=== PATIENT | female | born 1945 | race Caucasian/White ===

== ENCOUNTER → 2016-05-21 | Outpatient (CLI) | payer MEDICARE, BC | LOC: MW.CHFP 08:00 | PROVIDERS: ATTEND Nurse Practitioner Family | DX: I10 Essential (primary) hypertension (principal); F32.9 Major depressive disorder, single episode, unspecified; C34.90 Malignant neoplasm of unspecified part of unspecified bronchus or lung; I50.9 Heart failure, unspecified | CPT/HCPCS: G0463 ==

== ENCOUNTER 2016-05-24 11:05 | Inpatient (IN) | payer MEDICARE, BC ==
[2016-05-24] MEDS ORDERED: Acetaminophen 325 MG Tab PO ONE (11:29)
--- NOTE | 2016-05-24 11:31 | EDM.PDOC ---
ED HISTORY OF PRESENT ILLNESS - General Chief Complaint: Respiratory Problem Stated Complaint: PT STATES SHE THINK SHE HAS PNEUMONIA Time Seen by Provider: 05/24/16 11:27 Source of Information: Reports: Patient History Limitations: Reports: No limitations - History of Present Illness INITIAL COMMENTS - FREE TEXT/NARRATIVE: HISTORY AND PHYSICAL: [71-year-old female presenting with fever last night coughing she thinks she has pneumonia] History of Present Illness: [Patient has been coughing for one week Patient's last chemotherapy was 3 weeks ago 3 weeks ago had a port inserted Recent hospitalization for Klebsiella pneumonia in urine and was on vancomycin] Review of Systems: As per history of present illness and below otherwise all systems reviewed and negative. Past medical history: As per history of present illness and as reviewed below otherwise noncontributory. Surgical history: As per history of present illness and as reviewed below otherwise noncontributory. Social history: No reported history of drug or alcohol abuse. Family history: As per history of present illness and as reviewed below otherwise noncontributory. Physical exam: Alert oriented female. Answering questions appropriately. Complains of pain to the back of left chest with breathing. HEENT: Atraumatic, normocehpalic, pupils reactive, negative for conjunctival pallor or scleral icterus, mucous membranes moist, throat clear, neck supple, nontender, trachea midline. Lungs: Coarse to auscultation, breath sounds equal bilaterally, chest non tender. Diminished on right. Heart: S1S2, regular, negative for clicks, rubs, or JVD. Abdomen: Soft, nondistended, nontender. Negative for masses or hepatossplenmegaly. Negative for costovertebral tenderness. Extremities: Atraumatic, negative for cords or calf pain. Neurovascular unremarkable. Neuro: Awake, alert, oriented. Cranial nerves II through XII unremarkable. Cerebellum unremarkable. Motor and sensory unremarkable throughout. Exam nonfocal. Discussed case with Dr. Garry Olson who accepted patient for admission. Discussed with the patient and her son, need for his mission with her pneumonia and her leukocytosis. Diagnostics: [CBC CMP influenza blood cultures x2] Therapeutics: [Tylenol Rocephin IV] Impression: [Right lower lobe pneumonia Leukocytosis] Plan: [Admission] Definitive disposition and diagnosis as appropriate pending reevaluation and review of above. Timing/Duration: Reports: Day(s): Severity: moderate Location, General: Reports: chest Improves with: Reports: None Worsens with: Reports: Breathing, Movement Associated Symptoms (General): Reports: cough w sputum (brown) - Related Data Allergies/ADRs: Allergies Allergy/AdvReac Type Severity Reaction Status Date / Time cinnamon Allergy Shortness Verified 05/24/16 11:32 of Breath dust Allergy Shortness Uncoded 05/24/16 11:32 of Breath Febreeze Allergy Shortness Uncoded 05/24/16 11:32 of Breath pinecone Allergy Shortness Uncoded 05/24/16 11:32 of Breath Home Meds: Home Meds Metoprolol Tartrate [Lopressor] 50 mg PO BID 02/08/16 [History] Omeprazole 20 mg PO ACBREAKFAST 02/08/16 [History] Ramipril 10 mg PO BID 02/08/16 [History] Gabapentin [Neurontin] 400 mg PO QID 02/23/16 [History] amLODIPine Besylate [Norvasc] 2.5 mg PO DAILY #30 tablet 03/04/16 [Rx] Sodium Chloride 1 gm PO DAILY 03/22/16 [History] Furosemide 20 mg PO DAILY 04/22/16 [History] Potassium Chloride 20 meq PO DAILY 04/22/16 [History] traMADol [Ultram] 50 mg PO ASDIRECTED PRN 04/22/16 [History] Aspirin [Ecotrin] 81 mg PO DAILY 04/23/16 [History] Budesonide/Formoterol [Symbicort 160-4.5 MCG] 2 inh IH BID 04/23/16 [History] Fluticasone Propionate [Flonase] 1 spray NASBOTH DAILY 04/23/16 [History] Loratadine/Pseudoephedrine [Claritin-D 24 Hour Tablet] 1 tab PO DAILY 04/23/16 [ History] Magnesium Oxide 400 mg PO BID 04/23/16 [History] NaPh,Mb-Db/K Ph,MB-DB [Phos-NaK Powder] 1 packet PO DAILY 04/23/16 [History] Ondansetron [Ondansetron ODT] 8 mg PO Q8H PRN 04/23/16 [History] Polyethylene Glycol 3350 [MiraLAX] 17 gm PO DAILY PRN 04/23/16 [History] Sennosides/Docusate Sodium [Senna S Tablet] 2 tab PO BEDTIME 04/23/16 [History] Simvastatin [Zocor] 80 mg PO BEDTIME 04/25/16 [History] Past Medical History HEENT History: Reports: Cataract, Impaired vision Other HEENT History: Cataract surgeries on both eyes Cardiovascular History: Reports: High cholesterol, Hypertension, PVD, Other ( see below) Respiratory History: Reports: COPD, Other (see below) Other Respiratory History: admitted to the hospital 1 week ago for pneumonia, Gastrointestinal History: Reports: GERD Other Gastrointestinal History: liver cancer Genitourinary History: Reports: Renal disease, Other (see below) Other Genitourinary History: Pt states "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: Musculoskeletal History: Reports: Arthritis Neurological History: Reports: Neuropathy, peripheral Psychiatric History: Reports: Anxiety Hematologic History: Reports: Blood transfusion(s) Other Hematologic History: last blood transfusion while in hospital 1 week ago with pneumonia Oncologic (Cancer) History: Reports: Squamous cell carcinoma Other Oncologic History: liver cancer, states does not know the source - Infectious Disease History Infectious Disease History: Reports: Chicken pox, Mumps - Past Surgical History GI Surgical History: Reports: Appendectomy Social & Family History - Family History Family Medical History: Noncontributory HEENT: Reports: Cataract, Impaired vision Cardiac: Reports: CAD, High cholesterol, Hypertension, [place] Respiratory: Reports: COPD OBGYN: Reports: Musculoskeletal: Reports: Arthritis Psychiatric: Reports: Anxiety, Depression Oncologic: Reports: Lung - Tobacco Use Smoking Status *Q: Never Smoker Years of Tobacco use: 55 Packs/Tins Daily: 1 Used Tobacco, but Quit: Yes Month Tobacco Last Used: September 2015 Second Hand Smoke Exposure: No - Caffeine Use Caffeine Use: Reports: Coffee Caffeine Use Comment: 1-2cups/day - Recreational Drug Use Recreational Drug Use: No ED ROS GENERAL - Review of Systems Review Of Systems: ROS reveals no pertinent complaints other than HPI. ED EXAM, GENERAL - Physical Exam Exam: See Below (See dictation) Course - Vital Signs Last Recorded V/S: Last Vital Signs Temp 37.7 C 05/24/16 11:05 Pulse 78 05/24/16 11:05 Resp 16 05/24/16 11:05 BP 107/53 L 05/24/16 11:05 Pulse Ox 96 03/11/17 11:05 - Orders/Labs/Meds Orders: Active Orders 24 hr Category Date Time Status Chest 2V [CR] Stat Exams 05/24/16 11:30 Taken CULTURE BLOOD [BC] Stat Lab 05/24/16 11:58 Ordered CULTURE BLOOD [BC] Stat Lab 05/24/16 11:58 Ordered LACTIC ACID,WHOLE BLOOD [BG] Stat Lab 05/24/16 11:58 Ordered cefTRIAXone [Rocephin in Dextrose,Iso-Osm 1 GM/50 ML] 1 Med 05/24/16 12:21 Active gm Premix Bag 1 bag IV ONETIME Blood Culture x2 Reflex Set [OM.PC] Stat Oth 05/24/16 11:58 Ordered Medication Orders Ceftriaxone Sodium/Dextrose 1 (gm/ Premix) 50 mls @ 100 mls/hr IV ONETIME ONE Stop: 05/24/16 12:50 Labs: Laboratory Tests 05/24/16 05/24/16 05/24/16 Range/Units 11:40 11:40 11:54 WBC 26.32 H (4.0-11.0) K/uL RBC 2.64 L (4.30-5.90) M/uL Hgb 7.9 L (12.0-16.0) g/dL Hct 24.5 L (36.0-46.0) % MCV 92.8 (80.0-98.0) fL MCH 29.9 (27.0-32.0) pg MCHC 32.2 (31.0-37.0) g/dL RDW Std Deviation 53.7 (28.0-62.0) fl RDW Coeff of [place] 16 H (11.0-15.0) % Plt Count 220 (150-400) K/uL MPV 10.10 (7.40-12.00) fL Add Manual Diff YES Neutrophils % (Manual) 85 H (48.0-80.0) % Band Neutrophils % 7 % Lymphocytes % (Manual) 3 L (16.0-40.0) % Monocytes % (Manual) 5 (0.0-15.0) % Nucleated RBC % 0.0 /100WBC Absolute Seg Neuts 22.4 Band Neutrophils # 1.8 Lymphocytes # (Manual) 0.8 Monocytes # (Manual) 1.3 Nucleated RBCs # 0 K/uL Sodium 136 (136-146) mmol/L Potassium 4.1 (3.5-5.1) mmol/L Chloride 103 (98-110) mmol/L Carbon Dioxide 23 (21-31) mmol/L BUN 18 (6.0-23.0) mg/dL Creatinine 1.3 (0.6-1.5) mg/dL Est Cr Clr Drug Dosing 29.34 mL/min Estimated GFR (MDRD) 40.6 ml/min Glucose 104 (60-110) mg/dL Calcium 9.1 (8.8-10.8) mg/dL Total Bilirubin 0.6 (0.1-1.5) mg/dL AST 16 (5-40) IU/L ALT 14 (8-54) IU/L Alkaline Phosphatase 182 H (40-150) Total Protein 6.5 (6.0-8.0) g/dL Albumin 3.5 (3.4-4.8) g/dL Globulin 3.0 (2.0-3.5) g/dL Albumin/Globulin Ratio 1.2 L (1.3-2.8) Urine Color YELLOW Urine Appearance CLEAR Urine pH 5.5 (5.0-8.0) Ur Specific [place] 1.015 (1.001-1.035) Urine Protein NEGATIVE (NEGATIVE) mg/dL Urine Glucose (UA) NEGATIVE (NEGATIVE) mg/dL Urine Ketones NEGATIVE (NEGATIVE) mg/dL Urine Occult Blood NEGATIVE (NEGATIVE) Urine Nitrite NEGATIVE (NEGATIVE) Urine Bilirubin NEGATIVE (NEGATIVE) Urine Urobilinogen 0.2 (<2.0) EU/dL Ur Leukocyte Esterase NEGATIVE (NEGATIVE) Urine RBC 0-1 (0-2/HPF) Urine WBC 1-3 (0-5/HPF) Ur Epithelial Cells OCCASIONAL (NONE-FEW) Urine Bacteria RARE (NEGATIVE) Meds: Medications Generic Name Dose Route Start Last Admin Trade Name Freq PRN Reason Stop Dose Admin Ceftriaxone Sodium/Dextrose 1 50 mls @ 100 mls/hr 05/24/16 12:21 gm/ Premix IV 05/24/16 12:50 ONETIME ONE Discontinued Medications Generic Name Dose Route Start Last Admin Trade Name Freq PRN Reason Stop Dose Admin Acetaminophen 650 mg 05/24/16 11:29 05/24/16 11:32 Tylenol PO 05/24/16 11:30 650 mg NOW ONE Administration Departure - Departure Time of Disposition: 12:35 Disposition: Admitted As Inpatient 68 Condition: good Clinical Impression: Pneumonia Qualifiers: Pneumonia type: due to unspecified organism Laterality: right Lung location: lower lobe of lung Qualified Code(s): J18.1 - Lobar pneumonia, unspecified organism Forms: ED Department Discharge - My Orders Last 24 Hours: My Active Orders 05/24/16 11:30 Chest 2V [CR] Stat 05/24/16 11:58 CULTURE BLOOD [BC] Stat CULTURE BLOOD [BC] Stat LACTIC ACID,WHOLE BLOOD [BG] Stat Blood Culture x2 Reflex Set [OM.PC] Stat 05/24/16 12:21 cefTRIAXone [Rocephin in Dextrose,Iso-Osm 1 GM/50 ML] 1 gm Premix Bag 1 bag IV ONETIME - Assessment/Plan Last 24 Hours: My Active Orders 05/24/16 11:30 Chest 2V [CR] Stat 05/24/16 11:58 CULTURE BLOOD [BC] Stat CULTURE BLOOD [BC] Stat LACTIC ACID,WHOLE BLOOD [BG] Stat Blood Culture x2 Reflex Set [OM.PC] Stat 05/24/16 12:21 cefTRIAXone [Rocephin in Dextrose,Iso-Osm 1 GM/50 ML] 1 gm Premix Bag 1 bag IV ONETIME
[2016-05-24] MEDS ORDERED: cefTRIAXone 1 GM in Premix Bag 1 BAG IV ONE (12:21)
[2016-05-24] MEDS ORDERED: Azithromycin 500 MG in Sodium Chloride 0.9% 250 ML IV ONE (13:13)
[2016-05-24] MEDS ORDERED: Ondansetron 4 MG/2 ML SDV IVPUSH PRN (13:21)
[2016-05-24] MEDS ORDERED: Sodium Chloride 0.9% 1,000 ML IV SCH (13:30)
--- NOTE | 2016-05-24 13:59 | PCM.HP ---
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 She was hospitalized last month for pneumonia and UTI. She has been doing well at home until last night she developed fevers, chills, and myalgias. She reported productive cough, pleuritic chest pain, and shortness of breath. She has a port in place and her last chemotherapy was three weeks ago. Generalized Pain Score (Numeric/FACES): 5 - Related Data Allergies/Adverse Reactions: Allergies Allergy/AdvReac Type Severity Reaction Status Date / Time cinnamon Allergy Shortness Verified 05/24/16 11:32 of Breath dust Allergy Shortness Uncoded 05/24/16 11:32 of Breath Febreeze Allergy Shortness Uncoded 05/24/16 11:32 of Breath pinecone Allergy Shortness Uncoded 05/24/16 11:32 of Breath Home Medications: Home Meds Metoprolol Tartrate [Lopressor] 50 mg PO BID 02/08/16 [History] Omeprazole 20 mg PO ACBREAKFAST 02/08/16 [History] Ramipril 10 mg PO BID 02/08/16 [History] Gabapentin [Neurontin] 400 mg PO QID 02/23/16 [History] amLODIPine Besylate [Norvasc] 2.5 mg PO DAILY #30 tablet 03/04/16 [Rx] Sodium Chloride 1 gm PO DAILY 03/22/16 [History] Furosemide 20 mg PO DAILY 04/22/16 [History] Potassium Chloride 20 meq PO DAILY 04/22/16 [History] traMADol [Ultram] 50 mg PO ASDIRECTED PRN 04/22/16 [History] Aspirin [Ecotrin] 81 mg PO DAILY 04/23/16 [History] Budesonide/Formoterol [Symbicort 160-4.5 MCG] 2 inh IH BID 04/23/16 [History] Fluticasone Propionate [Flonase] 1 spray NASBOTH DAILY 04/23/16 [History] Loratadine/Pseudoephedrine [Claritin-D 24 Hour Tablet] 1 tab PO DAILY 04/23/16 [ History] Magnesium Oxide 400 mg PO BID 04/23/16 [History] NaPh,Mb-Db/K Ph,MB-DB [Phos-NaK Powder] 1 packet PO DAILY 04/23/16 [History] Ondansetron [Ondansetron ODT] 8 mg PO Q8H PRN 04/23/16 [History] Polyethylene Glycol 3350 [MiraLAX] 17 gm PO DAILY PRN 04/23/16 [History] Sennosides/Docusate Sodium [Senna S Tablet] 2 tab PO BEDTIME 04/23/16 [History] Simvastatin [Zocor] 80 mg PO BEDTIME 04/25/16 [History] QUEtiapine Fumarate [Seroquel] 300 mg PO BEDTIME 05/24/16 [History] Past Medical History HEENT History: Reports: Cataract, Impaired vision Other HEENT History: Cataract surgeries on both eyes Cardiovascular History: Reports: High cholesterol, Hypertension, PVD, Other ( see below) Respiratory History: Reports: COPD, Other (see below) Other Respiratory History: admitted to the hospital 1 week ago for pneumonia, Gastrointestinal History: Reports: GERD Other Gastrointestinal History: liver cancer Genitourinary History: Reports: Renal disease, Other (see below) Other Genitourinary History: Pt states "My 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: Musculoskeletal History: Reports: Arthritis Neurological History: Reports: Neuropathy, peripheral Psychiatric History: Reports: Anxiety Hematologic History: Reports: Blood transfusion(s) Other Hematologic History: last blood transfusion while in hospital 1 week ago with pneumonia Oncologic (Cancer) History: Reports: Squamous cell carcinoma Other Oncologic History: liver cancer, states does not know the source - Infectious Disease History Infectious Disease History: Reports: Chicken pox, Mumps - Past Surgical History GI Surgical History: Reports: Appendectomy Social & Family History - Family History Family Medical History: Noncontributory HEENT: Reports: Cataract, Impaired vision Cardiac: Reports: CAD, High cholesterol, Hypertension, [place] Respiratory: Reports: COPD OBGYN: Reports: Musculoskeletal: Reports: Arthritis Psychiatric: Reports: Anxiety, Depression Oncologic: Reports: Lung - Tobacco Use Smoking Status *Q: Never Smoker Years of Tobacco use: 55 Packs/Tins Daily: 1 Used Tobacco, but Quit: Yes Month Tobacco Last Used: September 2015 Second Hand Smoke Exposure: No - Caffeine Use Caffeine Use: Reports: Coffee Caffeine Use Comment: 1-2cups/day - Recreational Drug Use Recreational Drug Use: No H&P Review of Systems - Review of Systems: Review Of Systems: See Below General: Reports: fever, chills, malaise, night sweats HEENT: Reports: no symptoms Pulmonary: Reports: shortness of breath, pleuritic chest pain, cough, sputum Cardiovascular: Reports: no symptoms. Denies: orthopnea, edema Gastrointestinal: Reports: No symptoms Genitourinary: Reports: no symptoms Musculoskeletal: Reports: no symptoms Skin: Reports: no symptoms Psychiatric: Reports: no symptoms Neurological: Reports: no symptoms Hematologic/Lymphatic: Reports: no symptoms Immunologic: Reports: no symptoms Exam - Exam Exam: See Below - Vital Signs Vital Signs: Last Vital Signs Temp 36.6 C 05/24/16 13:13 Pulse 87 05/24/16 13:13 Resp 18 05/24/16 13:13 BP 95/42 L 05/24/16 13:13 Pulse Ox 94 L 05/24/16 13:13 Weight: 61 kg - Exam General: alert, oriented, 4 HEENT: Conjunctiva clear, Mucosa moist & pink Lungs: Clear to auscultation, Normal respiratory effort Cardiovascular: regular rate, regular rhythm Abdomen: normal bowel sounds, soft Extremities: normal inspection. No: edema - Patient Data Lab Results last 24 hrs: Laboratory Results - last 24 hr 05/24/16 05/24/16 05/24/16 Range/Units 11:40 11:40 11:54 WBC 26.32 H (4.0-11.0) K/uL RBC 2.64 L (4.30-5.90) M/uL Hgb 7.9 L (12.0-16.0) g/dL Hct 24.5 L (36.0-46.0) % MCV 92.8 (80.0-98.0) fL MCH 29.9 (27.0-32.0) pg MCHC 32.2 (31.0-37.0) g/dL RDW Std Deviation 53.7 (28.0-62.0) fl RDW Coeff of [place] 16 H (11.0-15.0) % Plt Count 220 (150-400) K/uL MPV 10.10 (7.40-12.00) fL Add Manual Diff YES Neutrophils % (Manual) 85 H (48.0-80.0) % Band Neutrophils % 7 % Lymphocytes % (Manual) 3 L (16.0-40.0) % Monocytes % (Manual) 5 (0.0-15.0) % Nucleated RBC % 0.0 /100WBC Absolute Seg Neuts 22.4 Band Neutrophils # 1.8 Lymphocytes # (Manual) 0.8 Monocytes # (Manual) 1.3 Nucleated RBCs # 0 K/uL Lactate (0.20-2.00) mmol/L Sodium 136 (136-146) mmol/L Potassium 4.1 (3.5-5.1) mmol/L Chloride 103 (98-110) mmol/L Carbon Dioxide 23 (21-31) mmol/L BUN 18 (6.0-23.0) mg/dL Creatinine 1.3 (0.6-1.5) mg/dL Est Cr Clr Drug Dosing 29.34 mL/min Estimated GFR (MDRD) 40.6 ml/min Glucose 104 (60-110) mg/dL Calcium 9.1 (8.8-10.8) mg/dL Total Bilirubin 0.6 (0.1-1.5) mg/dL AST 16 (5-40) IU/L ALT 14 (8-54) IU/L Alkaline Phosphatase 182 H (40-150) Total Protein 6.5 (6.0-8.0) g/dL Albumin 3.5 (3.4-4.8) g/dL Globulin 3.0 (2.0-3.5) g/dL Albumin/Globulin Ratio 1.2 L (1.3-2.8) Urine Color YELLOW Urine Appearance CLEAR Urine pH 5.5 (5.0-8.0) Ur Specific [place] 1.015 (1.001-1.035) Urine Protein NEGATIVE (NEGATIVE) mg/dL Urine Glucose (UA) NEGATIVE (NEGATIVE) mg/dL Urine Ketones NEGATIVE (NEGATIVE) mg/dL Urine Occult Blood NEGATIVE (NEGATIVE) Urine Nitrite NEGATIVE (NEGATIVE) Urine Bilirubin NEGATIVE (NEGATIVE) Urine Urobilinogen 0.2 (<2.0) EU/dL Ur Leukocyte Esterase NEGATIVE (NEGATIVE) Urine RBC 0-1 (0-2/HPF) Urine WBC 1-3 (0-5/HPF) Ur Epithelial Cells OCCASIONAL (NONE-FEW) Urine Bacteria RARE (NEGATIVE) 05/24/16 Range/Units 12:27 WBC (4.0-11.0) K/uL RBC (4.30-5.90) M/uL Hgb (12.0-16.0) g/dL Hct (36.0-46.0) % MCV (80.0-98.0) fL MCH (27.0-32.0) pg MCHC (31.0-37.0) g/dL RDW Std Deviation (28.0-62.0) fl RDW Coeff of [place] (11.0-15.0) % Plt Count (150-400) K/uL MPV (7.40-12.00) fL Add Manual Diff Neutrophils % (Manual) (48.0-80.0) % Band Neutrophils % % Lymphocytes % (Manual) (16.0-40.0) % Monocytes % (Manual) (0.0-15.0) % Nucleated RBC % /100WBC Absolute Seg Neuts Band Neutrophils # Lymphocytes # (Manual) Monocytes # (Manual) Nucleated RBCs # K/uL Lactate 0.7 (0.20-2.00) mmol/L Sodium (136-146) mmol/L Potassium (3.5-5.1) mmol/L Chloride (98-110) mmol/L Carbon Dioxide (21-31) mmol/L BUN (6.0-23.0) mg/dL Creatinine (0.6-1.5) mg/dL Est Cr Clr Drug Dosing mL/min Estimated GFR (MDRD) ml/min Glucose (60-110) mg/dL Calcium (8.8-10.8) mg/dL Total Bilirubin (0.1-1.5) mg/dL AST (5-40) IU/L ALT (8-54) IU/L Alkaline Phosphatase (40-150) Total Protein (6.0-8.0) g/dL Albumin (3.4-4.8) g/dL Globulin (2.0-3.5) g/dL Albumin/Globulin Ratio (1.3-2.8) Urine Color Urine Appearance Urine pH (5.0-8.0) Ur Specific [place] (1.001-1.035) Urine Protein (NEGATIVE) mg/dL Urine Glucose (UA) (NEGATIVE) mg/dL Urine Ketones (NEGATIVE) mg/dL Urine Occult Blood (NEGATIVE) Urine Nitrite (NEGATIVE) Urine Bilirubin (NEGATIVE) Urine Urobilinogen (<2.0) EU/dL Ur Leukocyte Esterase (NEGATIVE) Urine RBC (0-2/HPF) Urine WBC (0-5/HPF) Ur Epithelial Cells (NONE-FEW) Urine Bacteria (NEGATIVE) Result Diagrams: 05/25/16 06:30 05/25/16 06:30 Jeremias Results last 24 hrs: Microbiology 05/24/16 11:35 Influenza Type A Antigen Screen - Final Nasal, Unspecified NEGATIVE INFLUENZA A VIRUS AG Influenza Type B Antigen Screen - Final NEGATIVE INFLUENZA B VIRUS AG 05/24/16 11:35 Respiratory Syncytial Virus Ag Scrn - Final Nasal, Unspecified NEGATIVE RSV ANTIGEN Imaging Impressions last 24 hrs: CXR: right lower lung infiltrate *Q Meaningful Use (ADM) - VTE *Q VTE Criteria *Q: - Stroke *Q Stroke Criteria *Q: - AMI *Q AMI Criteria *Q: Problem List Initiated/Reviewed/Updated: Yes Orders Last 24hrs: Active Orders 24 hr Category Date Time Status Patient Status [ADT] Stat ADT 05/24/16 12:31 Active Antiembolic Devices [RC] PER UNIT ROUTINE Care 05/24/16 13:21 Active Oxygen Therapy [RC] PRN Care 05/24/16 13:18 Active Up ad Kathy [RC] ASDIRECTED Care 05/24/16 13:17 Active VTE/DVT Education [RC] PER UNIT ROUTINE Care 05/24/16 13:18 Active Vital Signs [RC] Q4H Care 05/24/16 13:18 Active Regular Diet [DIET] Diet 05/24/16 Breakfast Active Chest 2V [CR] Stat Exams 05/24/16 11:30 Taken BASIC METABOLIC PANEL,BMP [CHEM] AM Lab 05/25/16 05:11 Ordered BASIC METABOLIC PANEL,BMP [CHEM] AM Lab 05/26/16 05:11 Ordered BASIC METABOLIC PANEL,BMP [CHEM] AM Lab 05/27/16 05:11 Ordered CBC W/O DIFF,HEMOGRAM [HEME] AM Lab 05/25/16 05:11 Ordered CBC W/O DIFF,HEMOGRAM [HEME] AM Lab 05/26/16 05:11 Ordered CBC W/O DIFF,HEMOGRAM [HEME] AM Lab 05/27/16 05:11 Ordered CULTURE BLOOD [BC] Stat Lab 05/24/16 12:13 Received CULTURE BLOOD [BC] Stat Lab 05/24/16 12:27 Received CULTURE BLOOD [BC] Stat Lab 05/24/16 13:48 Received CULTURE SPUTUM + SMEAR [] Routine Lab 05/24/16 13:13 Uncollected Aspirin [Halfprin] Med 05/25/16 09:00 Active 81 mg PO DAILY Azithromycin [Zithromax] Med 05/25/16 13:15 Active 250 mg PO Q24H Azithromycin [Zithromax] 500 mg Med 05/24/16 13:13 Active Sodium Chloride 0.9% [Normal Saline] 250 ml IV ONETIME Enoxaparin [Lovenox] Med 05/25/16 09:00 Active 40 mg SUBCUT DAILY Fluticasone Propionate [Flonase] Med 05/25/16 09:00 Active 16 gm NASBOTH DAILY Gabapentin [Neurontin] Med 05/24/16 18:00 Active 400 mg PO QID Ondansetron [Zofran] Med 05/24/16 13:21 Active 4 mg IVPUSH Q4H PRN Simvastatin [Zocor] Med 05/24/16 21:00 Active 80 mg PO BEDTIME Sodium Chloride 0.9% [Normal Saline] 1,000 ml Med 05/24/16 13:30 Active IV ASDIRECTED amLODIPine [Norvasc] Med 05/25/16 09:00 Active 2.5 mg PO DAILY cefTRIAXone [Rocephin in Dextrose,Iso-Osm 1 GM/50 ML] 1 Med 05/25/16 13:15 Active gm Premix Bag 1 bag IV Q24H Blood Culture x2 Reflex Set [OM.PC] Stat Oth 05/24/16 11:58 Ordered Blood Culture x2 Reflex Set [OM.PC] Stat Oth 05/24/16 13:08 Ordered Sequential Compression Device [OM.PC] Per Unit Routine Oth 05/24/16 13:18 Ordered Resuscitation Status Routine Resus Stat 05/24/16 13:17 Ordered Medication Orders Amlodipine Besylate (Norvasc) 2.5 mg PO DAILY PRIYANK Aspirin (Halfprin) 81 mg PO DAILY PRIYANK Azithromycin (Zithromax) 250 mg PO Q24H PRIYANK Enoxaparin Sodium (Lovenox) 40 mg SUBCUT DAILY PRIYANK Fluticasone Propionate (Flonase) 16 gm NASBOTH DAILY PRIYANK Gabapentin (Neurontin) 400 mg PO QID PRIYANK Azithromycin 500 mg/ Sodium (Chloride) 250 mls @ 250 mls/hr IV ONETIME ONE Stop: 05/24/16 14:12 Ceftriaxone Sodium/Dextrose 1 (gm/ Premix) 50 mls @ 100 mls/hr IV Q24H PRIYANK Sodium Chloride (Normal Saline) 1,000 mls @ 125 mls/hr IV ASDIRECTED [facility] Stop: 05/24/16 19:00 Ondansetron HCl (Zofran) 4 mg IVPUSH Q4H PRN PRN Reason: Nausea Simvastatin (Zocor) 80 mg PO BEDTIME [facility] Assessment/Plan Comment:: 71 yo female admitted for community acquired pneumonia. We will treat with Rocephin and azithromycin, blood and sputum cultures are pending.
[2016-05-24] MEDS: Gabapentin 100 MG Cap PO SCH ×2 (17:41→23:20)
[2016-05-24] MEDS ORDERED: QUEtiapine 100 MG Tab PO ONE (20:00)
[2016-05-24] MEDS: Simvastatin 40 MG Tab PO SCH (20:09)
[2016-05-24] MEDS ORDERED: Metoprolol Tartrate 50 MG Tab PO SCH (21:00)
[2016-05-24] MEDS: QUEtiapine 100 MG Tab PO SCH (21:36)
[2016-05-25] MEDS: Gabapentin 100 MG Cap PO SCH ×3 (06:30→17:28)
[2016-05-25] MEDS: Fluticasone Propionate Nasal Spray 16 GM Bottle NASBOTH SCH (08:29)
[2016-05-25] MEDS: Aspirin 81 MG Tab.EC PO SCH (08:30)
[2016-05-25] MEDS: Acetaminophen 325 MG Tab PO PRN (08:30)
[2016-05-25] MEDS: Enoxaparin 40 MG/0.4 ML Syringe SUBCUT SCH (08:32)
[2016-05-25] MEDS: amLODIPine 2.5 MG Tab PO SCH (08:33)
--- NOTE | 2016-05-25 08:54 | PCM.PN ---
- Review of Systems Systems Review Comment:: reports fatigue and myalgias, minimal improvement in cough and shortness of breath. - Patient Data Vitals - most recent: Last Vital Signs Temp 38.1 C 05/25/16 04:00 Pulse 85 05/25/16 04:00 Resp 20 05/25/16 04:00 BP 117/55 L 05/25/16 04:00 Pulse Ox 92 L 05/25/16 04:00 Weight - most recent: 61 kg I&O - last 24 hours: Intake & Output 05/24/16 05/25/16 05/25/16 21:59 06:59 14:59 Intake Total Output Total Balance Lab Results last 24 hrs: Laboratory Results - last 24 hr 05/25/16 05/25/16 Range/Units 06:30 06:30 WBC 19.50 H (4.0-11.0) K/uL RBC 2.25 L (4.30-5.90) M/uL Hgb 6.7 L (12.0-16.0) g/dL Hct 20.7 L (36.0-46.0) % MCV 92.0 (80.0-98.0) fL MCH 29.8 (27.0-32.0) pg MCHC 32.4 (31.0-37.0) g/dL RDW Std Deviation 54.1 (28.0-62.0) fl RDW Coeff of Sherman 16 H (11.0-15.0) % Plt Count 250 (150-400) K/uL MPV 10.10 (7.40-12.00) fL Nucleated RBC % 0.0 /100WBC Nucleated RBCs # 0 K/uL Sodium 136 (136-146) mmol/L Potassium 4.1 (3.5-5.1) mmol/L Chloride 105 (98-110) mmol/L Carbon Dioxide 22 (21-31) mmol/L BUN 15 (6.0-23.0) mg/dL Creatinine 1.1 (0.6-1.5) mg/dL Est Cr Clr Drug Dosing 34.67 mL/min Estimated GFR (MDRD) 49.2 ml/min Glucose 92 (60-110) mg/dL Calcium 8.8 (8.8-10.8) mg/dL Med Orders - Current: Current Medications Acetaminophen (Tylenol) 650 mg PO Q6H PRN PRN Reason: Pain Last Admin: 05/25/16 08:30 Dose: 650 mg Amlodipine Besylate (Norvasc) 2.5 mg PO DAILY [facility] Last Admin: 05/25/16 08:33 Dose: Not Given Aspirin (Halfprin) 81 mg PO DAILY [facility] Last Admin: 05/25/16 08:30 Dose: 81 mg Azithromycin (Zithromax) 250 mg PO Q24H [facility] Enoxaparin Sodium (Lovenox) 40 mg SUBCUT DAILY [facility] Last Admin: 05/25/16 08:32 Dose: 40 mg Fluticasone Propionate (Flonase) 16 gm NASBOTH DAILY [facility] Last Admin: 05/25/16 08:29 Dose: 1 spr Gabapentin (Neurontin) 400 mg PO QID [facility] Last Admin: 05/25/16 06:30 Dose: 400 mg Ceftriaxone Sodium/Dextrose 1 (gm/ Premix) 50 mls @ 100 mls/hr IV Q24H [facility] Ondansetron HCl (Zofran) 4 mg IVPUSH Q4H PRN PRN Reason: Nausea Budesonide/ (Formoterol 2 Inh) 2 each INH BID [facility] Quetiapine Fumarate (Seroquel) 300 mg PO BEDTIME [facility] Last Admin: 05/24/16 21:36 Dose: 300 mg Simvastatin (Zocor) 80 mg PO BEDTIME [facility] Last Admin: 05/24/16 20:09 Dose: 80 mg Discontinued Medications Acetaminophen (Tylenol) 650 mg PO NOW ONE Stop: 05/24/16 11:30 Last Admin: 05/24/16 11:32 Dose: 650 mg Ceftriaxone Sodium/Dextrose 1 (gm/ Premix) 50 mls @ 100 mls/hr IV ONETIME ONE Stop: 05/24/16 12:50 Last Admin: 05/24/16 12:30 Dose: 100 mls/hr Azithromycin 500 mg/ Sodium (Chloride) 250 mls @ 250 mls/hr IV ONETIME ONE Stop: 05/24/16 14:12 Last Admin: 05/24/16 13:57 Dose: 250 mls/hr Sodium Chloride (Normal Saline) 1,000 mls @ 125 mls/hr IV ASDIRECTED [facility] Stop: 05/24/16 19:00 Last Infusion: 05/24/16 22:50 Dose: Infused Metoprolol Tartrate (Lopressor) 50 mg PO BID [facility] Ramipril (Altace) 10 mg PO BID PRI[facility] - Exam General: alert, oriented Lungs: Clear to auscultation, Normal respiratory effort Cardiovascular: regular rate, regular rhythm Abdomen: bowel sounds present, soft, no tenderness, no distension Extremities: no edema Skin: warm, dry, intact Neurological: no new focal deficit - Problem List Review Problem List Initiated/Reviewed/Updated: Yes - My Orders Last 24 Hours: My Active Orders 05/24/16 13:08 Blood Culture x2 Reflex Set [OM.PC] Stat 05/24/16 13:17 Up ad Kathy [RC] ASDIRECTED Resuscitation Status Routine 05/24/16 13:18 Oxygen Therapy [RC] PRN VTE/DVT Education [RC] PER UNIT ROUTINE Vital Signs [RC] Q4H Sequential Compression Device [OM.PC] Per Unit Routine 05/24/16 13:21 Antiembolic Devices [RC] PER UNIT ROUTINE Ondansetron [Zofran] 4 mg IVPUSH Q4H PRN 05/24/16 13:48 CULTURE BLOOD [BC] Stat 05/24/16 18:00 Gabapentin [Neurontin] 400 mg PO QID 05/24/16 21:00 Patient's Own Medication [Ptom] 2 each INH BID QUEtiapine [SEROquel] 300 mg PO BEDTIME Simvastatin [Zocor] 80 mg PO BEDTIME 05/25/16 07:51 Acetaminophen [Tylenol] 650 mg PO Q6H PRN 05/25/16 08:50 CULTURE SPUTUM + SMEAR [RM] Routine RED BLOOD CELLS LP [BBK] Routine TYPE AND SCREEN [BBK] Routine Transfuse Red Blood Cells [COMM] Routine 05/25/16 09:00 Aspirin [Halfprin] 81 mg PO DAILY Enoxaparin [Lovenox] 40 mg SUBCUT DAILY Fluticasone Propionate [Flonase] 16 gm NASBOTH DAILY amLODIPine [Norvasc] 2.5 mg PO DAILY 05/25/16 13:15 Azithromycin [Zithromax] 250 mg PO Q24H cefTRIAXone [Rocephin in Dextrose,Iso-Osm 1 GM/50 ML] 1 gm Premix Bag 1 bag IV Q24H 05/26/16 05:11 BASIC METABOLIC PANEL,BMP [CHEM] AM CBC W/O DIFF,HEMOGRAM [HEME] AM 05/27/16 05:11 BASIC METABOLIC PANEL,BMP [CHEM] AM CBC W/O DIFF,HEMOGRAM [HEME] AM - Plan Plan:: 71 yo female admitted for community acquired pneumonia. Pneumonia: leukocytosis improving, We will continue Rocephin and azithromycin, blood and sputum cultures are pending. Anemia: likely related to chronic disease and chemotherapy, will transfuse 2 units of pRBC.
[2016-05-25] MEDS: FORMOTEROL INH SCH ×3 (11:08→20:27)
[2016-05-25] MEDS: MOMETASONE INH SCH ×3 (11:08→20:27)
[2016-05-25] MEDS: DULERA INH SCH ×3 (11:08→20:27)
[2016-05-25] MEDS: cefTRIAXone 1 GM in Premix Bag 1 BAG IV SCH (12:15)
[2016-05-25] MEDS: Azithromycin 250 MG Tab PO SCH (12:15)
[2016-05-25] MEDS: Sodium Chloride 0.9% 1,000 ML IV SCH (16:19)
[2016-05-25] MEDS ORDERED: QUEtiapine 100 MG Tab PO ONE (20:00)
[2016-05-25] MEDS: QUEtiapine 100 MG Tab PO SCH (20:37)
[2016-05-25] MEDS: Simvastatin 40 MG Tab PO SCH (20:37)
[2016-05-26] MEDS: Gabapentin 100 MG Cap PO SCH ×5 (00:30→23:48)
[2016-05-26] MEDS: Acetaminophen 325 MG Tab PO PRN (00:30)
[2016-05-26] MEDS: FORMOTEROL INH SCH ×2 (08:05→20:09)
[2016-05-26] MEDS: DULERA INH SCH ×2 (08:05→20:09)
[2016-05-26] MEDS: MOMETASONE INH SCH ×2 (08:05→20:09)
[2016-05-26] MEDS: amLODIPine 2.5 MG Tab PO SCH (08:48)
[2016-05-26] MEDS: Aspirin 81 MG Tab.EC PO SCH (08:48)
[2016-05-26] MEDS: Enoxaparin 40 MG/0.4 ML Syringe SUBCUT SCH (08:49)
[2016-05-26] MEDS: Fluticasone Propionate Nasal Spray 16 GM Bottle NASBOTH SCH (08:50)
[2016-05-26] MEDS: Metoprolol Tartrate 50 MG Tab PO SCH ×2 (09:42→20:37)
--- NOTE | 2016-05-26 10:39 | PCM.PN ---
- Review of Systems Systems Review Comment:: feeling better, cough improving - Patient Data Vitals - most recent: Last Vital Signs Temp 36.9 C 05/26/16 08:00 Pulse 98 05/26/16 09:42 Resp 20 05/26/16 08:00 BP 155/65 H 05/26/16 09:42 Pulse Ox 96 05/26/16 08:00 Weight - most recent: 61 kg I&O - last 24 hours: Intake & Output 05/25/16 05/26/16 05/26/16 22:59 06:59 14:59 Intake Total 1049 1200 Output Total 900 1600 Balance 149 -400 Lab Results last 24 hrs: Laboratory Results - last 24 hr 05/25/16 05/26/16 05/26/16 Range/Units 09:15 06:36 06:36 WBC 13.00 H (4.0-11.0) K/uL RBC 3.28 L (4.30-5.90) M/uL Hgb 9.7 L (12.0-16.0) g/dL Hct 29.6 L (36.0-46.0) % MCV 90.2 (80.0-98.0) fL MCH 29.6 (27.0-32.0) pg MCHC 32.8 (31.0-37.0) g/dL RDW Std Deviation 52.4 (28.0-62.0) fl RDW Coeff of Sherman 16 H (11.0-15.0) % Plt Count 291 (150-400) K/uL MPV 10.00 (7.40-12.00) fL Nucleated RBC % 0.0 /100WBC Nucleated RBCs # 0 K/uL Sodium 141 (136-146) mmol/L Potassium 4.0 (3.5-5.1) mmol/L Chloride 109 (98-110) mmol/L Carbon Dioxide 23 (21-31) mmol/L BUN 12 (6.0-23.0) mg/dL Creatinine 1.0 (0.6-1.5) mg/dL Est Cr Clr Drug Dosing 38.14 mL/min Estimated GFR (MDRD) 55.0 ml/min Glucose 100 (60-110) mg/dL Calcium 9.5 (8.8-10.8) mg/dL Blood Type A POSITIVE Antibody Screen NEGATIVE Crossmatch See Detail Jeremias Results last 24 hrs: Microbiology 05/25/16 08:50 Gram Stain - Preliminary Sputum - Expectorated 05/24/16 13:48 Aerobic Blood Culture - Preliminary Blood - Port-A-Cath NO GROWTH AFTER 1 DAY Anaerobic Blood Culture - Preliminary NO GROWTH AFTER 1 DAY Med Orders - Current: Current Medications Acetaminophen (Tylenol) 650 mg PO Q6H PRN PRN Reason: Pain Last Admin: 05/26/16 00:30 Dose: 650 mg Amlodipine Besylate (Norvasc) 2.5 mg PO DAILY [facility] Last Admin: 05/26/16 08:48 Dose: 2.5 mg Aspirin (Halfprin) 81 mg PO DAILY [facility] Last Admin: 05/26/16 08:48 Dose: 81 mg Azithromycin (Zithromax) 250 mg PO Q24H [facility] Last Admin: 05/25/16 12:15 Dose: 250 mg Enoxaparin Sodium (Lovenox) 40 mg SUBCUT DAILY [facility] Last Admin: 05/26/16 08:49 Dose: 40 mg Fluticasone Propionate (Flonase) 16 gm NASBOTH DAILY [facility] Last Admin: 05/26/16 08:50 Dose: 1 spr Gabapentin (Neurontin) 400 mg PO QID [facility] Last Admin: 05/26/16 06:20 Dose: 400 mg Ceftriaxone Sodium/Dextrose 1 (gm/ Premix) 50 mls @ 100 mls/hr IV Q24H [facility] Last Admin: 05/25/16 12:15 Dose: 100 mls/hr Sodium Chloride (Normal Saline) 1,000 mls @ 10 mls/hr IV ASDIRECTED [facility] Last Admin: 05/25/16 16:19 Dose: 10 mls/hr Metoprolol Tartrate (Lopressor) 50 mg PO BID [facility] Last Admin: 05/26/16 09:42 Dose: 50 mg Ondansetron HCl (Zofran) 4 mg IVPUSH Q4H PRN PRN Reason: Nausea Budesonide/ (Formoterol 2 Inh) 2 each INH BID [facility] Last Admin: 05/26/16 08:05 Dose: 2 each Quetiapine Fumarate (Seroquel) 300 mg PO BEDTIME [facility] Last Admin: 05/25/16 20:37 Dose: 300 mg Simvastatin (Zocor) 80 mg PO BEDTIME [facility] Last Admin: 05/25/16 20:37 Dose: 80 mg Discontinued Medications Acetaminophen (Tylenol) 650 mg PO NOW ONE Stop: 05/24/16 11:30 Last Admin: 05/24/16 11:32 Dose: 650 mg Ceftriaxone Sodium/Dextrose 1 (gm/ Premix) 50 mls @ 100 mls/hr IV ONETIME ONE Stop: 05/24/16 12:50 Last Admin: 05/24/16 12:30 Dose: 100 mls/hr Azithromycin 500 mg/ Sodium (Chloride) 250 mls @ 250 mls/hr IV ONETIME ONE Stop: 05/24/16 14:12 Last Admin: 05/24/16 13:57 Dose: 250 mls/hr Sodium Chloride (Normal Saline) 1,000 mls @ 125 mls/hr IV ASDIRECTED [facility] Stop: 05/24/16 19:00 Last Infusion: 05/24/16 22:50 Dose: Infused Metoprolol Tartrate (Lopressor) 50 mg PO BID [facility] Ramipril (Altace) 10 mg PO BID [facility] - Exam General: alert, oriented Lungs: Clear to auscultation, Normal respiratory effort Cardiovascular: regular rate, regular rhythm Extremities: no edema Skin: warm, dry, intact Neurological: no new focal deficit - Problem List Review Problem List Initiated/Reviewed/Updated: Yes - My Orders Last 24 Hours: My Active Orders 05/25/16 11:30 Sodium Chloride 0.9% [Normal Saline] 1,000 ml IV ASDIRECTED 05/25/16 13:15 Azithromycin [Zithromax] 250 mg PO Q24H cefTRIAXone [Rocephin in Dextrose,Iso-Osm 1 GM/50 ML] 1 gm Premix Bag 1 bag IV Q24H 05/26/16 09:00 Metoprolol Tartrate [Lopressor] 50 mg PO BID 05/27/16 05:11 BASIC METABOLIC PANEL,BMP [CHEM] AM CBC W/O DIFF,HEMOGRAM [HEME] AM - Plan Plan:: 71 yo female admitted for community acquired pneumonia. Pneumonia: Leuckocytosis continues to improve. We will continue Rocephin and azithromycin Anemia: Hgb 9.7 s/p transfusion of 2 units of pRBC.
[2016-05-26] MEDS: cefTRIAXone 1 GM in Premix Bag 1 BAG IV SCH (12:34)
[2016-05-26] MEDS: Azithromycin 250 MG Tab PO SCH (12:34)
[2016-05-26] MEDS: traMADol 50 MG Tab PO PRN ×2 (13:35→20:36)
[2016-05-26] MEDS ORDERED: QUEtiapine 100 MG Tab PO ONE (20:00)
--- NOTE | 2016-05-26 20:31 | CR ---
EXAM DATE: 05/24/16 PATIENT'S AGE: 71 Patient: JUICE ALMONTE Facility: [place], [place] Site . Site : [id number] Study: XRay Chest [id number]/11/2017 11:50:12 AM Ordering Physician: Doctor Saini Final Report: INDICATION: Pain and shortness of breath. TECHNIQUE: Chest 2 views. COMPARISON: 05/08/2016. FINDINGS: Cardiovascular and mediastinum: Heart size and vasculature are normal in caliber and appearance. Mediastinum is within normal limits. Port catheter is unchanged. Lungs and pleural spaces: Airspace infiltrate is present in the right lower lobe. Remainder of the lungs and pleural spaces are clear. Bones and soft tissues: No significant findings. IMPRESSION: Right lower lobe pneumonia. Dictated by Johnny Rivera MD @ 05/24/2016 12:03:40 PM Dictated by: Johnny Rivera MD @ 05/24/2016 12:03:45 (Electronic Signature) Report Signed by Proxy and Original Signed Document filed in the Medical Record. [facility]
[2016-05-26] MEDS: QUEtiapine 100 MG Tab PO SCH (20:37)
[2016-05-26] MEDS: Simvastatin 40 MG Tab PO SCH (20:37)
[2016-05-26] MEDS: Sodium Chloride 0.9% 1,000 ML IV SCH (20:41)
[2016-05-27] MEDS: Gabapentin 100 MG Cap PO SCH ×2 (05:55→12:43)
[2016-05-27] MEDS: Aspirin 81 MG Tab.EC PO SCH (08:33)
[2016-05-27] MEDS: Fluticasone Propionate Nasal Spray 16 GM Bottle NASBOTH SCH (08:34)
[2016-05-27] MEDS: traMADol 50 MG Tab PO PRN (08:34)
[2016-05-27] MEDS: amLODIPine 2.5 MG Tab PO SCH (08:36)
[2016-05-27] MEDS: Metoprolol Tartrate 50 MG Tab PO SCH (08:36)
[2016-05-27] MEDS: Enoxaparin 40 MG/0.4 ML Syringe SUBCUT SCH (08:37)
[2016-05-27] MEDS: MOMETASONE INH SCH (09:01)
[2016-05-27] MEDS: FORMOTEROL INH SCH (09:01)
[2016-05-27] MEDS: DULERA INH SCH (09:01)
--- NOTE | 2016-05-27 11:36 | PCM.DCSUM1 ---
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 She was admitted for pneumonia. She presented with cough fevers, chills, and myalgias. WBC was 26,320 and Hgb of 6.7. Chest x-ray reported right lower lobe pneumonia. She was treated with Rocephin and azithromycin. She was transfused two units of pRBC. After three days of IV antibitoics she did have improvement in her cough and resolution of her fevers. Her WBC had normalized and her Hgb was 9.4 at discharge. She was discharged on azithromycin 250mg daily for seven more days. She is to follow up with Dr. Evangelista on June 03. - Patient Instructions Diet: Regular Diet as Tolerated - Discharge Plan Prescriptions/Med Rec: Azithromycin [Zithromax] 250 mg PO Q24H #7 tablet Home Medications: Home Meds Metoprolol Tartrate [Lopressor] 50 mg PO BID 02/08/16 [History] Omeprazole 20 mg PO ACBREAKFAST 02/08/16 [History] Ramipril 10 mg PO BID 02/08/16 [History] Gabapentin [Neurontin] 400 mg PO QID 02/23/16 [History] amLODIPine Besylate [Norvasc] 2.5 mg PO DAILY #30 tablet 03/04/16 [Rx] Sodium Chloride 1 gm PO DAILY 03/22/16 [History] Furosemide 20 mg PO DAILY 04/22/16 [History] Potassium Chloride 20 meq PO DAILY 04/22/16 [History] traMADol [Ultram] 50 mg PO Q4H PRN 04/22/16 [History] Aspirin [Ecotrin] 81 mg PO DAILY 04/23/16 [History] Fluticasone Propionate [Flonase] 1 spray NASBOTH DAILY 04/23/16 [History] Magnesium Oxide 400 mg PO BID 04/23/16 [History] NaPh,Mb-Db/K Ph,MB-DB [Phos-NaK Powder] 1 packet PO DAILY 04/23/16 [History] Ondansetron [Ondansetron ODT] 8 mg PO Q8H PRN 04/23/16 [History] Polyethylene Glycol 3350 [MiraLAX] 17 gm PO DAILY PRN 04/23/16 [History] Sennosides/Docusate Sodium [Senna S Tablet] 2 tab PO BEDTIME PRN 04/23/16 [ History] Simvastatin [Zocor] 80 mg PO BEDTIME 04/25/16 [History] QUEtiapine Fumarate [Seroquel] 300 mg PO BEDTIME 05/24/16 [History] Loratadine [Claritin] 10 mg PO DAILY 05/26/16 [History] Mometasone/Formoterol [Dulera 200-5 MCG] 2 inh IH BID 05/26/16 [History] Azithromycin [Zithromax] 250 mg PO Q24H #7 tablet 05/27/16 [Rx] Patient Handouts: Community-Acquired Pneumonia, Adult, [id number] Referrals: Pineda Evangelista MD [Primary Care Provider] - 06/03/16 9:30 am - Patient Data Vitals - Most Recent: Last Vital Signs Temp 36.8 C 05/27/16 08:00 Pulse 78 05/27/16 08:36 Resp 20 05/27/16 08:00 BP 131/62 05/27/16 08:36 Pulse Ox 94 L 05/27/16 08:00 Weight - Most Recent: 61 kg I&O - Last 24 hours: Intake & Output 05/26/16 05/27/16 05/27/16 22:59 06:59 14:59 Intake Total 2886 750 Output Total 2300 1000 Balance 586 -250 Lab Results - Last 24 hrs: Laboratory Results - last 24 hr 05/27/16 05/27/16 Range/Units 05:20 05:20 WBC 8.23 (4.0-11.0) K/uL RBC 3.17 L (4.30-5.90) M/uL Hgb 9.4 L (12.0-16.0) g/dL Hct 28.6 L (36.0-46.0) % MCV 90.2 (80.0-98.0) fL MCH 29.7 (27.0-32.0) pg MCHC 32.9 (31.0-37.0) g/dL RDW Std Deviation 52.6 (28.0-62.0) fl RDW Coeff of Sherman 16 H (11.0-15.0) % Plt Count 331 (150-400) K/uL MPV 9.60 (7.40-12.00) fL Nucleated RBC % 0.0 /100WBC Nucleated RBCs # 0 K/uL Sodium 139 (136-146) mmol/L Potassium 4.7 (3.5-5.1) mmol/L Chloride 106 (98-110) mmol/L Carbon Dioxide 25 (21-31) mmol/L BUN 11 (6.0-23.0) mg/dL Creatinine 1.0 (0.6-1.5) mg/dL Est Cr Clr Drug Dosing 38.14 mL/min Estimated GFR (MDRD) 55.0 ml/min Glucose 80 (60-110) mg/dL Calcium 9.1 (8.8-10.8) mg/dL LOIDA Results - Last 24 hrs: Microbiology 05/25/16 08:50 Gram Stain - Final Sputum - Expectorated Sputum Culture - Final Normal Respiratory Kimberly 05/24/16 13:48 Aerobic Blood Culture - Preliminary Blood - Port-A-Cath NO GROWTH AFTER 2 DAYS Anaerobic Blood Culture - Preliminary NO GROWTH AFTER 2 DAYS Med Orders - Current: Current Medications Acetaminophen (Tylenol) 650 mg PO Q6H PRN PRN Reason: Pain Last Admin: 05/26/16 00:30 Dose: 650 mg Amlodipine Besylate (Norvasc) 2.5 mg PO DAILY [facility] Last Admin: 05/27/16 08:36 Dose: 2.5 mg Aspirin (Halfprin) 81 mg PO DAILY [facility] Last Admin: 05/27/16 08:33 Dose: 81 mg Azithromycin (Zithromax) 250 mg PO Q24H [facility] Last Admin: 05/26/16 12:34 Dose: 250 mg Enoxaparin Sodium (Lovenox) 40 mg SUBCUT DAILY [facility] Last Admin: 05/27/16 08:37 Dose: 40 mg Fluticasone Propionate (Flonase) 16 gm NASBOTH DAILY [facility] Last Admin: 05/27/16 08:34 Dose: 1 spr Gabapentin (Neurontin) 400 mg PO QID [facility] Last Admin: 05/27/16 05:55 Dose: 400 mg Ceftriaxone Sodium/Dextrose 1 (gm/ Premix) 50 mls @ 100 mls/hr IV Q24H [facility] Last Admin: 05/26/16 12:34 Dose: 100 mls/hr Sodium Chloride (Normal Saline) 1,000 mls @ 10 mls/hr IV ASDIRECTED [facility] Last Admin: 05/26/16 20:41 Dose: 10 mls/hr Metoprolol Tartrate (Lopressor) 50 mg PO BID [facility] Last Admin: 05/27/16 08:36 Dose: 50 mg Ondansetron HCl (Zofran) 4 mg IVPUSH Q4H PRN PRN Reason: Nausea Dulera 200mcg/5mcg Mometasone/Formoterol 2 each INH BID [facility] Last Admin: 05/27/16 09:01 Dose: 2 each Quetiapine Fumarate (Seroquel) 300 mg PO BEDTIME [facility] Last Admin: 05/26/16 20:37 Dose: 300 mg Simvastatin (Zocor) 80 mg PO BEDTIME [facility] Last Admin: 05/26/16 20:37 Dose: 80 mg Tramadol HCl (Ultram) 50 mg PO Q4H PRN PRN Reason: Pain Last Admin: 05/27/16 08:34 Dose: 50 mg Discontinued Medications Acetaminophen (Tylenol) 650 mg PO NOW ONE Stop: 05/24/16 11:30 Last Admin: 05/24/16 11:32 Dose: 650 mg Ceftriaxone Sodium/Dextrose 1 (gm/ Premix) 50 mls @ 100 mls/hr IV ONETIME ONE Stop: 05/24/16 12:50 Last Admin: 05/24/16 12:30 Dose: 100 mls/hr Azithromycin 500 mg/ Sodium (Chloride) 250 mls @ 250 mls/hr IV ONETIME ONE Stop: 05/24/16 14:12 Last Admin: 05/24/16 13:57 Dose: 250 mls/hr Sodium Chloride (Normal Saline) 1,000 mls @ 125 mls/hr IV ASDIRECTED [facility] Stop: 05/24/16 19:00 Last Infusion: 05/24/16 22:50 Dose: Infused Metoprolol Tartrate (Lopressor) 50 mg PO BID [facility] Quetiapine Fumarate (Seroquel) 300 mg PO .STK-MED ONE Stop: 05/24/16 20:01 Quetiapine Fumarate (Seroquel) 300 mg PO .STK-MED ONE Stop: 05/25/16 20:01 Quetiapine Fumarate (Seroquel) 300 [facility] Stop: 05/26/16 20:01 Ramipril (Altace) 10 mg PO BID [facility] *Q Meaningful Use (DIS) - VTE *Q VTE Criteria *Q: - Stroke *Q Stroke Criteria *Q: - AMI *Q AMI Criteria *Q:
[2016-05-27 11:37] VITALS: BP 129/65
[2016-05-27] MEDS: Azithromycin 250 MG Tab PO SCH (12:43)
== END 2016-05-27 13:30 | disposition home or self-care (01) | DRG 194 ==
LOC: MW.ED 11:05 → MW.MS 12:31
PROVIDERS: ADMIT Internal Medicine; ATTEND Internal Medicine
PROC: 30253N1 (ICD-10-PCS; principal; 2016-05-25)
DX: J18.1 Lobar pneumonia, unspecified organism (principal); J18.9 Pneumonia, unspecified organism; C78.7 Secondary malignant neoplasm of liver and intrahepatic bile duct; I25.10 Atherosclerotic heart disease of native coronary artery without angina pectoris; I11.0 Hypertensive heart disease with heart failure; I50.9 Heart failure, unspecified; C80.1 Malignant (primary) neoplasm, unspecified; F31.9 Bipolar disorder, unspecified; E78.5 Hyperlipidemia, unspecified; J44.9 Chronic obstructive pulmonary disease, unspecified; K21.9 Gastro-esophageal reflux disease without esophagitis; G62.9 Polyneuropathy, unspecified; M19.90 Unspecified osteoarthritis, unspecified site; D63.8 Anemia in other chronic diseases classified elsewhere; Z95.828 Presence of other vascular implants and grafts
CPT/HCPCS: 36415; 71020; 80053; 81001; 83605; 85025; 87040 ×2; 87804 ×2; 87807; 99284; A9270; J0696; 36430; 80048; 85027; 86850; 86900; 86901; 86920; 86921; 86922; 87070; 87205; 94640; 96365; 99285; J0456; J1642; J1650; J7040; J7050; P9016

== ENCOUNTER → 2016-06-03 | Outpatient (CLI) | payer MEDICARE, BC | LOC: MW.CHFP 12:18 | PROVIDERS: ATTEND Student in an Organized Health Care Education/Training Program | DX: D64.9 Anemia, unspecified (principal); J18.9 Pneumonia, unspecified organism; Z09 Encounter for follow-up examination after completed treatment for conditions other than malignant neoplasm; G89.3 Neoplasm related pain (acute) (chronic) | CPT/HCPCS: 99214 ==

== ENCOUNTER → 2016-06-10 | Outpatient (CLI) | payer MEDICARE, BC | LOC: MW.CHFP 08:00 | PROVIDERS: ATTEND Student in an Organized Health Care Education/Training Program | DX: J18.9 Pneumonia, unspecified organism (principal) | CPT/HCPCS: G0463 ==

== ENCOUNTER 2017-02-16 19:17 | Inpatient (IN) | payer MEDICARE, BC ==
[2017-02-16] MEDS ORDERED: Albuterol/Ipratropium 3.0-0.5 MG/3 ML Neb Soln NEB ONE ×2 (19:34→19:49)
[2017-02-16] MEDS ORDERED: Sodium Chloride 0.9% 2.5 ML Syringe FLUSH PRN (19:35)
[2017-02-16] MEDS ORDERED: Sodium Chloride 0.9% 10 ML Syringe FLUSH PRN (19:35)
[2017-02-16] MEDS ORDERED: Albuterol/Ipratropium 3.0-0.5 MG/3 ML Neb Soln ONE (19:37)
--- NOTE | 2017-02-16 19:41 | EDM.PDOC ---
ED HPI GENERAL MEDICAL PROBLEM - General Chief Complaint: Respiratory Problem Stated Complaint: SHORTNESS OF BREATH/WHEZING Time Seen by Provider: 02/16/17 19:22 - History of Present Illness INITIAL COMMENTS - FREE TEXT/NARRATIVE: HISTORY AND PHYSICAL: History of present illness: The patient is a 71-year-old female with a history of COPD CHF bipolar disease prefer vascular disease hypercholesterolemia small cell carcinoma stage IV of the long any new breast lump that she is having biopsy tomorrow and presents with complaints of shortness of breath that started last week. According to the patient and family and the computer she was seen last week on February [address] Evangelista and diagnosed with pneumonia and placed on an antibiotic she takes once a day. She is not sure what antibiotic that is. For her COPD she only uses inhalers and does not have a nebulizer machine at home. According to the patient 's family she has a biopsy scheduled tomorrow for a lump in her right breast but presents tonight because she has been feeling short of breath since last week and seems to be worse. Family and patient also noted that her feet and ankles seem more swollen than usual and she does have a history of CHF. As for the stage IV lung cancer she completed radiation therapy in August and had chemotherapy for 4 months that she completed in July. She has a port on the left chest wall and supposedly went into a period of remission. The [id number] at bedside is unsure where they are out with that cancer and what the next step will be. She supposedly had a CAT scan done several weeks ago but they are not sure of the last PET scan. Patient also complains to me aside from the shortness of breath that she has a slight cough occasionally productive of phlegm but she has not had fevers and has some nausea. She has Zofran on her med list but she has not taken that. She has no abdominal pain but says she is having issues that she's not making much urine and she is not sure she is dehydrated or she might have issues with passing her urine. She has no back pain and no specific dysuria frequency flank pain or hematuria. Review of systems: As per history of present illness and below otherwise all systems reviewed and negative. Past medical history: As per history of present illness and as reviewed below otherwise noncontributory. Surgical history: As per history of present illness and as reviewed below otherwise noncontributory. Social history: No reported history of drug or alcohol abuse. Family history: As per history of present illness and as reviewed below otherwise noncontributory. Physical exam: Gen.: Well-developed well-nourished female speaking clearly and easily in the ED and vitals have been reviewed by me. HEENT: Atraumatic, normocephalic, pupils reactive, negative for conjunctival pallor or scleral icterus, mucous membranes moist, throat clear, neck supple, nontender, trachea midline. Lungs: Diminished breath sounds throughout especially at the bases one third of the way up bilaterally, there is expiratory wheezing and coarse breath sounds but no worker breathing, there is a port identified in the left upper chest wall ,, breath sounds equal bilaterally, chest nontender. Heart: S1S2, regular, negative for clicks, rubs, or JVD. Abdomen: Soft, nondistended, nontender. There is a large midline abdominal incision which is well-healed and there is no tympany on percussion. Bowel sounds are hypoactive and there is no discrete tenderness over the bladder. Negative for masses or hepatosplenomegaly. Negative for costovertebral tenderness. Pelvis: Stable nontender. Genitourinary: Deferred. Rectal: Deferred. Extremities: Atraumatic, negative for cords or calf pain. Neurovascular unremarkable. The patient has bilateral trace to 1+ pedal edema which mostly involves the ankles dorsal aspect of the feet and the ankle area but does not extend up to the calves. Neuro: Awake, alert, oriented. Cranial nerves II through XII unremarkable. Cerebellum unremarkable. Motor and sensory unremarkable throughout. Exam nonfocal. Diagnostics: EKG CBC CMP INR troponin BNP lactic acid UA urine culture blood cultures chest x -ray bladder scan magnesium level Please note that lactic acid is not being run as we are having technical difficulties with the machine Therapeutics: IV O2 monitor duo neb IV fluids Please note that in researching on the computer the patient did have a chest CT with contrast performed on January 28 which I reviewed. It indicated decreasing left suprahilar nodule but increasing mediastinal and left hilar lymphadenopathy and there was a new 2.4 x 1.9 cm left breast mass at the 12 to 1 o'clock position. She had COPD changes and gallstones without evidence of cholecystitis I will relay this information to the patient and family. Please note that after a DuoNeb patient now is more audibly wheezing and I will give her dose of Solu-Medrol and a second DuoNeb Bladder scan revealed 28 mL of urine . We will give a small bolus Please note that in researching the patient's labs she had a sodium done on January 28 which was 125. Patient has not produced any urine so I will give small fluid bolus and her bladder scan has only 28 mL. We'll plan on admission for hyponatremia and dyspnea/COPD exacerbation. Please also note that the patient did not produce a urine. Case were discussed with Dr. Moon our hospitalist at 21:25 PM and he accepted the patient he would like a magnesium ordered. He is aware that I gave her a small fluid challenge Impression: Dyspnea, COPD exacerbation, recurrent hyponatremia Definitive disposition and diagnosis as appropriate pending reevaluation and review of above. - Related Data Allergies Allergy/AdvReac Type Severity Reaction Status Date / Time cinnamon Allergy Shortness Verified 02/16/17 19:27 of Breath dust Allergy Shortness Uncoded 02/16/17 19:27 of Breath Febreeze Allergy Shortness Uncoded 02/16/17 19:27 of Breath pinecone Allergy Shortness Uncoded 02/16/17 19:27 of Breath Home Meds: Home Meds Metoprolol Tartrate [Lopressor] 50 mg PO BID 02/08/16 [History] Omeprazole 20 mg PO ACBREAKFAST 02/08/16 [History] Ramipril 10 mg PO BID 02/08/16 [History] Gabapentin [Neurontin] 400 mg PO QID 02/23/16 [History] amLODIPine Besylate [Norvasc] 2.5 mg PO DAILY #30 tablet 03/04/16 [Rx] Sodium Chloride 1 gm PO DAILY 03/22/16 [History] Furosemide 20 mg PO DAILY 04/22/16 [History] Potassium Chloride 20 meq PO DAILY 04/22/16 [History] traMADol [Ultram] 50 mg PO Q4H PRN 04/22/16 [History] Aspirin [Ecotrin] 81 mg PO DAILY 04/23/16 [History] Fluticasone Propionate [Flonase] 1 spray NASBOTH DAILY 04/23/16 [History] Magnesium Oxide 400 mg PO BID 04/23/16 [History] NaPh,Mb-Db/K Ph,MB-DB [Phos-NaK Powder] 1 packet PO DAILY 04/23/16 [History] Ondansetron [Ondansetron ODT] 8 mg PO Q8H PRN 04/23/16 [History] Polyethylene Glycol 3350 [MiraLAX] 17 gm PO DAILY PRN 04/23/16 [History] Sennosides/Docusate Sodium [Senna S Tablet] 2 tab PO BEDTIME PRN 04/23/16 [ History] Simvastatin [Zocor] 80 mg PO BEDTIME 04/25/16 [History] QUEtiapine Fumarate [Seroquel] 300 mg PO BEDTIME 05/24/16 [History] Loratadine [Claritin] 10 mg PO DAILY 05/26/16 [History] Mometasone/Formoterol [Dulera 200-5 MCG] 2 inh IH BID 05/26/16 [History] Azithromycin [Zithromax] 250 mg PO Q24H #7 tablet 05/27/16 [Rx] Past Medical History HEENT History: Reports: Cataract, Impaired Vision Other HEENT History: Cataract surgeries on both eyes Cardiovascular History: Reports: High Cholesterol, Hypertension, PVD, Other ( See Below) Respiratory History: Reports: COPD, Other (See Below) Other Respiratory History: admitted to the hospital 1 week ago for pneumonia, Gastrointestinal History: Reports: GERD Other Gastrointestinal History: liver cancer Genitourinary History: Reports: Renal Disease, Other (See Below) Other Genitourinary History: Pt states "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 [employer] History: Reports: Musculoskeletal History: Reports: Arthritis Neurological History: Reports: Neuropathy, Peripheral Psychiatric History: Reports: Anxiety Hematologic History: Reports: Blood Transfusion(s) Other Hematologic History: last blood transfusion while in hospital 1 week ago with pneumonia Oncologic (Cancer) History: Reports: Squamous Cell Carcinoma Other Oncologic History: liver cancer, states does not know the source - Infectious Disease History Infectious Disease History: Reports: Chicken Pox, Mumps - Past Surgical History Female Surgical History: Reports: Hysterectomy, Other (See Below) Social & Family History - Family History Family Medical History: Noncontributory HEENT: Reports: Cataract, Impaired Vision Cardiac: Reports: CAD, High Cholesterol, Hypertension, [place] Respiratory: Reports: COPD OBGYN: Reports: Musculoskeletal: Reports: Arthritis Psychiatric: Reports: Anxiety, Depression Oncologic: Reports: Lung - Tobacco Use Smoking Status *Q: Never Smoker Years of Tobacco use: 55 Packs/Tins Daily: 1 Used Tobacco, but Quit: Yes Month Tobacco Last Used: September 2015 Second Hand Smoke Exposure: No - Caffeine Use Caffeine Use: Reports: Coffee Caffeine Use Comment: 1-2cups/day - Recreational Drug Use Recreational Drug Use: No ED ROS GENERAL - Review of Systems Review Of Systems: ROS reveals no pertinent complaints other than HPI. ED EXAM, GENERAL - Physical Exam Exam: See Below (See dictation) Course - Vital Signs Last Recorded V/S: Last Vital Signs Temp 36.6 C 02/16/17 19:17 Pulse 67 02/16/17 19:17 Resp 22 H 02/16/17 19:17 BP 158/55 H 02/16/17 19:17 Pulse Ox 94 L 02/16/17 19:17 - Orders/Labs/Meds Orders: Active Orders 24 hr Category Date Time Status Bladder Scan [RC] ONETIME Care 02/16/17 20:48 Active Cardiac Monitoring [RC] . DIRECTED Care 02/16/17 19:34 Active EKG Documentation Completion [RC] STAT Care 02/16/17 19:34 Active Oxygen Therapy, ED [RC] ASDIRECTED Care 02/16/17 19:34 Active Pulse Oximetry [RC] ASDIRECTED Care 02/16/17 19:34 Active RT Aerosol Therapy [RC] ASDIRECTED Care 02/16/17 19:36 Active RT Aerosol Therapy [RC] ASDIRECTED Care 02/16/17 19:49 Active Chest 1V Frontal [CR] Stat Exams 02/16/17 19:35 Taken CULTURE BLOOD [BC] Stat Lab 02/16/17 19:56 Received CULTURE BLOOD [BC] Stat Lab 02/16/17 20:02 Received CULTURE URINE [RM] Stat Lab 02/16/17 19:35 Uncollected MAGNESIUM [CHEM] Stat Lab 02/16/17 21:27 Ordered UA W/MICROSCOPIC [URIN] Stat Lab 02/16/17 19:35 Uncollected Sodium Chloride 0.9% [Normal Saline] 1,000 ml Med 02/16/17 20:15 Active IV ASDIRECTED Sodium Chloride 0.9% [Normal Saline] 250 ml Med 02/16/17 21:15 Active IV STAT Sodium Chloride 0.9% [Saline Flush] Med 02/16/17 19:35 Active 10 ml FLUSH ASDIRECTED PRN Sodium Chloride 0.9% [Saline Flush] Med 02/16/17 19:35 Active 2.5 ml FLUSH ASDIRECTED PRN Blood Culture x2 Reflex Set [OM.PC] Stat Ot 02/16/17 19:35 Ordered Saline Lock Insert [OM.PC] Stat Ot 02/16/17 19:34 Ordered Medication Orders Sodium Chloride (Normal Saline) 1,000 mls @ 50 mls/hr IV ASDIRECTED PRIYANK Last Admin: 02/16/17 20:09 Dose: 50 mls/hr Sodium Chloride (Normal Saline) 250 mls @ 999 mls/hr IV STAT [facility] Sodium Chloride (Saline Flush) 10 ml FLUSH ASDIRECTED PRN PRN Reason: Keep Vein Open Last Admin: 02/16/17 20:09 Dose: 10 ml Sodium Chloride (Saline Flush) 2.5 ml FLUSH ASDIRECTED PRN PRN Reason: Keep Vein Open Last Admin: 02/16/17 20:09 Dose: 2.5 ml Labs: Laboratory Tests 02/16/17 02/16/17 02/16/17 Range/Units 19:56 19:56 19:56 WBC 7.51 (4.0-11.0) K/uL RBC 3.69 L (4.30-5.90) M/uL Hgb 11.4 L (12.0-16.0) g/dL Hct 31.1 L (36.0-46.0) % MCV 84.3 (80.0-98.0) fL MCH 30.9 (27.0-32.0) pg MCHC 36.7 (31.0-37.0) g/dL RDW Std Deviation 37.4 (28.0-62.0) fl RDW Coeff of Sherman 12 (11.0-15.0) % Plt Count 353 (150-400) K/uL MPV 9.70 (7.40-12.00) fL Neut % (Auto) 80.1 H (48.0-80.0) % Lymph % (Auto) 10.9 L (16.0-40.0) % Wetzel % (Auto) 7.7 (0.0-15.0) % Eos % (Auto) 1.2 (0.0-7.0) % Baso % (Auto) 0.1 (0.0-1.5) % Neut # (Auto) 6.0 H (1.4-5.7) K/uL Lymph # (Auto) 0.8 (0.6-2.4) K/uL Wetzel # (Auto) 0.6 (0.0-0.8) K/uL Eos # (Auto) 0.1 (0.0-0.7) K/uL Baso # (Auto) 0.0 (0.0-0.1) K/uL Nucleated RBC % 0.0 /100WBC Nucleated RBCs # 0 K/uL INR 1.04 (0.86-1.11) Sodium 108 L* (136-146) mmol/L Potassium 3.8 (3.5-5.1) mmol/L Chloride 78 L (98-110) mmol/L Carbon Dioxide 18 L (21-31) mmol/L BUN 10 (6.0-23.0) mg/dL Creatinine 0.7 (0.6-1.5) mg/dL Est Cr Clr Drug Dosing TNP Estimated GFR (MDRD) > 60.0 ml/min Glucose 109 (60-110) mg/dL Calcium 9.2 (8.8-10.8) mg/dL Total Bilirubin 0.3 (0.1-1.5) mg/dL AST 40 (5-40) IU/L ALT 20 (8-54) IU/L Alkaline Phosphatase 130 (40-150) Troponin I < 0.10 (0.0-0.29) NG/ML B-Natriuretic Peptide (<100) PG/ML Total Protein 6.4 (6.0-8.0) g/dL Albumin 3.5 (3.4-4.8) g/dL Globulin 2.9 (2.0-3.5) g/dL Albumin/Globulin Ratio 1.2 02/16/17 Range/Units 19:56 WBC (4.0-11.0) K/uL RBC (4.30-5.90) M/uL Hgb (12.0-16.0) g/dL Hct (36.0-46.0) % MCV (80.0-98.0) fL MCH (27.0-32.0) pg MCHC (31.0-37.0) g/dL RDW Std Deviation (28.0-62.0) fl RDW Coeff of Sherman (11.0-15.0) % Plt Count (150-400) K/uL MPV (7.40-12.00) fL Neut % (Auto) (48.0-80.0) % Lymph % (Auto) (16.0-40.0) % Wetzel % (Auto) (0.0-15.0) % Eos % (Auto) (0.0-7.0) % Baso % (Auto) (0.0-1.5) % Neut # (Auto) (1.4-5.7) K/uL Lymph # (Auto) (0.6-2.4) K/uL Wetzel # (Auto) (0.0-0.8) K/uL Eos # (Auto) (0.0-0.7) K/uL Baso # (Auto) (0.0-0.1) K/uL Nucleated RBC % /100WBC Nucleated RBCs # K/uL INR (0.86-1.11) Sodium (136-146) mmol/L Potassium (3.5-5.1) mmol/L Chloride (98-110) mmol/L Carbon Dioxide (21-31) mmol/L BUN (6.0-23.0) mg/dL Creatinine (0.6-1.5) mg/dL Est Cr Clr Drug Dosing Estimated GFR (MDRD) ml/min Glucose (60-110) mg/dL Calcium (8.8-10.8) mg/dL Total Bilirubin (0.1-1.5) mg/dL AST (5-40) IU/L ALT (8-54) IU/L Alkaline Phosphatase (40-150) Troponin I (0.0-0.29) NG/ML B-Natriuretic Peptide 121 H (<100) PG/ML Total Protein (6.0-8.0) g/dL Albumin (3.4-4.8) g/dL Globulin (2.0-3.5) g/dL Albumin/Globulin Ratio Meds: Medications Generic Name Dose Route Start Last Admin Trade Name Freq PRN Reason Stop Dose Admin Sodium Chloride 1,000 mls @ 50 mls/hr 02/16/17 20:15 02/16/17 20:09 Normal Saline IV 50 mls/hr ASDIRECTED PRIYANK Administration Sodium Chloride 250 mls @ 999 mls/hr 02/16/17 21:15 Normal Saline IV STAT PRIYANK Sodium Chloride 10 ml 02/16/17 19:35 02/16/17 20:09 Saline Flush FLUSH 10 ml ASDIRECTED PRN Administration Keep Vein Open Sodium Chloride 2.5 ml 02/16/17 19:35 02/16/17 20:09 Saline Flush FLUSH 2.5 ml ASDIRECTED PRN Administration Keep Vein Open Discontinued Medications Generic Name Dose Route Start Last Admin Trade Name Freq PRN Reason Stop Dose Admin Albuterol/Ipratropium 3 ml 02/16/17 19:34 02/16/17 19:44 Duoneb 3.0-0.5 Mg/3 Ml NEB 02/16/17 19:35 3 ml ONETIME ONE Administration Albuterol/Ipratropium Confirm 02/16/17 19:37 02/16/17 19:52 Duoneb 3.0-0.5 Mg/3 Ml Administered 02/16/17 19:38 3 ml Dose Administration 3 ml .ROUTE .STK-MED ONE Albuterol/Ipratropium 3 ml 02/16/17 19:49 02/16/17 19:53 Duoneb 3.0-0.5 Mg/3 Ml NEB 02/16/17 19:50 Not Given ONETIME ONE Methylprednisolone Sodium Succinate 125 mg 02/16/17 19:48 02/16/17 20:09 Solu-Medrol IVPUSH 02/16/17 19:49 125 mg ONETIME ONE Administration Departure - Departure Time of Disposition: 21:28 Disposition: Admitted As Inpatient 68 Condition: Good Clinical Impression: COPD with exacerbation, Hyponatremia - Discharge Information Referrals: Pineda Evangelista MD [Primary Care Provider] - Forms: ED Department Discharge - My Orders Last 24 Hours: My Active Orders 02/16/17 19:34 Cardiac Monitoring [RC] . DIRECTED EKG Documentation Completion [RC] STAT Oxygen Therapy, ED [RC] ASDIRECTED Pulse Oximetry [RC] ASDIRECTED Saline Lock Insert [OM.PC] Stat 02/16/17 19:35 Chest 1V Frontal [CR] Stat CULTURE URINE [RM] Stat UA W/MICROSCOPIC [URIN] Stat Sodium Chloride 0.9% [Saline Flush] 10 ml FLUSH ASDIRECTED PRN Sodium Chloride 0.9% [Saline Flush] 2.5 ml FLUSH ASDIRECTED PRN Blood Culture x2 Reflex Set [OM.PC] Stat 02/16/17 19:36 RT Aerosol Therapy [RC] ASDIRECTED 02/16/17 19:49 RT Aerosol Therapy [RC] ASDIRECTED 02/16/17 19:56 CULTURE BLOOD [BC] Stat 02/16/17 20:02 CULTURE BLOOD [BC] Stat 02/16/17 20:15 Sodium Chloride 0.9% [Normal Saline] 1,000 ml IV ASDIRECTED 02/16/17 20:48 Bladder Scan [RC] ONETIME 02/16/17 21:15 Sodium Chloride 0.9% [Normal Saline] 250 ml IV STAT 02/16/17 21:27 MAGNESIUM [CHEM] Stat - Assessment/Plan Last 24 Hours: My Active Orders 02/16/17 19:34 Cardiac Monitoring [RC] . DIRECTED EKG Documentation Completion [RC] STAT Oxygen Therapy, ED [RC] ASDIRECTED Pulse Oximetry [RC] ASDIRECTED Saline Lock Insert [OM.PC] Stat 02/16/17 19:35 Chest 1V Frontal [CR] Stat CULTURE URINE [RM] Stat UA W/MICROSCOPIC [URIN] Stat Sodium Chloride 0.9% [Saline Flush] 10 ml FLUSH ASDIRECTED PRN Sodium Chloride 0.9% [Saline Flush] 2.5 ml FLUSH ASDIRECTED PRN Blood Culture x2 Reflex Set [OM.PC] Stat 02/16/17 19:36 RT Aerosol Therapy [RC] ASDIRECTED 02/16/17 19:49 RT Aerosol Therapy [RC] ASDIRECTED 02/16/17 19:56 CULTURE BLOOD [BC] Stat 02/16/17 20:02 CULTURE BLOOD [BC] Stat 02/16/17 20:15 Sodium Chloride 0.9% [Normal Saline] 1,000 ml IV ASDIRECTED 02/16/17 20:48 Bladder Scan [RC] ONETIME 02/16/17 21:15 Sodium Chloride 0.9% [Normal Saline] 250 ml IV STAT 02/16/17 21:27 MAGNESIUM [CHEM] Stat
[2017-02-16] MEDS ORDERED: methylPREDNISolone Sodium Succinate 125 MG/2 ML SDV IVPUSH ONE (19:48)
[2017-02-16] MEDS: Sodium Chloride 0.9% 1,000 ML IV SCH (20:09)
[2017-02-16 20:41] LABS: CHLORIDE,CL 78 mmol/L (98-110)
[2017-02-16 20:44] LABS: SODIUM,NA 108 mmol/L (136-146)
[2017-02-16] MEDS ORDERED: Sodium Chloride 0.9% 250 ML IV SCH (21:15)
--- NOTE | 2017-02-16 22:38 | PCM.HP ---
H&P History of Present Illness - General Date of Service: 02/16/17 Admit Problem/Dx: Admission Diagnosis/Problem Admission Diagnosis/Problem COPD, Moderate chronic obstructive pulmonary disease Source of Information: Patient, Family, Provider - History of Present Illness Initial Comments - Free Text/Narative: She presented to the ER with the chief complaint of dyspnea. However, she feels trembling and weak and has been slightly confused for a few days. 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 She underwent chemotherapy and radiation and the daughter in law, who is present, states that they were told that she is in remission. She has a known history of COPD. She quit smoking in March of 2016. abdomen Pain Score (Numeric/FACES): 6 - Related Data Allergies/Adverse Reactions: Allergies Allergy/AdvReac Type Severity Reaction Status Date / Time cinnamon Allergy Shortness Verified 02/16/17 19:27 of Breath dust Allergy Shortness Uncoded 02/16/17 19:27 of Breath Febreeze Allergy Shortness Uncoded 02/16/17 19:27 of Breath pinecone Allergy Shortness Uncoded 02/16/17 19:27 of Breath Home Medications: Home Meds Metoprolol Tartrate [Lopressor] 50 mg PO BID 02/08/16 [History] Omeprazole 20 mg PO ACBREAKFAST 02/08/16 [History] Ramipril 10 mg PO BID 02/08/16 [History] Gabapentin [Neurontin] 400 mg PO QID 02/23/16 [History] amLODIPine Besylate [Norvasc] 2.5 mg PO DAILY #30 tablet 03/04/16 [Rx] Sodium Chloride 1 gm PO DAILY 03/22/16 [History] Furosemide 20 mg PO DAILY 04/22/16 [History] Potassium Chloride 20 meq PO DAILY 04/22/16 [History] traMADol [Ultram] 50 mg PO Q4H PRN 04/22/16 [History] Aspirin [Ecotrin] 81 mg PO DAILY 04/23/16 [History] Fluticasone Propionate [Flonase] 1 spray NASBOTH DAILY 04/23/16 [History] Magnesium Oxide 400 mg PO BID 04/23/16 [History] NaPh,Mb-Db/K Ph,MB-DB [Phos-NaK Powder] 1 packet PO DAILY 04/23/16 [History] Ondansetron [Ondansetron ODT] 8 mg PO Q8H PRN 04/23/16 [History] Polyethylene Glycol 3350 [MiraLAX] 17 gm PO DAILY PRN 04/23/16 [History] Sennosides/Docusate Sodium [Senna S Tablet] 2 tab PO BEDTIME PRN 04/23/16 [ History] Simvastatin [Zocor] 80 mg PO BEDTIME 04/25/16 [History] QUEtiapine Fumarate [Seroquel] 300 mg PO BEDTIME 05/24/16 [History] Loratadine [Claritin] 10 mg PO DAILY 05/26/16 [History] Mometasone/Formoterol [Dulera 200-5 MCG] 2 inh IH BID 05/26/16 [History] Azithromycin [Zithromax] 250 mg PO Q24H #7 tablet 05/27/16 [Rx] Past Medical History HEENT History: Reports: Cataract, Impaired Vision Other HEENT History: Cataract surgeries on both eyes Cardiovascular History: Reports: High Cholesterol, Hypertension, PVD, Other ( See Below). Denies: SC Respiratory History: Reports: COPD, Other (See Below) Other Respiratory History: admitted to the hospital 1 week ago for pneumonia, Gastrointestinal History: Reports: GERD. Denies: Cirrhosis Other Gastrointestinal History: liver cancer Genitourinary History: Reports: Renal Disease, Other (See Below). 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: Musculoskeletal History: Reports: Arthritis Neurological History: Reports: Neuropathy, Peripheral Psychiatric History: Reports: Anxiety Other Endocrine/Metabolic History: history of hyponatremia Hematologic History: Reports: Blood Transfusion(s) Other Hematologic History: last blood transfusion while in hospital 1 week ago with pneumonia Oncologic (Cancer) History: Reports: Squamous Cell Carcinoma, Other (See Below) (history of small cell carcinoma of the lung) Other Oncologic History: liver cancer, states does not know the source - Infectious Disease History Infectious Disease History: Reports: Chicken Pox, Mumps - Past Surgical History Female Surgical History: Reports: Hysterectomy, Other (See Below) Social & Family History - Family History Family Medical History: Noncontributory HEENT: Reports: Cataract, Impaired Vision Cardiac: Reports: CAD, High Cholesterol, Hypertension, SC Respiratory: Reports: COPD OBGYN: Reports: Musculoskeletal: Reports: Arthritis Psychiatric: Reports: Anxiety, Depression Oncologic: Reports: Lung - Tobacco Use Smoking Status *Q: Former Smoker Years of Tobacco use: 55 Packs/Tins Daily: 1 Used Tobacco, but Quit: Yes Month Tobacco Last Used: September 2015 Second Hand Smoke Exposure: No - Caffeine Use Caffeine Use: Reports: Coffee Caffeine Use Comment: 1-2cups/day - Alcohol Use Alcohol Use Comment: she denies alcohol intake - Recreational Drug Use Recreational Drug Use: No H&P Review of Systems - Review of Systems: Review Of Systems: See Below General: Denies: Fever, Chills Pulmonary: Reports: Shortness of Breath, Cough Cardiovascular: Denies: Chest Pain Gastrointestinal: Reports: Constipation. Denies: Abdominal Pain, Black Stool, Bloody Stool, Hematemesis, Hematochezia, Melena, Vomiting Genitourinary: Denies: Dysuria, Hematuria Psychiatric: Reports: Confusion (as per HPI) Review of Systems Comment:: usntable gait Exam - Exam Exam: See Below - Vital Signs Vital Signs: Last Vital Signs Temp 97.9 F 02/16/17 21:48 Pulse 84 02/16/17 21:48 Resp 18 02/16/17 21:48 BP 140/78 02/16/17 21:48 Pulse Ox 98 02/16/17 21:48 Weight: 61.235 kg - Exam General: Alert, Other (she is unable to tell me the correct year or month. She can answer questions and converse). No: Oriented HEENT: EOMI, Mucosa Moist & [place] Neck: Supple, Trachea Midline Lungs: Wheezing, Other (slight increase in expiratory time; able to speak easily in sentences) Cardiovascular: Regular Rate, Regular Rhythm GI/Abdominal Exam: Soft, Non-Tender (Female) Exam: Deferred Rectal (Female) Exam: Deferred Extremities: No Pedal Edema Neurological: Cranial Nerves Intact, Normal Speech Physical Exam Comments:: fine tremor hands and arms - Patient Data Result Diagrams: 02/16/17 19:56 02/16/17 19:56 *Q Meaningful Use (ADM) - VTE *Q VTE Criteria *Q: - Stroke *Q Stroke Criteria *Q: - AMI *Q AMI Criteria *Q: - Problem List (1) COPD with exacerbation SNOMED Code(s): 089867922541946 ICD Code: J44.1 - CHRONIC OBSTRUCTIVE PULMONARY DISEASE W (ACUTE) EXACERBATION Status: Acute Current Visit: Yes (2) Hyponatremia SNOMED Code(s): 40236364 ICD Code: E87.1 - HYPO-OSMOLALITY AND HYPONATREMIA Status: Acute Current Visit: Yes (3) Hyponatremia SNOMED Code(s): 29368075 ICD Code: E87.1 - HYPO-OSMOLALITY AND HYPONATREMIA Status: Acute Current Visit: No (4) Small cell carcinoma SNOMED Code(s): 49842352193895250 ICD Code: C80.1 - MALIGNANT (PRIMARY) NEOPLASM, UNSPECIFIED Status: Chronic Current Visit: No Problem Details: recentlt diagnosed (5) History of tobacco abuse SNOMED Code(s): 6834838054018 ICD Code: Z87.891 - PERSONAL HISTORY OF NICOTINE DEPENDENCE Status: Resolved Current Visit: No (6) Essential hypertension SNOMED Code(s): 30153963 ICD Code: I10 - ESSENTIAL (PRIMARY) HYPERTENSION Status: Acute Current Visit: Yes Problem List Initiated/Reviewed/Updated: Yes Orders Last 24hrs: Medication Orders Sodium Chloride (Normal Saline) 1,000 mls @ 50 mls/hr IV ASDIRECTED [facility] Last Admin: 02/16/17 20:09 Dose: 50 mls/hr Sodium Chloride (Normal Saline) 250 mls @ 999 mls/hr IV STAT [facility] Last Admin: 02/16/17 21:33 Dose: 999 mls/hr Sodium Chloride (Saline Flush) 10 ml FLUSH ASDIRECTED PRN PRN Reason: Keep Vein Open Last Admin: 02/16/17 20:09 Dose: 10 ml Sodium Chloride (Saline Flush) 2.5 ml FLUSH ASDIRECTED PRN PRN Reason: Keep Vein Open Last Admin: 02/16/17 20:09 Dose: 2.5 ml Assessment/Plan Comment:: admit see orders I discussed resuscitation status with her daughter in law who is present who confirms dnr status.
[2017-02-16] MEDS ORDERED: Acetaminophen 325 MG Tab PO PRN (22:41)
[2017-02-16] MEDS ORDERED: Magnesium Sulfate/Water 4 GM in Premix Bag 1 BAG IV ONE (22:41)
[2017-02-16] MEDS ORDERED: Bisacodyl 5 MG Tab PO PRN (22:41)
[2017-02-16] MEDS ORDERED: Polyethylene Glycol 3350 Powder 17 GM Packet PO PRN (22:41)
[2017-02-16] MEDS: Gabapentin 800 MG Tab PO SCH (23:14)
[2017-02-16] MEDS: Ondansetron 4 MG/2 ML SDV IVPUSH PRN (23:30)
[2017-02-17] MEDS: Temazepam 15 MG Cap PO PRN (00:26)
[2017-02-17] MEDS: Albuterol/Ipratropium 3.0-0.5 MG/3 ML Neb Soln NEB SCH ×6 (01:19→21:37)
[2017-02-17 06:09] LABS: CHLORIDE,CL 80 mmol/L (98-110)
[2017-02-17 06:23] LABS: SODIUM,NA 109 mmol/L (136-146)
[2017-02-17] MEDS: Gabapentin 800 MG Tab PO SCH ×4 (06:50→23:07)
[2017-02-17] MEDS: Omeprazole 20 MG Cap.CR PO SCH (06:50)
[2017-02-17] MEDS: traMADol 50 MG Tab PO PRN (08:33)
[2017-02-17] MEDS: Docusate Sodium 100 MG Cap PO SCH ×2 (08:36→20:54)
[2017-02-17] MEDS: predniSONE 20 MG Tab PO SCH (08:36)
[2017-02-17] MEDS: Potassium Chloride 20 MEQ Tab.ER PO SCH (08:36)
[2017-02-17] MEDS: Aspirin 81 MG Tab.EC PO SCH (08:36)
[2017-02-17] MEDS: amLODIPine 2.5 MG Tab PO SCH (08:36)
[2017-02-17] MEDS: Furosemide 40 MG Tab PO SCH (08:37)
[2017-02-17] MEDS: Magnesium Oxide 400 MG Tab PO SCH ×2 (08:37→20:54)
[2017-02-17] MEDS: Metoprolol Tartrate 50 MG Tab PO SCH ×2 (08:38→20:53)
[2017-02-17] MEDS: Fluticasone Propionate Nasal Spray 16 GM Bottle NASBOTH SCH (08:39)
[2017-02-17] MEDS: Enoxaparin 40 MG/0.4 ML Syringe SUBCUT SCH (09:32)
[2017-02-17] MEDS: FORMOTEROL IH SCH ×2 (10:15→20:56)
[2017-02-17] MEDS: MOMETASONE IH SCH ×2 (10:15→20:56)
--- NOTE | 2017-02-17 11:03 | CR ---
EXAM DATE: 02/16/17 PATIENT'S AGE: 71 Patient: JUICE ALMONTE Facility: [place], [place] Site . Site : [id number] Study: XRay Chest [id number] 8:16:08 PM Ordering Physician: Sherice Klein Final Report: CHEST 1 VIEW AP INDICATION: Short of breath with wheezing. COMPARISON: Two-view chest 02/12/2017. IMPRESSION: Stable heart size and vascular pattern. Lungs are clear of new focal opacities. No pneumothorax or pleural abnormality. Again noted is asymmetric increased appearance of markings in the left lower lobe with is shows no change since prior exam. There is also overlapping dense breast tissue. Port-A-Cath with stable central venous line position at the distal SVC. Dictated by Torey Courtney MD @ Feb 16 2017 8:26PM (Electronic Signature) Report Signed by Proxy. LOREE
--- NOTE | 2017-02-17 11:14 | PCM.PN ---
- General Info Date of Service: 02/17/17 Subjective Update: diffuse pain. Tramadol is not working. - Review of Systems General: Reports: Fatigue HEENT: Reports: No Symptoms Pulmonary: Reports: Shortness of Breath Gastrointestinal: Reports: No Symptoms Musculoskeletal: Reports: Other (diffuse arthritic pain) Skin: Reports: No Symptoms Neurological: Reports: No Symptoms Psychiatric: Reports: Confusion (mild ) - Patient Data Vitals - Most Recent: Last Vital Signs Temp 96.9 F 02/17/17 08:00 Pulse 78 02/17/17 08:38 Resp 20 02/17/17 08:00 BP 161/72 H 02/17/17 08:38 Pulse Ox 90 L 02/17/17 08:00 Weight - Most Recent: 61.235 kg I&O - Last 24 Hours: Intake & Output 02/16/17 02/17/17 02/17/17 22:59 06:59 14:59 Intake Total 496 Output Total 750 Balance -254 Lab Results Last 24 Hours: Laboratory Results - last 24 hr 02/16/17 02/16/17 02/17/17 Range/Units 23:15 23:15 05:18 WBC (4.0-11.0) K/uL RBC (4.30-5.90) M/uL Hgb (12.0-16.0) g/dL Hct (36.0-46.0) % MCV (80.0-98.0) fL MCH (27.0-32.0) pg MCHC (31.0-37.0) g/dL RDW Std Deviation (28.0-62.0) fl RDW Coeff of [place] (11.0-15.0) % Plt Count (150-400) K/uL MPV (7.40-12.00) fL Neut % (Auto) (48.0-80.0) % Lymph % (Auto) (16.0-40.0) % [place] % (Auto) (0.0-15.0) % Eos % (Auto) (0.0-7.0) % Baso % (Auto) (0.0-1.5) % Neut # (Auto) (1.4-5.7) K/uL Lymph # (Auto) (0.6-2.4) K/uL [place] # (Auto) (0.0-0.8) K/uL Eos # (Auto) (0.0-0.7) K/uL Baso # (Auto) (0.0-0.1) K/uL Nucleated RBC % /100WBC Nucleated RBCs # K/uL Sodium 109 L* (136-146) mmol/L Potassium 3.5 (3.5-5.1) mmol/L Chloride 80 L (98-110) mmol/L Carbon Dioxide 21 (21-31) mmol/L BUN 7 (6.0-23.0) mg/dL Creatinine 0.7 (0.6-1.5) mg/dL Est Cr Clr Drug Dosing 54.48 mL/min Estimated GFR (MDRD) > 60.0 ml/min Glucose 199 H (60-110) mg/dL Calcium 8.3 L (8.8-10.8) mg/dL Magnesium (1.5-2.3) mEq/L Urine Color YELLOW Urine Appearance CLEAR Urine pH 6.5 (5.0-8.0) Ur Specific [place] 1.010 (1.001-1.035) Urine Protein NEGATIVE (NEGATIVE) mg/dL Urine Glucose (UA) NEGATIVE (NEGATIVE) mg/dL Urine Ketones 15 H (NEGATIVE) mg/dL Urine Occult Blood TRACE-LYSED (NEGATIVE) Urine Nitrite NEGATIVE (NEGATIVE) Urine Bilirubin NEGATIVE (NEGATIVE) Urine Urobilinogen 0.2 (<2.0) EU/dL Ur Leukocyte Esterase NEGATIVE (NEGATIVE) Urine RBC 0-1 (0-2/HPF) Urine WBC 0-2 (0-5/HPF) Ur Epithelial Cells OCCASIONAL (NONE-FEW) Urine Bacteria RARE (NEGATIVE) Ur Random Sodium 43.0 mmol/L 02/17/17 02/17/17 Range/Units 05:18 05:18 WBC 4.38 (4.0-11.0) K/uL RBC 3.49 L (4.30-5.90) M/uL Hgb 10.6 L (12.0-16.0) g/dL Hct 29.3 L (36.0-46.0) % MCV 84.0 (80.0-98.0) fL MCH 30.4 (27.0-32.0) pg MCHC 36.2 (31.0-37.0) g/dL RDW Std Deviation 37.4 (28.0-62.0) fl RDW Coeff of [place] 12 (11.0-15.0) % Plt Count 309 (150-400) K/uL MPV 9.60 (7.40-12.00) fL Neut % (Auto) 91.8 H (48.0-80.0) % Lymph % (Auto) 6.6 L (16.0-40.0) % [place] % (Auto) 1.4 (0.0-15.0) % Eos % (Auto) 0.0 (0.0-7.0) % Baso % (Auto) 0.2 (0.0-1.5) % Neut # (Auto) 4.0 (1.4-5.7) K/uL Lymph # (Auto) 0.3 L (0.6-2.4) K/uL [place] # (Auto) 0.1 (0.0-0.8) K/uL Eos # (Auto) 0.0 (0.0-0.7) K/uL Baso # (Auto) 0.0 (0.0-0.1) K/uL Nucleated RBC % 0.0 /100WBC Nucleated RBCs # 0 K/uL Sodium (136-146) mmol/L Potassium (3.5-5.1) mmol/L Chloride (98-110) mmol/L Carbon Dioxide (21-31) mmol/L BUN (6.0-23.0) mg/dL Creatinine (0.6-1.5) mg/dL Est Cr Clr Drug Dosing mL/min Estimated GFR (MDRD) ml/min Glucose (60-110) mg/dL Calcium (8.8-10.8) mg/dL Magnesium 1.8 (1.5-2.3) mEq/L Urine Color Urine Appearance Urine pH (5.0-8.0) Ur Specific [place] (1.001-1.035) Urine Protein (NEGATIVE) mg/dL Urine Glucose (UA) (NEGATIVE) mg/dL Urine Ketones (NEGATIVE) mg/dL Urine Occult Blood (NEGATIVE) Urine Nitrite (NEGATIVE) Urine Bilirubin (NEGATIVE) Urine Urobilinogen (<2.0) EU/dL Ur Leukocyte Esterase (NEGATIVE) Urine RBC (0-2/HPF) Urine WBC (0-5/HPF) Ur Epithelial Cells (NONE-FEW) Urine Bacteria (NEGATIVE) Ur Random Sodium mmol/L Med Orders - Current: Current Medications Acetaminophen (Tylenol) 325 mg PO Q4H PRN PRN Reason: Pain (Mild 1-3)/fever Hydrocodone Bitart/Acetaminophen (Trion 325-5 Mg) 1 tab PO Q4H PRN PRN Reason: Pain Albuterol/Ipratropium (Duoneb 3.0-0.5 Mg/3 Ml) 3 ml NEB Q4HRRT [facility] Last Admin: 02/17/17 09:50 Dose: 3 ml Amlodipine Besylate (Norvasc) 2.5 mg PO DAILY [facility] Last Admin: 02/17/17 08:36 Dose: 2.5 mg Aspirin (Halfprin) 81 mg PO DAILY [facility] Last Admin: 02/17/17 08:36 Dose: 81 mg Bisacodyl (Dulcolax) 5 mg PO DAILY PRN PRN Reason: Constipation Docusate Sodium (Colace) 100 mg PO BID [facility] Last Admin: 02/17/17 08:36 Dose: 100 mg Enoxaparin Sodium (Lovenox) 40 mg SUBCUT DAILY [facility] Last Admin: 02/17/17 09:32 Dose: 40 mg Fluticasone Propionate (Flonase) 0 gm NASBOTH DAILY [facility] Last Admin: 02/17/17 08:39 Dose: 1 spray Furosemide (Lasix) 20 mg PO DAILY [facility] Last Admin: 02/17/17 08:37 Dose: 20 mg Gabapentin (Neurontin) 400 mg PO QID [facility] Last Admin: 02/17/17 06:50 Dose: 400 mg Sodium Chloride (Normal Saline) 1,000 mls @ 75 mls/hr IV ASDIRECTED [facility] Last Infusion: 02/16/17 23:31 Dose: 75 mls/hr Sodium Chloride (Normal Saline) 250 mls @ 999 mls/hr IV STAT [facility] Last Admin: 02/16/17 21:33 Dose: 999 mls/hr Magnesium Oxide (Magnesium Oxide) 400 mg PO BID [facility] Last Admin: 02/17/17 08:37 Dose: 400 mg Metoprolol Tartrate (Lopressor) 50 mg PO BID [facility] Last Admin: 02/17/17 08:38 Dose: 50 mg Non-Formulary Medication (Mometasone/Formoterol) 2 inh IH BID [facility] Last Admin: 02/17/17 10:15 Dose: Not Given Omeprazole (Omeprazole) 20 mg PO ACBREAKFAST [facility] Last Admin: 02/17/17 06:50 Dose: 20 mg Ondansetron HCl (Zofran) 4 mg IVPUSH Q4H PRN PRN Reason: Nausea/Vomiting Last Admin: 02/16/17 23:30 Dose: 4 mg Polyethylene Glycol (Miralax) 17 gm PO DAILY PRN PRN Reason: Constipation Potassium Chloride (Klor-Con M20) 20 meq PO DAILY [facility] Last Admin: 02/17/17 08:36 Dose: 20 meq Prednisone (Prednisone) 40 mg PO WITHBREAKFAST [facility] Last Admin: 02/17/17 08:36 Dose: 40 mg Quetiapine Fumarate (Seroquel) 300 mg PO BEDTIME PRIYANK Ramipril (Altace) 10 mg PO BID [facility] Last Admin: 02/17/17 08:36 Dose: 10 mg Simvastatin (Zocor) 80 mg PO BEDTIME [facility] Sodium Chloride (Saline Flush) 10 ml FLUSH ASDIRECTED PRN PRN Reason: Keep Vein Open Last Admin: 02/16/17 20:09 Dose: 10 ml Sodium Chloride (Saline Flush) 2.5 ml FLUSH ASDIRECTED PRN PRN Reason: Keep Vein Open Last Admin: 02/16/17 20:09 Dose: 2.5 ml Temazepam (Restoril) 15 mg PO BEDTIME PRN PRN Reason: Sleep Last Admin: 02/17/17 00:26 Dose: 15 mg Tramadol HCl (Ultram) 50 mg PO Q4H PRN PRN Reason: Pain Last Admin: 02/17/17 08:33 Dose: 50 mg Discontinued Medications Albuterol/Ipratropium (Duoneb 3.0-0.5 Mg/3 Ml) 3 ml NEB ONETIME ONE Stop: 02/16/17 19:35 Last Admin: 02/16/17 19:44 Dose: 3 ml Albuterol/Ipratropium (Duoneb 3.0-0.5 Mg/3 Ml) Confirm Administered Dose 3 ml .ROUTE .STK-MED ONE Stop: 02/16/17 19:38 Last Admin: 02/16/17 19:52 Dose: 3 ml Albuterol/Ipratropium (Duoneb 3.0-0.5 Mg/3 Ml) 3 ml NEB ONETIME ONE Stop: 02/16/17 19:50 Last Admin: 02/16/17 19:53 Dose: Not Given Magnesium Sulfate 4 gm/ Premix 100 mls @ 50 mls/hr IV ONETIME ONE Stop: 02/17/17 00:40 Last Admin: 02/16/17 23:14 Dose: 50 mls/hr Methylprednisolone Sodium Succinate (Solu-Medrol) 125 mg IVPUSH ONETIME ONE Stop: 02/16/17 19:49 Last Admin: 02/16/17 20:09 Dose: 125 mg - Exam Quality Assessment: Supplemental Oxygen General: Alert, Oriented, Cooperative HEENT: Pupils Equal, EOMI Lungs: Decreased Breath Sounds Cardiovascular: Regular Rate, Regular Rhythm GI/Abdominal Exam: Normal Bowel Sounds Back Exam: Normal Inspection Extremities: Normal Inspection - Problem List Review Problem List Initiated/Reviewed/Updated: Yes - My Orders Last 24 Hours: My Active Orders 02/17/17 11:12 Acetaminophen/HYDROcodone [Trion 325-5 MG] 1 tab PO Q4H PRN - Plan Plan:: Hyponatrmia: Na is 109: continue slow hydration of normal saline and fluid restriction Pain control: on tramadol which is slightly helping. Her pain remains 7/10. Start PO norco 5/325 q 4 hours resume home medications Oncology is aware of the patient hospitalization.
[2017-02-17] MEDS: Acetaminophen/HYDROcodone 325-5 MG Tab PO PRN ×2 (11:55→17:31)
[2017-02-17] MEDS: Sodium Chloride 0.9% 1,000 ML IV SCH (13:08)
[2017-02-17] MEDS: Ondansetron 4 MG/2 ML SDV IVPUSH PRN (17:14)
[2017-02-17 17:41] LABS: CHLORIDE,CL 83 mmol/L (98-110)
[2017-02-17 17:46] LABS: SODIUM,NA 114 mmol/L (136-146)
[2017-02-17] MEDS: QUEtiapine 100 MG Tab PO SCH (20:53)
[2017-02-17] MEDS: Simvastatin 40 MG Tab PO SCH (20:53)
[2017-02-18] MEDS: Albuterol/Ipratropium 3.0-0.5 MG/3 ML Neb Soln NEB SCH ×6 (01:30→21:36)
[2017-02-18] MEDS: Sodium Chloride 0.9% 1,000 ML IV SCH ×2 (02:42→18:33)
[2017-02-18 05:39] LABS: CHLORIDE,CL 85 mmol/L (98-110)
[2017-02-18 05:43] LABS: SODIUM,NA 117 mmol/L (136-146)
[2017-02-18] MEDS: Gabapentin 800 MG Tab PO SCH ×4 (06:30→23:48)
[2017-02-18] MEDS: Omeprazole 20 MG Cap.CR PO SCH (06:31)
--- NOTE | 2017-02-18 08:37 | PCM.PN ---
- General Info Date of Service: 02/18/17 Functional Status: Reports: Pain Controlled, Tolerating Diet, Urinating - Review of Systems General: Reports: No Symptoms HEENT: Reports: No Symptoms Pulmonary: Reports: No Symptoms Cardiovascular: Reports: No Symptoms Gastrointestinal: Reports: No Symptoms Musculoskeletal: Reports: No Symptoms Skin: Reports: No Symptoms Neurological: Reports: No Symptoms Psychiatric: Reports: No Symptoms - Patient Data Vitals - Most Recent: Last Vital Signs Temp 96.9 F 02/18/17 04:00 Pulse 57 L 02/18/17 04:00 Resp 16 02/18/17 04:00 BP 135/76 02/18/17 04:00 Pulse Ox 92 L 02/18/17 04:00 Weight - Most Recent: 61.235 kg I&O - Last 24 Hours: Intake & Output 02/17/17 02/18/17 02/18/17 22:59 06:59 14:59 Intake Total 1084 Output Total 2450 Balance -1366 Lab Results Last 24 Hours: Laboratory Results - last 24 hr 02/17/17 02/18/17 02/18/17 Range/Units 17:09 05:01 05:01 WBC 9.33 (4.0-11.0) K/uL RBC 3.10 L (4.30-5.90) M/uL Hgb 9.4 L (12.0-16.0) g/dL Hct 26.3 L (36.0-46.0) % MCV 84.8 (80.0-98.0) fL MCH 30.3 (27.0-32.0) pg MCHC 35.7 (31.0-37.0) g/dL RDW Std Deviation 38.7 (28.0-62.0) fl RDW Coeff of Sherman 13 (11.0-15.0) % Plt Count 290 (150-400) K/uL MPV 9.30 (7.40-12.00) fL Neut % (Auto) 89.4 H (48.0-80.0) % Lymph % (Auto) 6.0 L (16.0-40.0) % [place] % (Auto) 4.5 (0.0-15.0) % Eos % (Auto) 0.0 (0.0-7.0) % Baso % (Auto) 0.1 (0.0-1.5) % Neut # (Auto) 8.3 H (1.4-5.7) K/uL Lymph # (Auto) 0.6 (0.6-2.4) K/uL [place] # (Auto) 0.4 (0.0-0.8) K/uL Eos # (Auto) 0.0 (0.0-0.7) K/uL Baso # (Auto) 0.0 (0.0-0.1) K/uL Nucleated RBC % 0.0 /100WBC Nucleated RBCs # 0 K/uL Sodium 114 L* 117 L* (136-146) mmol/L Potassium 4.3 4.0 (3.5-5.1) mmol/L Chloride 83 L 85 L (98-110) mmol/L Carbon Dioxide 23 25 (21-31) mmol/L BUN 7 8 (6.0-23.0) mg/dL Creatinine 0.7 0.7 (0.6-1.5) mg/dL Est Cr Clr Drug Dosing 54.48 54.48 mL/min Estimated GFR (MDRD) > 60.0 > 60.0 ml/min Glucose 131 H 148 H (60-110) mg/dL Calcium 8.8 8.0 L (8.8-10.8) mg/dL Magnesium (1.5-2.3) mEq/L 02/18/17 Range/Units 05:01 WBC (4.0-11.0) K/uL RBC (4.30-5.90) M/uL Hgb (12.0-16.0) g/dL Hct (36.0-46.0) % MCV (80.0-98.0) fL MCH (27.0-32.0) pg MCHC (31.0-37.0) g/dL RDW Std Deviation (28.0-62.0) fl RDW Coeff of Sherman (11.0-15.0) % Plt Count (150-400) K/uL MPV (7.40-12.00) fL Neut % (Auto) (48.0-80.0) % Lymph % (Auto) (16.0-40.0) % [place] % (Auto) (0.0-15.0) % Eos % (Auto) (0.0-7.0) % Baso % (Auto) (0.0-1.5) % Neut # (Auto) (1.4-5.7) K/uL Lymph # (Auto) (0.6-2.4) K/uL [place] # (Auto) (0.0-0.8) K/uL Eos # (Auto) (0.0-0.7) K/uL Baso # (Auto) (0.0-0.1) K/uL Nucleated RBC % /100WBC Nucleated RBCs # K/uL Sodium (136-146) mmol/L Potassium (3.5-5.1) mmol/L Chloride (98-110) mmol/L Carbon Dioxide (21-31) mmol/L BUN (6.0-23.0) mg/dL Creatinine (0.6-1.5) mg/dL Est Cr Clr Drug Dosing mL/min Estimated GFR (MDRD) ml/min Glucose (60-110) mg/dL Calcium (8.8-10.8) mg/dL Magnesium 1.4 L (1.5-2.3) mEq/L Jeremias Results Last 24 Hours: Microbiology 02/16/17 23:15 Urine Culture - Final Urine, Clean Catch MIXED TAYE <1000 CFU/ML Med Orders - Current: Current Medications Acetaminophen (Tylenol) 325 mg PO Q4H PRN PRN Reason: Pain (Mild 1-3)/fever Hydrocodone Bitart/Acetaminophen ([place] 325-5 Mg) 1 tab PO Q4H PRN PRN Reason: Pain Last Admin: 02/17/17 17:31 Dose: 1 tab Albuterol/Ipratropium (Duoneb 3.0-0.5 Mg/3 Ml) 3 ml NEB Q4HRRT [facility] Last Admin: 02/18/17 06:21 Dose: Not Given Amlodipine Besylate (Norvasc) 2.5 mg PO DAILY [facility] Last Admin: 02/17/17 08:36 Dose: 2.5 mg Aspirin (Halfprin) 81 mg PO DAILY [facility] Last Admin: 02/17/17 08:36 Dose: 81 mg Bisacodyl (Dulcolax) 5 mg PO DAILY PRN PRN Reason: Constipation Docusate Sodium (Colace) 100 mg PO BID [facility] Last Admin: 02/17/17 20:54 Dose: 100 mg Enoxaparin Sodium (Lovenox) 40 mg SUBCUT DAILY [facility] Last Admin: 02/17/17 09:32 Dose: 40 mg Fluticasone Propionate (Flonase) 0 gm NASBOTH DAILY [facility] Last Admin: 02/17/17 08:39 Dose: 1 spray Furosemide (Lasix) 20 mg PO DAILY [facility] Last Admin: 02/17/17 08:37 Dose: 20 mg Gabapentin (Neurontin) 400 mg PO QID [facility] Last Admin: 02/18/17 06:30 Dose: 400 mg Sodium Chloride (Normal Saline) 1,000 mls @ 75 mls/hr IV ASDIRECTED [facility] Last Admin: 02/18/17 02:42 Dose: 75 mls/hr Sodium Chloride (Normal Saline) 250 mls @ 999 mls/hr IV STAT [facility] Last Admin: 02/16/17 21:33 Dose: 999 mls/hr Magnesium Oxide (Magnesium Oxide) 400 mg PO BID [facility] Last Admin: 02/17/17 20:54 Dose: 400 mg Metoprolol Tartrate (Lopressor) 50 mg PO BID [facility] Last Admin: 02/17/17 20:53 Dose: 50 mg Non-Formulary Medication (Mometasone/Formoterol) 2 inh IH BID [facility] Last Admin: 02/17/17 20:56 Dose: Not Given Omeprazole (Omeprazole) 20 mg PO ACBREAKFAST [facility] Last Admin: 02/18/17 06:31 Dose: 20 mg Ondansetron HCl (Zofran) 4 mg IVPUSH Q4H PRN PRN Reason: Nausea/Vomiting Last Admin: 02/17/17 17:14 Dose: 4 mg Polyethylene Glycol (Miralax) 17 gm PO DAILY PRN PRN Reason: Constipation Potassium Chloride (Klor-Con M20) 20 meq PO DAILY [facility] Last Admin: 02/17/17 08:36 Dose: 20 meq Prednisone (Prednisone) 40 mg PO WITHBREAKFAST [facility] Last Admin: 02/17/17 08:36 Dose: 40 mg Quetiapine Fumarate (Seroquel) 300 mg PO BEDTIME [facility] Last Admin: 02/17/17 20:53 Dose: 300 mg Ramipril (Altace) 10 mg PO BID [facility] Last Admin: 02/17/17 20:54 Dose: 10 mg Simvastatin (Zocor) 80 mg PO BEDTIME [facility] Last Admin: 02/17/17 20:53 Dose: 80 mg Sodium Chloride (Saline Flush) 10 ml FLUSH ASDIRECTED PRN PRN Reason: Keep Vein Open Last Admin: 02/16/17 20:09 Dose: 10 ml Sodium Chloride (Saline Flush) 2.5 ml FLUSH ASDIRECTED PRN PRN Reason: Keep Vein Open Last Admin: 02/16/17 20:09 Dose: 2.5 ml Temazepam (Restoril) 15 mg PO BEDTIME PRN PRN Reason: Sleep Last Admin: 02/17/17 00:26 Dose: 15 mg Tramadol HCl (Ultram) 50 mg PO Q4H PRN PRN Reason: Pain Last Admin: 02/17/17 08:33 Dose: 50 mg Discontinued Medications Albuterol/Ipratropium (Duoneb 3.0-0.5 Mg/3 Ml) 3 ml NEB ONETIME ONE Stop: 02/16/17 19:35 Last Admin: 02/16/17 19:44 Dose: 3 ml Albuterol/Ipratropium (Duoneb 3.0-0.5 Mg/3 Ml) Confirm Administered Dose 3 ml .ROUTE .STK-MED ONE Stop: 02/16/17 19:38 Last Admin: 02/16/17 19:52 Dose: 3 ml Albuterol/Ipratropium (Duoneb 3.0-0.5 Mg/3 Ml) 3 ml NEB ONETIME ONE Stop: 02/16/17 19:50 Last Admin: 02/16/17 19:53 Dose: Not Given Magnesium Sulfate 4 gm/ Premix 100 mls @ 50 mls/hr IV ONETIME ONE Stop: 02/17/17 00:40 Last Admin: 02/16/17 23:14 Dose: 50 mls/hr Methylprednisolone Sodium Succinate (Solu-Medrol) 125 mg IVPUSH ONETIME ONE Stop: 02/16/17 19:49 Last Admin: 02/16/17 20:09 Dose: 125 mg - Exam General: Alert, Oriented HEENT: Pupils Equal, EOMI Neck: Supple Lungs: Decreased Breath Sounds Cardiovascular: Regular Rate, Regular Rhythm GI/Abdominal Exam: Normal Bowel Sounds, Soft Back Exam: Normal Inspection Extremities: Normal Inspection Skin: Warm, Dry, Intact Neurological: No New Focal Deficit Psy/Mental Status: Alert, Normal Affect, Normal Mood - Problem List Review Problem List Initiated/Reviewed/Updated: Yes - My Orders Last 24 Hours: My Active Orders 02/17/17 11:12 Acetaminophen/HYDROcodone [[place] 325-5 MG] 1 tab PO Q4H PRN - Plan Plan:: Hyponatrmia: Na is 117: improving continue slow hydration of normal saline and fluid restriction Pain control: PO norco 5/325 q 4 hours controlling diffuse pain. resume home medications Oncology is aware of the patients hospitalization.
[2017-02-18] MEDS: Magnesium Oxide 400 MG Tab PO SCH ×2 (08:51→20:48)
[2017-02-18] MEDS: predniSONE 20 MG Tab PO SCH (08:51)
[2017-02-18] MEDS: Potassium Chloride 20 MEQ Tab.ER PO SCH (08:52)
[2017-02-18] MEDS: Docusate Sodium 100 MG Cap PO SCH ×2 (08:52→20:49)
[2017-02-18] MEDS: Aspirin 81 MG Tab.EC PO SCH (08:52)
[2017-02-18] MEDS: Enoxaparin 40 MG/0.4 ML Syringe SUBCUT SCH (08:53)
[2017-02-18] MEDS: Metoprolol Tartrate 50 MG Tab PO SCH ×2 (09:01→20:48)
[2017-02-18] MEDS: Furosemide 40 MG Tab PO SCH (09:15)
[2017-02-18] MEDS: amLODIPine 2.5 MG Tab PO SCH (09:16)
[2017-02-18] MEDS: Fluticasone Propionate Nasal Spray 16 GM Bottle NASBOTH SCH (09:18)
[2017-02-18] MEDS ORDERED: Magnesium Sulfate/Water 2 GM in Premix Bag 1 BAG IV ONE (09:22)
[2017-02-18] MEDS: FORMOTEROL IH SCH ×2 (10:18→21:20)
[2017-02-18] MEDS: MOMETASONE IH SCH ×2 (10:18→21:20)
[2017-02-18 18:12] LABS: CHLORIDE,CL 85 mmol/L (98-110)
[2017-02-18 18:14] LABS: SODIUM,NA 118 mmol/L (136-146)
[2017-02-18] MEDS ORDERED: Nitroglycerin 0.4 MG Tab.SL SL PRN (18:36)
[2017-02-18] MEDS: Simvastatin 40 MG Tab PO SCH (20:47)
[2017-02-18] MEDS: QUEtiapine 100 MG Tab PO SCH (20:49)
[2017-02-18] MEDS: Acetaminophen/HYDROcodone 325-5 MG Tab PO PRN (20:54)
[2017-02-18] MEDS: Temazepam 15 MG Cap PO PRN (20:54)
[2017-02-19] MEDS: Albuterol/Ipratropium 3.0-0.5 MG/3 ML Neb Soln NEB SCH ×7 (02:09→21:33)
[2017-02-19 06:17] LABS: CHLORIDE,CL 88 mmol/L (98-110)
[2017-02-19] MEDS: Gabapentin 800 MG Tab PO SCH ×3 (06:35→17:58)
[2017-02-19] MEDS: Omeprazole 20 MG Cap.CR PO SCH (06:36)
[2017-02-19 06:44] LABS: SODIUM,NA 120 mmol/L (136-146)
[2017-02-19] MEDS: MOMETASONE IH SCH ×2 (08:30→21:20)
[2017-02-19] MEDS: FORMOTEROL IH SCH ×2 (08:30→21:20)
[2017-02-19] MEDS: Docusate Sodium 100 MG Cap PO SCH ×2 (08:39→20:28)
[2017-02-19] MEDS: Furosemide 40 MG Tab PO SCH (08:39)
[2017-02-19] MEDS: amLODIPine 2.5 MG Tab PO SCH (08:39)
[2017-02-19] MEDS: Potassium Chloride 20 MEQ Tab.ER PO SCH (08:39)
[2017-02-19] MEDS: Magnesium Oxide 400 MG Tab PO SCH ×2 (08:40→20:28)
[2017-02-19] MEDS: Metoprolol Tartrate 50 MG Tab PO SCH ×2 (08:40→20:27)
[2017-02-19] MEDS: predniSONE 20 MG Tab PO SCH (08:40)
[2017-02-19] MEDS: Aspirin 81 MG Tab.EC PO SCH (08:40)
[2017-02-19] MEDS: Enoxaparin 40 MG/0.4 ML Syringe SUBCUT SCH (08:43)
--- NOTE | 2017-02-19 09:13 | PCM.PN ---
- General Info Date of Service: 02/19/17 Functional Status: Reports: Pain Controlled, Tolerating Diet - Review of Systems General: Reports: Fatigue HEENT: Reports: No Symptoms Pulmonary: Reports: No Symptoms Cardiovascular: Reports: No Symptoms Gastrointestinal: Reports: No Symptoms Genitourinary: Reports: No Symptoms Musculoskeletal: Reports: No Symptoms Skin: Reports: No Symptoms Neurological: Reports: No Symptoms Psychiatric: Reports: No Symptoms - Patient Data Vitals - Most Recent: Last Vital Signs Temp 96.0 F 02/19/17 08:00 Pulse 60 02/19/17 08:40 Resp 22 H 02/19/17 08:00 BP 184/87 H 02/19/17 08:40 Pulse Ox 92 L 02/19/17 08:00 Weight - Most Recent: 64.2 kg I&O - Last 24 Hours: Intake & Output 02/18/17 02/19/17 02/19/17 22:59 06:59 14:59 Intake Total 1447 1248 Output Total 1800 800 Balance -353 448 Lab Results Last 24 Hours: Laboratory Results - last 24 hr 02/18/17 02/19/17 02/19/17 Range/Units 17:41 05:46 05:46 WBC 8.61 (4.0-11.0) K/uL RBC 3.42 L (4.30-5.90) M/uL Hgb 10.6 L (12.0-16.0) g/dL Hct 29.5 L (36.0-46.0) % MCV 86.3 (80.0-98.0) fL MCH 31.0 (27.0-32.0) pg MCHC 35.9 (31.0-37.0) g/dL RDW Std Deviation 40.2 (28.0-62.0) fl RDW Coeff of Sherman 13 (11.0-15.0) % Plt Count 313 (150-400) K/uL MPV 9.50 (7.40-12.00) fL Neut % (Auto) 82.8 H (48.0-80.0) % Lymph % (Auto) 10.5 L (16.0-40.0) % [place] % (Auto) 6.7 (0.0-15.0) % Eos % (Auto) 0.0 (0.0-7.0) % Baso % (Auto) 0.0 (0.0-1.5) % Neut # (Auto) 7.1 H (1.4-5.7) K/uL Lymph # (Auto) 0.9 (0.6-2.4) K/uL [place] # (Auto) 0.6 (0.0-0.8) K/uL Eos # (Auto) 0.0 (0.0-0.7) K/uL Baso # (Auto) 0.0 (0.0-0.1) K/uL Nucleated RBC % 0.0 /100WBC Nucleated RBCs # 0 K/uL Sodium 118 L* 120 L (136-146) mmol/L Potassium 4.1 3.8 (3.5-5.1) mmol/L Chloride 85 L 88 L (98-110) mmol/L Carbon Dioxide 25 26 (21-31) mmol/L BUN 9 9 (6.0-23.0) mg/dL Creatinine 0.8 0.7 (0.6-1.5) mg/dL Est Cr Clr Drug Dosing 47.67 54.48 mL/min Estimated GFR (MDRD) > 60.0 > 60.0 ml/min Glucose 163 H 120 H (60-110) mg/dL Calcium 8.6 L 8.3 L (8.8-10.8) mg/dL Magnesium (1.5-2.3) mEq/L 02/19/17 Range/Units 05:46 WBC (4.0-11.0) K/uL RBC (4.30-5.90) M/uL Hgb (12.0-16.0) g/dL Hct (36.0-46.0) % MCV (80.0-98.0) fL MCH (27.0-32.0) pg MCHC (31.0-37.0) g/dL RDW Std Deviation (28.0-62.0) fl RDW Coeff of Sherman (11.0-15.0) % Plt Count (150-400) K/uL MPV (7.40-12.00) fL Neut % (Auto) (48.0-80.0) % Lymph % (Auto) (16.0-40.0) % [place] % (Auto) (0.0-15.0) % Eos % (Auto) (0.0-7.0) % Baso % (Auto) (0.0-1.5) % Neut # (Auto) (1.4-5.7) K/uL Lymph # (Auto) (0.6-2.4) K/uL [place] # (Auto) (0.0-0.8) K/uL Eos # (Auto) (0.0-0.7) K/uL Baso # (Auto) (0.0-0.1) K/uL Nucleated RBC % /100WBC Nucleated RBCs # K/uL Sodium (136-146) mmol/L Potassium (3.5-5.1) mmol/L Chloride (98-110) mmol/L Carbon Dioxide (21-31) mmol/L BUN (6.0-23.0) mg/dL Creatinine (0.6-1.5) mg/dL Est Cr Clr Drug Dosing mL/min Estimated GFR (MDRD) ml/min Glucose (60-110) mg/dL Calcium (8.8-10.8) mg/dL Magnesium 1.7 (1.5-2.3) mEq/L Jeremias Results Last 24 Hours: Microbiology 02/16/17 23:15 Urine Culture - Final Urine, Clean Catch MIXED TAYE <1000 CFU/ML Med Orders - Current: Current Medications Acetaminophen (Tylenol) 325 mg PO Q4H PRN PRN Reason: Pain (Mild 1-3)/fever Hydrocodone Bitart/Acetaminophen ([place] 325-5 Mg) 1 tab PO Q4H PRN PRN Reason: Pain Last Admin: 02/18/17 20:54 Dose: 1 tab Albuterol/Ipratropium (Duoneb 3.0-0.5 Mg/3 Ml) 3 ml NEB Q4HRRT [facility] Last Admin: 02/19/17 06:25 Dose: Not Given Amlodipine Besylate (Norvasc) 2.5 mg PO DAILY [facility] Last Admin: 02/19/17 08:39 Dose: 2.5 mg Aspirin (Halfprin) 81 mg PO DAILY [facility] Last Admin: 02/19/17 08:40 Dose: 81 mg Bisacodyl (Dulcolax) 5 mg PO DAILY PRN PRN Reason: Constipation Docusate Sodium (Colace) 100 mg PO BID [facility] Last Admin: 02/19/17 08:39 Dose: 100 mg Enoxaparin Sodium (Lovenox) 40 mg SUBCUT DAILY [facility] Last Admin: 02/19/17 08:43 Dose: 40 mg Fluticasone Propionate (Flonase) 0 gm NASBOTH DAILY [facility] Last Admin: 02/18/17 09:18 Dose: Not Given Furosemide (Lasix) 20 mg PO DAILY [facility] Last Admin: 02/19/17 08:39 Dose: 20 mg Gabapentin (Neurontin) 400 mg PO QID [facility] Last Admin: 02/19/17 06:35 Dose: 400 mg Sodium Chloride (Normal Saline) 1,000 mls @ 75 mls/hr IV ASDIRECTED [facility] Last Admin: 02/18/17 18:33 Dose: 75 mls/hr Sodium Chloride (Normal Saline) 250 mls @ 999 mls/hr IV STAT [facility] Last Admin: 02/16/17 21:33 Dose: 999 mls/hr Magnesium Oxide (Magnesium Oxide) 400 mg PO BID [facility] Last Admin: 02/19/17 08:40 Dose: 400 mg Metoprolol Tartrate (Lopressor) 50 mg PO BID [facility] Last Admin: 02/19/17 08:40 Dose: 50 mg Non-Formulary Medication (Mometasone/Formoterol) 2 inh IH BID [facility] Last Admin: 02/19/17 08:30 Dose: Not Given Omeprazole (Omeprazole) 20 mg PO ACBREAKFAST [facility] Last Admin: 02/19/17 06:36 Dose: 20 mg Ondansetron HCl (Zofran) 4 mg IVPUSH Q4H PRN PRN Reason: Nausea/Vomiting Last Admin: 02/17/17 17:14 Dose: 4 mg Polyethylene Glycol (Miralax) 17 gm PO DAILY PRN PRN Reason: Constipation Potassium Chloride (Klor-Con M20) 20 meq PO DAILY [facility] Last Admin: 02/19/17 08:39 Dose: 20 meq Prednisone (Prednisone) 40 mg PO WITHBREAKFAST [facility] Last Admin: 02/19/17 08:40 Dose: 40 mg Quetiapine Fumarate (Seroquel) 300 mg PO BEDTIME [facility] Last Admin: 02/18/17 20:49 Dose: 300 mg Ramipril (Altace) 10 mg PO BID [facility] Last Admin: 02/19/17 08:40 Dose: 10 mg Simvastatin (Zocor) 80 mg PO BEDTIME [facility] Last Admin: 02/18/17 20:47 Dose: 80 mg Sodium Chloride (Saline Flush) 10 ml FLUSH ASDIRECTED PRN PRN Reason: Keep Vein Open Last Admin: 02/16/17 20:09 Dose: 10 ml Sodium Chloride (Saline Flush) 2.5 ml FLUSH ASDIRECTED PRN PRN Reason: Keep Vein Open Last Admin: 02/16/17 20:09 Dose: 2.5 ml Temazepam (Restoril) 15 mg PO BEDTIME PRN PRN Reason: Sleep Last Admin: 02/18/17 20:54 Dose: 15 mg Tramadol HCl (Ultram) 50 mg PO Q4H PRN PRN Reason: Pain Last Admin: 02/17/17 08:33 Dose: 50 mg Discontinued Medications Albuterol/Ipratropium (Duoneb 3.0-0.5 Mg/3 Ml) 3 ml NEB ONETIME ONE Stop: 02/16/17 19:35 Last Admin: 02/16/17 19:44 Dose: 3 ml Albuterol/Ipratropium (Duoneb 3.0-0.5 Mg/3 Ml) Confirm Administered Dose 3 ml .ROUTE .STK-MED ONE Stop: 02/16/17 19:38 Last Admin: 02/16/17 19:52 Dose: 3 ml Albuterol/Ipratropium (Duoneb 3.0-0.5 Mg/3 Ml) 3 ml NEB ONETIME ONE Stop: 02/16/17 19:50 Last Admin: 02/16/17 19:53 Dose: Not Given Magnesium Sulfate 4 gm/ Premix 100 mls @ 50 mls/hr IV ONETIME ONE Stop: 02/17/17 00:40 Last Admin: 02/16/17 23:14 Dose: 50 mls/hr Magnesium Sulfate 2 gm/ Premix 50 mls @ 50 mls/hr IV ONETIME ONE Stop: 02/18/17 10:21 Last Admin: 02/18/17 10:11 Dose: 50 mls/hr Methylprednisolone Sodium Succinate (Solu-Medrol) 125 mg IVPUSH ONETIME ONE Stop: 02/16/17 19:49 Last Admin: 02/16/17 20:09 Dose: 125 mg Nitroglycerin (Nitrostat) 0.4 mg SL Q5M PRN PRN Reason: Chest Pain - Exam General: Alert, Oriented, Cooperative HEENT: Pupils Equal, EOMI Neck: Supple Lungs: Clear to Auscultation Cardiovascular: Regular Rate, Regular Rhythm GI/Abdominal Exam: Normal Bowel Sounds, Soft Back Exam: Normal Inspection Extremities: Normal Inspection Skin: Warm, Dry Neurological: No New Focal Deficit Psy/Mental Status: Alert, Normal Affect, Normal Mood - Problem List Review Problem List Initiated/Reviewed/Updated: Yes - Plan Plan:: Hyponatrmia: Na is 120: improving continue slow hydration of normal saline and fluid restriction Pain control: PO norco 5/325 q 4 hours controlling diffuse pain. HTN: most likely secondary to prednisone. Her lungs are clear to auscultation: DC prednisone. Reviewed I/O. continue home medications norvasc, Altace. NO additional changes at this time. Monitor blood pressure and I/O Anticipate discharge 1-2 days
[2017-02-19] MEDS: Sodium Chloride 0.9% 1,000 ML IV SCH ×2 (09:16→23:24)
[2017-02-19] MEDS: Fluticasone Propionate Nasal Spray 16 GM Bottle NASBOTH SCH (10:22)
[2017-02-19] MEDS: Acetaminophen/HYDROcodone 325-5 MG Tab PO PRN (15:06)
[2017-02-19 17:26] LABS: CHLORIDE,CL 88 mmol/L (98-110); SODIUM,NA 122 mmol/L (136-146)
[2017-02-19] MEDS: Simvastatin 40 MG Tab PO SCH (20:27)
[2017-02-19] MEDS: QUEtiapine 100 MG Tab PO SCH (20:27)
[2017-02-19] MEDS: traMADol 50 MG Tab PO PRN (20:28)
[2017-02-19] MEDS: Temazepam 15 MG Cap PO PRN (20:30)
[2017-02-20] MEDS: Gabapentin 800 MG Tab PO SCH ×4 (00:55→17:43)
[2017-02-20] MEDS: Albuterol/Ipratropium 3.0-0.5 MG/3 ML Neb Soln NEB SCH ×6 (01:01→21:58)
[2017-02-20 05:56] LABS: CHLORIDE,CL 94 mmol/L (98-110); SODIUM,NA 128 mmol/L (136-146)
[2017-02-20] MEDS: Omeprazole 20 MG Cap.CR PO SCH (06:43)
[2017-02-20] MEDS: Metoprolol Tartrate 50 MG Tab PO SCH ×2 (08:21→20:17)
[2017-02-20] MEDS: amLODIPine 2.5 MG Tab PO SCH (08:21)
[2017-02-20] MEDS: Potassium Chloride 20 MEQ Tab.ER PO SCH (08:21)
[2017-02-20] MEDS: Furosemide 40 MG Tab PO SCH (08:22)
[2017-02-20] MEDS: Magnesium Oxide 400 MG Tab PO SCH ×2 (08:22→20:17)
[2017-02-20] MEDS: Docusate Sodium 100 MG Cap PO SCH ×2 (08:22→20:17)
[2017-02-20] MEDS: Aspirin 81 MG Tab.EC PO SCH (08:22)
[2017-02-20] MEDS: Enoxaparin 40 MG/0.4 ML Syringe SUBCUT SCH (08:23)
[2017-02-20] MEDS ORDERED: Magnesium Sulfate/Water 2 GM in Premix Bag 1 BAG IV ONE (08:27)
[2017-02-20] MEDS: MOMETASONE IH SCH ×2 (08:59→20:19)
[2017-02-20] MEDS: FORMOTEROL IH SCH ×2 (08:59→20:19)
[2017-02-20] MEDS: Fluticasone Propionate Nasal Spray 16 GM Bottle NASBOTH SCH (09:09)
[2017-02-20] MEDS ORDERED: amLODIPine 2.5 MG Tab PO SCH (10:35)
--- NOTE | 2017-02-20 10:37 | PCM.PN ---
- General Info Date of Service: 02/20/17 Functional Status: Reports: Pain Controlled - Review of Systems General: Reports: Fatigue (improving) HEENT: Reports: No Symptoms Pulmonary: Reports: No Symptoms Cardiovascular: Reports: No Symptoms Gastrointestinal: Reports: No Symptoms Genitourinary: Reports: No Symptoms Musculoskeletal: Reports: No Symptoms Skin: Reports: No Symptoms Neurological: Reports: Confusion (improved) Psychiatric: Reports: No Symptoms - Patient Data Vitals - Most Recent: Last Vital Signs Temp 97.3 F 02/20/17 08:00 Pulse 60 02/20/17 08:21 Resp 16 02/20/17 08:00 BP 172/70 H 02/20/17 08:22 Pulse Ox 92 L 02/20/17 08:00 Weight - Most Recent: 64.3 kg I&O - Last 24 Hours: Intake & Output 02/19/17 02/20/17 02/20/17 22:59 06:59 14:59 Intake Total 1294 320 50 Output Total 2300 1100 Balance -1006 -780 50 Lab Results Last 24 Hours: Laboratory Results - last 24 hr 02/19/17 02/20/17 02/20/17 Range/Units 17:00 05:07 05:07 WBC 9.57 (4.0-11.0) K/uL RBC 3.37 L (4.30-5.90) M/uL Hgb 10.2 L (12.0-16.0) g/dL Hct 29.5 L (36.0-46.0) % MCV 87.5 (80.0-98.0) fL MCH 30.3 (27.0-32.0) pg MCHC 34.6 (31.0-37.0) g/dL RDW Std Deviation 41.6 (28.0-62.0) fl RDW Coeff of Sherman 13 (11.0-15.0) % Plt Count 353 (150-400) K/uL MPV 9.50 (7.40-12.00) fL Neut % (Auto) 82.0 H (48.0-80.0) % Lymph % (Auto) 10.1 L (16.0-40.0) % Grand % (Auto) 7.9 (0.0-15.0) % Eos % (Auto) 0.0 (0.0-7.0) % Baso % (Auto) 0.0 (0.0-1.5) % Neut # (Auto) 7.8 H (1.4-5.7) K/uL Lymph # (Auto) 1.0 (0.6-2.4) K/uL Grand # (Auto) 0.8 (0.0-0.8) K/uL Eos # (Auto) 0.0 (0.0-0.7) K/uL Baso # (Auto) 0.0 (0.0-0.1) K/uL Nucleated RBC % 0.0 /100WBC Nucleated RBCs # 0 K/uL Sodium 122 L 128 L (136-146) mmol/L Potassium 4.1 4.1 (3.5-5.1) mmol/L Chloride 88 L 94 L (98-110) mmol/L Carbon Dioxide 25 25 (21-31) mmol/L BUN 10 13 (6.0-23.0) mg/dL Creatinine 0.8 0.8 (0.6-1.5) mg/dL Est Cr Clr Drug Dosing 47.67 47.67 mL/min Estimated GFR (MDRD) > 60.0 > 60.0 ml/min Glucose 166 H 120 H (60-110) mg/dL Calcium 8.4 L 8.4 L (8.8-10.8) mg/dL Magnesium (1.5-2.3) mEq/L 02/20/17 Range/Units 05:18 WBC (4.0-11.0) K/uL RBC (4.30-5.90) M/uL Hgb (12.0-16.0) g/dL Hct (36.0-46.0) % MCV (80.0-98.0) fL MCH (27.0-32.0) pg MCHC (31.0-37.0) g/dL RDW Std Deviation (28.0-62.0) fl RDW Coeff of [place] (11.0-15.0) % Plt Count (150-400) K/uL MPV (7.40-12.00) fL Neut % (Auto) (48.0-80.0) % Lymph % (Auto) (16.0-40.0) % Grand % (Auto) (0.0-15.0) % Eos % (Auto) (0.0-7.0) % Baso % (Auto) (0.0-1.5) % Neut # (Auto) (1.4-5.7) K/uL Lymph # (Auto) (0.6-2.4) K/uL Grand # (Auto) (0.0-0.8) K/uL Eos # (Auto) (0.0-0.7) K/uL Baso # (Auto) (0.0-0.1) K/uL Nucleated RBC % /100WBC Nucleated RBCs # K/uL Sodium (136-146) mmol/L Potassium (3.5-5.1) mmol/L Chloride (98-110) mmol/L Carbon Dioxide (21-31) mmol/L BUN (6.0-23.0) mg/dL Creatinine (0.6-1.5) mg/dL Est Cr Clr Drug Dosing mL/min Estimated GFR (MDRD) ml/min Glucose (60-110) mg/dL Calcium (8.8-10.8) mg/dL Magnesium 1.5 (1.5-2.3) mEq/L Med Orders - Current: Current Medications Acetaminophen (Tylenol) 325 mg PO Q4H PRN PRN Reason: Pain (Mild 1-3)/fever Hydrocodone Bitart/Acetaminophen ([place] 325-5 Mg) 1 tab PO Q4H PRN PRN Reason: Pain Last Admin: 02/19/17 15:06 Dose: 1 tab Albuterol/Ipratropium (Duoneb 3.0-0.5 Mg/3 Ml) 3 ml NEB Q4HRRT [facility] Last Admin: 02/20/17 09:59 Dose: 3 ml Amlodipine Besylate (Norvasc) 2.5 mg PO DAILY [facility] Last Admin: 02/20/17 08:21 Dose: 2.5 mg Aspirin (Halfprin) 81 mg PO DAILY [facility] Last Admin: 02/20/17 08:22 Dose: 81 mg Bisacodyl (Dulcolax) 5 mg PO DAILY PRN PRN Reason: Constipation Docusate Sodium (Colace) 100 mg PO BID [facility] Last Admin: 02/20/17 08:22 Dose: 100 mg Enoxaparin Sodium (Lovenox) 40 mg SUBCUT DAILY [facility] Last Admin: 02/20/17 08:23 Dose: 40 mg Fluticasone Propionate (Flonase) 0 gm NASBOTH DAILY [facility] Last Admin: 02/20/17 09:09 Dose: 1 spray Furosemide (Lasix) 20 mg PO DAILY [facility] Last Admin: 02/20/17 08:22 Dose: 20 mg Gabapentin (Neurontin) 400 mg PO QID [facility] Last Admin: 02/20/17 06:43 Dose: 400 mg Sodium Chloride (Normal Saline) 1,000 mls @ 75 mls/hr IV ASDIRECTED [facility] Last Admin: 02/19/17 23:24 Dose: 75 mls/hr Sodium Chloride (Normal Saline) 250 mls @ 999 mls/hr IV STAT [facility] Last Admin: 02/16/17 21:33 Dose: 999 mls/hr Magnesium Oxide (Magnesium Oxide) 400 mg PO BID [facility] Last Admin: 02/20/17 08:22 Dose: 400 mg Metoprolol Tartrate (Lopressor) 50 mg PO BID [facility] Last Admin: 02/20/17 08:21 Dose: 50 mg Non-Formulary Medication (Mometasone/Formoterol) 2 inh IH BID [facility] Last Admin: 02/20/17 08:59 Dose: Not Given Omeprazole (Omeprazole) 20 mg PO ACBREAKFAST [facility] Last Admin: 02/20/17 06:43 Dose: 20 mg Ondansetron HCl (Zofran) 4 mg IVPUSH Q4H PRN PRN Reason: Nausea/Vomiting Last Admin: 02/17/17 17:14 Dose: 4 mg Polyethylene Glycol (Miralax) 17 gm PO DAILY PRN PRN Reason: Constipation Potassium Chloride (Klor-Con M20) 20 meq PO DAILY [facility] Last Admin: 02/20/17 08:21 Dose: 20 meq Quetiapine Fumarate (Seroquel) 300 mg PO BEDTIME [facility] Last Admin: 02/19/17 20:27 Dose: 300 mg Ramipril (Altace) 10 mg PO BID [facility] Last Admin: 02/20/17 08:22 Dose: 10 mg Simvastatin (Zocor) 80 mg PO BEDTIME [facility] Last Admin: 02/19/17 20:27 Dose: 80 mg Sodium Chloride (Saline Flush) 10 ml FLUSH ASDIRECTED PRN PRN Reason: Keep Vein Open Last Admin: 02/16/17 20:09 Dose: 10 ml Sodium Chloride (Saline Flush) 2.5 ml FLUSH ASDIRECTED PRN PRN Reason: Keep Vein Open Last Admin: 02/16/17 20:09 Dose: 2.5 ml Temazepam (Restoril) 15 mg PO BEDTIME PRN PRN Reason: Sleep Last Admin: 02/19/17 20:30 Dose: 15 mg Tramadol HCl (Ultram) 50 mg PO Q4H PRN PRN Reason: Pain Last Admin: 02/19/17 20:28 Dose: 50 mg Discontinued Medications Albuterol/Ipratropium (Duoneb 3.0-0.5 Mg/3 Ml) 3 ml NEB ONETIME ONE Stop: 02/16/17 19:35 Last Admin: 02/16/17 19:44 Dose: 3 ml Albuterol/Ipratropium (Duoneb 3.0-0.5 Mg/3 Ml) Confirm Administered Dose 3 ml .ROUTE .STK-MED ONE Stop: 02/16/17 19:38 Last Admin: 02/16/17 19:52 Dose: 3 ml Albuterol/Ipratropium (Duoneb 3.0-0.5 Mg/3 Ml) 3 ml NEB ONETIME ONE Stop: 02/16/17 19:50 Last Admin: 02/16/17 19:53 Dose: Not Given Magnesium Sulfate 4 gm/ Premix 100 mls @ 50 mls/hr IV ONETIME ONE Stop: 02/17/17 00:40 Last Admin: 02/16/17 23:14 Dose: 50 mls/hr Magnesium Sulfate 2 gm/ Premix 50 mls @ 50 mls/hr IV ONETIME ONE Stop: 02/18/17 10:21 Last Admin: 02/18/17 10:11 Dose: 50 mls/hr Magnesium Sulfate 2 gm/ Premix 50 mls @ 50 mls/hr IV ONETIME ONE Stop: 02/20/17 09:26 Last Admin: 02/20/17 09:08 Dose: 50 mls/hr Methylprednisolone Sodium Succinate (Solu-Medrol) 125 mg IVPUSH ONETIME ONE Stop: 02/16/17 19:49 Last Admin: 02/16/17 20:09 Dose: 125 mg Nitroglycerin (Nitrostat) 0.4 mg SL Q5M PRN PRN Reason: Chest Pain Prednisone (Prednisone) 40 mg PO WITHBREAKFAST [facility] Last Admin: 02/19/17 08:40 Dose: 40 mg - Exam General: Alert, Oriented HEENT: Pupils Equal, EOMI Neck: Supple, Trachea Midline Lungs: Clear to Auscultation, Normal Respiratory Effort Cardiovascular: Regular Rate, Regular Rhythm GI/Abdominal Exam: Normal Bowel Sounds, Soft Back Exam: Normal Inspection, Full Range of Motion Extremities: Normal Inspection, Normal Range of Motion Skin: Warm, Dry, Intact Wound/Incisions: Healing Well Neurological: No New Focal Deficit Psy/Mental Status: Alert, Normal Affect, Normal Mood - Problem List Review Problem List Initiated/Reviewed/Updated: Yes - My Orders Last 24 Hours: My Active Orders 02/21/17 05:11 BASIC METABOLIC PANEL,BMP [CHEM] AM CBC WITH AUTO DIFF [HEME] AM 02/22/17 05:11 BASIC METABOLIC PANEL,BMP [CHEM] AM CBC WITH AUTO DIFF [HEME] AM - Plan Plan:: Hyponatrmia: Na is 128: improving continue slow hydration of normal saline and fluid restriction Pain control: PO norco 5/325 q 4 hours controlling diffuse pain. HTN: increased home medication norvac 2.5 to 5 mg po qd, continue altace Anticipate discharge 1 day.
[2017-02-20] MEDS: Sodium Chloride 0.9% 1,000 ML IV SCH (14:00)
[2017-02-20] MEDS: Acetaminophen/HYDROcodone 325-5 MG Tab PO PRN (19:01)
[2017-02-20] MEDS: Simvastatin 40 MG Tab PO SCH (20:17)
[2017-02-20] MEDS: QUEtiapine 100 MG Tab PO SCH (20:18)
[2017-02-20] MEDS: Temazepam 15 MG Cap PO PRN (20:19)
[2017-02-21] MEDS: Gabapentin 800 MG Tab PO SCH ×3 (00:45→11:24)
[2017-02-21] MEDS: Sodium Chloride 0.9% 1,000 ML IV SCH (02:04)
[2017-02-21] MEDS: Albuterol/Ipratropium 3.0-0.5 MG/3 ML Neb Soln NEB SCH ×3 (02:05→09:24)
[2017-02-21] MEDS: Omeprazole 20 MG Cap.CR PO SCH (06:36)
[2017-02-21 07:20] LABS: CHLORIDE,CL 99 mmol/L (98-110); SODIUM,NA 130 mmol/L (136-146)
[2017-02-21] MEDS: Docusate Sodium 100 MG Cap PO SCH (08:03)
[2017-02-21] MEDS: Fluticasone Propionate Nasal Spray 16 GM Bottle NASBOTH SCH (08:03)
[2017-02-21] MEDS: Furosemide 40 MG Tab PO SCH (08:03)
[2017-02-21] MEDS: Potassium Chloride 20 MEQ Tab.ER PO SCH (08:04)
[2017-02-21] MEDS: Metoprolol Tartrate 50 MG Tab PO SCH (08:04)
[2017-02-21] MEDS: Magnesium Oxide 400 MG Tab PO SCH (08:05)
[2017-02-21] MEDS: Aspirin 81 MG Tab.EC PO SCH (08:06)
[2017-02-21 08:07] VITALS: BP 184/67
[2017-02-21] MEDS: Enoxaparin 40 MG/0.4 ML Syringe SUBCUT SCH (08:08)
[2017-02-21] MEDS: MOMETASONE IH SCH (08:31)
[2017-02-21] MEDS: FORMOTEROL IH SCH (08:31)
[2017-02-21] MEDS: Acetaminophen/HYDROcodone 325-5 MG Tab PO PRN (08:40)
--- NOTE | 2017-02-21 10:16 | PCM.DCSUM1 ---
Discharge Summary - Hospital Course Free Text/Narrative:: 71 yo female with history of small cell lung ca, copd admitted for confusion, weakness and dyspnea. Her sodium level on admission was 108. She had fluid restriction and gentle hydration. Her sodium slowly improved as well as confusion. Oncology was notified and they are aware of patients hosptilization. She had clinically improved and her sodium on the day of discharge is 130. She is to follow up with PCP and oncology. - Discharge Data Discharge Date: 02/21/17 Discharge Disposition: Home, Self-Care 01 Condition: Fair - Patient Instructions Diet: Regular Diet as Tolerated Fluid Restriction: 1500 mL Activity: As Tolerated Driving: Do Not Drive Showering/Bathing: May Shower Notify Provider of: Fever, Increased Pain, Swelling and Redness, Drainage, Nausea and/or Vomiting - Discharge Plan Home Medications: Home Meds Metoprolol Tartrate [Lopressor] 50 mg PO BID 02/08/16 [History] Omeprazole 20 mg PO ACBREAKFAST 02/08/16 [History] Ramipril 10 mg PO BID 02/08/16 [History] Gabapentin [Neurontin] 400 mg PO QID 02/23/16 [History] amLODIPine Besylate [Norvasc] 2.5 mg PO DAILY #30 tablet 03/04/16 [Rx] Furosemide 20 mg PO DAILY 04/22/16 [History] Potassium Chloride 20 meq PO DAILY 04/22/16 [History] traMADol [Ultram] 50 mg PO Q4H PRN 04/22/16 [History] Aspirin [Ecotrin] 81 mg PO DAILY 04/23/16 [History] Fluticasone Propionate [Flonase] 1 spray NASBOTH DAILY 04/23/16 [History] Ondansetron [Ondansetron ODT] 8 mg PO Q8H PRN 04/23/16 [History] Polyethylene Glycol 3350 [MiraLAX] 17 gm PO DAILY PRN 04/23/16 [History] Sennosides/Docusate Sodium [Senna S Tablet] 2 tab PO BEDTIME PRN 04/23/16 [ History] Simvastatin [Zocor] 80 mg PO BEDTIME 04/25/16 [History] QUEtiapine Fumarate [Seroquel] 300 mg PO BEDTIME 05/24/16 [History] Loratadine [Claritin] 10 mg PO DAILY 05/26/16 [History] Mometasone/Formoterol [Dulera 200-5 MCG] 2 inh IH BID 05/26/16 [History] Azithromycin [Zithromax] 250 mg PO Q24H #7 tablet 05/27/16 [Rx] Patient Handouts: Hyponatremia, [id number] Referrals: Pineda Evangelista MD [Primary Care Provider] - 03/02/17 1:30 pm Carley Pinon MD [Ordering Only Provider] - 03/11/17 2:40 pm - General Info Date of Service: 02/21/17 Functional Status: Reports: Pain Controlled, Tolerating Diet, Ambulating, Urinating - Review of Systems General: Reports: No Symptoms HEENT: Reports: No Symptoms Pulmonary: Reports: No Symptoms Cardiovascular: Reports: No Symptoms Gastrointestinal: Reports: No Symptoms Genitourinary: Reports: No Symptoms Musculoskeletal: Reports: No Symptoms Skin: Reports: No Symptoms Neurological: Reports: No Symptoms Psychiatric: Reports: No Symptoms - Patient Data Vitals - Most Recent: Last Vital Signs Temp 97.4 F 02/21/17 08:00 Pulse 71 02/21/17 08:04 Resp 16 02/21/17 08:00 BP 184/67 H 02/21/17 08:06 Pulse Ox 91 L 02/21/17 08:00 Weight - Most Recent: 64.3 kg I&O - Last 24 hours: Intake & Output 02/20/17 02/21/17 02/21/17 22:59 06:59 14:59 Intake Total 1688 1345 Output Total 1200 1000 Balance 488 345 Lab Results - Last 24 hrs: Laboratory Results - last 24 hr 02/21/17 02/21/17 02/21/17 Range/Units 06:52 06:52 06:52 WBC 6.75 (4.0-11.0) K/uL RBC 3.50 L (4.30-5.90) M/uL Hgb 10.6 L (12.0-16.0) g/dL Hct 31.6 L (36.0-46.0) % MCV 90.3 (80.0-98.0) fL MCH 30.3 (27.0-32.0) pg MCHC 33.5 (31.0-37.0) g/dL RDW Std Deviation 44.0 (28.0-62.0) fl RDW Coeff of [place] 13 (11.0-15.0) % Plt Count 306 (150-400) K/uL MPV 9.40 (7.40-12.00) fL Neut % (Auto) 70.6 (48.0-80.0) % Lymph % (Auto) 17.6 (16.0-40.0) % Centre % (Auto) 10.2 (0.0-15.0) % Eos % (Auto) 1.5 (0.0-7.0) % Baso % (Auto) 0.1 (0.0-1.5) % Neut # (Auto) 4.8 (1.4-5.7) K/uL Lymph # (Auto) 1.2 (0.6-2.4) K/uL [place] # (Auto) 0.7 (0.0-0.8) K/uL Eos # (Auto) 0.1 (0.0-0.7) K/uL Baso # (Auto) 0.0 (0.0-0.1) K/uL Nucleated RBC % 0.8 /100WBC Nucleated RBCs # 0 K/uL Sodium 130 L (136-146) mmol/L Potassium 4.1 (3.5-5.1) mmol/L Chloride 99 (98-110) mmol/L Carbon Dioxide 25 (21-31) mmol/L BUN 9 (6.0-23.0) mg/dL Creatinine 0.7 (0.6-1.5) mg/dL Est Cr Clr Drug Dosing 54.48 mL/min Estimated GFR (MDRD) > 60.0 ml/min Glucose 78 (60-110) mg/dL Calcium 8.2 L (8.8-10.8) mg/dL Magnesium 1.5 (1.5-2.3) mEq/L Med Orders - Current: Current Medications Acetaminophen (Tylenol) 325 mg PO Q4H PRN PRN Reason: Pain (Mild 1-3)/fever Hydrocodone Bitart/Acetaminophen ([place] 325-5 Mg) 1 tab PO Q4H PRN PRN Reason: Pain Last Admin: 02/21/17 08:40 Dose: 1 tab Albuterol/Ipratropium (Duoneb 3.0-0.5 Mg/3 Ml) 3 ml NEB Q4HRRT REPLACED BY [facility] Last Admin: 02/21/17 09:24 Dose: 3 ml Amlodipine Besylate (Norvasc) 5 mg PO DAILY [facility] Last Admin: 02/21/17 08:05 Dose: 5 mg Aspirin (Halfprin) 81 mg PO DAILY [facility] Last Admin: 02/21/17 08:06 Dose: 81 mg Bisacodyl (Dulcolax) 5 mg PO DAILY PRN PRN Reason: Constipation Docusate Sodium (Colace) 100 mg PO BID [facility] Last Admin: 02/21/17 08:03 Dose: 100 mg Enoxaparin Sodium (Lovenox) 40 mg SUBCUT DAILY [facility] Last Admin: 02/21/17 08:08 Dose: 40 mg Fluticasone Propionate (Flonase) 0 gm NASBOTH DAILY [facility]PL[facility] Last Admin: 02/21/17 08:03 Dose: 1 spray Furosemide (Lasix) 20 mg PO DAILY [facility] Last Admin: 02/21/17 08:03 Dose: 20 mg Gabapentin (Neurontin) 400 mg PO QID [facility] Last Admin: 02/21/17 06:36 Dose: 400 mg Sodium Chloride (Normal Saline) 1,000 mls @ 75 mls/hr IV ASDIRECTED REPLACED BY [facility] Last Admin: 02/21/17 02:04 Dose: 75 mls/hr Sodium Chloride (Normal Saline) 250 mls @ 999 mls/hr IV STAT [facility]PLACED BY [facility] Last Admin: 02/16/17 21:33 Dose: 999 mls/hr Magnesium Oxide (Magnesium Oxide) 400 mg PO BID [facility] Last Admin: 02/21/17 08:05 Dose: 400 mg Metoprolol Tartrate (Lopressor) 50 mg PO BID [facility] Last Admin: 02/21/17 08:04 Dose: 50 mg Non-Formulary Medication (Mometasone/Formoterol) 2 inh IH BID [facility] Last Admin: 02/21/17 08:31 Dose: Not Given Omeprazole (Omeprazole) 20 mg PO ACBREAKFAST REPLACED BY [facility] Last Admin: 02/21/17 06:36 Dose: 20 mg Ondansetron HCl (Zofran) 4 mg IVPUSH Q4H PRN PRN Reason: Nausea/Vomiting Last Admin: 02/17/17 17:14 Dose: 4 mg Polyethylene Glycol (Miralax) 17 gm PO DAILY PRN PRN Reason: Constipation Potassium Chloride (Klor-Con M20) 20 meq PO DAILY [facility] Last Admin: 02/21/17 08:04 Dose: 20 meq Quetiapine Fumarate (Seroquel) 300 mg PO BEDTIME [facility] Last Admin: 02/20/17 20:18 Dose: 300 mg Ramipril (Altace) 10 mg PO BID [facility] Last Admin: 02/21/17 08:06 Dose: 10 mg Simvastatin (Zocor) 80 mg PO BEDTIME [facility] Last Admin: 02/20/17 20:17 Dose: 80 mg Sodium Chloride (Saline Flush) 10 ml FLUSH ASDIRECTED PRN PRN Reason: Keep Vein Open Last Admin: 02/16/17 20:09 Dose: 10 ml Sodium Chloride (Saline Flush) 2.5 ml FLUSH ASDIRECTED PRN PRN Reason: Keep Vein Open Last Admin: 02/16/17 20:09 Dose: 2.5 ml Temazepam (Restoril) 15 mg PO BEDTIME PRN PRN Reason: Sleep Last Admin: 02/20/17 20:19 Dose: 15 mg Tramadol HCl (Ultram) 50 mg PO Q4H PRN PRN Reason: Pain Last Admin: 02/19/17 20:28 Dose: 50 mg Discontinued Medications Albuterol/Ipratropium (Duoneb 3.0-0.5 Mg/3 Ml) 3 ml NEB ONETIME ONE Stop: 02/16/17 19:35 Last Admin: 02/16/17 19:44 Dose: 3 ml Albuterol/Ipratropium (Duoneb 3.0-0.5 Mg/3 Ml) Confirm Administered Dose 3 ml .ROUTE .STK-MED ONE Stop: 02/16/17 19:38 Last Admin: 02/16/17 19:52 Dose: 3 ml Albuterol/Ipratropium (Duoneb 3.0-0.5 Mg/3 Ml) 3 ml NEB ONETIME ONE Stop: 02/16/17 19:50 Last Admin: 02/16/17 19:53 Dose: Not Given Amlodipine Besylate (Norvasc) 2.5 mg PO DAILY REPLACED BY [facility] Last Admin: 02/20/17 08:21 Dose: 2.5 mg Magnesium Sulfate 4 gm/ Premix 100 mls @ 50 mls/hr IV ONETIME ONE Stop: 02/17/17 00:40 Last Admin: 02/16/17 23:14 Dose: 50 mls/hr Magnesium Sulfate 2 gm/ Premix 50 mls @ 50 mls/hr IV ONETIME ONE Stop: 02/18/17 10:21 Last Admin: 02/18/17 10:11 Dose: 50 mls/hr Magnesium Sulfate 2 gm/ Premix 50 mls @ 50 mls/hr IV ONETIME ONE Stop: 02/20/17 09:26 Last Admin: 02/20/17 09:08 Dose: 50 mls/hr Methylprednisolone Sodium Succinate (Solu-Medrol) 125 mg IVPUSH ONETIME ONE Stop: 02/16/17 19:49 Last Admin: 02/16/17 20:09 Dose: 125 mg Nitroglycerin (Nitrostat) 0.4 mg SL Q5M PRN PRN Reason: Chest Pain Prednisone (Prednisone) 40 mg PO WITHBREAKFAST [facility] Last Admin: 02/19/17 08:40 Dose: 40 mg - Exam General: Reports: Alert, Oriented HEENT: Reports: Pupils Equal, EOMI Neck: Reports: Supple, Trachea Midline Lungs: Reports: Clear to Auscultation, Normal Respiratory Effort Cardiovascular: Reports: Regular Rate, Regular Rhythm GI/Abdominal Exam: Normal Bowel Sounds, Soft Back Exam: Reports: Normal Inspection, Full Range of Motion Extremities: Normal Inspection, Normal Range of Motion Skin: Reports: Warm, Dry, Intact Neurological: Reports: No New Focal Deficit Psy/Mental Status: Reports: Alert, Normal Affect, Normal Mood *Q Meaningful Use (DIS) - VTE *Q VTE Criteria *Q: - Stroke *Q Stroke Criteria *Q: - AMI *Q AMI Criteria *Q:
== END 2017-02-21 11:24 | disposition home or self-care (01) | DRG 191 ==
LOC: MW.ED 19:17 → MW.MS 21:29
PROVIDERS: ADMIT Family Medicine; ATTEND Family Medicine
DX: J44.1 Chronic obstructive pulmonary disease with (acute) exacerbation (principal); I13.0 Hypertensive heart and chronic kidney disease with heart failure and stage 1 through stage 4 chronic kidney disease, or unspecified chronic kidney disease; C34.90 Malignant neoplasm of unspecified part of unspecified bronchus or lung; E87.1 Hypo-osmolality and hyponatremia; I50.9 Heart failure, unspecified; N18.9 Chronic kidney disease, unspecified; G62.9 Polyneuropathy, unspecified; I10 Essential (primary) hypertension; E78.00 Pure hypercholesterolemia, unspecified; F41.9 Anxiety disorder, unspecified; Z85.05 Personal history of malignant neoplasm of liver; Z87.891 Personal history of nicotine dependence; Z79.899 Other long term (current) drug therapy
CPT/HCPCS: 36415; 71010; 80053; 83735; 83880; 84484; 85025; 85610; 87040 ×2; 93005; 94640; 96361; 96374; 99285; J2930; J7040; 80048; 81001; 84300; 87086; 99284; A9270-GY; J1642; J1650; J2405; J3475; J7050

== ENCOUNTER 2017-04-03 13:25 | Inpatient (IN) | payer MEDICARE, BC ==
[2017-04-03 13:53] LABS: CHLORIDE,CL 82 mmol/L (98-110)
[2017-04-03 14:00] LABS: SODIUM,NA 114 mmol/L (136-146)
[2017-04-03] MEDS ORDERED: Acetaminophen 325 MG Tab PO PRN (14:01)
--- NOTE | 2017-04-03 14:01 | PCM.HP ---
H&P History of Present Illness - General Date of Service: 04/03/17 Admit Problem/Dx: Hyponatremia Source of Information: Patient, Old Records History Limitations: Reports: No Limitations - History of Present Illness Initial Comments - Free Text/Narative: This 71 year old female with pmh of metastatic small cell lung cancer, with hyponatremia secondary to SIADH currently receiving palliative chemotherapy or Carboplatin and Etoposide. She finished her 3 day today and now has no chemotherapy for 3 weeks. She has been being monitored in Oncology for hyponatremia the last few days, being treated with Sodium Chloride tabs 1,000 mg QID, but sodium continues to decrease and today was noted to be 117. She reports feeling weak and her thoughts a little foggy. She denies seizures when her sodium has been low before. She denies diarrhea, vomiting or nausea. She reports eating and drinking ok at home. She denies chest pain or palpitations. Some SOB but it is at her baseline, no worsening. No cough, sinus congestion or urinary symptoms. She also denies abdominal pain. Repeat BMP on arrival to floor around 1300, Na noted to be 114. She will be placed on fluid restriction of 800 ml/day and continue with Sodium Chloride tabs. Potassium 3.2 and will be checking Magnesium. - Related Data Allergies/Adverse Reactions: Allergies Allergy/AdvReac Type Severity Reaction Status Date / Time cinnamon Allergy Shortness Verified 02/16/17 19:27 of Breath dust Allergy Shortness Uncoded 02/16/17 19:27 of Breath Febreeze Allergy Shortness Uncoded 02/16/17 19:27 of Breath pinecone Allergy Shortness Uncoded 02/16/17 19:27 of Breath Home Medications: Home Meds Metoprolol Tartrate [Lopressor] 50 mg PO BID 02/08/16 [History] Omeprazole 20 mg PO ACBREAKFAST 02/08/16 [History] Ramipril 10 mg PO BID 02/08/16 [History] Gabapentin [Neurontin] 400 mg PO QID 02/23/16 [History] amLODIPine Besylate [Norvasc] 2.5 mg PO DAILY #30 tablet 03/04/16 [Rx] Potassium Chloride 20 meq PO DAILY 04/22/16 [History] traMADol [Ultram] 50 mg PO Q4H PRN 04/22/16 [History] Aspirin [Ecotrin] 81 mg PO DAILY 04/23/16 [History] Fluticasone Propionate [Flonase] 1 spray NASBOTH DAILY 04/23/16 [History] Ondansetron [Ondansetron ODT] 8 mg PO Q8H PRN 04/23/16 [History] Polyethylene Glycol 3350 [MiraLAX] 17 gm PO DAILY PRN 04/23/16 [History] Sennosides/Docusate Sodium [Senna S Tablet] 2 tab PO BEDTIME PRN 04/23/16 [ History] Simvastatin [Zocor] 80 mg PO BEDTIME 04/25/16 [History] QUEtiapine Fumarate [Seroquel] 300 mg PO BEDTIME 05/24/16 [History] Loratadine [Claritin] 10 mg PO DAILY 05/26/16 [History] Past Medical History HEENT History: Reports: Cataract, Impaired Vision Other HEENT History: Cataract surgeries on both eyes Cardiovascular History: Reports: High Cholesterol, Hypertension, PVD, Other ( See Below). Denies: AR Respiratory History: Reports: COPD, Pneumonia, Recurrent Gastrointestinal History: Reports: GERD. Denies: Cirrhosis Other Gastrointestinal History: liver cancer Genitourinary History: Reports: Chronic Renal Insuffiency, Renal Disease STUDENT COUNSELLOR History: Reports: Musculoskeletal History: Reports: Arthritis Neurological History: Reports: Neuropathy, Peripheral Psychiatric History: Reports: Anxiety Other Endocrine/Metabolic History: history of hyponatremia Hematologic History: Reports: Blood Transfusion(s) Other Hematologic History: last blood transfusion while in hospital 1 week ago with pneumonia Oncologic (Cancer) History: Reports: Lung (small cell lung cancer with mets to breast, skeleton and possibly brain from MRI on 03/24/2017) - Infectious Disease History Infectious Disease History: Reports: Chicken Pox, Mumps - Past Surgical History Female Surgical History: Reports: Hysterectomy, Other (See Below) Social & Family History - Family History Family Medical History: Noncontributory HEENT: Reports: Cataract, Impaired Vision Cardiac: Reports: CAD, High Cholesterol, Hypertension, AR Respiratory: Reports: COPD OBGYN: Reports: Musculoskeletal: Reports: Arthritis Psychiatric: Reports: Anxiety, Depression Oncologic: Reports: Lung - Tobacco Use Smoking Status *Q: Former Smoker Years of Tobacco use: 55 Packs/Tins Daily: 1 Used Tobacco, but Quit: Yes Month Tobacco Last Used: September 2015 Second Hand Smoke Exposure: No - Caffeine Use Caffeine Use: Reports: Coffee Caffeine Use Comment: 1-2cups/day - Recreational Drug Use Recreational Drug Use: No H&P Review of Systems - Review of Systems: Review Of Systems: See Below General: Reports: Weakness, Fatigue. Denies: Fever, Chills, Malaise HEENT: Reports: No Symptoms. Denies: Headaches, Sinus Congestion, Sore Throat, Vertigo Pulmonary: Reports: Shortness of Breath (at baseline). Denies: Cough, Sputum Cardiovascular: Reports: No Symptoms. Denies: Chest Pain, Dyspnea on Exertion, Edema, Lightheadedness, Syncope Gastrointestinal: Reports: No Symptoms. Denies: Abdominal Pain, Black Stool, Bloody Stool, Diarrhea, Decreased Appetite, Nausea, Vomiting Genitourinary: Reports: No Symptoms. Denies: Dysuria, Frequency, Burning, Pain Skin: Reports: No Symptoms Psychiatric: Reports: No Symptoms Neurological: Reports: Confusion (foggy thoughts ) Hematologic/Lymphatic: Reports: Anemia Immunologic: Reports: No Symptoms Exam - Exam Exam: See Below - Vital Signs Weight: 66.5 kg - Exam General: Alert, Oriented, Cooperative HEENT: PERRLA, Hearing Intact, Mucosa Moist & [place], Nares Patent, Normal Nasal Septum, Posterior Pharynx Clear, Conjunctiva Clear, EOMI, EACs Clear, TMs Clear Neck: Supple, Trachea Midline, Full Range of Motion. No: Lymphadenopathy Lungs: Clear to Auscultation, Normal Respiratory Effort Cardiovascular: Regular Rate, Regular Rhythm, Other (port to L chest, no erythema) GI/Abdominal Exam: Normal Bowel Sounds, Soft, Non-Tender, No Organomegaly, No Distention, No Abnormal Bruit, No Mass, Pelvis Stable Back Exam: Normal Inspection, Full Range of Motion, NT Extremities: Normal Inspection, Normal Range of Motion, Non-Tender, No Pedal Edema, Normal Capillary Refill Neuro Extensive - Mental Status: Alert, Oriented x3, Normal Mood/Affect, Other ( reports foggy thoughts and slight confusion noted when answering questions but is alert and oriented.). No: Memory Intact Neuro Extensive - Motor, Sensory, Reflexes: CN II-XII Intact, Normal Gait, Normal Reflexes Psychiatric: Alert, Normal Affect, Normal Mood - Patient Data Lab Results Last 24 hrs: Laboratory Results - last 24 hr 04/03/17 04/03/17 Range/Units 13:04 13:04 WBC 5.62 (4.0-11.0) K/uL RBC 3.58 L (4.30-5.90) M/uL Hgb 10.8 L (12.0-16.0) g/dL Hct 29.5 L (36.0-46.0) % MCV 82.4 (80.0-98.0) fL MCH 30.2 (27.0-32.0) pg MCHC 36.6 (31.0-37.0) g/dL RDW Std Deviation 40.1 (28.0-62.0) fl RDW Coeff of [place] 13 (11.0-15.0) % Plt Count 156 (150-400) K/uL MPV 9.90 (7.40-12.00) fL Neut % (Auto) 92.7 H (48.0-80.0) % Lymph % (Auto) 5.0 L (16.0-40.0) % [place] % (Auto) 2.1 (0.0-15.0) % Eos % (Auto) 0.2 (0.0-7.0) % Baso % (Auto) 0.0 (0.0-1.5) % Neut # (Auto) 5.2 (1.4-5.7) K/uL Lymph # (Auto) 0.3 L (0.6-2.4) K/uL [place] # (Auto) 0.1 (0.0-0.8) K/uL Eos # (Auto) 0.0 (0.0-0.7) K/uL Baso # (Auto) 0.0 (0.0-0.1) K/uL Nucleated RBC % 0.0 /100WBC Nucleated RBCs # 0 K/uL Sodium 114 L* (136-146) mmol/L Potassium 3.2 L (3.5-5.1) mmol/L Chloride 82 L (98-110) mmol/L Carbon Dioxide 21 (21-31) mmol/L BUN 11 (6.0-23.0) mg/dL Creatinine 0.8 (0.6-1.5) mg/dL Est Cr Clr Drug Dosing TNP Estimated GFR (MDRD) > 60.0 ml/min Glucose 140 H (60-110) mg/dL Calcium 8.4 L (8.8-10.8) mg/dL Total Bilirubin 0.6 (0.1-1.5) mg/dL AST 49 H (5-40) IU/L ALT 48 (8-54) IU/L Alkaline Phosphatase 120 (40-150) Total Protein 5.9 L (6.0-8.0) g/dL Albumin 3.9 (3.4-4.8) g/dL Globulin 2.0 (2.0-3.5) g/dL Albumin/Globulin Ratio 2.0 (1.3-2.8) Result Diagrams: 04/03/17 13:04 04/03/17 13:04 *Q Meaningful Use (ADM) - VTE *Q VTE Criteria *Q: - Stroke *Q Stroke Criteria *Q: - AMI *Q AMI Criteria *Q: - Problem List (1) Hyponatremia SNOMED Code(s): 45286020 ICD Code: E87.1 - HYPO-OSMOLALITY AND HYPONATREMIA Status: Acute Current Visit: No (2) Hypokalemia SNOMED Code(s): 51492041 ICD Code: E87.6 - HYPOKALEMIA Status: Acute Current Visit: Yes (3) Hypomagnesemia SNOMED Code(s): 725259430 ICD Code: E83.42 - HYPOMAGNESEMIA Status: Acute Current Visit: Yes (4) Essential hypertension SNOMED Code(s): 25696743 ICD Code: I10 - ESSENTIAL (PRIMARY) HYPERTENSION Status: Chronic Current Visit: No (5) Peripheral vascular disease SNOMED Code(s): 735055837 ICD Code: I73.9 - PERIPHERAL VASCULAR DISEASE, UNSPECIFIED Status: Chronic Current Visit: No (6) Small cell carcinoma of left lung SNOMED Code(s): 855628455 ICD Code: C34.92 - MALIGNANT NEOPLASM OF UNSP PART OF LEFT BRONCHUS OR LUNG Status: Chronic Current Visit: Yes Problem Details: mets to liver, breast and skeleton, possibly brain as well as evidenced by brain MRI March 24 2017 (7) SIADH (syndrome of inappropriate ADH production) SNOMED Code(s): 20305078 ICD Code: E22.2 - SYNDROME OF INAPPROPRIATE SECRETION OF ANTIDIURETIC HORMONE Status: Acute Current Visit: Yes Problem List Initiated/Reviewed/Updated: Yes Assessment/Plan Comment:: This 71 year old female admitted with hyponatremia likely secondary to SIADH with hx of metastatic small cell lung cancer. 1. Hyponatremia: appears euvolemic. Discussed with Dr Chong. likely secondary to SIADH, will place on 800 ml/day Fluid restriction and infuse NS 100 ml. Monitor BMP every 4 hours. May consider hypertonic NS if symptoms worsen. Replace potassium PO as well as magnesium. Goal correction rate would be 4-6 meq/24 hrs. 2. HTN: Continue home medications. 3. Small cell lung cancer with mets: Stable will monitor. VTE prophylaxis: Heparin BID Dispo: 3-4 days pending improvement in hyponatremia
[2017-04-03] MEDS ORDERED: Sodium Chloride 0.9% 1,000 ML IV SCH (14:15)
[2017-04-03] MEDS ORDERED: Potassium Chloride 20 MEQ Tab.ER PO ONE (14:47)
[2017-04-03] MEDS: Sodium Chloride 1 GM Tab PO SCH ×2 (15:34→17:12)
[2017-04-03] MEDS ORDERED: Magnesium Sulfate/Water 4 GM in Premix Bag 1 BAG IV ONE (15:36)
[2017-04-03] MEDS ORDERED: Ondansetron 8 MG Tab.DIS PO PRN (15:40)
[2017-04-03] MEDS ORDERED: Polyethylene Glycol 3350 Powder 17 GM Packet PO PRN (15:40)
[2017-04-03] MEDS: traMADol 50 MG Tab PO PRN (16:06)
[2017-04-03] MEDS: Gabapentin 300 MG Cap PO SCH ×2 (16:06→20:52)
[2017-04-03] MEDS: Gabapentin 100 MG Cap PO SCH ×2 (17:12→20:52)
[2017-04-03 17:38] LABS: CHLORIDE,CL 81 mmol/L (98-110)
[2017-04-03 17:42] LABS: SODIUM,NA 114 mmol/L (136-146)
[2017-04-03] MEDS ORDERED: Sodium Chloride 3% 100 ML IV SCH (18:00)
[2017-04-03] MEDS ORDERED: SODIUM CHLORIDE IV ONE (18:15)
[2017-04-03] MEDS ORDERED: WATER FOR INJECTION STERILE IV ONE (18:15)
[2017-04-03] MEDS: Metoprolol Tartrate 50 MG Tab PO SCH (20:51)
[2017-04-03] MEDS: QUEtiapine 100 MG Tab PO SCH (20:53)
[2017-04-03] MEDS: Simvastatin 40 MG Tab PO SCH (20:53)
[2017-04-03] MEDS: Heparin Sodium 5,000 Units/ML Vial SUBCUT SCH (20:57)
[2017-04-03] MEDS: Sodium Chloride 0.9% 1,000 ML IV SCH (21:56)
[2017-04-03 22:18] LABS: CHLORIDE,CL 85 mmol/L (98-110)
[2017-04-03 22:20] LABS: SODIUM,NA 115 mmol/L (136-146)
[2017-04-04] MEDS: Sodium Chloride 1 GM Tab PO SCH ×4 (00:37→17:00)
[2017-04-04 01:45] LABS: CHLORIDE,CL 86 mmol/L (98-110)
[2017-04-04 01:48] LABS: SODIUM,NA 116 mmol/L (136-146)
[2017-04-04] MEDS: Gabapentin 300 MG Cap PO SCH ×4 (06:39→20:31)
[2017-04-04] MEDS: Omeprazole 20 MG Cap.CR PO SCH (06:39)
[2017-04-04] MEDS: Gabapentin 100 MG Cap PO SCH ×4 (06:39→20:32)
[2017-04-04] MEDS: Sodium Chloride 0.9% 1,000 ML IV SCH ×2 (06:42→23:13)
--- NOTE | 2017-04-04 06:42 | PCM.PN ---
- General Info Date of Service: 04/04/17 Admission Dx/Problem (Free Text): Hyponatremia Subjective Update: Feeling less fatigued then yesterday but still tired when getting up to bathroom. Denies nausea, vomiting, tingling, chest pain, palpitations, shortness breath, syncopal episodes, or focal neurologic deficits. Eating and eliminating without difficulty. Functional Status: Reports: Pain Controlled, Tolerating Diet - Review of Systems General: Reports: Weakness, Fatigue. Denies: Fever, Malaise, Chills HEENT: Denies: Headaches, Visual Changes Pulmonary: Denies: Shortness of Breath, Hemoptysis Cardiovascular: Denies: Chest Pain, Palpitations, Edema Gastrointestinal: Denies: Abdominal Pain, Constipation, Nausea, Vomiting Genitourinary: Denies: Dysuria, Hematuria Musculoskeletal: Denies: Neck Pain, Leg Pain Skin: Denies: Cyanosis Neurological: Denies: Confusion, Dizziness, Headache Psychiatric: Denies: Confusion - Patient Data Vitals - Most Recent: Last Vital Signs Temp 97.7 F 04/04/17 04:00 Pulse 76 04/04/17 04:00 Resp 18 04/04/17 04:00 BP 130/75 04/04/17 04:00 Pulse Ox 95 04/04/17 04:00 Weight - Most Recent: 66.5 kg I&O - Last 24 Hours: Intake & Output 04/03/17 04/03/17 04/04/17 14:59 22:59 06:59 Intake Total 1300 847 Output Total 200 2200 Balance 1100 -1353 Lab Results Last 24 Hours: Laboratory Results - last 24 hr 04/03/17 04/03/17 04/03/17 Range/Units 13:04 13:04 13:04 WBC 5.62 (4.0-11.0) K/uL RBC 3.58 L (4.30-5.90) M/uL Hgb 10.8 L (12.0-16.0) g/dL Hct 29.5 L (36.0-46.0) % MCV 82.4 (80.0-98.0) fL MCH 30.2 (27.0-32.0) pg MCHC 36.6 (31.0-37.0) g/dL RDW Std Deviation 40.1 (28.0-62.0) fl RDW Coeff of [place] 13 (11.0-15.0) % Plt Count 156 (150-400) K/uL MPV 9.90 (7.40-12.00) fL Neut % (Auto) 92.7 H (48.0-80.0) % Lymph % (Auto) 5.0 L (16.0-40.0) % [place] % (Auto) 2.1 (0.0-15.0) % Eos % (Auto) 0.2 (0.0-7.0) % Baso % (Auto) 0.0 (0.0-1.5) % Neut # (Auto) 5.2 (1.4-5.7) K/uL Lymph # (Auto) 0.3 L (0.6-2.4) K/uL [place] # (Auto) 0.1 (0.0-0.8) K/uL Eos # (Auto) 0.0 (0.0-0.7) K/uL Baso # (Auto) 0.0 (0.0-0.1) K/uL Nucleated RBC % 0.0 /100WBC Nucleated RBCs # 0 K/uL Sodium 114 L* (136-146) mmol/L Potassium 3.2 L (3.5-5.1) mmol/L Chloride 82 L (98-110) mmol/L Carbon Dioxide 21 (21-31) mmol/L BUN 11 (6.0-23.0) mg/dL Creatinine 0.8 (0.6-1.5) mg/dL Est Cr Clr Drug Dosing TNP Estimated GFR (MDRD) > 60.0 ml/min Glucose 140 H (60-110) mg/dL Calcium 8.4 L (8.8-10.8) mg/dL Magnesium 0.9 L (1.5-2.3) mEq/L Total Bilirubin 0.6 (0.1-1.5) mg/dL AST 49 H (5-40) IU/L ALT 48 (8-54) IU/L Alkaline Phosphatase 120 (40-150) Total Protein 5.9 L (6.0-8.0) g/dL Albumin 3.9 (3.4-4.8) g/dL Globulin 2.0 (2.0-3.5) g/dL Albumin/Globulin Ratio 2.0 (1.3-2.8) 04/03/17 04/03/17 04/04/17 Range/Units 17:07 21:51 01:05 WBC (4.0-11.0) K/uL RBC (4.30-5.90) M/uL Hgb (12.0-16.0) g/dL Hct (36.0-46.0) % MCV (80.0-98.0) fL MCH (27.0-32.0) pg MCHC (31.0-37.0) g/dL RDW Std Deviation (28.0-62.0) fl RDW Coeff of [place] (11.0-15.0) % Plt Count (150-400) K/uL MPV (7.40-12.00) fL Neut % (Auto) (48.0-80.0) % Lymph % (Auto) (16.0-40.0) % [place] % (Auto) (0.0-15.0) % Eos % (Auto) (0.0-7.0) % Baso % (Auto) (0.0-1.5) % Neut # (Auto) (1.4-5.7) K/uL Lymph # (Auto) (0.6-2.4) K/uL [place] # (Auto) (0.0-0.8) K/uL Eos # (Auto) (0.0-0.7) K/uL Baso # (Auto) (0.0-0.1) K/uL Nucleated RBC % /100WBC Nucleated RBCs # K/uL Sodium 114 L* 115 L* 116 L* (136-146) mmol/L Potassium 3.8 3.9 4.0 (3.5-5.1) mmol/L Chloride 81 L 85 L 86 L (98-110) mmol/L Carbon Dioxide 21 21 21 (21-31) mmol/L BUN 11 11 10 (6.0-23.0) mg/dL Creatinine 0.8 0.7 0.6 (0.6-1.5) mg/dL Est Cr Clr Drug Dosing 47.67 54.48 63.56 Estimated GFR (MDRD) > 60.0 > 60.0 > 60.0 ml/min Glucose 169 H 150 H 116 H (60-110) mg/dL Calcium 8.4 L 8.2 L 8.3 L (8.8-10.8) mg/dL Magnesium (1.5-2.3) mEq/L Total Bilirubin (0.1-1.5) mg/dL AST (5-40) IU/L ALT (8-54) IU/L Alkaline Phosphatase (40-150) Total Protein (6.0-8.0) g/dL Albumin (3.4-4.8) g/dL Globulin (2.0-3.5) g/dL Albumin/Globulin Ratio (1.3-2.8) 04/04/17 04/04/17 Range/Units 05:54 05:54 WBC 3.33 L (4.0-11.0) K/uL RBC 3.84 L (4.30-5.90) M/uL Hgb 11.4 L (12.0-16.0) g/dL Hct 31.6 L (36.0-46.0) % MCV 82.3 (80.0-98.0) fL MCH 29.7 (27.0-32.0) pg MCHC 36.1 (31.0-37.0) g/dL RDW Std Deviation 40.1 (28.0-62.0) fl RDW Coeff of [place] 13 (11.0-15.0) % Plt Count 142 L (150-400) K/uL MPV 9.60 (7.40-12.00) fL Neut % (Auto) 86.5 H (48.0-80.0) % Lymph % (Auto) 10.8 L (16.0-40.0) % [place] % (Auto) 2.7 (0.0-15.0) % Eos % (Auto) 0.0 (0.0-7.0) % Baso % (Auto) 0.0 (0.0-1.5) % Neut # (Auto) 2.9 (1.4-5.7) K/uL Lymph # (Auto) 0.4 L (0.6-2.4) K/uL [place] # (Auto) 0.1 (0.0-0.8) K/uL Eos # (Auto) 0.0 (0.0-0.7) K/uL Baso # (Auto) 0.0 (0.0-0.1) K/uL Nucleated RBC % 0.0 /100WBC Nucleated RBCs # 0 K/uL Sodium (136-146) mmol/L Potassium (3.5-5.1) mmol/L Chloride (98-110) mmol/L Carbon Dioxide (21-31) mmol/L BUN (6.0-23.0) mg/dL Creatinine (0.6-1.5) mg/dL Est Cr Clr Drug Dosing Estimated GFR (MDRD) ml/min Glucose (60-110) mg/dL Calcium (8.8-10.8) mg/dL Magnesium 1.6 (1.5-2.3) mEq/L Total Bilirubin (0.1-1.5) mg/dL AST (5-40) IU/L ALT (8-54) IU/L Alkaline Phosphatase (40-150) Total Protein (6.0-8.0) g/dL Albumin (3.4-4.8) g/dL Globulin (2.0-3.5) g/dL Albumin/Globulin Ratio (1.3-2.8) Med Orders - Current: Current Medications Acetaminophen (Tylenol) 650 mg PO Q4H PRN PRN Reason: Pain (Mild 1-3) Amlodipine Besylate (Norvasc) 2.5 mg PO DAILY [facility] Aspirin (Halfprin) 81 mg PO DAILY [facility] Fluticasone Propionate (Flonase) 0 gm NASBOTH DAILY [facility] Gabapentin (Neurontin) 100 mg PO QIDRT [facility] Last Admin: 04/04/17 06:39 Dose: 100 mg Gabapentin (Neurontin) 300 mg PO QIDRT [facility] Last Admin: 04/04/17 06:39 Dose: 300 mg Heparin Sodium (Porcine) (Heparin Sodium) 5,000 units SUBCUT Q12HR [facility] Last Admin: 04/03/17 20:57 Dose: 5,000 units Sodium Chloride (Normal Saline) 1,000 mls @ 100 mls/hr IV ASDIRECTED [facility] Last Admin: 04/04/17 06:42 Dose: 100 mls/hr Sodium Chloride (Sodium Chloride 3%) 100 mls @ 100 mls/hr IV ASDIRECTED [facility] Loratadine (Claritin) 10 mg PO DAILY [facility] Metoprolol Tartrate (Lopressor) 50 mg PO BID [facility] Last Admin: 04/03/17 20:51 Dose: Not Given Omeprazole (Omeprazole) 20 mg PO ACBREAKFAST [facility] Last Admin: 04/04/17 06:39 Dose: 20 mg Ondansetron HCl (Zofran Odt) 8 mg PO Q8H PRN PRN Reason: Nausea/Vomiting Polyethylene Glycol (Miralax) 17 gm PO DAILY PRN PRN Reason: Constipation Last Admin: 04/03/17 16:06 Dose: 17 gm Quetiapine Fumarate (Seroquel) 300 mg PO BEDTIME [facility] Last Admin: 04/03/17 20:53 Dose: 300 mg Ramipril (Altace) 10 mg PO BID [facility] Last Admin: 04/03/17 20:52 Dose: 10 mg Senna/Docusate Sodium (Senna Plus) 2 tab PO BEDTIME PRN PRN Reason: Constipation Last Admin: 04/03/17 16:06 Dose: 2 tab Simvastatin (Zocor) 80 mg PO BEDTIME [facility] Last Admin: 04/03/17 20:53 Dose: 80 mg Sodium Chloride (Sodium Chloride) 1 gm PO QID [facility] Last Admin: 04/04/17 06:39 Dose: 1 gm Tramadol HCl (Ultram) 50 mg PO Q4H PRN PRN Reason: Pain Last Admin: 04/03/17 16:06 Dose: 50 mg Discontinued Medications Sodium Chloride (Normal Saline) 1,000 mls @ 100 mls/hr IV ASDIRECTED [facility] Magnesium Sulfate 4 gm/ Premix 100 mls @ 50 mls/hr IV ONETIME ONE Stop: 04/03/17 17:35 Last Admin: 04/03/17 16:05 Dose: 50 mls/hr Sodium Chloride 51.2 meq/ (Sterile Water) 112.8 mls @ 112.8 mls/hr IV ONETIME ONE Stop: 04/03/17 19:14 Last Infusion: 04/03/17 21:29 Dose: Infused Potassium Chloride (Klor-Con M20) 40 meq PO ONETIME ONE Stop: 04/03/17 14:48 Last Admin: 04/03/17 15:34 Dose: 40 meq - Exam Quality Assessment: DVT Prophylaxis General: Alert, Oriented, Cooperative, No Acute Distress HEENT: Pupils Equal, Pupils Reactive, EOMI, Mucous Membr. Moist/Nitro Neck: Supple, Trachea Midline, No JVD Lungs: Clear to Auscultation, Normal Respiratory Effort Cardiovascular: Regular Rate, Regular Rhythm GI/Abdominal Exam: Normal Bowel Sounds, Soft, Non-Tender, No Organomegaly, No Distention Back Exam: Normal Inspection Extremities: Normal Inspection, Non-Tender, No Pedal Edema, Normal Capillary Refill Peripheral Pulses: 2+: Radial (L), Radial (R), Posterior Tibial (L), Posterior Tibial (R), Dorsalis Pedis (L), Dorsalis Pedis (R) Skin: Warm, Dry, Intact Neurological: No New Focal Deficit Psy/Mental Status: Alert, Normal Affect, Normal Mood - Problem List & Annotations (1) Hypokalemia SNOMED Code(s): 23371201 Code(s): E87.6 - HYPOKALEMIA Status: Resolved Priority: Medium Current Visit: Yes (2) Hypomagnesemia SNOMED Code(s): 401054366 Code(s): E83.42 - HYPOMAGNESEMIA Status: Resolved Priority: Medium Current Visit: Yes (3) SIADH (syndrome of inappropriate ADH production) SNOMED Code(s): 68579401 Code(s): E22.2 - SYNDROME OF INAPPROPRIATE SECRETION OF ANTIDIURETIC HORMONE Status: Acute Priority: High Current Visit: Yes (4) Small cell carcinoma of left lung SNOMED Code(s): 474772580 Code(s): C34.92 - MALIGNANT NEOPLASM OF UNSP PART OF LEFT BRONCHUS OR LUNG Status: Chronic Priority: Low Current Visit: Yes Annotation/Comment:: mets to liver, breast and skeleton, possibly brain as well as evidenced by brain MRI March 24 2017 (5) COPD (chronic obstructive pulmonary disease) SNOMED Code(s): 01778501 Code(s): J44.9 - CHRONIC OBSTRUCTIVE PULMONARY DISEASE, UNSPECIFIED Status : Chronic Priority: Medium Current Visit: Yes Qualifiers: COPD type: unspecified COPD Qualified Code(s): J44.9 - Chronic obstructive pulmonary disease, unspecified (6) Congestive heart failure SNOMED Code(s): 09945358 Code(s): I50.9 - HEART FAILURE, UNSPECIFIED Status: Chronic Priority: Low Current Visit: No Qualifiers: Congestive heart failure type: unspecified congestive heart failure type Congestive heart failure chronicity: unspecified congestive heart failure chronicity Qualified Code(s): I50.9 - Heart failure, unspecified (7) Hyponatremia SNOMED Code(s): 69741252 Code(s): E87.1 - HYPO-OSMOLALITY AND HYPONATREMIA Status: Acute Priority : High Current Visit: Yes - Problem List Review Problem List Initiated/Reviewed/Updated: Yes - My Orders Last 24 Hours: My Active Orders 04/03/17 18:00 Sodium Chloride 3% 100 ml IV ASDIRECTED - Plan Plan:: 71-year-old female admitted 04/03/17 directly from [facility] center for hyponatremia likely secondary to SIADH with history of metastatic small cell lung cancer, COPD, and hypertension. 1. Hyponatremia: 114 on admission to service with fluid restriction of 800 ml/ day and IV NS at 100 repeat labs showed no improvement last evening. Gave 100 ml of 3% NS x1 and continued IV NS at 100. Have had improvement 118 this morning so decreased NS to 50 ml/hr will cont. to monitor bmp q 4 hrs. May need to increase NS again if improvement does not cont. Goal correction rate would be 4-6 meq/24 hrs. 2. HTN: Continue home medications. 3. Small cell lung cancer with mets: Stable will monitor. VTE prophylaxis: Heparin BID Dispo: 3-4 days pending improvement in hyponatremia
[2017-04-04 06:43] LABS: CHLORIDE,CL 87 mmol/L (98-110)
[2017-04-04 06:46] LABS: SODIUM,NA 118 mmol/L (136-146)
[2017-04-04] MEDS ORDERED: Sodium Chloride 0.9% 1,000 ML IV SCH ×2 (07:00→11:00)
[2017-04-04] MEDS ORDERED: Calcium Carbonate 500 MG Tab.Chew PO ONE ×2 (07:26→19:34)
[2017-04-04] MEDS ORDERED: Magnesium Sulfate/Water 2 GM in Premix Bag 1 BAG IV ONE (07:28)
[2017-04-04] MEDS: Metoprolol Tartrate 50 MG Tab PO SCH ×2 (08:22→20:33)
[2017-04-04] MEDS: Loratadine 10 MG Tab PO SCH (08:25)
[2017-04-04] MEDS: amLODIPine 2.5 MG Tab PO SCH (08:25)
[2017-04-04] MEDS: Aspirin 81 MG Tab.EC PO SCH (08:26)
[2017-04-04] MEDS: Heparin Sodium 5,000 Units/ML Vial SUBCUT SCH ×2 (08:26→20:36)
[2017-04-04] MEDS: Fluticasone Propionate Nasal Spray 16 GM Bottle NASBOTH SCH (08:29)
[2017-04-04 11:01] LABS: CHLORIDE,CL 88 mmol/L (98-110)
[2017-04-04 11:02] LABS: SODIUM,NA 118 mmol/L (136-146)
[2017-04-04 15:07] LABS: CHLORIDE,CL 88 mmol/L (98-110)
[2017-04-04 15:14] LABS: SODIUM,NA 119 mmol/L (136-146)
[2017-04-04 18:44] LABS: CHLORIDE,CL 90 mmol/L (98-110)
[2017-04-04 18:47] LABS: SODIUM,NA 120 mmol/L (136-146)
[2017-04-04] MEDS ORDERED: Potassium Chloride 20 MEQ Tab.ER PO ONE (19:33)
[2017-04-04] MEDS: traMADol 50 MG Tab PO PRN (19:44)
[2017-04-04] MEDS: Simvastatin 40 MG Tab PO SCH (20:32)
[2017-04-04] MEDS: QUEtiapine 100 MG Tab PO SCH (20:32)
[2017-04-04 22:34] LABS: CHLORIDE,CL 90 mmol/L (98-110); SODIUM,NA 121 mmol/L (136-146)
[2017-04-05] MEDS: Sodium Chloride 1 GM Tab PO SCH ×4 (00:27→17:26)
[2017-04-05 02:37] LABS: CHLORIDE,CL 92 mmol/L (98-110); SODIUM,NA 122 mmol/L (136-146)
[2017-04-05] MEDS: Gabapentin 100 MG Cap PO SCH ×4 (06:31→20:38)
[2017-04-05] MEDS: Gabapentin 300 MG Cap PO SCH ×4 (06:31→20:38)
[2017-04-05] MEDS: Omeprazole 20 MG Cap.CR PO SCH (06:31)
--- NOTE | 2017-04-05 07:02 | PCM.PN ---
- General Info Date of Service: 04/05/17 Admission Dx/Problem (Free Text): Hyponatremia Subjective Update: Doing well this morning. Having some back pain from laying in bed. Feeling a bit less fatigued. No nausea, vomiting, diarrhea, chest pain, sob. Eating and eliminating without difficulty. Functional Status: Reports: Pain Controlled, Tolerating Diet, Ambulating, Urinating - Review of Systems General: Reports: Weakness, Fatigue. Denies: Fever, Malaise, Chills HEENT: Denies: Headaches, Visual Changes Pulmonary: Denies: Shortness of Breath, Hemoptysis Cardiovascular: Denies: Chest Pain, Edema Gastrointestinal: Denies: Abdominal Pain, Diarrhea, Hematochezia, Melena, Nausea , Vomiting Genitourinary: Denies: Dysuria, Hematuria Musculoskeletal: Reports: Back Pain. Denies: Neck Pain, Leg Pain Skin: Denies: Cyanosis Neurological: Denies: Confusion, Dizziness, Headache - Patient Data Vitals - Most Recent: Last Vital Signs Temp 97.8 F 04/05/17 04:00 Pulse 53 L 04/05/17 04:00 Resp 16 04/05/17 04:00 BP 151/64 H 04/05/17 04:00 Pulse Ox 93 L 04/05/17 04:00 Weight - Most Recent: 66.5 kg I&O - Last 24 Hours: Intake & Output 04/04/17 04/05/17 04/05/17 22:59 06:59 14:59 Intake Total 1450 600 Output Total 2400 1300 Balance -950 -700 Lab Results Last 24 Hours: Laboratory Results - last 24 hr 04/04/17 04/04/17 04/04/17 Range/Units 10:37 14:26 18:10 WBC (4.0-11.0) K/uL RBC (4.30-5.90) M/uL Hgb (12.0-16.0) g/dL Hct (36.0-46.0) % MCV (80.0-98.0) fL MCH (27.0-32.0) pg MCHC (31.0-37.0) g/dL RDW Std Deviation (28.0-62.0) fl RDW Coeff of Sherman (11.0-15.0) % Plt Count (150-400) K/uL MPV (7.40-12.00) fL Neut % (Auto) (48.0-80.0) % Lymph % (Auto) (16.0-40.0) % [place] % (Auto) (0.0-15.0) % Eos % (Auto) (0.0-7.0) % Baso % (Auto) (0.0-1.5) % Neut # (Auto) (1.4-5.7) K/uL Lymph # (Auto) (0.6-2.4) K/uL [place] # (Auto) (0.0-0.8) K/uL Eos # (Auto) (0.0-0.7) K/uL Baso # (Auto) (0.0-0.1) K/uL Nucleated RBC % /100WBC Nucleated RBCs # K/uL Sodium 118 L* 119 L* 120 L (136-146) mmol/L Potassium 3.1 L 3.4 L 3.4 L (3.5-5.1) mmol/L Chloride 88 L 88 L 90 L (98-110) mmol/L Carbon Dioxide 20 L 22 22 (21-31) mmol/L BUN 10 10 9 (6.0-23.0) mg/dL Creatinine 0.7 0.7 0.6 (0.6-1.5) mg/dL Est Cr Clr Drug Dosing 54.48 54.48 63.56 mL/min Estimated GFR (MDRD) > 60.0 > 60.0 > 60.0 ml/min Glucose 151 H 89 81 (60-110) mg/dL Calcium 8.2 L 8.3 L 8.3 L (8.8-10.8) mg/dL 04/04/17 04/05/17 04/05/17 Range/Units 22:02 02:06 06:22 WBC 2.62 L (4.0-11.0) K/uL RBC 3.76 L (4.30-5.90) M/uL Hgb 11.2 L (12.0-16.0) g/dL Hct 31.5 L (36.0-46.0) % MCV 83.8 (80.0-98.0) fL MCH 29.8 (27.0-32.0) pg MCHC 35.6 (31.0-37.0) g/dL RDW Std Deviation 41.0 (28.0-62.0) fl RDW Coeff of [place] 14 (11.0-15.0) % Plt Count 145 L (150-400) K/uL MPV 10.00 (7.40-12.00) fL Neut % (Auto) 77.8 (48.0-80.0) % Lymph % (Auto) 18.7 (16.0-40.0) % [place] % (Auto) 0.8 (0.0-15.0) % Eos % (Auto) 2.3 (0.0-7.0) % Baso % (Auto) 0.4 (0.0-1.5) % Neut # (Auto) 2.0 (1.4-5.7) K/uL Lymph # (Auto) 0.5 L (0.6-2.4) K/uL [place] # (Auto) 0.0 (0.0-0.8) K/uL Eos # (Auto) 0.1 (0.0-0.7) K/uL Baso # (Auto) 0.0 (0.0-0.1) K/uL Nucleated RBC % 0.0 /100WBC Nucleated RBCs # 0 K/uL Sodium 121 L 122 L (136-146) mmol/L Potassium 3.8 4.0 (3.5-5.1) mmol/L Chloride 90 L 92 L (98-110) mmol/L Carbon Dioxide 24 24 (21-31) mmol/L BUN 10 9 (6.0-23.0) mg/dL Creatinine 0.6 0.6 (0.6-1.5) mg/dL Est Cr Clr Drug Dosing 63.56 63.56 mL/min Estimated GFR (MDRD) > 60.0 > 60.0 ml/min Glucose 87 72 (60-110) mg/dL Calcium 8.3 L 8.7 L (8.8-10.8) mg/dL Med Orders - Current: Current Medications Acetaminophen (Tylenol) 650 mg PO Q4H PRN PRN Reason: Pain (Mild 1-3) Amlodipine Besylate (Norvasc) 2.5 mg PO DAILY [facility] Last Admin: 04/04/17 08:25 Dose: 2.5 mg Aspirin (Halfprin) 81 mg PO DAILY [facility] Last Admin: 04/04/17 08:26 Dose: 81 mg Fluticasone Propionate (Flonase) 0 gm NASBOTH DAILY [facility] Last Admin: 04/04/17 08:29 Dose: 2 sprays Gabapentin (Neurontin) 100 mg PO QIDRT [facility] Last Admin: 04/05/17 06:31 Dose: 100 mg Gabapentin (Neurontin) 300 mg PO QIDRT [facility] Last Admin: 04/05/17 06:31 Dose: 300 mg Heparin Sodium (Porcine) (Heparin Sodium) 5,000 units SUBCUT Q12HR [facility] Last Admin: 04/04/17 20:36 Dose: 5,000 units Sodium Chloride (Normal Saline) 1,000 mls @ 75 mls/hr IV ASDIRECTED [facility] Last Admin: 04/04/17 23:13 Dose: 75 mls/hr Loratadine (Claritin) 10 mg PO DAILY [facility] Last Admin: 04/04/17 08:25 Dose: 10 mg Metoprolol Tartrate (Lopressor) 50 mg PO BID [facility] Last Admin: 04/04/17 20:33 Dose: Not Given Omeprazole (Omeprazole) 20 mg PO ACBREAKFAST [facility] Last Admin: 04/05/17 06:31 Dose: 20 mg Ondansetron HCl (Zofran Odt) 8 mg PO Q8H PRN PRN Reason: Nausea/Vomiting Polyethylene Glycol (Miralax) 17 gm PO DAILY PRN PRN Reason: Constipation Last Admin: 04/03/17 16:06 Dose: 17 gm Quetiapine Fumarate (Seroquel) 300 mg PO BEDTIME [facility] Last Admin: 04/04/17 20:32 Dose: 300 mg Ramipril (Altace) 10 mg PO BID [facility] Last Admin: 04/04/17 20:30 Dose: 10 mg Senna/Docusate Sodium (Senna Plus) 2 tab PO BEDTIME PRN PRN Reason: Constipation Last Admin: 04/03/17 16:06 Dose: 2 tab Simvastatin (Zocor) 80 mg PO BEDTIME [facility] Last Admin: 04/04/17 20:32 Dose: 80 mg Sodium Chloride (Sodium Chloride) 1 gm PO QID [facility] Last Admin: 04/05/17 06:31 Dose: 1 gm Tramadol HCl (Ultram) 50 mg PO Q4H PRN PRN Reason: Pain Last Admin: 04/04/17 19:44 Dose: 50 mg Discontinued Medications Calcium Carbonate/Glycine (Tums) 1,000 mg PO ONETIME ONE Stop: 04/04/17 07:27 Last Admin: 04/04/17 08:26 Dose: 1,000 mg Calcium Carbonate/Glycine (Tums) 1,000 mg PO ONETIME ONE Stop: 04/04/17 19:35 Last Admin: 04/04/17 20:30 Dose: 1,000 mg Sodium Chloride (Normal Saline) 1,000 mls @ 100 mls/hr IV ASDIRECTED [facility] Magnesium Sulfate 4 gm/ Premix 100 mls @ 50 mls/hr IV ONETIME ONE Stop: 04/03/17 17:35 Last Admin: 04/03/17 16:05 Dose: 50 mls/hr Sodium Chloride (Normal Saline) 1,000 mls @ 100 mls/hr IV ASDIRECTED [facility] Last Infusion: 04/04/17 06:54 Dose: 100 mls/hr Sodium Chloride 51.2 meq/ (Sterile Water) 112.8 mls @ 112.8 mls/hr IV ONETIME ONE Stop: 04/03/17 19:14 Last Infusion: 04/03/17 21:29 Dose: Infused Sodium Chloride (Normal Saline) 1,000 mls @ 100 mls/hr IV ASDIRECTED [facility] Last Admin: 04/04/17 08:41 Dose: 50 mls/hr Magnesium Sulfate 2 gm/ Premix 50 mls @ 25 mls/hr IV ONETIME ONE Stop: 04/04/17 09:27 Last Admin: 04/04/17 08:26 Dose: 25 mls/hr Sodium Chloride (Normal Saline) 1,000 mls @ 100 mls/hr IV ASDIRECTED [facility] Last Infusion: 04/04/17 23:12 Dose: 100 mls/hr Potassium Chloride (Klor-Con M20) 40 meq PO ONETIME ONE Stop: 04/03/17 14:48 Last Admin: 04/03/17 15:34 Dose: 40 meq Potassium Chloride (Klor-Con M20) 40 meq PO ONETIME ONE Stop: 04/04/17 19:34 Last Admin: 04/04/17 20:30 Dose: 40 meq - Exam Quality Assessment: DVT Prophylaxis General: Alert, Oriented, Cooperative, No Acute Distress HEENT: Pupils Equal, Pupils Reactive, EOMI, Mucous Membr. Moist/[place] Neck: Supple, Trachea Midline, No JVD Lungs: Clear to Auscultation, Normal Respiratory Effort Cardiovascular: Regular Rate, Regular Rhythm GI/Abdominal Exam: Normal Bowel Sounds, Soft, Non-Tender, No Organomegaly, No Distention Back Exam: Normal Inspection Extremities: Normal Inspection, Non-Tender, No Pedal Edema, Normal Capillary Refill Peripheral Pulses: 2+: Radial (L), Radial (R), Posterior Tibial (L), Posterior Tibial (R), Dorsalis Pedis (L), Dorsalis Pedis (R) Skin: Warm, Dry, Intact Wound/Incisions: Healing Well Neurological: No New Focal Deficit Psy/Mental Status: Alert, Normal Affect, Normal Mood - Problem List & Annotations (1) Hypokalemia SNOMED Code(s): 87178454 Code(s): E87.6 - HYPOKALEMIA Status: Resolved Priority: Medium Current Visit: Yes (2) Hypomagnesemia SNOMED Code(s): 857824134 Code(s): E83.42 - HYPOMAGNESEMIA Status: Resolved Priority: Medium Current Visit: Yes (3) SIADH (syndrome of inappropriate ADH production) SNOMED Code(s): 35021177 Code(s): E22.2 - SYNDROME OF INAPPROPRIATE SECRETION OF ANTIDIURETIC HORMONE Status: Acute Priority: High Current Visit: Yes (4) Small cell carcinoma of left lung SNOMED Code(s): 228321748 Code(s): C34.92 - MALIGNANT NEOPLASM OF UNSP PART OF LEFT BRONCHUS OR LUNG Status: Chronic Priority: Low Current Visit: Yes Annotation/Comment:: mets to liver, breast and skeleton, possibly brain as well as evidenced by brain MRI March 24 2017 (5) COPD (chronic obstructive pulmonary disease) SNOMED Code(s): 79086396 Code(s): J44.9 - CHRONIC OBSTRUCTIVE PULMONARY DISEASE, UNSPECIFIED Status : Chronic Priority: Medium Current Visit: Yes Qualifiers: COPD type: unspecified COPD Qualified Code(s): J44.9 - Chronic obstructive pulmonary disease, unspecified (6) Congestive heart failure SNOMED Code(s): 04648382 Code(s): I50.9 - HEART FAILURE, UNSPECIFIED Status: Chronic Priority: Low Current Visit: No Qualifiers: Congestive heart failure type: unspecified congestive heart failure type Congestive heart failure chronicity: unspecified congestive heart failure chronicity Qualified Code(s): I50.9 - Heart failure, unspecified (7) Hyponatremia SNOMED Code(s): 75493942 Code(s): E87.1 - HYPO-OSMOLALITY AND HYPONATREMIA Status: Acute Priority : High Current Visit: Yes - Problem List Review Problem List Initiated/Reviewed/Updated: Yes - My Orders Last 24 Hours: My Active Orders 04/04/17 22:50 Sodium Chloride 0.9% [Normal Saline] 1,000 ml IV ASDIRECTED 04/05/17 06:22 BMP [BASIC METABOLIC PANEL,BMP] [CHEM] Routine - Plan Plan:: 71-year-old female admitted 04/03/17 directly from cancer center for hyponatremia likely secondary to SIADH with history of metastatic small cell lung cancer, COPD, and hypertension. 1. Hyponatremia: 114 on admission 123 today up 9 since admission 2 days ago. Cont. NS at 100 ml/hr today did decrease early am to 50 to maintain 4-6 meq/24 hr goal. Previous admission was discharge with Na at 124. Goal correction rate 4-6 meq/24 hrs. 2. HTN: Continue home medications. 3. Small cell lung cancer with mets: Stable will monitor. VTE prophylaxis: Heparin BID Dispo: 1-2 days pending improvement in hyponatremia
[2017-04-05 07:04] LABS: CHLORIDE,CL 92 mmol/L (98-110); SODIUM,NA 121 mmol/L (136-146)
[2017-04-05] MEDS: Heparin Sodium 5,000 Units/ML Vial SUBCUT SCH ×2 (09:33→20:46)
[2017-04-05] MEDS: amLODIPine 2.5 MG Tab PO SCH (09:33)
[2017-04-05] MEDS: Aspirin 81 MG Tab.EC PO SCH (09:34)
[2017-04-05] MEDS: Loratadine 10 MG Tab PO SCH (09:34)
[2017-04-05] MEDS: Metoprolol Tartrate 50 MG Tab PO SCH ×2 (09:34→20:38)
[2017-04-05] MEDS: Fluticasone Propionate Nasal Spray 16 GM Bottle NASBOTH SCH (09:35)
[2017-04-05] MEDS: Sodium Chloride 0.9% 1,000 ML IV SCH (09:42)
[2017-04-05] MEDS ORDERED: Calcium Carbonate 500 MG Tab.Chew PO ONE (10:01)
[2017-04-05] MEDS ORDERED: Magnesium Sulfate/Water 4 GM in Premix Bag 1 BAG IV ONE (10:01)
[2017-04-05 10:25] LABS: CHLORIDE,CL 92 mmol/L (98-110); SODIUM,NA 123 mmol/L (136-146)
[2017-04-05] MEDS ORDERED: Sodium Chloride 0.9% 1,000 ML IV SCH ×2 (10:56→20:15)
[2017-04-05 14:22] LABS: CHLORIDE,CL 94 mmol/L (98-110); SODIUM,NA 124 mmol/L (136-146)
[2017-04-05 19:59] LABS: CHLORIDE,CL 95 mmol/L (98-110); SODIUM,NA 126 mmol/L (136-146)
[2017-04-05] MEDS: QUEtiapine 100 MG Tab PO SCH (20:38)
[2017-04-05] MEDS: Simvastatin 40 MG Tab PO SCH (20:40)
[2017-04-05] MEDS ORDERED: Heparin Sodium 10 Units/ML 5 ML Syringe FLUSH PRN (21:02)
[2017-04-06] MEDS: Sodium Chloride 1 GM Tab PO SCH ×3 (00:15→12:08)
[2017-04-06 01:28] LABS: CHLORIDE,CL 96 mmol/L (98-110); SODIUM,NA 126 mmol/L (136-146)
[2017-04-06] MEDS: Gabapentin 300 MG Cap PO SCH ×2 (06:37→10:46)
[2017-04-06] MEDS: Gabapentin 100 MG Cap PO SCH ×2 (06:37→10:46)
[2017-04-06] MEDS: Omeprazole 20 MG Cap.CR PO SCH (06:37)
[2017-04-06 06:40] LABS: CHLORIDE,CL 97 mmol/L (98-110); SODIUM,NA 128 mmol/L (136-146)
[2017-04-06] MEDS: Fluticasone Propionate Nasal Spray 16 GM Bottle NASBOTH SCH ×2 (09:06→09:11)
[2017-04-06] MEDS: Heparin Sodium 5,000 Units/ML Vial SUBCUT SCH (09:07)
[2017-04-06] MEDS: amLODIPine 2.5 MG Tab PO SCH (09:11)
[2017-04-06] MEDS: Metoprolol Tartrate 50 MG Tab PO SCH (09:11)
[2017-04-06] MEDS: Aspirin 81 MG Tab.EC PO SCH (09:11)
[2017-04-06] MEDS: Loratadine 10 MG Tab PO SCH (09:12)
[2017-04-06 09:15] VITALS: BP 183/77
--- NOTE | 2017-04-06 11:31 | PCM.DCSUM1 ---
Discharge Summary - Hospital Course Brief History: This 71 year old female with pmh of metastatic small cell lung cancer, with hyponatremia secondary to SIADH currently receiving palliative chemotherapy or Carboplatin and Etoposide. She finished her 3 day today and now has no chemotherapy for 3 weeks. She has been being monitored in Oncology for hyponatremia the last few days, being treated with Sodium Chloride tabs 1,000 mg QID, but sodium continues to decrease and today was noted to be 117. She reports feeling weak and her thoughts a little foggy. She denies seizures when her sodium has been low before. She denies diarrhea, vomiting or nausea. She reports eating and drinking ok at home. She denies chest pain or palpitations. Some SOB but it is at her baseline, no worsening. No cough, sinus congestion or urinary symptoms. She also denies abdominal pain. Repeat BMP on arrival to floor around 1300, Na noted to be 114. She will be placed on fluid restriction of 800 ml/day and continue with Sodium Chloride tabs. Potassium 3.2 and Magnesium 0.9. - Discharge Data Discharge Date: 04/06/17 Discharge Disposition: Home, Self-Care 01 Condition: Good - Discharge Diagnosis/Problem(s) (1) Hyponatremia SNOMED Code(s): 81134863 ICD Code: E87.1 - HYPO-OSMOLALITY AND HYPONATREMIA Status: Acute Priority : High Current Visit: Yes (2) Hypokalemia SNOMED Code(s): 94936777 ICD Code: E87.6 - HYPOKALEMIA Status: Resolved Priority: Medium Current Visit: Yes (3) Hypomagnesemia SNOMED Code(s): 522403813 ICD Code: E83.42 - HYPOMAGNESEMIA Status: Resolved Priority: Medium Current Visit: Yes (4) Essential hypertension SNOMED Code(s): 74615163 ICD Code: I10 - ESSENTIAL (PRIMARY) HYPERTENSION Status: Chronic Current Visit: No (5) Peripheral vascular disease SNOMED Code(s): 591466798 ICD Code: I73.9 - PERIPHERAL VASCULAR DISEASE, UNSPECIFIED Status: Chronic Current Visit: No (6) Small cell carcinoma of left lung SNOMED Code(s): 011210845 ICD Code: C34.92 - MALIGNANT NEOPLASM OF UNSP PART OF LEFT BRONCHUS OR LUNG Status: Chronic Priority: Low Current Visit: Yes Problem Details: mets to liver, breast and skeleton, possibly brain as well as evidenced by brain MRI March 24 2017 (7) SIADH (syndrome of inappropriate ADH production) SNOMED Code(s): 44309986 ICD Code: E22.2 - SYNDROME OF INAPPROPRIATE SECRETION OF ANTIDIURETIC HORMONE Status: Acute Priority: High Current Visit: Yes - Patient Summary/Data Consults: Consultations 04/06/17 09:27 Consult to Physical Therapy [PT Evaluation and Treatment] [CONS] Routine - Patient Instructions Diet: Regular Diet as Tolerated, Fluid Restriction (1000 ml daily) Activity: As Tolerated, No Strenuous Activities Driving: May Drive Today Showering/Bathing: May Shower Notify Provider of: Fever, Increased Pain, Swelling and Redness, Drainage, Nausea and/or Vomiting - Discharge Plan Home Medications: Home Meds Metoprolol Tartrate [Lopressor] 50 mg PO BID 02/08/16 [History] Omeprazole 20 mg PO ACBREAKFAST 02/08/16 [History] Ramipril 10 mg PO BID 02/08/16 [History] Gabapentin [Neurontin] 400 mg PO QID 02/23/16 [History] amLODIPine Besylate [Norvasc] 2.5 mg PO DAILY #30 tablet 03/04/16 [Rx] Potassium Chloride 20 meq PO DAILY 04/22/16 [History] traMADol [Ultram] 50 mg PO Q4H PRN 04/22/16 [History] Aspirin [Ecotrin] 81 mg PO DAILY 04/23/16 [History] Fluticasone Propionate [Flonase] 1 spray NASBOTH DAILY 04/23/16 [History] Ondansetron [Ondansetron ODT] 8 mg PO Q8H PRN 04/23/16 [History] Polyethylene Glycol 3350 [MiraLAX] 17 gm PO DAILY PRN 04/23/16 [History] Sennosides/Docusate Sodium [Senna S Tablet] 2 tab PO BEDTIME PRN 04/23/16 [ History] Simvastatin [Zocor] 80 mg PO BEDTIME 04/25/16 [History] QUEtiapine Fumarate [Seroquel] 300 mg PO BEDTIME 05/24/16 [History] Loratadine [Claritin] 10 mg PO DAILY 05/26/16 [History] Budesonide/Formoterol [Symbicort 160-4.5 MCG] 2 inh IH BID 04/03/17 [History] Sodium Chloride 1 gm PO QID tablet 04/06/17 [Rx] Patient Handouts: Hyponatremia, [id number] Referrals: Carley Pinon MD [Ordering Only Provider] - 04/08/17 - Discharge Summary/Plan Comment DC Time >30 min.: No Discharge Summary/Plan Comment: Discharge Diagnoses: Hyponatremia-resolving Small cell lung cancer with metastasis SIADH Laura was admitted and placed on 800 ml fluid restriction and given gentle IVFs. This was continued over the weekend with slow steady elevation of NA. She was continued on her PO Sodim Chloride tabs, 1,000 mg QID. Today she is feeling much better, no longer feeling as weak. She was ambulating in hallway with PT and did well. She reports she cheated on fluid restriction at home. She was encouraged to follow this restriction closely, she was encouraged now to hold near a 1000 ml fluid restriction and try not going over. She will be discharged home today with close follow up with Dr. Pinon, oncology with labwork this coming Thursday in Oncology. She reports she feels good to go home. She is to return to ED or clinic if concerns should arise. She is to continue taking Sodium chloride tabs, 1,000 mg QID. - General Info Date of Service: 04/06/17 Admission Dx/Problem (Free Text: Hyponatremia Subjective Update: Feeling really good today. No chest pain, SOB or palpitations. No more foggy thoughts. Generalized weakness is improving. Some chronic back pain, but tolerable. Functional Status: Reports: Pain Controlled, Tolerating Diet, Ambulating, Urinating - Review of Systems General: Reports: No Symptoms. Denies: Fever Pulmonary: Reports: No Symptoms. Denies: Shortness of Breath, Cough, Sputum Cardiovascular: Reports: No Symptoms. Denies: Chest Pain, Palpitations, Edema Gastrointestinal: Reports: No Symptoms. Denies: Abdominal Pain, Nausea, Vomiting Musculoskeletal: Reports: Back Pain (chronic, near baseline) Neurological: Reports: No Symptoms. Denies: Confusion Psychiatric: Reports: No Symptoms. Denies: Confusion - Patient Data Vitals - Most Recent: Last Vital Signs Temp 97 F 04/06/17 08:00 Pulse 61 04/06/17 09:11 Resp 16 04/06/17 08:00 BP 183/77 H 04/06/17 09:14 Pulse Ox 93 L 04/06/17 08:00 Weight - Most Recent: 66.5 kg I&O - Last 24 hours: Intake & Output 04/05/17 04/06/17 04/06/17 22:59 06:59 14:59 Intake Total 1174 150 Output Total 1999 350 Balance -826 -200 Lab Results - Last 24 hrs: Laboratory Results - last 24 hr 04/05/17 04/05/17 04/06/17 Range/Units 13:57 19:31 01:03 WBC (4.0-11.0) K/uL RBC (4.30-5.90) M/uL Hgb (12.0-16.0) g/dL Hct (36.0-46.0) % MCV (80.0-98.0) fL MCH (27.0-32.0) pg MCHC (31.0-37.0) g/dL RDW Std Deviation (28.0-62.0) fl RDW Coeff of [place] (11.0-15.0) % Plt Count (150-400) K/uL MPV (7.40-12.00) fL Neut % (Auto) (48.0-80.0) % Lymph % (Auto) (16.0-40.0) % [place] % (Auto) (0.0-15.0) % Eos % (Auto) (0.0-7.0) % Baso % (Auto) (0.0-1.5) % Neut # (Auto) (1.4-5.7) K/uL Lymph # (Auto) (0.6-2.4) K/uL [place] # (Auto) (0.0-0.8) K/uL Eos # (Auto) (0.0-0.7) K/uL Baso # (Auto) (0.0-0.1) K/uL Nucleated RBC % /100WBC Nucleated RBCs # K/uL Sodium 124 L 126 L 126 L (136-146) mmol/L Potassium 4.0 3.7 3.9 (3.5-5.1) mmol/L Chloride 94 L 95 L 96 L (98-110) mmol/L Carbon Dioxide 22 21 24 (21-31) mmol/L BUN 11 12 13 (6.0-23.0) mg/dL Creatinine 0.8 0.8 0.7 (0.6-1.5) mg/dL Est Cr Clr Drug Dosing 47.67 47.67 54.48 mL/min Estimated GFR (MDRD) > 60.0 > 60.0 > 60.0 ml/min Glucose 91 122 H 86 (60-110) mg/dL Calcium 8.7 L 8.5 L 8.5 L (8.8-10.8) mg/dL Magnesium (1.5-2.3) mEq/L 04/06/17 04/06/17 Range/Units 06:11 06:11 WBC 2.70 L (4.0-11.0) K/uL RBC 3.91 L (4.30-5.90) M/uL Hgb 11.6 L (12.0-16.0) g/dL Hct 33.2 L (36.0-46.0) % MCV 84.9 (80.0-98.0) fL MCH 29.7 (27.0-32.0) pg MCHC 34.9 (31.0-37.0) g/dL RDW Std Deviation 42.7 (28.0-62.0) fl RDW Coeff of [place] 14 (11.0-15.0) % Plt Count 140 L (150-400) K/uL MPV 10.00 (7.40-12.00) fL Neut % (Auto) 71.9 (48.0-80.0) % Lymph % (Auto) 22.2 (16.0-40.0) % [place] % (Auto) 0.7 (0.0-15.0) % Eos % (Auto) 5.2 (0.0-7.0) % Baso % (Auto) 0.0 (0.0-1.5) % Neut # (Auto) 1.9 (1.4-5.7) K/uL Lymph # (Auto) 0.6 (0.6-2.4) K/uL [place] # (Auto) 0.0 (0.0-0.8) K/uL Eos # (Auto) 0.1 (0.0-0.7) K/uL Baso # (Auto) 0.0 (0.0-0.1) K/uL Nucleated RBC % 0.0 /100WBC Nucleated RBCs # 0 K/uL Sodium 128 L (136-146) mmol/L Potassium 3.8 (3.5-5.1) mmol/L Chloride 97 L (98-110) mmol/L Carbon Dioxide 23 (21-31) mmol/L BUN 11 (6.0-23.0) mg/dL Creatinine 0.7 (0.6-1.5) mg/dL Est Cr Clr Drug Dosing 54.48 mL/min Estimated GFR (MDRD) > 60.0 ml/min Glucose 72 (60-110) mg/dL Calcium 8.7 L (8.8-10.8) mg/dL Magnesium 1.5 (1.5-2.3) mEq/L Med Orders - Current: Current Medications Acetaminophen (Tylenol) 650 mg PO Q4H PRN PRN Reason: Pain (Mild 1-3) Last Admin: 04/05/17 09:47 Dose: 650 mg Amlodipine Besylate (Norvasc) 2.5 mg PO DAILY [facility] Last Admin: 04/06/17 09:11 Dose: 2.5 mg Aspirin (Halfprin) 81 mg PO DAILY [facility] Last Admin: 04/06/17 09:11 Dose: 81 mg Fluticasone Propionate (Flonase) 0 gm NASBOTH DAILY [facility] Last Admin: 04/06/17 09:11 Dose: Not Given Gabapentin (Neurontin) 100 mg PO QIDRT [facility] Last Admin: 04/06/17 10:46 Dose: 100 mg Gabapentin (Neurontin) 300 mg PO QIDRT [facility] Last Admin: 04/06/17 10:46 Dose: 300 mg Heparin Sodium (Porcine) (Heparin Sodium) 5,000 units SUBCUT Q12HR [facility] Last Admin: 04/06/17 09:07 Dose: 5,000 units Heparin Sodium (Porcine) (Heparin Lock Flush 10 Units/Ml) 50 unit FLUSH Q8HR PRN PRN Reason: Other Sodium Chloride (Normal Saline) 1,000 mls @ 50 mls/hr IV ASDIRECTED [facility] Last Admin: 04/05/17 20:33 Dose: 50 mls/hr Loratadine (Claritin) 10 mg PO DAILY [facility] Last Admin: 04/06/17 09:12 Dose: 10 mg Metoprolol Tartrate (Lopressor) 50 mg PO BID [facility] Last Admin: 04/06/17 09:11 Dose: 50 mg Omeprazole (Omeprazole) 20 mg PO ACBREAKFAST [facility] Last Admin: 04/06/17 06:37 Dose: 20 mg Ondansetron HCl (Zofran Odt) 8 mg PO Q8H PRN PRN Reason: Nausea/Vomiting Polyethylene Glycol (Miralax) 17 gm PO DAILY PRN PRN Reason: Constipation Last Admin: 04/03/17 16:06 Dose: 17 gm Quetiapine Fumarate (Seroquel) 300 mg PO BEDTIME [facility] Last Admin: 04/05/17 20:38 Dose: 300 mg Ramipril (Altace) 10 mg PO BID [facility] Last Admin: 04/06/17 09:14 Dose: 10 mg Senna/Docusate Sodium (Senna Plus) 2 tab PO BEDTIME PRN PRN Reason: Constipation Last Admin: 04/05/17 12:20 Dose: 2 tab Simvastatin (Zocor) 80 mg PO BEDTIME [facility] Last Admin: 04/05/17 20:40 Dose: 80 mg Sodium Chloride (Sodium Chloride) 1 gm PO QID [facility] Last Admin: 04/06/17 06:37 Dose: 1 gm Tramadol HCl (Ultram) 50 mg PO Q4H PRN PRN Reason: Pain Last Admin: 04/04/17 19:44 Dose: 50 mg Discontinued Medications Calcium Carbonate/Glycine (Tums) 1,000 mg PO ONETIME ONE Stop: 04/04/17 07:27 Last Admin: 04/04/17 08:26 Dose: 1,000 mg Calcium Carbonate/Glycine (Tums) 1,000 mg PO ONETIME ONE Stop: 04/04/17 19:35 Last Admin: 04/04/17 20:30 Dose: 1,000 mg Calcium Carbonate/Glycine (Tums) 1,000 mg PO ONETIME ONE Stop: 04/05/17 10:02 Last Admin: 04/05/17 10:49 Dose: 1,000 mg Sodium Chloride (Normal Saline) 1,000 mls @ 100 mls/hr IV ASDIRECTED [facility] Magnesium Sulfate 4 gm/ Premix 100 mls @ 50 mls/hr IV ONETIME ONE Stop: 04/03/17 17:35 Last Admin: 04/03/17 16:05 Dose: 50 mls/hr Sodium Chloride (Normal Saline) 1,000 mls @ 100 mls/hr IV ASDIRECTED [facility] Last Infusion: 04/04/17 06:54 Dose: 100 mls/hr Sodium Chloride 51.2 meq/ (Sterile Water) 112.8 mls @ 112.8 mls/hr IV ONETIME ONE Stop: 04/03/17 19:14 Last Infusion: 04/03/17 21:29 Dose: Infused Sodium Chloride (Normal Saline) 1,000 mls @ 100 mls/hr IV ASDIRECTED PRIYANK Last Admin: 04/04/17 08:41 Dose: 50 mls/hr Magnesium Sulfate 2 gm/ Premix 50 mls @ 25 mls/hr IV ONETIME ONE Stop: 04/04/17 09:27 Last Admin: 04/04/17 08:26 Dose: 25 mls/hr Sodium Chloride (Normal Saline) 1,000 mls @ 100 mls/hr IV ASDIRECTED PRIYANK Last Infusion: 04/04/17 23:12 Dose: 100 mls/hr Sodium Chloride (Normal Saline) 1,000 mls @ 75 mls/hr IV ASDIRECTED PRIYANK Last Infusion: 04/05/17 20:32 Dose: 75 mls/hr Magnesium Sulfate 4 gm/ Premix 100 mls @ 25 mls/hr IV ONETIME ONE Stop: 04/05/17 14:00 Last Admin: 04/05/17 10:49 Dose: 25 mls/hr Sodium Chloride (Normal Saline) 1,000 mls @ 75 mls/hr IV ASDIRECTED PRIYANK Potassium Chloride (Klor-Con M20) 40 meq PO ONETIME ONE Stop: 04/03/17 14:48 Last Admin: 04/03/17 15:34 Dose: 40 meq Potassium Chloride (Klor-Con M20) 40 meq PO ONETIME ONE Stop: 04/04/17 19:34 Last Admin: 04/04/17 20:30 Dose: 40 meq - Exam General: Reports: Alert, Oriented, Cooperative, No Acute Distress Neck: Reports: Supple Lungs: Reports: Clear to Auscultation, Normal Respiratory Effort Cardiovascular: Reports: Regular Rate, Regular Rhythm, Other (Port to L chest, no erythema noted. ) GI/Abdominal Exam: Normal Bowel Sounds, Soft, Non-Tender, No Organomegaly, No Distention, No Abnormal Bruit, No Mass, Pelvis Stable Extremities: Normal Inspection, Normal Range of Motion, Non-Tender, No Pedal Edema, Normal Capillary Refill Neurological: Reports: No New Focal Deficit Psy/Mental Status: Reports: Alert, Normal Affect, Normal Mood *Q Meaningful Use (DIS) - VTE *Q VTE Criteria *Q: - Stroke *Q Stroke Criteria *Q: - AMI *Q AMI Criteria *Q:
== END 2017-04-06 12:50 | disposition home or self-care (01) | DRG 641 ==
LOC: MW.MS 13:25
PROVIDERS: ADMIT Family Medicine; ATTEND Family Medicine
DX: E87.1 Hypo-osmolality and hyponatremia (principal); C34.92 Malignant neoplasm of unspecified part of left bronchus or lung; C78.7 Secondary malignant neoplasm of liver and intrahepatic bile duct; C79.51 Secondary malignant neoplasm of bone; C79.81 Secondary malignant neoplasm of breast; C79.31 Secondary malignant neoplasm of brain; E22.2 Syndrome of inappropriate secretion of antidiuretic hormone; E87.6 Hypokalemia; E83.42 Hypomagnesemia; I73.9 Peripheral vascular disease, unspecified; Z79.899 Other long term (current) drug therapy; E78.00 Pure hypercholesterolemia, unspecified; J44.9 Chronic obstructive pulmonary disease, unspecified; I12.9 Hypertensive chronic kidney disease with stage 1 through stage 4 chronic kidney disease, or unspecified chronic kidney disease; N18.9 Chronic kidney disease, unspecified; G62.9 Polyneuropathy, unspecified; F41.9 Anxiety disorder, unspecified; Z87.891 Personal history of nicotine dependence
CPT/HCPCS: 36415; 80048; 80053; 83735; 85025; 97161-GP; A4217; A9270-GY; J1642; J1644; J3475; J7040; J7131

== ENCOUNTER 2017-04-11 16:08 | Inpatient (IN) | payer MEDICARE, BC ==
[2017-04-11] MEDS ORDERED: Sodium Chloride 0.9% 10 ML Syringe FLUSH PRN (17:00)
[2017-04-11] MEDS ORDERED: Sodium Chloride 0.9% 2.5 ML Syringe FLUSH PRN (17:00)
[2017-04-11] MEDS ORDERED: Sodium Chloride 0.9% 1,000 ML IV SCH (17:00)
--- NOTE | 2017-04-11 17:09 | EDM.PDOC ---
ED HPI GENERAL MEDICAL PROBLEM - General Chief Complaint: General Stated Complaint: WEAK Time Seen by Provider: 04/11/17 16:56 - History of Present Illness INITIAL COMMENTS - FREE TEXT/NARRATIVE: HISTORY AND PHYSICAL: History of present illness: Patient is a 71-year-old female past medical history significant for metastatic small cell cancer who was admitted in the past with hyponatremia secondary to SIADH presents today with concern of chills and generalized weakness similar to her prior episode of hyponatremia. She denies fever there's been no vomiting diarrhea or other complaints. Patient does have a port. Patient denies cough chest pain or shortness of breath Review of systems: As per history of present illness and below otherwise all systems reviewed and negative. Past medical history: As per history of present illness and as reviewed below otherwise noncontributory. Surgical history: As per history of present illness and as reviewed below otherwise noncontributory. Social history: No reported history of drug or alcohol abuse. Family history: As per history of present illness and as reviewed below otherwise noncontributory. Physical exam: HEENT: Atraumatic, normocephalic, pupils reactive, negative for scleral icterus , mucous membranes dry, throat clear, neck supple, nontender, trachea midline. Lungs: Clear to auscultation, breath sounds equal bilaterally, chest nontender. Heart: S1S2, regular, negative for clicks, rubs, or JVD. Abdomen: Soft, nondistended, nontender. Negative for masses or hepatosplenomegaly. Negative for costovertebral tenderness. Pelvis: Stable nontender. Genitourinary: Deferred. Rectal: Deferred. Extremities: Atraumatic, negative for cords or calf pain. Neurovascular unremarkable. Neuro: Awake, alert, oriented. Cranial nerves II through XII unremarkable. Cerebellum unremarkable. Motor and sensory unremarkable throughout. Exam nonfocal. Diagnostics: CBC CMP PT/INR troponin chest x-ray EKG UA urine culture blood culture 2 lactic acid Therapeutics: Saline at 125 mL an hour Impression: 1 generalized weakness #2 history of metastatic small cell carcinoma #3 history of RIGORS Definitive disposition and diagnosis as appropriate pending reevaluation and review of above. Back Pain Score (Numeric/FACES): 5 - Related Data Allergies Allergy/AdvReac Type Severity Reaction Status Date / Time dust Allergy Shortness Uncoded 04/11/17 16:21 of Breath Febreeze Allergy Shortness Uncoded 04/11/17 16:21 of Breath pinecone Allergy Shortness Uncoded 04/11/17 16:21 of Breath Home Meds: Home Meds Metoprolol Tartrate [Lopressor] 50 mg PO BID 02/08/16 [History] Omeprazole 20 mg PO ACBREAKFAST 02/08/16 [History] Ramipril 10 mg PO BID 02/08/16 [History] Gabapentin [Neurontin] 400 mg PO QID 02/23/16 [History] amLODIPine Besylate [Norvasc] 2.5 mg PO DAILY #30 tablet 03/04/16 [Rx] traMADol [Ultram] 50 mg PO Q4H PRN 04/22/16 [History] Aspirin [Ecotrin] 81 mg PO DAILY 04/23/16 [History] Fluticasone Propionate [Flonase] 1 spray NASBOTH DAILY 04/23/16 [History] Ondansetron [Ondansetron ODT] 8 mg PO Q8H PRN 04/23/16 [History] Polyethylene Glycol 3350 [MiraLAX] 17 gm PO DAILY PRN 04/23/16 [History] Sennosides/Docusate Sodium [Senna S Tablet] 2 tab PO BEDTIME PRN 04/23/16 [ History] QUEtiapine Fumarate [Seroquel] 300 mg PO BEDTIME 05/24/16 [History] Loratadine [Claritin] 10 mg PO DAILY 05/26/16 [History] Budesonide/Formoterol [Symbicort 160-4.5 MCG] 2 inh IH BID 04/03/17 [History] Sodium Chloride 1 gm PO QID tablet 04/06/17 [Rx] Past Medical History HEENT History: Reports: Cataract, Impaired Vision Other HEENT History: Cataract surgeries on both eyes Cardiovascular History: Reports: High Cholesterol, Hypertension, PVD, Other ( See Below) Respiratory History: Reports: COPD, Pneumonia, Recurrent Other Respiratory History: admitted to the hospital 1 week ago for pneumonia, Gastrointestinal History: Reports: GERD Other Gastrointestinal History: liver cancer Genitourinary History: Reports: Chronic Renal Insuffiency, Renal Disease Other Genitourinary History: Pt states "My right kidney is not functioning and left is only 30% functioning." 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: Musculoskeletal History: Reports: Arthritis Neurological History: Reports: Neuropathy, Peripheral Psychiatric History: Reports: Anxiety Other Endocrine/Metabolic History: history of hyponatremia Hematologic History: Reports: Blood Transfusion(s) Other Hematologic History: last blood transfusion while in hospital 1 week ago with pneumonia Oncologic (Cancer) History: Reports: Breast, Lung Other Oncologic History: liver cancer, states does not know the source - Infectious Disease History Infectious Disease History: Reports: Chicken Pox, Mumps - Past Surgical History Head Surgeries/Procedures: Reports: None Female Surgical History: Reports: Hysterectomy, Other (See Below) Social & Family History - Family History Family Medical History: Noncontributory HEENT: Reports: Cataract, Impaired Vision Cardiac: Reports: CAD, High Cholesterol, Hypertension, [place] Respiratory: Reports: COPD OBGYN: Reports: Musculoskeletal: Reports: Arthritis Psychiatric: Reports: Anxiety, Depression Oncologic: Reports: Lung - Tobacco Use Smoking Status *Q: Never Smoker Years of Tobacco use: 55 Packs/Tins Daily: 1 Used Tobacco, but Quit: Yes Month Tobacco Last Used: September 2015 Second Hand Smoke Exposure: No - Caffeine Use Caffeine Use: Reports: Coffee Caffeine Use Comment: 1-2cups/day - Recreational Drug Use Recreational Drug Use: No ED ROS GENERAL - Review of Systems Review Of Systems: ROS reveals no pertinent complaints other than HPI. ED EXAM, GENERAL - Physical Exam Exam: See Below (see dictation) Course - Vital Signs Last Recorded V/S: Last Vital Signs Temp 36.3 C 04/11/17 16:18 Pulse 98 04/11/17 16:18 Resp 24 H 04/11/17 16:18 BP 154/89 H 04/11/17 16:18 Pulse Ox 92 L 04/11/17 16:18 - Orders/Labs/Meds Orders: Active Orders 24 hr Category Date Time Status EKG Documentation Completion [RC] STAT Care 04/11/17 16:59 Active Chest 2V [CR] Stat Exams 04/11/17 17:00 Taken CULTURE BLOOD [BC] Stat Lab 04/11/17 17:11 Received CULTURE BLOOD [BC] Stat Lab 04/11/17 17:23 Received CULTURE URINE [RM] Stat Lab 04/11/17 16:59 Uncollected INFLUENZA A+B AG SCREEN [RM] Stat Lab 04/11/17 17:00 Uncollected UA W/MICROSCOPIC [URIN] Stat Lab 04/11/17 16:59 Uncollected Sodium Chloride 0.9% [Normal Saline] 1,000 ml Med 04/11/17 17:00 Active IV STAT Sodium Chloride 0.9% [Saline Flush] Med 04/11/17 17:00 Active 10 ml FLUSH ASDIRECTED PRN Sodium Chloride 0.9% [Saline Flush] Med 04/11/17 17:00 Active 2.5 ml FLUSH ASDIRECTED PRN Vancomycin [Vancocin] 1 gm Med 04/11/17 18:09 Active Sodium Chloride 0.9% [Normal Saline] 250 ml IV ONETIME cefTAZidime [Fortaz] 1 gm Med 04/11/17 18:10 Active Dextrose 5% in Water 100 ml IV NOW Blood Culture x2 Reflex Set [OM.PC] Stat Oth 04/11/17 16:59 Ordered Saline Lock Insert [OM.PC] Stat Oth 04/11/17 16:59 Ordered Medication Orders Sodium Chloride (Normal Saline) 1,000 mls @ 125 mls/hr IV STAT PRIYANK Ceftazidime 1 gm/ Dextrose/ (Water) 100 mls @ 200 mls/hr IV NOW STA Stop: 04/11/17 18:39 Vancomycin HCl 1 gm/ Sodium (Chloride) 250 mls @ 250 mls/hr IV ONETIME ONE Stop: 04/11/17 19:08 Sodium Chloride (Saline Flush) 10 ml FLUSH ASDIRECTED PRN PRN Reason: Keep Vein Open Sodium Chloride (Saline Flush) 2.5 ml FLUSH ASDIRECTED PRN PRN Reason: Keep Vein Open Labs: Laboratory Tests 04/11/17 04/11/17 04/11/17 Range/Units 17:11 17:11 17:11 WBC 0.58 L (4.0-11.0) K/uL RBC 3.60 L (4.30-5.90) M/uL Hgb 10.7 L (12.0-16.0) g/dL Hct 31.9 L (36.0-46.0) % MCV 88.6 (80.0-98.0) fL MCH 29.7 (27.0-32.0) pg MCHC 33.5 (31.0-37.0) g/dL RDW Std Deviation 45.1 (28.0-62.0) fl RDW Coeff of [place] 14 (11.0-15.0) % Plt Count 68 L (150-400) K/uL MPV 9.50 (7.40-12.00) fL Add Manual Diff YES Neutrophils % (Manual) 8 L (48.0-80.0) % Band Neutrophils % 1 % Lymphocytes % (Manual) 86 H (16.0-40.0) % Monocytes % (Manual) 2 (0.0-15.0) % Eosinophils % (Manual) 3 (0.0-7.0) % Nucleated RBC % 0.0 /100WBC Absolute Seg Neuts 0.0 L (1.4-5.7) Band Neutrophils # 0 Lymphocytes # (Manual) 0.5 L (0.6-2.4) Monocytes # (Manual) 0.0 (0.0-0.8) Eosinophils # (Manual) 0.0 (0.0-0.7) Nucleated RBCs # 0 K/uL INR 0.98 Sodium 138 (136-146) mmol/L Potassium 3.3 L (3.5-5.1) mmol/L Chloride 103 (98-110) mmol/L Carbon Dioxide 24 (21-31) mmol/L BUN 13 (6.0-23.0) mg/dL Creatinine 0.9 (0.6-1.5) mg/dL Est Cr Clr Drug Dosing 42.38 mL/min Estimated GFR (MDRD) > 60.0 ml/min Glucose 96 (60-110) mg/dL Calcium 9.6 (8.8-10.8) mg/dL Total Bilirubin 0.7 (0.1-1.5) mg/dL AST 22 (5-40) IU/L ALT 23 (8-54) IU/L Alkaline Phosphatase 129 (40-150) Troponin I < 0.10 (0.0-0.29) NG/ML Total Protein 6.0 (6.0-8.0) g/dL Albumin 3.7 (3.4-4.8) g/dL Globulin 2.3 (2.0-3.5) g/dL Albumin/Globulin Ratio 1.6 (1.3-2.8) Meds: Medications Generic Name Dose Route Start Last Admin Trade Name Freq PRN Reason Stop Dose Admin Sodium Chloride 1,000 mls @ 125 mls/hr 04/11/17 17:00 Normal Saline IV STAT PRIYANK Ceftazidime 1 gm/ Dextrose/ 100 mls @ 200 mls/hr 04/11/17 18:10 Water IV 04/11/17 18:39 NOW STA Vancomycin HCl 1 gm/ Sodium 250 mls @ 250 mls/hr 04/11/17 18:09 Chloride IV 04/11/17 19:08 ONETIME ONE Sodium Chloride 10 ml 04/11/17 17:00 Saline Flush FLUSH ASDIRECTED PRN Keep Vein Open Sodium Chloride 2.5 ml 04/11/17 17:00 Saline Flush FLUSH ASDIRECTED PRN Keep Vein Open Departure - Departure Time of Disposition: 18:17 Disposition: Admitted As Inpatient 68 Condition: Good Clinical Impression: Neutropenia, Rigors, Small cell carcinoma of left lung - Discharge Information Referrals: PCP,None [Primary Care Provider] - Forms: ED Department Discharge - My Orders Last 24 Hours: My Active Orders 04/11/17 16:59 EKG Documentation Completion [RC] STAT CULTURE URINE [RM] Stat UA W/MICROSCOPIC [URIN] Stat Blood Culture x2 Reflex Set [OM.PC] Stat Saline Lock Insert [OM.PC] Stat 04/11/17 17:00 Chest 2V [CR] Stat INFLUENZA A+B AG SCREEN [RM] Stat Sodium Chloride 0.9% [Normal Saline] 1,000 ml IV STAT Sodium Chloride 0.9% [Saline Flush] 10 ml FLUSH ASDIRECTED PRN Sodium Chloride 0.9% [Saline Flush] 2.5 ml FLUSH ASDIRECTED PRN 04/11/17 17:11 CULTURE BLOOD [BC] Stat 04/11/17 17:23 CULTURE BLOOD [BC] Stat 04/11/17 18:09 Vancomycin [Vancocin] 1 gm Sodium Chloride 0.9% [Normal Saline] 250 ml IV ONETIME 04/11/17 18:10 cefTAZidime [Fortaz] 1 gm Dextrose 5% in Water 100 ml IV NOW - Assessment/Plan Last 24 Hours: My Active Orders 04/11/17 16:59 EKG Documentation Completion [RC] STAT CULTURE URINE [RM] Stat UA W/MICROSCOPIC [URIN] Stat Blood Culture x2 Reflex Set [OM.PC] Stat Saline Lock Insert [OM.PC] Stat 04/11/17 17:00 Chest 2V [CR] Stat INFLUENZA A+B AG SCREEN [RM] Stat Sodium Chloride 0.9% [Normal Saline] 1,000 ml IV STAT Sodium Chloride 0.9% [Saline Flush] 10 ml FLUSH ASDIRECTED PRN Sodium Chloride 0.9% [Saline Flush] 2.5 ml FLUSH ASDIRECTED PRN 04/11/17 17:11 CULTURE BLOOD [BC] Stat 04/11/17 17:23 CULTURE BLOOD [BC] Stat 04/11/17 18:09 Vancomycin [Vancocin] 1 gm Sodium Chloride 0.9% [Normal Saline] 250 ml IV ONETIME 04/11/17 18:10 cefTAZidime [Fortaz] 1 gm Dextrose 5% in Water 100 ml IV NOW
[2017-04-11 17:39] LABS: CHLORIDE,CL 103 mmol/L (98-110); SODIUM,NA 138 mmol/L (136-146)
[2017-04-11] MEDS ORDERED: DEXTROSE 5% IV STA ×2 (18:10)
[2017-04-11] MEDS ORDERED: CEFTAZIDIME IV STA ×2 (18:10)
[2017-04-11] MEDS ORDERED: WATER IV STA ×2 (18:10)
--- NOTE | 2017-04-11 18:39 | PCM.HP ---
H&P History of Present Illness - General Date of Service: 04/11/17 - History of Present Illness Initial Comments - Free Text/Narative: 71-year-old female presenting to emergency department with chief complaint of fever, chills, and diaphoresis 1 day with past medical history of metastatic small cell cancer receiving palliative chemotherapy of carboplatin and Etopside , hyponatremia secondary to SIADH, and hypertension. Patient presented to emergency department with chief complaint of waking up this morning with fever and chills with associated diaphoresis and generalized weakness. She also states that she did have a cough with green sputum production while in the ED. Patient states that she did not actually take her temperature and has just felt subjectively hot and cold on and off since this morning. She had been feeling well up until this morning and significant better than she had after discharge from her recent admittion for hyponatremia. Patient does have a long history of hyponatremia secondary to SIADH. In the emergency department, she was found to have be neutropenic with white blood cells of 0.58 and thrombocytopenic of 68. She did have hypokalemia of 3.3 but normal sodium at 138. Blood cultures were obtained as well as urinalysis and urine culture. Influenza was negative and chest x-ray showed no acute findings only mild hyperventilation. Patient was started on vancomycin and Fortaz in the emergency department. Patient was admitted for neutropenia. Back Pain Score (Numeric/FACES): 5 - Related Data Allergies/Adverse Reactions: Allergies Allergy/AdvReac Type Severity Reaction Status Date / Time dust Allergy Shortness Uncoded 04/11/17 16:21 of Breath Febreeze Allergy Shortness Uncoded 04/11/17 16:21 of Breath pinecone Allergy Shortness Uncoded 04/11/17 16:21 of Breath Home Medications: Home Meds Metoprolol Tartrate [Lopressor] 50 mg PO BID 02/08/16 [History] Omeprazole 20 mg PO ACBREAKFAST 02/08/16 [History] Ramipril 10 mg PO BID 02/08/16 [History] Gabapentin [Neurontin] 400 mg PO QID 02/23/16 [History] amLODIPine Besylate [Norvasc] 2.5 mg PO DAILY #30 tablet 03/04/16 [Rx] traMADol [Ultram] 50 mg PO Q4H PRN 04/22/16 [History] Aspirin [Ecotrin] 81 mg PO DAILY 04/23/16 [History] Fluticasone Propionate [Flonase] 1 spray NASBOTH DAILY 04/23/16 [History] Ondansetron [Ondansetron ODT] 8 mg PO Q8H PRN 04/23/16 [History] Polyethylene Glycol 3350 [MiraLAX] 17 gm PO DAILY PRN 04/23/16 [History] Sennosides/Docusate Sodium [Senna S Tablet] 2 tab PO BEDTIME PRN 04/23/16 [ History] QUEtiapine Fumarate [Seroquel] 300 mg PO BEDTIME 05/24/16 [History] Loratadine [Claritin] 10 mg PO DAILY 05/26/16 [History] Budesonide/Formoterol [Symbicort 160-4.5 MCG] 2 inh IH BID 04/03/17 [History] Sodium Chloride 1 gm PO QID tablet 04/06/17 [Rx] Past Medical History HEENT History: Reports: Cataract, Impaired Vision Other HEENT History: Cataract surgeries on both eyes Cardiovascular History: Reports: High Cholesterol, Hypertension, PVD, Other ( See Below) Respiratory History: Reports: COPD, Pneumonia, Recurrent Other Respiratory History: admitted to the hospital 1 week ago for pneumonia, Gastrointestinal History: Reports: GERD Other Gastrointestinal History: liver cancer Genitourinary History: Reports: Chronic Renal Insuffiency, Renal Disease Other Genitourinary History: Pt states "My right kidney is not functioning and left is only 30% functioning." 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: Musculoskeletal History: Reports: Arthritis Neurological History: Reports: Neuropathy, Peripheral Psychiatric History: Reports: Anxiety Other Endocrine/Metabolic History: history of hyponatremia Hematologic History: Reports: Blood Transfusion(s) Other Hematologic History: last blood transfusion while in hospital 1 week ago with pneumonia Oncologic (Cancer) History: Reports: Breast, Lung Other Oncologic History: liver cancer, states does not know the source - Infectious Disease History Infectious Disease History: Reports: Chicken Pox, Mumps - Past Surgical History Head Surgeries/Procedures: Reports: None Female Surgical History: Reports: Hysterectomy, Other (See Below) Social & Family History - Family History Family Medical History: Noncontributory HEENT: Reports: Cataract, Impaired Vision Cardiac: Reports: CAD, High Cholesterol, Hypertension, [place] Respiratory: Reports: COPD OBGYN: Reports: Musculoskeletal: Reports: Arthritis Psychiatric: Reports: Anxiety, Depression Oncologic: Reports: Lung - Tobacco Use Smoking Status *Q: Never Smoker Years of Tobacco use: 55 Packs/Tins Daily: 1 Used Tobacco, but Quit: Yes Month Tobacco Last Used: September 2015 Second Hand Smoke Exposure: No - Caffeine Use Caffeine Use: Reports: Coffee Caffeine Use Comment: 1-2cups/day - Recreational Drug Use Recreational Drug Use: No H&P Review of Systems - Review of Systems: Review Of Systems: See Below General: Reports: Fever, Chills, Malaise, Weakness, Fatigue, Diaphoresis HEENT: Denies: Dysphasia, Headaches, Sore Throat Pulmonary: Reports: Cough, Sputum. Denies: Shortness of Breath, Wheezing Cardiovascular: Denies: Chest Pain, Palpitations, Edema Gastrointestinal: Denies: Abdominal Pain, Diarrhea, Nausea, Vomiting Genitourinary: Denies: Dysuria, Hematuria Musculoskeletal: Denies: Neck Pain, Leg Pain Skin: Denies: Cyanosis Psychiatric: Denies: Confusion Neurological: Denies: Confusion, Dizziness, Headache Hematologic/Lymphatic: Denies: Anemia Immunologic: Denies: Anaphylaxis Exam - Exam Exam: See Below - Vital Signs Vital Signs: Last Vital Signs Temp 97.4 F 04/11/17 16:18 Pulse 98 04/11/17 16:18 Resp 24 H 04/11/17 16:18 BP 154/89 H 04/11/17 16:18 Pulse Ox 92 L 04/11/17 16:18 Weight: 59.6 kg - Exam Quality Assessment: DVT Prophylaxis General: Alert, Oriented, Cooperative HEENT: Conjunctiva Clear, EACs Clear, EOMI, Hearing Intact, Mucosa Moist & [place] , Nares Patent, Normal Nasal Septum, Posterior Pharynx Clear, PERRLA Neck: Supple, Trachea Midline, 2 Lungs: Clear to Auscultation, Normal Respiratory Effort Cardiovascular: Regular Rate, Regular Rhythm, Normal S1, Normal S2 GI/Abdominal Exam: Normal Bowel Sounds, Soft, Non-Tender, No Organomegaly, No Distention Back Exam: Normal Inspection, Full Range of Motion, NT Extremities: Normal Inspection, Non-Tender, No Pedal Edema, Normal Capillary Refill Peripheral Pulses: 2+: Radial (L), Radial (R), Posterior Tibial (L), Posterior Tibial (R), Dorsalis Pedis (L), Dorsalis Pedis (R) Skin: Warm, Dry, Intact Neurological: Cranial Nerves Intact Neuro Extensive - Mental Status: Alert, Oriented x3, Normal Mood/Affect, Normal Cognition Neuro Extensive - Motor, Sensory, Reflexes: CN II-XII Intact Psychiatric: Alert, Normal Affect, Normal Mood - Patient Data Result Diagrams: 04/11/17 17:11 04/11/17 17:11 *Q Meaningful Use (ADM) - VTE *Q VTE Criteria *Q: - Stroke *Q Stroke Criteria *Q: - AMI *Q AMI Criteria *Q: - Problem List (1) Neutropenia SNOMED Code(s): 096338101 ICD Code: D70.9 - NEUTROPENIA, UNSPECIFIED Status: Acute Priority: High Current Visit: Yes Qualifiers: Neutropenia type: secondary to cancer chemotherapy Qualified Code(s): D70.1 - Agranulocytosis secondary to cancer chemotherapy; T45.1X5A - Adverse effect of antineoplastic and immunosuppressive drugs, initial encounter; T45.1X5A - Adverse effect of antineoplastic and immunosuppressive drugs, initial encounter (2) Rigors SNOMED Code(s): 47325802 ICD Code: R68.89 - OTHER GENERAL SYMPTOMS AND SIGNS Status: Acute Priority: High Current Visit: Yes (3) Small cell carcinoma of left lung SNOMED Code(s): 680908571 ICD Code: C34.92 - MALIGNANT NEOPLASM OF UNSP PART OF LEFT BRONCHUS OR LUNG Status: Chronic Priority: Low Current Visit: Yes Problem Details: mets to liver, breast and skeleton, possibly brain as well as evidenced by brain MRI March 24 2017 (4) Hypokalemia SNOMED Code(s): 91634945 ICD Code: E87.6 - HYPOKALEMIA Status: Acute Priority: High Current Visit: Yes Problem List Initiated/Reviewed/Updated: Yes Orders Last 24hrs: Medication Orders Sodium Chloride (Normal Saline) 1,000 mls @ 125 mls/hr IV STAT PRIYANK Last Admin: 04/11/17 18:17 Dose: 125 mls/hr Vancomycin HCl 1 gm/ Sodium (Chloride) 250 mls @ 250 mls/hr IV ONETIME ONE Stop: 04/11/17 19:08 Last Admin: 04/11/17 18:38 Dose: 250 mls/hr Sodium Chloride (Saline Flush) 10 ml FLUSH ASDIRECTED PRN PRN Reason: Keep Vein Open Sodium Chloride (Saline Flush) 2.5 ml FLUSH ASDIRECTED PRN PRN Reason: Keep Vein Open Assessment/Plan Comment:: 71-year-old female admitted neutropenia past medical history of small cell lung cancer receiving palliative chemotherapy, hyponatremia, and hypertension. Neutropenia: Vancomycin and Ceptaz edema 2 g every 8 hours for empiric therapy of immunocompromise patient. Patient has been afebrile and blood cultures have been obtained. Of note, blood cultures were not collected from her port which could be a site of infection. May need to repeat blood cultures. May need consider blood transfusion but will monitor. Small cell lung cancer: Receiving palliative chemotherapy with carboplatin and Etopside. Patient's next chemotherapy in approximately 2 weeks. Hypokalemia: Replace with 40 mEq KCl continue to monitor Hyponatremia: Currently stable the patient does have a history of hyponatremia secondary SIADH. Continue to monitor closely. Hypertension: Currently controlled will resume home medications. VTE: Heparin, SCD Dispo: 3-4 days.
[2017-04-11] MEDS ORDERED: Ondansetron 4 MG Tab.DIS PO PRN (21:24)
[2017-04-11] MEDS ORDERED: Potassium Chloride 20 MEQ Tab.ER PO ONE (21:24)
[2017-04-11] MEDS ORDERED: Temazepam 15 MG Cap PO PRN (21:24)
[2017-04-11] MEDS ORDERED: Morphine 10 MG/ML Syringe IVPUSH PRN (21:24)
[2017-04-11] MEDS ORDERED: Acetaminophen 325 MG Tab PO PRN (21:24)
[2017-04-11] MEDS ORDERED: Polyethylene Glycol 3350 Powder 17 GM Packet PO PRN (21:30)
[2017-04-11] MEDS ORDERED: Ondansetron 8 MG Tab.DIS PO PRN (21:30)
[2017-04-11] MEDS: Heparin Sodium 5,000 Units/ML Vial SUBCUT SCH (21:53)
[2017-04-12] MEDS: Gabapentin 800 MG Tab PO SCH ×5 (00:04→23:34)
[2017-04-12] MEDS: Sodium Chloride 1 GM Tab PO SCH ×5 (00:04→23:34)
[2017-04-12] MEDS: Ondansetron 4 MG/2 ML SDV IVPUSH PRN ×2 (00:11→06:49)
[2017-04-12] MEDS: Omeprazole 20 MG Cap.CR PO SCH (06:49)
[2017-04-12 06:56] LABS: CHLORIDE,CL 106 mmol/L (98-110); SODIUM,NA 140 mmol/L (136-146)
[2017-04-12] MEDS: Heparin Sodium 5,000 Units/ML Vial SUBCUT SCH (07:36)
[2017-04-12] MEDS: FORMOTEROL INH SCH ×2 (08:40→21:29)
[2017-04-12] MEDS: Fluticasone Propionate Nasal Spray 16 GM Bottle NASBOTH SCH (08:40)
[2017-04-12] MEDS: BUDESONIDE INH SCH ×2 (08:40→21:29)
[2017-04-12] MEDS: Aspirin 81 MG Tab.EC PO SCH (08:41)
[2017-04-12] MEDS: amLODIPine 2.5 MG Tab PO SCH (08:42)
[2017-04-12] MEDS: Metoprolol Tartrate 50 MG Tab PO SCH ×2 (08:43→21:21)
[2017-04-12] MEDS ORDERED: Magnesium Sulfate/Water 2 GM in Premix Bag 1 BAG IV ONE (09:02)
[2017-04-12] MEDS ORDERED: Phosphorus #1 250 MG Tab PO ONE (13:06)
--- NOTE | 2017-04-12 13:15 | PCM.PN ---
- Review of Systems Systems Review Comment:: patient reports feeling ill, with subjective fevers and chills. - Patient Data Vitals - Most Recent: Last Vital Signs Temp 36.8 C 04/12/17 12:00 Pulse 65 04/12/17 12:00 Resp 16 04/12/17 12:00 BP 163/72 H 04/12/17 12:00 Pulse Ox 92 L 04/12/17 12:00 Weight - Most Recent: 60 kg I&O - Last 24 Hours: Intake & Output 04/11/17 04/12/17 04/12/17 22:59 06:59 14:59 Intake Total 100 1150 350 Output Total 1100 Balance 100 50 350 Lab Results Last 24 Hours: Laboratory Results - last 24 hr 04/12/17 04/12/17 04/12/17 Range/Units 02:20 06:03 06:03 WBC 0.54 L (4.0-11.0) K/uL RBC 3.06 L (4.30-5.90) M/uL Hgb 9.1 L (12.0-16.0) g/dL Hct 27.1 L (36.0-46.0) % MCV 88.6 (80.0-98.0) fL MCH 29.7 (27.0-32.0) pg MCHC 33.6 (31.0-37.0) g/dL RDW Std Deviation 44.7 (28.0-62.0) fl RDW Coeff of [place] 14 (11.0-15.0) % Plt Count 27 L (150-400) K/uL MPV 10.30 (7.40-12.00) fL Add Manual Diff YES Neutrophils % (Manual) 11 L (48.0-80.0) % Lymphocytes % (Manual) 85 H (16.0-40.0) % Monocytes % (Manual) 1 (0.0-15.0) % Eosinophils % (Manual) 3 (0.0-7.0) % Nucleated RBC % 0.0 /100WBC Absolute Seg Neuts 0.1 L (1.4-5.7) Lymphocytes # (Manual) 0.5 L (0.6-2.4) Monocytes # (Manual) 0.0 (0.0-0.8) Eosinophils # (Manual) 0.0 (0.0-0.7) Nucleated RBCs # 0 K/uL Sodium 140 (136-146) mmol/L Potassium 3.8 (3.5-5.1) mmol/L Chloride 106 (98-110) mmol/L Carbon Dioxide 25 (21-31) mmol/L BUN 8 (6.0-23.0) mg/dL Creatinine 0.7 (0.6-1.5) mg/dL Est Cr Clr Drug Dosing 54.48 mL/min Estimated GFR (MDRD) > 60.0 ml/min Glucose 79 (60-110) mg/dL Calcium 9.2 (8.8-10.8) mg/dL Phosphorus 2.2 L (2.4-4.7) mg/dL Magnesium 0.8 L (1.5-2.3) mEq/L Urine Color YELLOW Urine Appearance CLEAR Urine pH 6.0 (5.0-8.0) Ur Specific [place] 1.015 (1.001-1.035) Urine Protein NEGATIVE (NEGATIVE) mg/dL Urine Glucose (UA) NEGATIVE (NEGATIVE) mg/dL Urine Ketones TRACE H (NEGATIVE) mg/dL Urine Occult Blood NEGATIVE (NEGATIVE) Urine Nitrite NEGATIVE (NEGATIVE) Urine Bilirubin NEGATIVE (NEGATIVE) Urine Urobilinogen 0.2 (<2.0) EU/dL Ur Leukocyte Esterase NEGATIVE (NEGATIVE) Urine RBC 0-1 (0-2/HPF) Urine WBC 0-2 (0-5/HPF) Ur Epithelial Cells RARE (NONE-FEW) Urine Bacteria FEW (NEGATIVE) Jeremias Results Last 24 Hours: Microbiology 04/11/17 19:32 Influenza Type A Antigen Screen - Final Nasopharyngeal Swab NEGATIVE INFLUENZA A VIRUS AG Influenza Type B Antigen Screen - Final NEGATIVE INFLUENZA B VIRUS AG Med Orders - Current: Current Medications Acetaminophen (Tylenol) 650 mg PO Q4H PRN PRN Reason: Pain (Mild 1-3)/fever Amlodipine Besylate (Norvasc) 2.5 mg PO DAILY [facility] Last Admin: 04/12/17 08:42 Dose: 2.5 mg Aspirin (Halfprin) 81 mg PO DAILY [facility] Last Admin: 04/12/17 08:41 Dose: 81 mg Fluticasone Propionate (Flonase) 0 gm NASBOTH DAILY [facility] Last Admin: 04/12/17 08:40 Dose: 1 spray Gabapentin (Neurontin) 400 mg PO QID [facility] Last Admin: 04/12/17 12:33 Dose: 400 mg Ceftazidime 2 gm/ Sodium (Chloride) 100 mls @ 200 mls/hr IV Q12H [facility] Last Admin: 04/12/17 10:05 Dose: 200 mls/hr Vancomycin HCl 1 gm/ Sodium (Chloride) 250 mls @ 166.667 mls/hr IV Q12H [facility] Last Admin: 04/12/17 08:41 Dose: 166.667 mls/hr Metoprolol Tartrate (Lopressor) 50 mg PO BID [facility] Last Admin: 04/12/17 08:43 Dose: 50 mg Morphine Sulfate (Morphine) 2 mg IVPUSH Q2H PRN PRN Reason: Pain (severe 7-10) Stop: 04/12/17 21:26 Omeprazole (Omeprazole) 20 mg PO ACBREAKFAST [facility] Last Admin: 04/12/17 06:49 Dose: 20 mg Ondansetron HCl (Zofran Odt) 4 mg PO Q4H PRN PRN Reason: nausea, able to take PO Ondansetron HCl (Zofran) 4 mg IVPUSH Q4H PRN PRN Reason: Nausea Last Admin: 04/12/17 06:49 Dose: 4 mg Ondansetron HCl (Zofran Odt) 8 mg PO Q8H PRN PRN Reason: Nausea/Vomiting Budesonide/Formoterol [ Symbicort] 160/4.5 Inhaler 2 Puffs 2 each INH BID [facility] Last Admin: 04/12/17 08:40 Dose: 2 each Polyethylene Glycol (Miralax) 17 gm PO DAILY PRN PRN Reason: Constipation Quetiapine Fumarate (Seroquel) 300 mg PO BEDTIME [facility] Ramipril (Altace) 10 mg PO BID [facility] Last Admin: 04/12/17 08:42 Dose: 10 mg Senna/Docusate Sodium (Senna Plus) 2 tab PO BEDTIME PRN PRN Reason: Constipation Sodium Chloride (Saline Flush) 10 ml FLUSH ASDIRECTED PRN PRN Reason: Keep Vein Open Sodium Chloride (Saline Flush) 2.5 ml FLUSH ASDIRECTED PRN PRN Reason: Keep Vein Open Sodium Chloride (Sodium Chloride) 1 gm PO QID [facility] Last Admin: 04/12/17 12:33 Dose: 1 gm Sodium Phosphate (Neutra-Phos) 250 mg PO ONETIME ONE Stop: 04/12/17 13:07 Temazepam (Restoril) 15 mg PO BEDTIME PRN PRN Reason: Sleep Tramadol HCl (Ultram) 50 mg PO Q4H PRN PRN Reason: Pain Vancomycin HCl (Pharmacy To Dose - Vancomycin) 1 dose .XX ASDIRECTED [facility] Discontinued Medications Heparin Sodium (Porcine) (Heparin Sodium) 5,000 units SUBCUT Q8H [facility] Last Admin: 04/12/17 07:36 Dose: Not Given Sodium Chloride (Normal Saline) 1,000 mls @ 125 mls/hr IV STAT [facility] Last Admin: 04/11/17 18:17 Dose: 125 mls/hr Ceftazidime 1 gm/ Dextrose/ (Water) 100 mls @ 200 mls/hr IV NOW STA Stop: 04/11/17 18:39 Last Admin: 04/11/17 21:48 Dose: 200 mls/hr Vancomycin HCl 1 gm/ Sodium (Chloride) 250 mls @ 250 mls/hr IV ONETIME ONE Stop: 04/11/17 19:08 Last Admin: 04/11/17 18:38 Dose: 250 mls/hr Vancomycin HCl 1 gm/ Sodium (Chloride) 250 mls @ 166 mls/hr IV Q24H [facility] Last Admin: 04/11/17 23:44 Dose: Not Given Magnesium Sulfate 2 gm/ Premix 50 mls @ 50 mls/hr IV ONETIME ONE Stop: 04/12/17 10:01 Last Admin: 04/12/17 10:00 Dose: 50 mls/hr Potassium Chloride (Klor-Con M20) 40 meq PO ONETIME ONE Stop: 04/11/17 21:25 Last Admin: 04/11/17 21:51 Dose: 40 meq - Exam General: Alert, Oriented HEENT: Mucous Membr. Moist/[place] Neck: Supple Lungs: Clear to Auscultation, Normal Respiratory Effort. No: Crackles, Rales, Rhonchi, Rub, Stridor, Wheezing Cardiovascular: Regular Rate, Regular Rhythm GI/Abdominal Exam: Soft, Non-Tender, No Distention Extremities: Non-Tender, No Pedal Edema Skin: Warm, Dry, Intact. No: Rash - Problem List Review Problem List Initiated/Reviewed/Updated: Yes - My Orders Last 24 Hours: My Active Orders 04/12/17 13:06 Phosphorus #1 [Neutra-Phos] 250 mg PO ONETIME ONE 04/12/17 18:00 BASIC METABOLIC PANEL,BMP [CHEM] Routine MAGNESIUM [CHEM] Routine - Plan Plan:: 71-year-old female admitted neutropenia past medical history of small cell lung cancer receiving palliative chemotherapy, hyponatremia, and hypertension. Neutropenia with subjective fevers and chills: Vancomycin and Ceptaz were started for empiric therapy of immunocompromise patient. If cultures remain no growth will stop antibiotics Small cell lung cancer: Receiving palliative chemotherapy with carboplatin and Etopside. Patient's next chemotherapy in approximately 2 weeks. Hypokalemia/hypomagnesia: Replacing VTE: SCD, no heparin due to thrompocytopenia Dispo: 3-4 days.
[2017-04-12 18:33] LABS: CHLORIDE,CL 106 mmol/L (98-110); SODIUM,NA 140 mmol/L (136-146)
[2017-04-12] MEDS: QUEtiapine 100 MG Tab PO SCH (21:21)
[2017-04-13] MEDS: Omeprazole 20 MG Cap.CR PO SCH (06:44)
[2017-04-13] MEDS: Gabapentin 800 MG Tab PO SCH ×4 (06:44→23:04)
[2017-04-13] MEDS: Sodium Chloride 1 GM Tab PO SCH ×4 (06:44→23:04)
[2017-04-13 08:00] LABS: CHLORIDE,CL 108 mmol/L (98-110); SODIUM,NA 141 mmol/L (136-146)
[2017-04-13] MEDS: Metoprolol Tartrate 50 MG Tab PO SCH ×2 (09:22→21:20)
[2017-04-13] MEDS: amLODIPine 2.5 MG Tab PO SCH (09:22)
[2017-04-13] MEDS: Aspirin 81 MG Tab.EC PO SCH (09:23)
[2017-04-13] MEDS: FORMOTEROL INH SCH ×2 (10:00→23:04)
[2017-04-13] MEDS: Fluticasone Propionate Nasal Spray 16 GM Bottle NASBOTH SCH (10:00)
[2017-04-13] MEDS: BUDESONIDE INH SCH ×2 (10:00→23:04)
[2017-04-13] MEDS: traMADol 50 MG Tab PO PRN (10:05)
--- NOTE | 2017-04-13 12:51 | PCM.PN ---
- General Info Date of Service: 04/13/17 Admission Dx/Problem (Free Text): Neutropenia, Subjective Update: Feeling better today, no subjective fevers or chills. No cough. Strength is improving. No chest pain or SOB. Functional Status: Reports: Pain Controlled, Tolerating Diet, Ambulating, Urinating - Review of Systems Pulmonary: Reports: No Symptoms. Denies: Shortness of Breath, Cough, Sputum Cardiovascular: Reports: No Symptoms. Denies: Chest Pain, Edema Gastrointestinal: Reports: No Symptoms. Denies: Abdominal Pain, Nausea, Vomiting Genitourinary: Reports: No Symptoms. Denies: Dysuria, Frequency, Burning Neurological: Reports: No Symptoms. Denies: Confusion Psychiatric: Reports: No Symptoms. Denies: Confusion - Patient Data Vitals - Most Recent: Last Vital Signs Temp 98.5 F 04/13/17 11:30 Pulse 68 04/13/17 09:22 Resp 16 04/13/17 11:30 BP 151/57 H 04/13/17 11:30 Pulse Ox 93 L 04/13/17 11:30 Weight - Most Recent: 59.5 kg I&O - Last 24 Hours: Intake & Output 04/12/17 04/13/17 04/13/17 22:59 06:59 14:59 Intake Total 500 500 850 Output Total 1200 500 550 Balance -700 0 300 Lab Results Last 24 Hours: Laboratory Results - last 24 hr 04/12/17 04/12/17 04/13/17 Range/Units 18:02 21:50 07:08 WBC 0.58 L (4.0-11.0) K/uL RBC 2.87 L (4.30-5.90) M/uL Hgb 8.5 L (12.0-16.0) g/dL Hct 25.3 L (36.0-46.0) % MCV 88.2 (80.0-98.0) fL MCH 29.6 (27.0-32.0) pg MCHC 33.6 (31.0-37.0) g/dL RDW Std Deviation 44.1 (28.0-62.0) fl RDW Coeff of [place] 14 (11.0-15.0) % Plt Count 13 L (150-400) K/uL MPV 11.00 (7.40-12.00) fL Neut % (Auto) 3.5 L (48.0-80.0) % Lymph % (Auto) 82.8 H (16.0-40.0) % [place] % (Auto) 3.4 (0.0-15.0) % Eos % (Auto) 10.3 H (0.0-7.0) % Baso % (Auto) 0.0 (0.0-1.5) % Neut # (Auto) 0.0 L (1.4-5.7) K/uL Lymph # (Auto) 0.5 L (0.6-2.4) K/uL [place] # (Auto) 0.0 (0.0-0.8) K/uL Eos # (Auto) 0.1 (0.0-0.7) K/uL Baso # (Auto) 0.0 (0.0-0.1) K/uL Nucleated RBC % 0.0 /100WBC Nucleated RBCs # 0 K/uL Sodium 140 (136-146) mmol/L Potassium 3.6 (3.5-5.1) mmol/L Chloride 106 (98-110) mmol/L Carbon Dioxide 24 (21-31) mmol/L BUN 9 (6.0-23.0) mg/dL Creatinine 0.8 (0.6-1.5) mg/dL Est Cr Clr Drug Dosing 47.67 mL/min Estimated GFR (MDRD) > 60.0 ml/min Glucose 103 (60-110) mg/dL POC Glucose 78 (60-110) mg/dL Calcium 8.9 (8.8-10.8) mg/dL Phosphorus (2.4-4.7) mg/dL Magnesium 1.5 (1.5-2.3) mEq/L Vancomycin Trough (5-15) ug/mL 04/13/17 04/13/17 Range/Units 07:08 07:08 WBC (4.0-11.0) K/uL RBC (4.30-5.90) M/uL Hgb (12.0-16.0) g/dL Hct (36.0-46.0) % MCV (80.0-98.0) fL MCH (27.0-32.0) pg MCHC (31.0-37.0) g/dL RDW Std Deviation (28.0-62.0) fl RDW Coeff of [place] (11.0-15.0) % Plt Count (150-400) K/uL MPV (7.40-12.00) fL Neut % (Auto) (48.0-80.0) % Lymph % (Auto) (16.0-40.0) % [place] % (Auto) (0.0-15.0) % Eos % (Auto) (0.0-7.0) % Baso % (Auto) (0.0-1.5) % Neut # (Auto) (1.4-5.7) K/uL Lymph # (Auto) (0.6-2.4) K/uL [place] # (Auto) (0.0-0.8) K/uL Eos # (Auto) (0.0-0.7) K/uL Baso # (Auto) (0.0-0.1) K/uL Nucleated RBC % /100WBC Nucleated RBCs # K/uL Sodium 141 (136-146) mmol/L Potassium 3.4 L (3.5-5.1) mmol/L Chloride 108 (98-110) mmol/L Carbon Dioxide 26 (21-31) mmol/L BUN 7 (6.0-23.0) mg/dL Creatinine 0.8 (0.6-1.5) mg/dL Est Cr Clr Drug Dosing 47.67 mL/min Estimated GFR (MDRD) > 60.0 ml/min Glucose 78 (60-110) mg/dL POC Glucose (60-110) mg/dL Calcium 8.9 (8.8-10.8) mg/dL Phosphorus 2.8 (2.4-4.7) mg/dL Magnesium 1.0 L (1.5-2.3) mEq/L Vancomycin Trough 11.7 (5-15) ug/mL Med Orders - Current: Current Medications Acetaminophen (Tylenol) 650 mg PO Q4H PRN PRN Reason: Pain (Mild 1-3)/fever Amlodipine Besylate (Norvasc) 2.5 mg PO DAILY [facility] Last Admin: 04/13/17 09:22 Dose: 2.5 mg Aspirin (Halfprin) 81 mg PO DAILY [facility] Last Admin: 04/13/17 09:23 Dose: 81 mg Fluticasone Propionate (Flonase) 0 gm NASBOTH DAILY [facility] Last Admin: 04/13/17 10:00 Dose: 1 spray Gabapentin (Neurontin) 400 mg PO QID [facility] Last Admin: 04/13/17 11:33 Dose: 400 mg Ceftazidime 2 gm/ Sodium (Chloride) 100 mls @ 200 mls/hr IV Q12H [facility] Last Admin: 04/13/17 10:57 Dose: 200 mls/hr Vancomycin HCl 1 gm/ Sodium (Chloride) 250 mls @ 166.667 mls/hr IV Q12H [facility] Last Admin: 04/13/17 09:21 Dose: 166.667 mls/hr Metoprolol Tartrate (Lopressor) 50 mg PO BID [facility] Last Admin: 04/13/17 09:22 Dose: 50 mg Omeprazole (Omeprazole) 20 mg PO ACBREAKFAST [facility] Last Admin: 04/13/17 06:44 Dose: 20 mg Ondansetron HCl (Zofran Odt) 4 mg PO Q4H PRN PRN Reason: nausea, able to take PO Ondansetron HCl (Zofran) 4 mg IVPUSH Q4H PRN PRN Reason: Nausea Last Admin: 04/12/17 06:49 Dose: 4 mg Ondansetron HCl (Zofran Odt) 8 mg PO Q8H PRN PRN Reason: Nausea/Vomiting Budesonide/Formoterol [ Symbicort] 160/4.5 Inhaler 2 Puffs 2 each INH BID [facility] Last Admin: 04/13/17 10:00 Dose: 2 each Polyethylene Glycol (Miralax) 17 gm PO DAILY PRN PRN Reason: Constipation Quetiapine Fumarate (Seroquel) 300 mg PO BEDTIME [facility] Last Admin: 04/12/17 21:21 Dose: 300 mg Ramipril (Altace) 10 mg PO BID [facility] Last Admin: 04/13/17 09:23 Dose: 10 mg Senna/Docusate Sodium (Senna Plus) 2 tab PO BEDTIME PRN PRN Reason: Constipation Sodium Chloride (Saline Flush) 10 ml FLUSH ASDIRECTED PRN PRN Reason: Keep Vein Open Sodium Chloride (Saline Flush) 2.5 ml FLUSH ASDIRECTED PRN PRN Reason: Keep Vein Open Sodium Chloride (Sodium Chloride) 1 gm PO QID [facility] Last Admin: 04/13/17 11:34 Dose: 1 gm Temazepam (Restoril) 15 mg PO BEDTIME PRN PRN Reason: Sleep Tramadol HCl (Ultram) 50 mg PO Q4H PRN PRN Reason: Pain Last Admin: 04/13/17 10:05 Dose: 50 mg Vancomycin HCl (Pharmacy To Dose - Vancomycin) 1 dose .XX ASDIRECTED [facility] Discontinued Medications Heparin Sodium (Porcine) (Heparin Sodium) 5,000 units SUBCUT Q8H [facility] Last Admin: 04/12/17 07:36 Dose: Not Given Sodium Chloride (Normal Saline) 1,000 mls @ 125 mls/hr IV STAT [facility] Last Admin: 04/11/17 18:17 Dose: 125 mls/hr Ceftazidime 1 gm/ Dextrose/ (Water) 100 mls @ 200 mls/hr IV NOW STA Stop: 04/11/17 18:39 Last Admin: 04/11/17 21:48 Dose: 200 mls/hr Vancomycin HCl 1 gm/ Sodium (Chloride) 250 mls @ 250 mls/hr IV ONETIME ONE Stop: 04/11/17 19:08 Last Admin: 04/11/17 18:38 Dose: 250 mls/hr Vancomycin HCl 1 gm/ Sodium (Chloride) 250 mls @ 166 mls/hr IV Q24H [facility] Last Admin: 04/11/17 23:44 Dose: Not Given Magnesium Sulfate 2 gm/ Premix 50 mls @ 50 mls/hr IV ONETIME ONE Stop: 04/12/17 10:01 Last Admin: 04/12/17 10:00 Dose: 50 mls/hr Morphine Sulfate (Morphine) 2 mg IVPUSH Q2H PRN PRN Reason: Pain (severe 7-10) Stop: 04/12/17 21:26 Potassium Chloride (Klor-Con M20) 40 meq PO ONETIME ONE Stop: 04/11/17 21:25 Last Admin: 04/11/17 21:51 Dose: 40 meq Sodium Phosphate (Neutra-Phos) 250 mg PO ONETIME ONE Stop: 04/12/17 13:07 Last Admin: 04/12/17 13:46 Dose: 250 mg - Exam Quality Assessment: Central Line/PICC (PORT) General: Alert, Oriented, Cooperative, No Acute Distress Lungs: Clear to Auscultation, Normal Respiratory Effort Cardiovascular: Regular Rate, Regular Rhythm GI/Abdominal Exam: Normal Bowel Sounds, Soft, Non-Tender, No Organomegaly, No Distention, No Abnormal Bruit, No Mass, Pelvis Stable Extremities: Normal Inspection, Normal Range of Motion, Non-Tender, No Pedal Edema, Normal Capillary Refill Neurological: No New Focal Deficit Psy/Mental Status: Alert, Normal Affect, Normal Mood - Problem List & Annotations (1) Thrombocytopenia SNOMED Code(s): 869835034 Code(s): D69.6 - THROMBOCYTOPENIA, UNSPECIFIED Status: Acute Current Visit: Yes (2) Neutropenia SNOMED Code(s): 296703288 Code(s): D70.9 - NEUTROPENIA, UNSPECIFIED Status: Acute Priority: High Current Visit: Yes Qualifiers: Neutropenia type: secondary to cancer chemotherapy Qualified Code(s): D70.1 - Agranulocytosis secondary to cancer chemotherapy; T45.1X5A - Adverse effect of antineoplastic and immunosuppressive drugs, initial encounter; T45.1X5A - Adverse effect of antineoplastic and immunosuppressive drugs, initial encounter (3) Pancytopenia due to chemotherapy SNOMED Code(s): 6609347 Code(s): D61.810 - ANTINEOPLASTIC CHEMOTHERAPY INDUCED PANCYTOPENIA Status : Acute Priority: High Current Visit: No (4) Small cell carcinoma of left lung SNOMED Code(s): 574904652 Code(s): C34.92 - MALIGNANT NEOPLASM OF UNSP PART OF LEFT BRONCHUS OR LUNG Status: Chronic Priority: Low Current Visit: Yes Annotation/Comment:: mets to liver, breast and skeleton, possibly brain as well as evidenced by brain MRI March 24 2017 (5) SIADH (syndrome of inappropriate ADH production) SNOMED Code(s): 97340168 Code(s): E22.2 - SYNDROME OF INAPPROPRIATE SECRETION OF ANTIDIURETIC HORMONE Status: Chronic Priority: High Current Visit: No (6) COPD (chronic obstructive pulmonary disease) SNOMED Code(s): 69931503 Code(s): J44.9 - CHRONIC OBSTRUCTIVE PULMONARY DISEASE, UNSPECIFIED Status : Chronic Priority: Medium Current Visit: No Qualifiers: COPD type: unspecified COPD Qualified Code(s): J44.9 - Chronic obstructive pulmonary disease, unspecified (7) Congestive heart failure SNOMED Code(s): 24042390 Code(s): I50.9 - HEART FAILURE, UNSPECIFIED Status: Chronic Priority: Low Current Visit: No Qualifiers: Congestive heart failure type: unspecified congestive heart failure type Congestive heart failure chronicity: unspecified congestive heart failure chronicity (8) Essential hypertension SNOMED Code(s): 31351308 Code(s): I10 - ESSENTIAL (PRIMARY) HYPERTENSION Status: Chronic Current Visit: No (9) Peripheral vascular disease SNOMED Code(s): 446864939 Code(s): I73.9 - PERIPHERAL VASCULAR DISEASE, UNSPECIFIED Status: Chronic Current Visit: No (10) Small cell carcinoma SNOMED Code(s): 34440724263347924 Code(s): C80.1 - MALIGNANT (PRIMARY) NEOPLASM, UNSPECIFIED Status: Chronic Current Visit: No - Problem List Review Problem List Initiated/Reviewed/Updated: Yes - Plan Plan:: 71-year-old female admitted neutropenia past medical history of small cell lung cancer receiving palliative chemotherapy, hyponatremia, and hypertension. 1. Neutropenia with subjective fevers and chills: No further subjective fever/ chills. BC negative, UC pending. Continue Vancomycin and Ceptaz until all cultures return. Neutropenia continues, will consult her Oncologist regarding need for Neulasta. 2. Thrombocytopenia: Platelets 13,000 today, down from 27,000 yesterday. Call into her Oncologist Dr Pinon today, awaiting call back. May need to transfuse platelets if continues to drop. 3. Metastatic small cell lung cancer: Receiving palliative chemotherapy with carboplatin and Etopside. Patient's next chemotherapy in approximately 1 weeks. 4. Hypokalemia/hypomagnesia: Replacing both today. VTE prophylaxis: SCD, no heparin due to thrompocytopenia Dispo: 3-[address] Pinon regarding admission and pancytopenia. No Neulasta now. He would recommend switching antibiotics to Levaquin PO 500 mg upon discharge if no infection source noted, this is for prophylactic dosing for ANC. He recommends 1 unit of platelets as she seems to be on the way down still. Will order platelets so they are available tomorrow for transfusion. Recheck labwork in am. Still awaiting urine culture.
[2017-04-13] MEDS ORDERED: Magnesium Sulfate/Water 4 GM in Premix Bag 1 BAG IV ONE (12:59)
[2017-04-13] MEDS ORDERED: Potassium Chloride 20 MEQ Tab.ER PO ONE (12:59)
--- NOTE | 2017-04-13 14:54 | CR ---
EXAM DATE: 04/11/17 PATIENT'S AGE: 71 Patient: JUICE ALMONTE Facility: [place], [place] Site . Site : 1945 Study: XRay Chest [id number]/27/2018 5:36:12 PM Ordering Physician: Santiago Novoa Final Report: INDICATION: Pain. SOB. Cough. Nose bleeding. TECHNIQUE: PA and lateral. COMPARISON: None. FINDINGS: Lungs mildly hyperinflated, clear. No pleural effusion. Heart size and pulmonary vasculature within normal limits. Port-A-Cath in the SVC. No significant bony abnormality. IMPRESSION: Lungs mildly hyperinflated, clear. Dictated by Byron Garduno MD @ Apr 11 2017 5:46PM (Electronic Signature) Report Signed by Proxy. LOREE
[2017-04-13] MEDS: QUEtiapine 100 MG Tab PO SCH (21:19)
[2017-04-14 05:55] LABS: CHLORIDE,CL 108 mmol/L (98-110); SODIUM,NA 141 mmol/L (136-146)
[2017-04-14] MEDS: Omeprazole 20 MG Cap.CR PO SCH (06:34)
[2017-04-14] MEDS: Gabapentin 800 MG Tab PO SCH ×3 (06:34→19:33)
[2017-04-14] MEDS: Sodium Chloride 1 GM Tab PO SCH ×3 (06:34→19:33)
[2017-04-14] MEDS ORDERED: Magnesium Sulfate/Water 4 GM in Premix Bag 1 BAG IV ONE (07:58)
--- NOTE | 2017-04-14 08:18 | PCM.PN ---
- General Info Date of Service: 04/14/17 Admission Dx/Problem (Free Text): Neutropenia, Subjective Update: Feeling better today, still weak. Denies chest pain or SOB. Back pain remains, but is tolerable and chronic. Continues to denies bleeding. Functional Status: Reports: Pain Controlled, Tolerating Diet, Ambulating, Urinating - Review of Systems General: Reports: Weakness. Denies: Fever HEENT: Reports: No Symptoms. Denies: Headaches, Sore Throat, Rhinitis, Visual Changes Pulmonary: Reports: No Symptoms. Denies: Shortness of Breath Cardiovascular: Reports: No Symptoms. Denies: Chest Pain Gastrointestinal: Reports: No Symptoms. Denies: Abdominal Pain, Nausea Genitourinary: Denies: Burning Musculoskeletal: Reports: Back Pain (chronic and at baseline.) Neurological: Reports: No Symptoms. Denies: Confusion Psychiatric: Reports: No Symptoms. Denies: Confusion - Patient Data Vitals - Most Recent: Last Vital Signs Temp 97.3 F 04/14/17 08:00 Pulse 82 04/14/17 08:00 Resp 20 04/14/17 08:00 BP 150/75 H 04/14/17 08:00 Pulse Ox 91 L 04/14/17 08:00 Weight - Most Recent: 59 kg I&O - Last 24 Hours: Intake & Output 04/13/17 04/14/17 04/14/17 22:59 06:59 14:59 Intake Total 500 400 Output Total 200 400 Balance 300 0 Lab Results Last 24 Hours: Laboratory Results - last 24 hr 04/13/17 04/13/17 04/14/17 Range/Units 07:08 17:24 04:19 WBC 0.59 L (4.0-11.0) K/uL RBC 2.68 L (4.30-5.90) M/uL Hgb 7.9 L (12.0-16.0) g/dL Hct 23.6 L (36.0-46.0) % MCV 88.1 (80.0-98.0) fL MCH 29.5 (27.0-32.0) pg MCHC 33.5 (31.0-37.0) g/dL RDW Std Deviation 44.7 (28.0-62.0) fl RDW Coeff of [place] 14 (11.0-15.0) % Plt Count 8 L* (150-400) K/uL MPV 11.10 (7.40-12.00) fL Neut % (Auto) 1.7 L (48.0-80.0) % Lymph % (Auto) 88.1 H (16.0-40.0) % [place] % (Auto) 1.7 (0.0-15.0) % Eos % (Auto) 8.5 H (0.0-7.0) % Baso % (Auto) 0.0 (0.0-1.5) % Neut # (Auto) 0.0 L (1.4-5.7) K/uL Lymph # (Auto) 0.5 L (0.6-2.4) K/uL [place] # (Auto) 0.0 (0.0-0.8) K/uL Eos # (Auto) 0.1 (0.0-0.7) K/uL Baso # (Auto) 0.0 (0.0-0.1) K/uL Nucleated RBC % 0.0 /100WBC Nucleated RBCs # 0 K/uL Sodium 141 (136-146) mmol/L Potassium 3.4 L (3.5-5.1) mmol/L Chloride 108 (98-110) mmol/L Carbon Dioxide 26 (21-31) mmol/L BUN 7 (6.0-23.0) mg/dL Creatinine 0.8 (0.6-1.5) mg/dL Est Cr Clr Drug Dosing 47.67 mL/min Estimated GFR (MDRD) > 60.0 ml/min Glucose 78 (60-110) mg/dL Calcium 8.9 (8.8-10.8) mg/dL Phosphorus 2.8 (2.4-4.7) mg/dL Magnesium 1.0 L (1.5-2.3) mEq/L Blood Type A POSITIVE Antibody Screen NEGATIVE 04/14/17 Range/Units 04:19 WBC (4.0-11.0) K/uL RBC (4.30-5.90) M/uL Hgb (12.0-16.0) g/dL Hct (36.0-46.0) % MCV (80.0-98.0) fL MCH (27.0-32.0) pg MCHC (31.0-37.0) g/dL RDW Std Deviation (28.0-62.0) fl RDW Coeff of [place] (11.0-15.0) % Plt Count (150-400) K/uL MPV (7.40-12.00) fL Neut % (Auto) (48.0-80.0) % Lymph % (Auto) (16.0-40.0) % [place] % (Auto) (0.0-15.0) % Eos % (Auto) (0.0-7.0) % Baso % (Auto) (0.0-1.5) % Neut # (Auto) (1.4-5.7) K/uL Lymph # (Auto) (0.6-2.4) K/uL [place] # (Auto) (0.0-0.8) K/uL Eos # (Auto) (0.0-0.7) K/uL Baso # (Auto) (0.0-0.1) K/uL Nucleated RBC % /100WBC Nucleated RBCs # K/uL Sodium 141 (136-146) mmol/L Potassium 3.8 (3.5-5.1) mmol/L Chloride 108 (98-110) mmol/L Carbon Dioxide 26 (21-31) mmol/L BUN 9 (6.0-23.0) mg/dL Creatinine 0.8 (0.6-1.5) mg/dL Est Cr Clr Drug Dosing 47.67 mL/min Estimated GFR (MDRD) > 60.0 ml/min Glucose 87 (60-110) mg/dL Calcium 8.5 L (8.8-10.8) mg/dL Phosphorus 2.8 (2.4-4.7) mg/dL Magnesium 1.4 L (1.5-2.3) mEq/L Blood Type Antibody Screen Med Orders - Current: Current Medications Acetaminophen (Tylenol) 650 mg PO Q4H PRN PRN Reason: Pain (Mild 1-3)/fever Amlodipine Besylate (Norvasc) 2.5 mg PO DAILY [facility] Last Admin: 04/13/17 09:22 Dose: 2.5 mg Aspirin (Halfprin) 81 mg PO DAILY [facility] Last Admin: 04/13/17 09:23 Dose: 81 mg Fluticasone Propionate (Flonase) 0 gm NASBOTH DAILY [facility] Last Admin: 04/13/17 10:00 Dose: 1 spray Gabapentin (Neurontin) 400 mg PO QID [facility] Last Admin: 04/14/17 06:34 Dose: 400 mg Ceftazidime 2 gm/ Sodium (Chloride) 100 mls @ 200 mls/hr IV Q12H [facility] Last Admin: 04/13/17 23:00 Dose: 200 mls/hr Vancomycin HCl 1 gm/ Sodium (Chloride) 250 mls @ 166.667 mls/hr IV Q12H [facility] Last Admin: 04/13/17 21:14 Dose: 166.667 mls/hr Magnesium Sulfate 4 gm/ Premix 100 mls @ 50 mls/hr IV ONETIME ONE Stop: 04/14/17 09:57 Metoprolol Tartrate (Lopressor) 50 mg PO BID [facility] Last Admin: 04/13/17 21:20 Dose: 50 mg Omeprazole (Omeprazole) 20 mg PO ACBREAKFAST [facility] Last Admin: 04/14/17 06:34 Dose: 20 mg Ondansetron HCl (Zofran Odt) 4 mg PO Q4H PRN PRN Reason: nausea, able to take PO Ondansetron HCl (Zofran) 4 mg IVPUSH Q4H PRN PRN Reason: Nausea Last Admin: 04/12/17 06:49 Dose: 4 mg Ondansetron HCl (Zofran Odt) 8 mg PO Q8H PRN PRN Reason: Nausea/Vomiting Budesonide/Formoterol [ Symbicort] 160/4.5 Inhaler 2 Puffs 2 each INH BID [facility] Last Admin: 04/13/17 23:04 Dose: 2 each Polyethylene Glycol (Miralax) 17 gm PO DAILY PRN PRN Reason: Constipation Quetiapine Fumarate (Seroquel) 300 mg PO BEDTIME [facility] Last Admin: 04/13/17 21:19 Dose: 300 mg Ramipril (Altace) 10 mg PO BID [facility] Last Admin: 04/13/17 21:22 Dose: 10 mg Senna/Docusate Sodium (Senna Plus) 2 tab PO BEDTIME PRN PRN Reason: Constipation Sodium Chloride (Saline Flush) 10 ml FLUSH ASDIRECTED PRN PRN Reason: Keep Vein Open Sodium Chloride (Saline Flush) 2.5 ml FLUSH ASDIRECTED PRN PRN Reason: Keep Vein Open Sodium Chloride (Sodium Chloride) 1 gm PO QID [facility] Last Admin: 04/14/17 06:34 Dose: 1 gm Temazepam (Restoril) 15 mg PO BEDTIME PRN PRN Reason: Sleep Tramadol HCl (Ultram) 50 mg PO Q4H PRN PRN Reason: Pain Last Admin: 04/13/17 10:05 Dose: 50 mg Vancomycin HCl (Pharmacy To Dose - Vancomycin) 1 dose .XX ASDIRECTED [facility] Discontinued Medications Heparin Sodium (Porcine) (Heparin Sodium) 5,000 units SUBCUT Q8H [facility] Last Admin: 04/12/17 07:36 Dose: Not Given Sodium Chloride (Normal Saline) 1,000 mls @ 125 mls/hr IV STAT [facility] Last Admin: 04/11/17 18:17 Dose: 125 mls/hr Ceftazidime 1 gm/ Dextrose/ (Water) 100 mls @ 200 mls/hr IV NOW [facility] Stop: 04/11/17 18:39 Last Admin: 04/11/17 21:48 Dose: 200 mls/hr Vancomycin HCl 1 gm/ Sodium (Chloride) 250 mls @ 250 mls/hr IV ONETIME ONE Stop: 04/11/17 19:08 Last Admin: 04/11/17 18:38 Dose: 250 mls/hr Vancomycin HCl 1 gm/ Sodium (Chloride) 250 mls @ 166 mls/hr IV Q24H [facility] Last Admin: 04/11/17 23:44 Dose: Not Given Magnesium Sulfate 2 gm/ Premix 50 mls @ 50 mls/hr IV ONETIME ONE Stop: 04/12/17 10:01 Last Admin: 04/12/17 10:00 Dose: 50 mls/hr Magnesium Sulfate 4 gm/ Premix 100 mls @ 50 mls/hr IV ONETIME ONE Stop: 04/13/17 14:58 Last Admin: 04/13/17 13:18 Dose: 50 mls/hr Morphine Sulfate (Morphine) 2 mg IVPUSH Q2H PRN PRN Reason: Pain (severe 7-10) Stop: 04/12/17 21:26 Potassium Chloride (Klor-Con M20) 40 meq PO ONETIME ONE Stop: 04/11/17 21:25 Last Admin: 04/11/17 21:51 Dose: 40 meq Potassium Chloride (Klor-Con M20) 40 meq PO ONETIME ONE Stop: 04/13/17 13:00 Last Admin: 04/13/17 13:21 Dose: 40 meq Sodium Phosphate (Neutra-Phos) 250 mg PO ONETIME ONE Stop: 04/12/17 13:07 Last Admin: 04/12/17 13:46 Dose: 250 mg - Exam Quality Assessment: Supplemental Oxygen, Central Line/PICC General: Alert, Oriented, Cooperative, No Acute Distress Neck: Supple Lungs: Clear to Auscultation, Normal Respiratory Effort Cardiovascular: Regular Rate, Regular Rhythm GI/Abdominal Exam: Normal Bowel Sounds, Soft, Non-Tender, No Organomegaly, No Distention, No Abnormal Bruit, No Mass, Pelvis Stable Extremities: Normal Inspection, Normal Range of Motion, Non-Tender, No Pedal Edema, Normal Capillary Refill Neurological: No New Focal Deficit Psy/Mental Status: Alert, Normal Affect, Normal Mood - Problem List & Annotations (1) Thrombocytopenia SNOMED Code(s): 756235408 Code(s): D69.6 - THROMBOCYTOPENIA, UNSPECIFIED Status: Acute Current Visit: Yes (2) Neutropenia SNOMED Code(s): 174985682 Code(s): D70.9 - NEUTROPENIA, UNSPECIFIED Status: Acute Priority: High Current Visit: Yes Qualifiers: Neutropenia type: secondary to cancer chemotherapy Qualified Code(s): D70.1 - Agranulocytosis secondary to cancer chemotherapy; T45.1X5A - Adverse effect of antineoplastic and immunosuppressive drugs, initial encounter; T45.1X5A - Adverse effect of antineoplastic and immunosuppressive drugs, initial encounter (3) Pancytopenia due to chemotherapy SNOMED Code(s): 5209873 Code(s): D61.810 - ANTINEOPLASTIC CHEMOTHERAPY INDUCED PANCYTOPENIA Status : Acute Priority: High Current Visit: No (4) Small cell carcinoma of left lung SNOMED Code(s): 023835675 Code(s): C34.92 - MALIGNANT NEOPLASM OF UNSP PART OF LEFT BRONCHUS OR LUNG Status: Chronic Priority: Low Current Visit: Yes Annotation/Comment:: mets to liver, breast and skeleton, possibly brain as well as evidenced by brain MRI March 24 2017 (5) SIADH (syndrome of inappropriate ADH production) SNOMED Code(s): 20952924 Code(s): E22.2 - SYNDROME OF INAPPROPRIATE SECRETION OF ANTIDIURETIC HORMONE Status: Chronic Priority: High Current Visit: No (6) COPD (chronic obstructive pulmonary disease) SNOMED Code(s): 21717590 Code(s): J44.9 - CHRONIC OBSTRUCTIVE PULMONARY DISEASE, UNSPECIFIED Status : Chronic Priority: Medium Current Visit: No Qualifiers: COPD type: unspecified COPD Qualified Code(s): J44.9 - Chronic obstructive pulmonary disease, unspecified (7) Congestive heart failure SNOMED Code(s): 99137088 Code(s): I50.9 - HEART FAILURE, UNSPECIFIED Status: Chronic Priority: Low Current Visit: No Qualifiers: Congestive heart failure type: unspecified congestive heart failure type Congestive heart failure chronicity: unspecified congestive heart failure chronicity (8) Essential hypertension SNOMED Code(s): 02502189 Code(s): I10 - ESSENTIAL (PRIMARY) HYPERTENSION Status: Chronic Current Visit: No (9) Peripheral vascular disease SNOMED Code(s): 213759306 Code(s): I73.9 - PERIPHERAL VASCULAR DISEASE, UNSPECIFIED Status: Chronic Current Visit: No (10) Small cell carcinoma SNOMED Code(s): 59661256035433268 Code(s): C80.1 - MALIGNANT (PRIMARY) NEOPLASM, UNSPECIFIED Status: Chronic Current Visit: No - Problem List Review Problem List Initiated/Reviewed/Updated: Yes - My Orders Last 24 Hours: My Active Orders 04/13/17 17:24 PLATELETS [facility] [BBK] Routine TYPE AND SCREEN [BBK] Routine 04/14/17 07:58 Magnesium Sulfate/Water [Magnesium Sulfate 4 GM in Water 100 ML] 4 gm Premix Bag 1 bag IV ONETIME - Plan Plan:: 71-year-old female admitted neutropenia past medical history of small cell lung cancer receiving palliative chemotherapy, hyponatremia, and hypertension. 1. Neutropenia with subjective fevers and chills: No further subjective fever/ chills. BC negative, UC still pending, but spoke with [facility], LOIDA won't be ready until after 1700 today. It appears to be enterococcus faecalis with possible resistant to Vancomycin. Will stop Vancomycin now and continue Ceptaz until LOIDA completed. Neutropenia continues, but slow improvement. Remain on neutropenic precautions and now place on contact for possible VRE. 2. Thrombocytopenia: Platelets 8,000 today. No bleeding noted, will give 1 unit platelet today and order another for tomorrow. 3. Metastatic small cell lung cancer: Receiving palliative chemotherapy with carboplatin and Etopside. Patient's next chemotherapy in approximately 1 weeks. 4. Hypokalemia/hypomagnesia: Replacing both today. 5. Anemia: Hgb conitnues to drop and has continued weakness, Hgb 7.9 today from 8.5 yesterday. Will transfuse 2 units PRBCs today. VTE prophylaxis: SCD, no heparin due to thrompocytopenia Dispo: 3-4 days.
[2017-04-14] MEDS: BUDESONIDE INH SCH ×2 (10:00→21:59)
[2017-04-14] MEDS: FORMOTEROL INH SCH ×2 (10:00→21:59)
[2017-04-14] MEDS: Metoprolol Tartrate 50 MG Tab PO SCH ×2 (10:17→21:57)
[2017-04-14] MEDS: traMADol 50 MG Tab PO PRN ×2 (10:17→20:52)
[2017-04-14] MEDS: amLODIPine 2.5 MG Tab PO SCH (10:17)
[2017-04-14] MEDS: Fluticasone Propionate Nasal Spray 16 GM Bottle NASBOTH SCH (10:20)
[2017-04-14] MEDS: Aspirin 81 MG Tab.EC PO SCH (11:43)
[2017-04-14] MEDS: QUEtiapine 100 MG Tab PO SCH (21:56)
[2017-04-15] MEDS: Sodium Chloride 1 GM Tab PO SCH ×3 (00:12→11:40)
[2017-04-15] MEDS: Gabapentin 800 MG Tab PO SCH ×3 (00:12→11:40)
[2017-04-15 04:41] LABS: CHLORIDE,CL 104 mmol/L (98-110); SODIUM,NA 139 mmol/L (136-146)
[2017-04-15] MEDS: Omeprazole 20 MG Cap.CR PO SCH (07:01)
[2017-04-15] MEDS ORDERED: Magnesium Sulfate/Water 4 GM in Premix Bag 1 BAG IV ONE (07:20)
[2017-04-15 10:35] VITALS: BP 115/95
[2017-04-15] MEDS: Aspirin 81 MG Tab.EC PO SCH (10:35)
[2017-04-15] MEDS: Metoprolol Tartrate 50 MG Tab PO SCH (10:35)
[2017-04-15] MEDS: amLODIPine 2.5 MG Tab PO SCH (10:35)
[2017-04-15] MEDS: FORMOTEROL INH SCH (10:36)
[2017-04-15] MEDS: Fluticasone Propionate Nasal Spray 16 GM Bottle NASBOTH SCH (10:36)
[2017-04-15] MEDS: BUDESONIDE INH SCH (10:36)
--- NOTE | 2017-04-15 10:59 | PCM.DCSUM1 ---
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 Patient presented to emergency department with chief complaint of waking up this morning with fever and chills with associated diaphoresis and generalized weakness. She also states that she did have a cough with green sputum production while in the ED. Patient states that she did not actually take her temperature and has just felt subjectively hot and cold on and off since this morning. She had been feeling well up until this morning and significant better than she had after discharge from her recent admittion for hyponatremia. Patient does have a long history of hyponatremia secondary to SIADH. In the emergency department, she was found to have be neutropenic with white blood cells of 0.58 and thrombocytopenic of 68. She did have hypokalemia of 3.3 but normal sodium at 138. Blood cultures were obtained as well as urinalysis and urine culture. Influenza was negative and chest x-ray showed no acute findings only mild hyperventilation. Patient was started on vancomycin and Fortaz in the emergency department. Patient was admitted for neutropenia. - Discharge Data Discharge Date: 04/15/17 Discharge Disposition: Home, Self-Care 01 Condition: Good - Discharge Diagnosis/Problem(s) (1) Thrombocytopenia SNOMED Code(s): 992424683 ICD Code: D69.6 - THROMBOCYTOPENIA, UNSPECIFIED Status: Acute Current Visit: Yes (2) Neutropenia SNOMED Code(s): 679644089 ICD Code: D70.9 - NEUTROPENIA, UNSPECIFIED Status: Acute Priority: High Current Visit: Yes Qualifiers: Neutropenia type: secondary to cancer chemotherapy Qualified Code(s): D70.1 - Agranulocytosis secondary to cancer chemotherapy; T45.1X5A - Adverse effect of antineoplastic and immunosuppressive drugs, initial encounter; T45.1X5A - Adverse effect of antineoplastic and immunosuppressive drugs, initial encounter (3) Pancytopenia due to chemotherapy SNOMED Code(s): 6009510 ICD Code: D61.810 - ANTINEOPLASTIC CHEMOTHERAPY INDUCED PANCYTOPENIA Status : Acute Priority: High Current Visit: No (4) Small cell carcinoma of left lung SNOMED Code(s): 621280658 ICD Code: C34.92 - MALIGNANT NEOPLASM OF UNSP PART OF LEFT BRONCHUS OR LUNG Status: Chronic Priority: Low Current Visit: Yes Problem Details: mets to liver, breast and skeleton, possibly brain as well as evidenced by brain MRI March 24 2017 (5) SIADH (syndrome of inappropriate ADH production) SNOMED Code(s): 55298081 ICD Code: E22.2 - SYNDROME OF INAPPROPRIATE SECRETION OF ANTIDIURETIC HORMONE Status: Chronic Priority: High Current Visit: No (6) COPD (chronic obstructive pulmonary disease) SNOMED Code(s): 30609259 ICD Code: J44.9 - CHRONIC OBSTRUCTIVE PULMONARY DISEASE, UNSPECIFIED Status : Chronic Priority: Medium Current Visit: No Qualifiers: COPD type: unspecified COPD Qualified Code(s): J44.9 - Chronic obstructive pulmonary disease, unspecified (7) Congestive heart failure SNOMED Code(s): 99105189 ICD Code: I50.9 - HEART FAILURE, UNSPECIFIED Status: Chronic Priority: Low Current Visit: No Qualifiers: Congestive heart failure type: unspecified congestive heart failure type Congestive heart failure chronicity: unspecified congestive heart failure chronicity (8) Essential hypertension SNOMED Code(s): 90893130 ICD Code: I10 - ESSENTIAL (PRIMARY) HYPERTENSION Status: Chronic Current Visit: No (9) Peripheral vascular disease SNOMED Code(s): 901345764 ICD Code: I73.9 - PERIPHERAL VASCULAR DISEASE, UNSPECIFIED Status: Chronic Current Visit: No (10) Small cell carcinoma SNOMED Code(s): 40356213498726585 ICD Code: C80.1 - MALIGNANT (PRIMARY) NEOPLASM, UNSPECIFIED Status: Chronic Current Visit: No (11) UTI (urinary tract infection) SNOMED Code(s): 12770416 ICD Code: N39.0 - URINARY TRACT INFECTION, SITE NOT SPECIFIED Status: Acute Current Visit: Yes - Patient Instructions Diet, Other: No raw vegetables or fruits. Activity: As Tolerated, Rest and Relax Today Activity, Other: If going out in public wear mask, good hand hygiene. Driving: May Drive Today Showering/Bathing: May Shower Notify Provider of: Fever, Increased Pain, Swelling and Redness, Drainage, Nausea and/or Vomiting Other/Special Instructions: Insure no family or friends who are sick are coming to visit to protect yourself from illness. - Discharge Plan Prescriptions/Med Rec: Levofloxacin [Levaquin] 500 mg PO DAILY #7 tab Home Medications: Home Meds Metoprolol Tartrate [Lopressor] 50 mg PO BID 02/08/16 [History] Omeprazole 20 mg PO ACBREAKFAST 02/08/16 [History] Ramipril 10 mg PO BID 02/08/16 [History] Gabapentin [Neurontin] 400 mg PO QID 02/23/16 [History] amLODIPine Besylate [Norvasc] 2.5 mg PO DAILY #30 tablet 03/04/16 [Rx] traMADol [Ultram] 50 mg PO Q4H PRN 04/22/16 [History] Aspirin [Ecotrin] 81 mg PO DAILY 04/23/16 [History] Fluticasone Propionate [Flonase] 1 spray NASBOTH DAILY 04/23/16 [History] Ondansetron [Ondansetron ODT] 8 mg PO Q8H PRN 04/23/16 [History] Polyethylene Glycol 3350 [MiraLAX] 17 gm PO DAILY PRN 04/23/16 [History] Sennosides/Docusate Sodium [Senna S Tablet] 2 tab PO BEDTIME PRN 04/23/16 [ History] QUEtiapine Fumarate [Seroquel] 300 mg PO BEDTIME 05/24/16 [History] Loratadine [Claritin] 10 mg PO DAILY 05/26/16 [History] Budesonide/Formoterol [Symbicort 160-4.5 MCG] 2 inh IH BID 04/03/17 [History] Sodium Chloride 1 gm PO QID tablet 04/06/17 [Rx] Levofloxacin [Levaquin] 500 mg PO DAILY #7 tab 04/15/17 [Rx] Patient Handouts: Hypokalemia, Urinary Tract Infection, Adult, [id number], Levofloxacin tablets, Neutropenia Referrals: Elodia Tee NP [Ordering Only Provider] - 04/16/17 1:30 pm - Discharge Summary/Plan Comment DC Time >30 min.: No Discharge Summary/Plan Comment: Discharge Diagnoses: UTI-enterococcus faecalis Neutropenia Thrombocytopenia Anemia Metastatic small cell lung cancer-receiving palliative chemotherapy Hx SIADH Hx Hyponatremia COPD CHF HTN PVD Laura was admitted and initially treated with Vancomycin and Cetazidime for suspected Neutropenic fevers, fevers never documented, but patient felt subjectively. All cultures returned negative, except for UC, which returned today with enterococcus faecalis, She will be discharged home on Levaquin 500 mg daily. During her stay she remained neutropenic, today, WBC 0.64. Thrombocytopenia and anemia continued to decline during stay. I spoke with Dr Pinon, oncology who recommended platelet transfusion when she was at 13,000 and the following day dropped to 8,000. She was given 1 unit Platelets along with 2 units PRBCs (hgb 7.9) yesterday. Today platelets 43,000 and Hgb 10.5. Laura is feeling much better and very eager to be discharged home. She was encouraged to continue neutropenic precautions due to white count now. She is to see Mariajose Tee LITIGATION SUPPORT ANALYST in oncology tomorrow. She will have Leavquin 500 mg daily for 7 days , then to be continued per Oncology for neutropenic precautions as needed. She is to return to ED or clinic if concerns should arise. - General Info Date of Service: 04/15/17 Admission Dx/Problem (Free Text: Neutropenia, Subjective Update: Laura is feeling much better "Can I go home today!?" Very anxious for discharge. She is no longer feeling weak. Denies chest pain or SOB. Pain continues to her back, which is baseline. Functional Status: Reports: Pain Controlled, Tolerating Diet, Ambulating, Urinating - Review of Systems Pulmonary: Reports: No Symptoms. Denies: Shortness of Breath Cardiovascular: Reports: No Symptoms. Denies: Chest Pain Gastrointestinal: Reports: No Symptoms. Denies: Abdominal Pain, Nausea, Vomiting Genitourinary: Reports: No Symptoms. Denies: Dysuria, Frequency, Burning Musculoskeletal: Reports: Back Pain (chronic, and at baseline) Skin: Reports: No Symptoms Neurological: Reports: No Symptoms Psychiatric: Reports: No Symptoms - Patient Data Vitals - Most Recent: Last Vital Signs Temp 97.8 F 04/15/17 08:00 Pulse 54 L 04/15/17 10:35 Resp 16 04/15/17 08:00 BP 115/95 H 04/15/17 10:35 Pulse Ox 90 L 04/15/17 08:00 Weight - Most Recent: 66.5 kg I&O - Last 24 hours: Intake & Output 04/14/17 04/15/17 04/15/17 22:59 06:59 14:59 Intake Total 947 1060 Output Total 1050 950 Balance -103 110 Lab Results - Last 24 hrs: Laboratory Results - last 24 hr 04/13/17 04/15/17 04/15/17 Range/Units 17:24 03:47 03:47 WBC 0.65 L (4.0-11.0) K/uL RBC 3.54 L (4.30-5.90) M/uL Hgb 10.5 L (12.0-16.0) g/dL Hct 30.3 L (36.0-46.0) % MCV 85.6 (80.0-98.0) fL MCH 29.7 (27.0-32.0) pg MCHC 34.7 (31.0-37.0) g/dL RDW Std Deviation 46.1 (28.0-62.0) fl RDW Coeff of [place] 15 (11.0-15.0) % Plt Count 43 L (150-400) K/uL MPV 9.90 (7.40-12.00) fL Add Manual Diff YES Lymphocytes % (Manual) 96 H (16.0-40.0) % Monocytes % (Manual) 1 (0.0-15.0) % Eosinophils % (Manual) 3 (0.0-7.0) % Nucleated RBC % 0.0 /100WBC Lymphocytes # (Manual) 0.6 (0.6-2.4) Monocytes # (Manual) 0.0 (0.0-0.8) Eosinophils # (Manual) 0.0 (0.0-0.7) Nucleated RBCs # 0 K/uL Sodium 139 (136-146) mmol/L Potassium 3.5 (3.5-5.1) mmol/L Chloride 104 (98-110) mmol/L Carbon Dioxide 28 (21-31) mmol/L BUN 6 (6.0-23.0) mg/dL Creatinine 0.7 (0.6-1.5) mg/dL Est Cr Clr Drug Dosing 54.48 mL/min Estimated GFR (MDRD) > 60.0 ml/min Glucose 78 (60-110) mg/dL Calcium 8.7 L (8.8-10.8) mg/dL Phosphorus 3.3 (2.4-4.7) mg/dL Magnesium 1.3 L (1.5-2.3) mEq/L Blood Type A POSITIVE Antibody Screen NEGATIVE Crossmatch See Detail LOIDA Results - Last 24 hrs: Microbiology 04/12/17 02:20 Urine Culture - Final Urine, Clean Catch Enterococcus Faecalis Med Orders - Current: Current Medications Acetaminophen (Tylenol) 650 mg PO Q4H PRN PRN Reason: Pain (Mild 1-3)/fever Amlodipine Besylate (Norvasc) 2.5 mg PO DAILY [facility] Last Admin: 04/15/17 10:35 Dose: 2.5 mg Aspirin (Halfprin) 81 mg PO DAILY [facility] Last Admin: 04/15/17 10:35 Dose: 81 mg Fluticasone Propionate (Flonase) 0 gm NASBOTH DAILY [facility] Last Admin: 04/15/17 10:36 Dose: 1 spray Gabapentin (Neurontin) 400 mg PO QID [facility] Last Admin: 04/15/17 05:33 Dose: 400 mg Levofloxacin (Levaquin) 500 mg PO Q24H [facility] Metoprolol Tartrate (Lopressor) 50 mg PO BID [facility] Last Admin: 04/15/17 10:35 Dose: 50 mg Omeprazole (Omeprazole) 20 mg PO ACBREAKFAST [facility] Last Admin: 04/15/17 07:01 Dose: 20 mg Ondansetron HCl (Zofran Odt) 4 mg PO Q4H PRN PRN Reason: nausea, able to take PO Ondansetron HCl (Zofran) 4 mg IVPUSH Q4H PRN PRN Reason: Nausea Last Admin: 04/12/17 06:49 Dose: 4 mg Ondansetron HCl (Zofran Odt) 8 mg PO Q8H PRN PRN Reason: Nausea/Vomiting Budesonide/Formoterol [ Symbicort] 160/4.5 Inhaler 2 Puffs 2 each INH BID [facility] Last Admin: 04/15/17 10:36 Dose: 2 each Polyethylene Glycol (Miralax) 17 gm PO DAILY PRN PRN Reason: Constipation Quetiapine Fumarate (Seroquel) 300 mg PO BEDTIME [facility] Last Admin: 04/14/17 21:56 Dose: 300 mg Ramipril (Altace) 10 mg PO BID [facility] Last Admin: 04/15/17 10:34 Dose: 10 mg Senna/Docusate Sodium (Senna Plus) 2 tab PO BEDTIME PRN PRN Reason: Constipation Last Admin: 04/14/17 19:33 Dose: 2 tab Sodium Chloride (Saline Flush) 10 ml FLUSH ASDIRECTED PRN PRN Reason: Keep Vein Open Sodium Chloride (Saline Flush) 2.5 ml FLUSH ASDIRECTED PRN PRN Reason: Keep Vein Open Sodium Chloride (Sodium Chloride) 1 gm PO QID [facility] Last Admin: 04/15/17 05:33 Dose: 1 gm Temazepam (Restoril) 15 mg PO BEDTIME PRN PRN Reason: Sleep Tramadol HCl (Ultram) 50 mg PO Q4H PRN PRN Reason: Pain Last Admin: 04/14/17 20:52 Dose: 50 mg Discontinued Medications Heparin Sodium (Porcine) (Heparin Sodium) 5,000 units SUBCUT Q8H [facility] Last Admin: 04/12/17 07:36 Dose: Not Given Sodium Chloride (Normal Saline) 1,000 mls @ 125 mls/hr IV STAT [facility] Last Admin: 04/11/17 18:17 Dose: 125 mls/hr Ceftazidime 1 gm/ Dextrose/ (Water) 100 mls @ 200 mls/hr IV NOW STA Stop: 04/11/17 18:39 Last Admin: 04/11/17 21:48 Dose: 200 mls/hr Vancomycin HCl 1 gm/ Sodium (Chloride) 250 mls @ 250 mls/hr IV ONETIME ONE Stop: 04/11/17 19:08 Last Admin: 04/11/17 18:38 Dose: 250 mls/hr Ceftazidime 2 gm/ Sodium (Chloride) 100 mls @ 200 mls/hr IV Q12H [facility] Last Admin: 04/15/17 10:40 Dose: Not Given Vancomycin HCl 1 gm/ Sodium (Chloride) 250 mls @ 166 mls/hr IV Q24H [facility] Last Admin: 04/11/17 23:44 Dose: Not Given Vancomycin HCl 1 gm/ Sodium (Chloride) 250 mls @ 166.667 mls/hr IV Q12H [facility] Last Admin: 04/14/17 11:43 Dose: 166.667 mls/hr Magnesium Sulfate 2 gm/ Premix 50 mls @ 50 mls/hr IV ONETIME ONE Stop: 04/12/17 10:01 Last Admin: 04/12/17 10:00 Dose: 50 mls/hr Magnesium Sulfate 4 gm/ Premix 100 mls @ 50 mls/hr IV ONETIME ONE Stop: 04/13/17 14:58 Last Admin: 04/13/17 13:18 Dose: 50 mls/hr Magnesium Sulfate 4 gm/ Premix 100 mls @ 50 mls/hr IV ONETIME ONE Stop: 04/14/17 09:57 Last Admin: 04/14/17 11:43 Dose: 50 mls/hr Ceftazidime 2 gm/ Sodium (Chloride) 100 mls @ 200 mls/hr IV Q12H [facility] Last Admin: 04/15/17 03:17 Dose: Not Given Ceftazidime 2 gm/ Sodium (Chloride) 100 mls @ 200 mls/hr IV Q12H [facility] Magnesium Sulfate 4 gm/ Premix 100 mls @ 50 mls/hr IV ONETIME ONE Stop: 04/15/17 09:19 Last Admin: 04/15/17 07:40 Dose: 50 mls/hr Morphine Sulfate (Morphine) 2 mg IVPUSH Q2H PRN PRN Reason: Pain (severe 7-10) Stop: 04/12/17 21:26 Potassium Chloride (Klor-Con M20) 40 meq PO ONETIME ONE Stop: 04/11/17 21:25 Last Admin: 04/11/17 21:51 Dose: 40 meq Potassium Chloride (Klor-Con M20) 40 meq PO ONETIME ONE Stop: 04/13/17 13:00 Last Admin: 04/13/17 13:21 Dose: 40 meq Sodium Phosphate (Neutra-Phos) 250 mg PO ONETIME ONE Stop: 04/12/17 13:07 Last Admin: 04/12/17 13:46 Dose: 250 mg Vancomycin HCl (Pharmacy To Dose - Vancomycin) 1 dose .XX ASDIRECTED PRIYANK - Exam Quality Assessment: Reports: Central Line/PICC (port to L chest, no erythema) General: Reports: Alert, Oriented, Cooperative, No Acute Distress HEENT: Reports: Mucous Membr. Moist/[place] Neck: Reports: Supple Lungs: Reports: Clear to Auscultation, Normal Respiratory Effort Cardiovascular: Reports: Regular Rate, Regular Rhythm GI/Abdominal Exam: Normal Bowel Sounds, Soft, Non-Tender, No Organomegaly, No Distention, No Abnormal Bruit, No Mass, Pelvis Stable Back Exam: Reports: Normal Inspection, Full Range of Motion Extremities: Normal Inspection, Normal Range of Motion, Non-Tender, No Pedal Edema, Normal Capillary Refill Skin: Reports: Warm, Dry Neurological: Reports: No New Focal Deficit Psy/Mental Status: Reports: Alert, Normal Affect, Normal Mood *Q Meaningful Use (DIS) - VTE *Q VTE Criteria *Q: - Stroke *Q Stroke Criteria *Q: - AMI *Q AMI Criteria *Q:
[2017-04-15] MEDS ORDERED: Levofloxacin 500 MG Tab PO SCH (11:00)
== END 2017-04-15 13:00 | disposition home or self-care (01) | DRG 809 ==
LOC: MW.ED 16:08 → MW.MS 18:38
PROVIDERS: ADMIT Family Medicine; ATTEND Family Medicine
DX: D70.9 Neutropenia, unspecified (principal); R68.89 Other general symptoms and signs; D70.1 Agranulocytosis secondary to cancer chemotherapy; E78.00 Pure hypercholesterolemia, unspecified; C34.92 Malignant neoplasm of unspecified part of left bronchus or lung; I12.9 Hypertensive chronic kidney disease with stage 1 through stage 4 chronic kidney disease, or unspecified chronic kidney disease; N18.9 Chronic kidney disease, unspecified; E22.2 Syndrome of inappropriate secretion of antidiuretic hormone; K21.9 Gastro-esophageal reflux disease without esophagitis; G62.9 Polyneuropathy, unspecified; F41.9 Anxiety disorder, unspecified; N39.0 Urinary tract infection, site not specified; Z79.82 Long term (current) use of aspirin; B95.2 Enterococcus as the cause of diseases classified elsewhere; T45.1X5A Adverse effect of antineoplastic and immunosuppressive drugs, initial encounter; D64.81 Anemia due to antineoplastic chemotherapy; D61.810 Antineoplastic chemotherapy induced pancytopenia; E87.6 Hypokalemia; D69.59 Other secondary thrombocytopenia; J44.9 Chronic obstructive pulmonary disease, unspecified; I50.9 Heart failure, unspecified; I10 Essential (primary) hypertension; I73.9 Peripheral vascular disease, unspecified; Z79.899 Other long term (current) drug therapy
CPT/HCPCS: 36415; 71046; 80053; 84484; 85025; 85610; 87040 ×2; 99284; J7040; 36430; 80048; 80202; 81001; 82962; 83735; 84100; 87086; 87088; 87186; 87804; 93005; 96365; A9270-GY; J0713; J1642; J2405; J3370; J3475; J7030; J7050; J7060; P9016; P9034

== ENCOUNTER 2017-06-01 11:45 | Inpatient (IN) | payer MEDICARE, BC ==
[2017-06-01] MEDS: Sodium Chloride 0.9% 1,000 ML IV SCH (12:15)
--- NOTE | 2017-06-01 13:24 | PCM.HP ---
H&P History of Present Illness - General Date of Service: 06/01/17 Admit Problem/Dx: Admission Diagnosis/Problem Admission Diagnosis/Problem Hyponatremia Source of Information: Patient, Other (Dr. Pinon. 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 She came to Oncology last week but did not have chemotherapy due to platelets, at that time Na was noted to be 127, her Sodium chloride tabs were increased to QID and today she returned for recheck and possibly chemotherapy. Na today was noted to be 118. She reports slight generalized weakness, but no confusion or fevers at home. No URI or cough, reports general SOB which has been her normal. She denies abdominal pain or urinary symptoms. In the Oncology clinic, WBC 4.55, Hgb 10.7, and platelets 174. Na 118, K+ 4.8, Cl 87, BUN [address] Pinon. Oncology called and requested direct admission for hyponatremia. She was admitted inpatient on telemetry for hyponatremia. - Related Data Allergies/Adverse Reactions: Allergies Allergy/AdvReac Type Severity Reaction Status Date / Time dust Allergy Shortness Uncoded 04/11/17 16:21 of Breath Febreeze Allergy Shortness Uncoded 04/11/17 16:21 of Breath pinecone Allergy Shortness Uncoded 04/11/17 16:21 of Breath Home Medications: Home Meds Metoprolol Tartrate [Lopressor] 50 mg PO BID 02/08/16 [History] Omeprazole 20 mg PO ACBREAKFAST 02/08/16 [History] Ramipril 10 mg PO BID 02/08/16 [History] Gabapentin [Neurontin] 400 mg PO QID 02/23/16 [History] amLODIPine Besylate [Norvasc] 2.5 mg PO DAILY #30 tablet 03/04/16 [Rx] traMADol [Ultram] 50 mg PO Q4H PRN 04/22/16 [History] Aspirin [Ecotrin] 81 mg PO DAILY 04/23/16 [History] Fluticasone Propionate [Flonase] 1 spray NASBOTH DAILY 04/23/16 [History] Ondansetron [Ondansetron ODT] 8 mg PO Q8H PRN 04/23/16 [History] Polyethylene Glycol 3350 [MiraLAX] 17 gm PO DAILY PRN 04/23/16 [History] Sennosides/Docusate Sodium [Senna S Tablet] 2 tab PO BEDTIME PRN 04/23/16 [ History] QUEtiapine Fumarate [Seroquel] 300 mg PO BEDTIME 05/24/16 [History] Loratadine [Claritin] 10 mg PO DAILY 05/26/16 [History] Budesonide/Formoterol [Symbicort 160-4.5 MCG] 2 inh IH BID 04/03/17 [History] Sodium Chloride 1 gm PO QID tablet 04/06/17 [Rx] Levofloxacin [Levaquin] 500 mg PO DAILY #7 tab 04/15/17 [Rx] Past Medical History HEENT History: Reports: Cataract, Impaired Vision Other HEENT History: Cataract surgeries on both eyes Cardiovascular History: Reports: High Cholesterol, Hypertension, PVD, Other ( See Below) Respiratory History: Reports: COPD, Pneumonia, Recurrent Other Respiratory History: admitted to the hospital 1 week ago for pneumonia, Gastrointestinal History: Reports: GERD Other Gastrointestinal History: liver cancer Genitourinary History: Reports: Chronic Renal Insuffiency, Renal Disease Other Genitourinary History: Pt states "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 BOILER TENDER History: Reports: Musculoskeletal History: Reports: Arthritis Neurological History: Reports: Neuropathy, Peripheral Psychiatric History: Reports: Anxiety Other Endocrine/Metabolic History: history of hyponatremia Hematologic History: Reports: Blood Transfusion(s) Other Hematologic History: previous admissions Oncologic (Cancer) History: Reports: Breast, Lung Other Oncologic History: liver cancer, states does not know the source - Infectious Disease History Infectious Disease History: Reports: Chicken Pox, Mumps - Past Surgical History Head Surgeries/Procedures: Reports: None Female Surgical History: Reports: Hysterectomy Social & Family History - Family History Family Medical History: Noncontributory HEENT: Reports: Cataract, Impaired Vision Cardiac: Reports: CAD, High Cholesterol, Hypertension, [place] Respiratory: Reports: COPD OBGYN: Reports: Musculoskeletal: Reports: Arthritis Psychiatric: Reports: Anxiety, Depression Oncologic: Reports: Lung - Tobacco Use Smoking Status *Q: Former Smoker Years of Tobacco use: 50 Packs/Tins Daily: 1 Used Tobacco, but Quit: Yes Month/Year Tobacco Last Used: September 2016 Second Hand Smoke Exposure: No - Caffeine Use Caffeine Use: Reports: Coffee Other Caffeine Use: 1-2 cups/day Caffeine Use Comment: 1-2cups/day - Recreational Drug Use Recreational Drug Use: No H&P Review of Systems - Review of Systems: Review Of Systems: See Below General: Reports: Weakness (generalized), Fatigue. Denies: Fever, Chills, Malaise HEENT: Reports: No Symptoms Pulmonary: Reports: Shortness of Breath (intermittent, which had been her baseline. hx pulm emphysema) Cardiovascular: Reports: Lightheadedness. Denies: Chest Pain, Dyspnea on Exertion, Edema, Syncope Gastrointestinal: Reports: No Symptoms. Denies: Abdominal Pain, Black Stool, Bloody Stool, Constipation, Diarrhea, Decreased Appetite, Nausea, Vomiting Genitourinary: Reports: No Symptoms. Denies: Dysuria, Frequency, Burning, Other Musculoskeletal: Reports: No Symptoms. Denies: Neck Pain Psychiatric: Reports: No Symptoms. Denies: Confusion Neurological: Reports: No Symptoms. Denies: Confusion Exam - Exam Exam: See Below - Vital Signs Vital Signs: Last Vital Signs Temp 97.6 F 06/01/17 12:06 Pulse 56 L 06/01/17 12:06 Resp 18 06/01/17 12:06 BP 160/62 H 06/01/17 12:06 Pulse Ox 94 L 06/01/17 12:06 Weight: 62.006 kg - Exam Quality Assessment: DVT Prophylaxis. No: Supplemental Oxygen General: Alert, Oriented, Cooperative HEENT: Conjunctiva Clear, Mucosa Moist & [place], Posterior Pharynx Clear Neck: Supple, Trachea Midline, 2 Lungs: Clear to Auscultation, Normal Respiratory Effort Cardiovascular: Regular Rate, Regular Rhythm, Normal S1, Normal S2 GI/Abdominal Exam: Normal Bowel Sounds, Soft, Non-Tender, No Organomegaly, No Distention, No Abnormal Bruit, No Mass, Pelvis Stable Back Exam: Normal Inspection, Full Range of Motion, NT Extremities: Normal Inspection, Normal Range of Motion, Non-Tender, No Pedal Edema, Normal Capillary Refill Neuro Extensive - Mental Status: Alert, Oriented x3, Normal Mood/Affect, Normal Cognition Neuro Extensive - Motor, Sensory, Reflexes: CN II-XII Intact, Normal Gait Psychiatric: Alert, Normal Affect, Normal Mood *Q Meaningful Use (ADM) - VTE *Q VTE Criteria *Q: - Stroke *Q Stroke Criteria *Q: - AMI *Q AMI Criteria *Q: - Problem List (1) Hyponatremia SNOMED Code(s): 02699383 ICD Code: E87.1 - HYPO-OSMOLALITY AND HYPONATREMIA Status: Acute Priority : High Current Visit: No (2) Hypomagnesemia SNOMED Code(s): 878990083 ICD Code: E83.42 - HYPOMAGNESEMIA Status: Resolved Priority: Medium Current Visit: No (3) Small cell carcinoma of left lung SNOMED Code(s): 771901028 ICD Code: C34.92 - MALIGNANT NEOPLASM OF UNSP PART OF LEFT BRONCHUS OR LUNG Status: Chronic Priority: Low Current Visit: No Problem Details: mets to liver, breast and skeleton, possibly brain as well as evidenced by brain MRI March 24 2017 (4) COPD (chronic obstructive pulmonary disease) SNOMED Code(s): 81057725 ICD Code: J44.9 - CHRONIC OBSTRUCTIVE PULMONARY DISEASE, UNSPECIFIED Status : Chronic Priority: Medium Current Visit: No Qualifiers: COPD type: emphysema Emphysema type: unspecified Qualified Code(s): J43.9 - Emphysema, unspecified (5) Essential hypertension SNOMED Code(s): 87370593 ICD Code: I10 - ESSENTIAL (PRIMARY) HYPERTENSION Status: Chronic Current Visit: No (6) Peripheral vascular disease SNOMED Code(s): 327010402 ICD Code: I73.9 - PERIPHERAL VASCULAR DISEASE, UNSPECIFIED Status: Chronic Current Visit: No (7) History of tobacco abuse SNOMED Code(s): 8020163786663 ICD Code: Z87.891 - PERSONAL HISTORY OF NICOTINE DEPENDENCE Status: Resolved Current Visit: No Problem List Initiated/Reviewed/Updated: Yes Orders Last 24hrs: Active Orders 24 hr Category Date Time Status Patient Status [ADT] Routine ADT 06/01/17 12:06 Active Height and Weight [RC] DAILY Care 06/01/17 12:06 Active Intake and Output [RC] Q12HR Care 06/01/17 12:07 Active Oxygen Therapy [RC] PRN Care 06/01/17 12:06 Active Telemetry Monitoring [Cardiac Monitoring] [RC] . Care 03/19/18 12:08 Active DIRECTED Up With Assistance [RC] ASDIRECTED Care 06/01/17 12:06 Active VTE/DVT Education [RC] PER UNIT ROUTINE Care 06/01/17 12:06 Active Vital Signs [RC] Q4H Care 06/01/17 12:06 Active Regular Diet [DIET] Diet 06/01/17 Lunch Active BMP [BASIC METABOLIC PANEL,BMP] [CHEM] Timed Lab 06/01/17 14:00 Ordered MAGNESIUM [CHEM] Timed Lab 06/01/17 14:00 Ordered Acetaminophen [Tylenol] Med 06/01/17 13:21 Ordered 650 mg PO Q6H PRN Ondansetron [Zofran] Med 06/01/17 13:21 Ordered 4 mg IVPUSH Q4H PRN Sodium Chloride Med 06/01/17 13:19 Ordered 1 gm PO QID Sodium Chloride 0.9% [Normal Saline] 1,000 ml Med 06/01/17 12:15 Active IV ASDIRECTED Resuscitation Status Routine Resus Stat 06/01/17 12:06 Ordered Medication Orders Acetaminophen (Tylenol) 650 mg PO Q6H PRN PRN Reason: Pain Sodium Chloride (Normal Saline) 1,000 mls @ 100 mls/hr IV ASDIRECTED [facility] Ondansetron HCl (Zofran) 4 mg IVPUSH Q4H PRN PRN Reason: Nausea Sodium Chloride (Sodium Chloride) 1 gm PO QID [facility] Assessment/Plan Comment:: This 72 year old female admitted with hyponatremia secondary to SIADH and hx of metastatic small cell lung cancer. 1. Hyponatremia: Will fluid restrict to 1000 ml daily. NS 100 for now, recheck BMP every 4 hours. Monitor potassium and magnesium as well. Monitor on telemetry. 2. Small cell lung ca: Stable. Metastatic disease, on palliative chemotherapy. VTE prophylaxis: heparin BID Dispo: 2-4 days pending improvement
[2017-06-01 15:11] LABS: CHLORIDE,CL 86 mmol/L (98-107)
[2017-06-01 15:19] LABS: SODIUM,NA 117 mmol/L (136-145)
[2017-06-01] MEDS: Sodium Chloride 1 GM Tab PO SCH ×2 (15:20→18:21)
[2017-06-01] MEDS ORDERED: Magnesium Sulfate/Water 4 GM in Premix Bag 1 BAG IV ONE (15:22)
[2017-06-01] MEDS ORDERED: Polyethylene Glycol 3350 Powder 17 GM Packet PO PRN (16:48)
[2017-06-01] MEDS: traMADol 50 MG Tab PO PRN (18:21)
[2017-06-01] MEDS: Gabapentin 300 MG Cap PO SCH ×2 (18:21→22:13)
[2017-06-01] MEDS: Gabapentin 100 MG Cap PO SCH ×2 (18:21→22:13)
[2017-06-01] MEDS: Ondansetron 4 MG/2 ML SDV IVPUSH PRN (18:22)
[2017-06-01 18:24] LABS: CHLORIDE,CL 85 mmol/L (98-107)
[2017-06-01 18:27] LABS: SODIUM,NA 116 mmol/L (136-145)
[2017-06-01] MEDS: QUEtiapine 100 MG Tab PO SCH (20:24)
[2017-06-01] MEDS: Heparin Sodium 5,000 Units/ML Vial SUBCUT SCH (20:27)
[2017-06-01] MEDS: Metoprolol Tartrate 50 MG Tab PO SCH (20:36)
[2017-06-01] MEDS: Acetaminophen 325 MG Tab PO PRN (20:49)
[2017-06-01] MEDS: SYMBICORT 160/4.5 INH SCH (20:52)
[2017-06-01 22:46] LABS: CHLORIDE,CL 86 mmol/L (98-107)
[2017-06-01 22:50] LABS: SODIUM,NA 118 mmol/L (136-145)
[2017-06-02] MEDS: Sodium Chloride 1 GM Tab PO SCH ×5 (00:45→23:06)
[2017-06-02 02:23] LABS: CHLORIDE,CL 88 mmol/L (98-107)
[2017-06-02 02:24] LABS: SODIUM,NA 119 mmol/L (136-145)
[2017-06-02] MEDS: Gabapentin 100 MG Cap PO SCH ×4 (05:22→22:28)
[2017-06-02] MEDS: Gabapentin 300 MG Cap PO SCH ×4 (05:22→22:28)
[2017-06-02] MEDS: Sodium Chloride 0.9% 1,000 ML IV SCH ×2 (06:24→21:54)
[2017-06-02 06:40] LABS: CHLORIDE,CL 90 mmol/L (98-107)
[2017-06-02 06:47] LABS: SODIUM,NA 119 mmol/L (136-145)
[2017-06-02] MEDS: Omeprazole 20 MG Cap.CR PO SCH (06:58)
[2017-06-02] MEDS ORDERED: Magnesium Sulfate/Water 4 GM in Premix Bag 1 BAG IV ONE (07:33)
--- NOTE | 2017-06-02 07:50 | PCM.PN ---
- General Info Date of Service: 06/02/17 Admission Dx/Problem (Free Text): Admission Diagnosis/Problem Admission Diagnosis/Problem Hyponatremia Subjective Update: Feeling a little tired this morning, (just woke her up). She reports otherwise doing ok. No chest pain or SOB. Having some back pain, which is baseline and takes Tramadol or Tylenol. No confusion. Functional Status: Reports: Pain Controlled, Tolerating Diet, Ambulating, Urinating - Review of Systems General: Reports: Fatigue. Denies: Fever HEENT: Reports: No Symptoms. Denies: Headaches, Sinus Congestion, Sore Throat, Visual Changes Pulmonary: Reports: No Symptoms. Denies: Shortness of Breath, Cough, Sputum Cardiovascular: Reports: No Symptoms. Denies: Chest Pain, Edema, Lightheadedness Gastrointestinal: Reports: No Symptoms. Denies: Abdominal Pain, Nausea, Vomiting Genitourinary: Reports: No Symptoms. Denies: Dysuria, Frequency, Burning Musculoskeletal: Reports: Back Pain (low back pain and leg pain, which is baseline with metastasis.). Denies: Neck Pain Neurological: Reports: No Symptoms. Denies: Confusion Psychiatric: Reports: No Symptoms. Denies: Confusion - Patient Data Vitals - Most Recent: Last Vital Signs Temp 97.7 F 06/02/17 04:00 Pulse 69 06/02/17 04:00 Resp 19 06/02/17 04:00 BP 136/68 06/02/17 04:00 Pulse Ox 96 06/02/17 04:00 Weight - Most Recent: 62.006 kg I&O - Last 24 Hours: Intake & Output 06/01/17 06/02/17 06/02/17 22:59 06:59 14:59 Intake Total 450 940 Output Total 450 2000 Balance 0 -1060 Lab Results Last 24 Hours: Laboratory Results - last 24 hr 06/01/17 06/01/17 06/01/17 Range/Units 14:25 18:00 22:27 Sodium 117 L* 116 L* 118 L* (136-145) mmol/L Potassium 4.0 3.9 3.7 (3.5-5.1) mmol/L Chloride 86 L 85 L 86 L (98-107) mmol/L Carbon Dioxide 23.9 26.8 26.5 (21.0-32.0) mmol/L BUN 8 7 7 (7.0-18.0) mg/dL Creatinine 0.7 0.8 0.8 (0.6-1.0) mg/dL Est Cr Clr Drug Dosing 53.71 47.00 47.00 mL/min Estimated GFR (MDRD) > 60.0 > 60.0 > 60.0 ml/min Glucose 97 100 97 (74-106) mg/dL Calcium 8.9 8.7 8.7 (8.5-10.1) mg/dL Magnesium 1.2 L (1.5-2.0) mg/dL 06/02/17 06/02/17 Range/Units 02:01 06:16 Sodium 119 L* 119 L* (136-145) mmol/L Potassium 3.7 3.8 (3.5-5.1) mmol/L Chloride 88 L 90 L (98-107) mmol/L Carbon Dioxide 25.6 26.4 (21.0-32.0) mmol/L BUN 9 9 (7.0-18.0) mg/dL Creatinine 0.8 0.8 (0.6-1.0) mg/dL Est Cr Clr Drug Dosing 47.00 47.00 mL/min Estimated GFR (MDRD) > 60.0 > 60.0 ml/min Glucose 84 76 (74-106) mg/dL Calcium 8.4 L 8.5 (8.5-10.1) mg/dL Magnesium 1.5 (1.5-2.0) mg/dL Med Orders - Current: Current Medications Acetaminophen (Tylenol) 650 mg PO Q6H PRN PRN Reason: Pain Last Admin: 06/01/17 20:49 Dose: 650 mg Amlodipine Besylate (Norvasc) 2.5 mg PO DAILY [facility] Aspirin (Halfprin) 81 mg PO DAILY [facility] Fluticasone Propionate (Flonase) 0 gm NASBOTH DAILY [facility] Gabapentin (Neurontin) 300 mg PO 0600,1200,1800,2200 [facility] Last Admin: 06/02/17 05:22 Dose: 300 mg Gabapentin (Neurontin) 100 mg PO 0600,1200,1800,2200 [facility] Last Admin: 06/02/17 05:22 Dose: 100 mg Heparin Sodium (Porcine) (Heparin Sodium) 5,000 units SUBCUT Q12HR [facility] Last Admin: 06/01/17 20:27 Dose: 5,000 units Sodium Chloride (Normal Saline) 1,000 mls @ 100 mls/hr IV ASDIRECTED [facility] Last Admin: 06/02/17 06:24 Dose: 100 mls/hr Magnesium Sulfate 4 gm/ Premix 100 mls @ 50 mls/hr IV ONETIME ONE Stop: 06/02/17 09:32 Loratadine (Claritin) 10 mg PO DAILY [facility] Metoprolol Tartrate (Lopressor) 50 mg PO BID [facility] Last Admin: 06/01/17 20:36 Dose: Not Given Omeprazole (Omeprazole) 20 mg PO ACBREAKFAST [facility] Last Admin: 06/02/17 06:58 Dose: 20 mg Ondansetron HCl (Zofran) 4 mg IVPUSH Q4H PRN PRN Reason: Nausea Last Admin: 06/01/17 18:22 Dose: 4 mg Symbicort 160/4.5 2 each INH BID [facility] Last Admin: 06/01/17 20:52 Dose: Not Given Polyethylene Glycol (Miralax) 17 gm PO DAILY PRN PRN Reason: Constipation Quetiapine Fumarate (Seroquel) 300 mg PO BEDTIME [facility] Last Admin: 06/01/17 20:24 Dose: 300 mg Ramipril (Altace) 10 mg PO BID [facility] Last Admin: 06/01/17 20:25 Dose: 10 mg Senna/Docusate Sodium (Senna Plus) 2 tab PO BEDTIME PRN PRN Reason: Constipation Sodium Chloride (Sodium Chloride) 1 gm PO QID [facility] Last Admin: 06/02/17 05:22 Dose: 1 gm Tramadol HCl (Ultram) 50 mg PO Q6H PRN PRN Reason: Pain Last Admin: 06/01/17 18:21 Dose: 50 mg Discontinued Medications Magnesium Sulfate 4 gm/ Premix 100 mls @ 50 mls/hr IV ONETIME ONE Stop: 06/01/17 17:21 Last Admin: 06/01/17 16:10 Dose: 50 mls/hr - Exam General: Alert, Oriented, Cooperative, No Acute Distress Neck: Supple Lungs: Clear to Auscultation, Normal Respiratory Effort Cardiovascular: Regular Rate, Regular Rhythm GI/Abdominal Exam: Normal Bowel Sounds, Soft, Non-Tender, No Organomegaly, No Distention, No Abnormal Bruit, No Mass, Pelvis Stable Extremities: Normal Inspection, Normal Range of Motion, Non-Tender, No Pedal Edema, Normal Capillary Refill Neurological: No New Focal Deficit Psy/Mental Status: Alert, Normal Affect, Normal Mood - Problem List & Annotations (1) Hyponatremia SNOMED Code(s): 64728744 Code(s): E87.1 - HYPO-OSMOLALITY AND HYPONATREMIA Status: Acute Priority : High Current Visit: No (2) Hypomagnesemia SNOMED Code(s): 205265291 Code(s): E83.42 - HYPOMAGNESEMIA Status: Acute Priority: Medium Current Visit: No (3) Small cell carcinoma of left lung SNOMED Code(s): 544177519 Code(s): C34.92 - MALIGNANT NEOPLASM OF UNSP PART OF LEFT BRONCHUS OR LUNG Status: Chronic Priority: Low Current Visit: No Annotation/Comment:: mets to liver, breast and skeleton, possibly brain as well as evidenced by brain MRI March 24 2017 (4) COPD (chronic obstructive pulmonary disease) SNOMED Code(s): 17142656 Code(s): J44.9 - CHRONIC OBSTRUCTIVE PULMONARY DISEASE, UNSPECIFIED Status : Chronic Priority: Medium Current Visit: No Qualifiers: COPD type: emphysema Emphysema type: unspecified Qualified Code(s): J43.9 - Emphysema, unspecified (5) Essential hypertension SNOMED Code(s): 80977154 Code(s): I10 - ESSENTIAL (PRIMARY) HYPERTENSION Status: Chronic Current Visit: No (6) Peripheral vascular disease SNOMED Code(s): 676953104 Code(s): I73.9 - PERIPHERAL VASCULAR DISEASE, UNSPECIFIED Status: Chronic Current Visit: No (7) History of tobacco abuse SNOMED Code(s): 5497571929254 Code(s): Z87.891 - PERSONAL HISTORY OF NICOTINE DEPENDENCE Status: Chronic Current Visit: No - Problem List Review Problem List Initiated/Reviewed/Updated: Yes - My Orders Last 24 Hours: My Active Orders 06/01/17 12:06 Patient Status [ADT] Routine Height and Weight [RC] DAILY Oxygen Therapy [RC] PRN Up With Assistance [RC] ASDIRECTED VTE/DVT Education [RC] PER UNIT ROUTINE Vital Signs [RC] Q4H Resuscitation Status Routine 06/01/17 12:07 Intake and Output [RC] Q12HR 06/01/17 12:08 Telemetry Monitoring [Cardiac Monitoring] [RC] Q8H 06/01/17 12:15 Sodium Chloride 0.9% [Normal Saline] 1,000 ml IV ASDIRECTED 06/01/17 13:19 Sodium Chloride 1 gm PO QID 06/01/17 13:21 Acetaminophen [Tylenol] 650 mg PO Q6H PRN Ondansetron [Zofran] 4 mg IVPUSH Q4H PRN 06/01/17 16:48 Docusate Sodium/Sennosides [Senna Plus] 2 tab PO BEDTIME PRN Polyethylene Glycol 3350 [MiraLAX] 17 gm PO DAILY PRN traMADol [Ultram] 50 mg PO Q6H PRN 06/01/17 18:00 Gabapentin [Neurontin] 300 mg PO 0600,1200,1800,2200 06/01/17 21:00 Heparin Sodium 5,000 units SUBCUT Q12HR Metoprolol Tartrate [Lopressor] 50 mg PO BID Patient's Own Medication [Ptom] 2 each INH BID QUEtiapine [SEROquel] 300 mg PO BEDTIME Ramipril [Altace] 10 mg PO BID 06/01/17 Lunch Regular Diet [DIET] 06/02/17 07:30 Omeprazole 20 mg PO ACBREAKFAST 06/02/17 07:33 Magnesium Sulfate/Water [Magnesium Sulfate 4 GM in Water 100 ML] 4 gm Premix Bag 1 bag IV ONETIME 06/02/17 07:34 CBC WITH AUTO DIFF [HEME] Routine 06/02/17 09:00 Aspirin [Halfprin] 81 mg PO DAILY Fluticasone Propionate [Flonase] 0 gm NASBOTH DAILY Loratadine [Claritin] 10 mg PO DAILY amLODIPine [Norvasc] 2.5 mg PO DAILY 06/02/17 10:00 BMP [BASIC METABOLIC PANEL,BMP] [CHEM] Q4H 06/03/17 06:00 CBC WITH AUTO DIFF [HEME] DAILY 06/04/17 06:00 CBC WITH AUTO DIFF [HEME] DAILY 06/05/17 06:00 CBC WITH AUTO DIFF [HEME] DAILY - Plan Plan:: This 72 year old female admitted with hyponatremia secondary to SIADH and hx of metastatic small cell lung cancer. 1. Hyponatremia: Will fluid restrict to 1000 ml daily. NS 100. NA 119 this morning, continue to recheck BMP every 4 hours. Monitor potassium and magnesium as well. Monitor on telemetry. Supplement mag IV this am, 4 gm. 2. Small cell lung ca: Stable. Metastatic disease, on palliative chemotherapy. 3. HTN: Stable, continuing home medications. VTE prophylaxis: heparin BID Dispo: 2-4 days pending improvement
[2017-06-02] MEDS: Loratadine 10 MG Tab PO SCH (09:55)
[2017-06-02] MEDS: amLODIPine 2.5 MG Tab PO SCH (09:55)
[2017-06-02] MEDS: Metoprolol Tartrate 50 MG Tab PO SCH ×2 (09:56→20:44)
[2017-06-02] MEDS: Aspirin 81 MG Tab.EC PO SCH (09:58)
[2017-06-02] MEDS: Heparin Sodium 5,000 Units/ML Vial SUBCUT SCH ×3 (09:58→20:35)
[2017-06-02] MEDS: Fluticasone Propionate Nasal Spray 16 GM Bottle NASBOTH SCH (10:00)
[2017-06-02] MEDS: SYMBICORT 160/4.5 INH SCH ×2 (10:11→22:30)
[2017-06-02 11:06] LABS: CHLORIDE,CL 91 mmol/L (98-107); SODIUM,NA 122 mmol/L (136-145)
[2017-06-02 14:30] LABS: CHLORIDE,CL 91 mmol/L (98-107); SODIUM,NA 123 mmol/L (136-145)
[2017-06-02 18:45] LABS: CHLORIDE,CL 92 mmol/L (98-107); SODIUM,NA 124 mmol/L (136-145)
[2017-06-02] MEDS: Acetaminophen 325 MG Tab PO PRN (19:23)
[2017-06-02] MEDS: QUEtiapine 100 MG Tab PO SCH (20:39)
[2017-06-02 22:36] LABS: CHLORIDE,CL 92 mmol/L (98-107); SODIUM,NA 124 mmol/L (136-145)
[2017-06-02] MEDS: traMADol 50 MG Tab PO PRN (23:03)
[2017-06-03 02:18] LABS: CHLORIDE,CL 92 mmol/L (98-107); SODIUM,NA 125 mmol/L (136-145)
[2017-06-03] MEDS: Sodium Chloride 1 GM Tab PO SCH ×4 (06:17→23:09)
[2017-06-03] MEDS: Gabapentin 300 MG Cap PO SCH ×4 (06:22→23:09)
[2017-06-03] MEDS: Gabapentin 100 MG Cap PO SCH ×4 (06:22→23:09)
[2017-06-03] MEDS: Omeprazole 20 MG Cap.CR PO SCH (06:30)
[2017-06-03 06:46] LABS: CHLORIDE,CL 93 mmol/L (98-107); SODIUM,NA 124 mmol/L (136-145)
[2017-06-03] MEDS ORDERED: Magnesium Sulfate/Water 4 GM in Premix Bag 1 BAG IV ONE (08:06)
--- NOTE | 2017-06-03 08:16 | PCM.PN ---
- General Info Date of Service: 06/03/17 Admission Dx/Problem (Free Text): Admission Diagnosis/Problem Admission Diagnosis/Problem Hyponatremia Subjective Update: Continues to do well this morning. NO chest pain or SOB. Back pain is intermittent, but her baseline. No concerns today. Eager to have sodium improved so she can go home. Functional Status: Reports: Pain Controlled, Tolerating Diet, Ambulating, Urinating - Review of Systems General: Reports: No Symptoms. Denies: Fever, Weakness, Fatigue HEENT: Reports: Post Nasal Drip Pulmonary: Reports: No Symptoms. Denies: Shortness of Breath Cardiovascular: Reports: No Symptoms. Denies: Chest Pain Gastrointestinal: Reports: No Symptoms. Denies: Abdominal Pain Genitourinary: Reports: No Symptoms. Denies: Dysuria, Frequency, Burning Musculoskeletal: Reports: Back Pain (but is her normal baseline, no changes. Tramadol helps) Neurological: Reports: No Symptoms. Denies: Confusion Psychiatric: Reports: No Symptoms. Denies: Confusion - Patient Data Vitals - Most Recent: Last Vital Signs Temp 97.9 F 06/03/17 07:46 Pulse 49 L 06/03/17 07:46 Resp 14 06/03/17 07:46 BP 162/78 H 06/03/17 07:46 Pulse Ox 94 L 06/03/17 07:46 Weight - Most Recent: 62.596 kg I&O - Last 24 Hours: Intake & Output 06/02/17 06/03/17 06/03/17 22:59 06:59 14:59 Intake Total 2140 756 Output Total 300 1400 Balance 1840 -644 Lab Results Last 24 Hours: Laboratory Results - last 24 hr 06/02/17 06/02/17 06/02/17 Range/Units 06:16 10:37 14:00 WBC 2.91 L (4.0-11.0) K/uL RBC 3.01 L (4.30-5.90) M/uL Hgb 9.1 L (12.0-16.0) g/dL Hct 25.9 L (36.0-46.0) % MCV 86.0 (80.0-98.0) fL MCH 30.2 (27.0-32.0) pg MCHC 35.1 (31.0-37.0) g/dL RDW Std Deviation 54.0 (28.0-62.0) fl RDW Coeff of [place] 17 H (11.0-15.0) % Plt Count 133 L (150-400) K/uL MPV 10.40 (7.40-12.00) fL Neut % (Auto) (48.0-80.0) % Lymph % (Auto) (16.0-40.0) % [place] % (Auto) (0.0-15.0) % Eos % (Auto) (0.0-7.0) % Baso % (Auto) (0.0-1.5) % Neut # (Auto) (1.4-5.7) K/uL Lymph # (Auto) (0.6-2.4) K/uL [place] # (Auto) (0.0-0.8) K/uL Eos # (Auto) (0.0-0.7) K/uL Baso # (Auto) (0.0-0.1) K/uL Add Manual Diff YES Neutrophils % (Manual) 51 (48.0-80.0) % Band Neutrophils % 5 % Lymphocytes % (Manual) 35 (16.0-40.0) % Monocytes % (Manual) 7 (0.0-15.0) % Basophils % (Manual) 2 H (0.0-1.5) % Nucleated RBC % 0.0 /100WBC Absolute Seg Neuts 1.5 (1.4-5.7) Band Neutrophils # 0.1 Lymphocytes # (Manual) 1.0 (0.6-2.4) Monocytes # (Manual) 0.2 (0.0-0.8) Basophils # (Manual) 0.1 (0.0-0.1) Nucleated RBCs # 0 K/uL Sodium 122 L 123 L (136-145) mmol/L Potassium 3.5 3.8 (3.5-5.1) mmol/L Chloride 91 L 91 L (98-107) mmol/L Carbon Dioxide 24.5 26.2 (21.0-32.0) mmol/L BUN 9 9 (7.0-18.0) mg/dL Creatinine 0.9 0.9 (0.6-1.0) mg/dL Est Cr Clr Drug Dosing 41.78 41.78 mL/min Estimated GFR (MDRD) > 60.0 > 60.0 ml/min Glucose 114 H 112 H (74-106) mg/dL Calcium 8.3 L 8.2 L (8.5-10.1) mg/dL Magnesium (1.5-2.0) mg/dL 06/02/17 06/02/17 06/03/17 Range/Units 18:20 22:14 01:59 WBC (4.0-11.0) K/uL RBC (4.30-5.90) M/uL Hgb (12.0-16.0) g/dL Hct (36.0-46.0) % MCV (80.0-98.0) fL MCH (27.0-32.0) pg MCHC (31.0-37.0) g/dL RDW Std Deviation (28.0-62.0) fl RDW Coeff of [place] (11.0-15.0) % Plt Count (150-400) K/uL MPV (7.40-12.00) fL Neut % (Auto) (48.0-80.0) % Lymph % (Auto) (16.0-40.0) % [place] % (Auto) (0.0-15.0) % Eos % (Auto) (0.0-7.0) % Baso % (Auto) (0.0-1.5) % Neut # (Auto) (1.4-5.7) K/uL Lymph # (Auto) (0.6-2.4) K/uL [place] # (Auto) (0.0-0.8) K/uL Eos # (Auto) (0.0-0.7) K/uL Baso # (Auto) (0.0-0.1) K/uL Add Manual Diff Neutrophils % (Manual) (48.0-80.0) % Band Neutrophils % % Lymphocytes % (Manual) (16.0-40.0) % Monocytes % (Manual) (0.0-15.0) % Basophils % (Manual) (0.0-1.5) % Nucleated RBC % /100WBC Absolute Seg Neuts (1.4-5.7) Band Neutrophils # Lymphocytes # (Manual) (0.6-2.4) Monocytes # (Manual) (0.0-0.8) Basophils # (Manual) (0.0-0.1) Nucleated RBCs # K/uL Sodium 124 L 124 L 125 L (136-145) mmol/L Potassium 3.7 3.7 3.7 (3.5-5.1) mmol/L Chloride 92 L 92 L 92 L (98-107) mmol/L Carbon Dioxide 26.7 25.9 27.7 (21.0-32.0) mmol/L BUN 8 9 8 (7.0-18.0) mg/dL Creatinine 0.8 0.8 0.7 (0.6-1.0) mg/dL Est Cr Clr Drug Dosing 47.00 47.00 53.71 mL/min Estimated GFR (MDRD) > 60.0 > 60.0 > 60.0 ml/min Glucose 128 H 106 87 (74-106) mg/dL Calcium 8.3 L 8.5 8.6 (8.5-10.1) mg/dL Magnesium (1.5-2.0) mg/dL 06/03/17 06/03/17 Range/Units 06:11 06:11 WBC 2.73 L (4.0-11.0) K/uL RBC 3.02 L (4.30-5.90) M/uL Hgb 9.0 L (12.0-16.0) g/dL Hct 25.9 L (36.0-46.0) % MCV 85.8 (80.0-98.0) fL MCH 29.8 (27.0-32.0) pg MCHC 34.7 (31.0-37.0) g/dL RDW Std Deviation 54.4 (28.0-62.0) fl RDW Coeff of [place] 17 H (11.0-15.0) % Plt Count 130 L (150-400) K/uL MPV 10.10 (7.40-12.00) fL Neut % (Auto) 57.0 (48.0-80.0) % Lymph % (Auto) 26.4 (16.0-40.0) % [place] % (Auto) 13.6 (0.0-15.0) % Eos % (Auto) 2.6 (0.0-7.0) % Baso % (Auto) 0.4 (0.0-1.5) % Neut # (Auto) 1.6 (1.4-5.7) K/uL Lymph # (Auto) 0.7 (0.6-2.4) K/uL [place] # (Auto) 0.4 (0.0-0.8) K/uL Eos # (Auto) 0.1 (0.0-0.7) K/uL Baso # (Auto) 0.0 (0.0-0.1) K/uL Add Manual Diff Neutrophils % (Manual) (48.0-80.0) % Band Neutrophils % % Lymphocytes % (Manual) (16.0-40.0) % Monocytes % (Manual) (0.0-15.0) % Basophils % (Manual) (0.0-1.5) % Nucleated RBC % 0.0 /100WBC Absolute Seg Neuts (1.4-5.7) Band Neutrophils # Lymphocytes # (Manual) (0.6-2.4) Monocytes # (Manual) (0.0-0.8) Basophils # (Manual) (0.0-0.1) Nucleated RBCs # 0 K/uL Sodium 124 L (136-145) mmol/L Potassium 3.7 (3.5-5.1) mmol/L Chloride 93 L (98-107) mmol/L Carbon Dioxide 25.5 (21.0-32.0) mmol/L BUN 7 (7.0-18.0) mg/dL Creatinine 0.7 (0.6-1.0) mg/dL Est Cr Clr Drug Dosing 53.71 mL/min Estimated GFR (MDRD) > 60.0 ml/min Glucose 73 L (74-106) mg/dL Calcium 8.5 (8.5-10.1) mg/dL Magnesium 1.3 L (1.5-2.0) mg/dL Med Orders - Current: Current Medications Acetaminophen (Tylenol) 650 mg PO Q6H PRN PRN Reason: Pain Last Admin: 06/02/17 19:23 Dose: 650 mg Amlodipine Besylate (Norvasc) 2.5 mg PO DAILY [facility] Last Admin: 06/02/17 09:55 Dose: 2.5 mg Aspirin (Halfprin) 81 mg PO DAILY [facility] Last Admin: 06/02/17 09:58 Dose: 81 mg Fluticasone Propionate (Flonase) 0 gm NASBOTH DAILY [facility] Last Admin: 06/02/17 10:00 Dose: 2 spray Gabapentin (Neurontin) 300 mg PO 0600,1200,1800,2200 [facility] Last Admin: 06/03/17 06:22 Dose: 300 mg Gabapentin (Neurontin) 100 mg PO 0600,1200,1800,2200 [facility] Last Admin: 06/03/17 06:22 Dose: 100 mg Heparin Sodium (Porcine) (Heparin Sodium) 5,000 units SUBCUT Q12HR [facility] Last Admin: 06/02/17 20:35 Dose: 5,000 units Sodium Chloride (Normal Saline) 1,000 mls @ 100 mls/hr IV ASDIRECTED [facility] Last Admin: 06/02/17 21:54 Dose: 100 mls/hr Magnesium Sulfate 4 gm/ Premix 100 mls @ 50 mls/hr IV ONETIME ONE Stop: 06/03/17 10:05 Loratadine (Claritin) 10 mg PO DAILY [facility] Last Admin: 06/02/17 09:55 Dose: 10 mg Metoprolol Tartrate (Lopressor) 50 mg PO BID [facility] Last Admin: 06/02/17 20:44 Dose: Not Given Omeprazole (Omeprazole) 20 mg PO ACBREAKFAST [facility] Last Admin: 06/03/17 06:30 Dose: 20 mg Ondansetron HCl (Zofran) 4 mg IVPUSH Q4H PRN PRN Reason: Nausea Last Admin: 06/01/17 18:22 Dose: 4 mg Symbicort 160/4.5 2 each INH BID [facility] Last Admin: 06/02/17 22:30 Dose: 2 each Polyethylene Glycol (Miralax) 17 gm PO DAILY PRN PRN Reason: Constipation Quetiapine Fumarate (Seroquel) 300 mg PO BEDTIME [facility] Last Admin: 06/02/17 20:39 Dose: 300 mg Ramipril (Altace) 10 mg PO BID [facility] [place] Last Admin: 06/02/17 20:39 Dose: 10 mg Senna/Docusate Sodium (Senna Plus) 2 tab PO BEDTIME PRN PRN Reason: Constipation Sodium Chloride (Sodium Chloride) 1 gm PO QID [facility] [place] Last Admin: 06/03/17 06:17 Dose: 1 gm Tramadol HCl (Ultram) 50 mg PO Q6H PRN PRN Reason: Pain Last Admin: 06/02/17 23:03 Dose: 50 mg Discontinued Medications Magnesium Sulfate 4 gm/ Premix 100 mls @ 50 mls/hr IV ONETIME ONE Stop: 06/01/17 17:21 Last Admin: 06/01/17 16:10 Dose: 50 mls/hr Magnesium Sulfate 4 gm/ Premix 100 mls @ 50 mls/hr IV ONETIME ONE Stop: 06/02/17 09:32 Last Admin: 06/02/17 09:59 Dose: 50 mls/hr - Exam General: Alert, Oriented, Cooperative, No Acute Distress Lungs: Clear to Auscultation, Normal Respiratory Effort Cardiovascular: Regular Rate, Regular Rhythm GI/Abdominal Exam: Normal Bowel Sounds, Soft, Non-Tender, No Organomegaly, No Distention, No Abnormal Bruit, No Mass, Pelvis Stable Extremities: Normal Inspection, Normal Range of Motion, Non-Tender, No Pedal Edema, Normal Capillary Refill Neurological: No New Focal Deficit Psy/Mental Status: Alert, Normal Affect, Normal Mood - Problem List & Annotations (1) Hyponatremia SNOMED Code(s): 04858384 Code(s): E87.1 - HYPO-OSMOLALITY AND HYPONATREMIA Status: Acute Priority : High Current Visit: No (2) Hypomagnesemia SNOMED Code(s): 815355289 Code(s): E83.42 - HYPOMAGNESEMIA Status: Acute Priority: Medium Current Visit: No (3) Small cell carcinoma of left lung SNOMED Code(s): 086849495 Code(s): C34.92 - MALIGNANT NEOPLASM OF UNSP PART OF LEFT BRONCHUS OR LUNG Status: Chronic Priority: Low Current Visit: No Annotation/Comment:: mets to liver, breast and skeleton, possibly brain as well as evidenced by brain MRI March 24 2017 (4) COPD (chronic obstructive pulmonary disease) SNOMED Code(s): 42879563 Code(s): J44.9 - CHRONIC OBSTRUCTIVE PULMONARY DISEASE, UNSPECIFIED Status : Chronic Priority: Medium Current Visit: No Qualifiers: COPD type: emphysema Emphysema type: unspecified Qualified Code(s): J43.9 - Emphysema, unspecified (5) Essential hypertension SNOMED Code(s): 40457264 Code(s): I10 - ESSENTIAL (PRIMARY) HYPERTENSION Status: Chronic Current Visit: No (6) Peripheral vascular disease SNOMED Code(s): 039096774 Code(s): I73.9 - PERIPHERAL VASCULAR DISEASE, UNSPECIFIED Status: Chronic Current Visit: No (7) History of tobacco abuse SNOMED Code(s): 4700196311286 Code(s): Z87.891 - PERSONAL HISTORY OF NICOTINE DEPENDENCE Status: Chronic Current Visit: No - Problem List Review Problem List Initiated/Reviewed/Updated: Yes - My Orders Last 24 Hours: My Active Orders 06/02/17 07:30 Omeprazole 20 mg PO ACBREAKFAST 06/02/17 09:00 Aspirin [Halfprin] 81 mg PO DAILY Fluticasone Propionate [Flonase] 0 gm NASBOTH DAILY Loratadine [Claritin] 10 mg PO DAILY amLODIPine [Norvasc] 2.5 mg PO DAILY 06/02/17 10:02 Communication Order [RC] PRN 06/03/17 08:06 Magnesium Sulfate/Water [Magnesium Sulfate 4 GM in Water 100 ML] 4 gm Premix Bag 1 bag IV ONETIME 06/03/17 10:00 BMP [BASIC METABOLIC PANEL,BMP] [CHEM] Q4H 06/04/17 06:00 CBC WITH AUTO DIFF [HEME] DAILY 06/05/17 06:00 CBC WITH AUTO DIFF [HEME] DAILY - Plan Plan:: This 72 year old female admitted with hyponatremia secondary to SIADH and hx of metastatic small cell lung cancer. 1. Hyponatremia: Continues to increase slowly. Continue fluid restriction of 1000 ml daily. NS 100. NA 124 this morning, continue to recheck BMP every 6 hours. Monitor potassium and magnesium as well. Will again supplement mag IV this am, 4 gm. 2. Small cell lung ca: Stable. Metastatic disease, on palliative chemotherapy. Hgb 9.0 today and platelets 130,000, stable. 3. HTN: Stable, continuing home medications. VTE prophylaxis: heparin BID Dispo: 2-4 days pending improvement
[2017-06-03] MEDS: Aspirin 81 MG Tab.EC PO SCH (08:27)
[2017-06-03] MEDS: amLODIPine 2.5 MG Tab PO SCH (08:28)
[2017-06-03] MEDS: Loratadine 10 MG Tab PO SCH (08:28)
[2017-06-03] MEDS: traMADol 50 MG Tab PO PRN ×2 (08:29→20:27)
[2017-06-03] MEDS: Fluticasone Propionate Nasal Spray 16 GM Bottle NASBOTH SCH (08:31)
[2017-06-03] MEDS: Sodium Chloride 0.9% 1,000 ML IV SCH ×2 (08:32→19:37)
[2017-06-03] MEDS: Heparin Sodium 5,000 Units/ML Vial SUBCUT SCH ×2 (08:35→20:27)
[2017-06-03] MEDS: Metoprolol Tartrate 50 MG Tab PO SCH ×2 (09:36→20:48)
[2017-06-03] MEDS: SYMBICORT 160/4.5 INH SCH ×2 (10:50→23:11)
[2017-06-03] MEDS ORDERED: Potassium Chloride 20 MEQ Tab.ER PO ONE (11:19)
[2017-06-03 11:35] LABS: CHLORIDE,CL 92 mmol/L (98-107); SODIUM,NA 124 mmol/L (136-145)
[2017-06-03] MEDS: Acetaminophen 325 MG Tab PO PRN (13:33)
[2017-06-03 18:25] LABS: CHLORIDE,CL 92 mmol/L (98-107); SODIUM,NA 124 mmol/L (136-145)
[2017-06-03] MEDS: QUEtiapine 100 MG Tab PO SCH (20:27)
[2017-06-04] MEDS: Sodium Chloride 0.9% 1,000 ML IV SCH ×2 (06:19→18:01)
[2017-06-04] MEDS: Sodium Chloride 1 GM Tab PO SCH ×4 (06:20→23:03)
[2017-06-04] MEDS: Gabapentin 100 MG Cap PO SCH ×4 (06:20→21:07)
[2017-06-04] MEDS: Gabapentin 300 MG Cap PO SCH ×4 (06:20→21:07)
[2017-06-04 06:26] LABS: CHLORIDE,CL 97 mmol/L (98-107); SODIUM,NA 127 mmol/L (136-145)
[2017-06-04] MEDS: Omeprazole 20 MG Cap.CR PO SCH (07:03)
[2017-06-04] MEDS ORDERED: Magnesium Sulfate/Water 4 GM in Premix Bag 1 BAG IV ONE (07:48)
[2017-06-04] MEDS: Heparin Sodium 5,000 Units/ML Vial SUBCUT SCH ×2 (09:26→20:06)
[2017-06-04] MEDS: Aspirin 81 MG Tab.EC PO SCH (09:26)
[2017-06-04] MEDS: Loratadine 10 MG Tab PO SCH (09:26)
[2017-06-04] MEDS: amLODIPine 2.5 MG Tab PO SCH (09:28)
[2017-06-04] MEDS: Metoprolol Tartrate 50 MG Tab PO SCH ×2 (09:30→20:15)
[2017-06-04] MEDS: Fluticasone Propionate Nasal Spray 16 GM Bottle NASBOTH SCH (09:32)
[2017-06-04] MEDS: SYMBICORT 160/4.5 INH SCH ×2 (09:38→20:12)
--- NOTE | 2017-06-04 09:43 | PCM.PN ---
- General Info Date of Service: 06/04/17 Admission Dx/Problem (Free Text): Admission Diagnosis/Problem Admission Diagnosis/Problem Hyponatremia Subjective Update: Doing well this morning, no complaints. Still eager for discharge when able. No chest pain or SOB. Functional Status: Reports: Pain Controlled, Tolerating Diet, Ambulating, Urinating - Review of Systems General: Reports: No Symptoms. Denies: Fever, Weakness Pulmonary: Reports: No Symptoms. Denies: Shortness of Breath, Cough, Sputum Cardiovascular: Reports: No Symptoms. Denies: Chest Pain, Palpitations, Edema Gastrointestinal: Reports: No Symptoms. Denies: Abdominal Pain, Nausea, Vomiting Genitourinary: Reports: No Symptoms. Denies: Dysuria, Frequency, Burning Musculoskeletal: Reports: No Symptoms Neurological: Reports: No Symptoms Psychiatric: Reports: No Symptoms - Patient Data Vitals - Most Recent: Last Vital Signs Temp 98.8 F 06/04/17 08:00 Pulse 60 06/04/17 09:30 Resp 18 06/04/17 08:00 BP 173/70 H 06/04/17 09:32 Pulse Ox 93 L 06/04/17 08:00 Weight - Most Recent: 62.596 kg I&O - Last 24 Hours: Intake & Output 06/03/17 06/04/17 06/04/17 22:59 06:59 14:59 Intake Total 1698 200 Output Total 3150 450 Balance -1452 -250 Lab Results Last 24 Hours: Laboratory Results - last 24 hr 06/03/17 06/03/17 06/03/17 Range/Units 11:08 17:24 22:58 WBC (4.0-11.0) K/uL RBC (4.30-5.90) M/uL Hgb (12.0-16.0) g/dL Hct (36.0-46.0) % MCV (80.0-98.0) fL MCH (27.0-32.0) pg MCHC (31.0-37.0) g/dL RDW Std Deviation (28.0-62.0) fl RDW Coeff of [place] (11.0-15.0) % Plt Count (150-400) K/uL MPV (7.40-12.00) fL Neut % (Auto) (48.0-80.0) % Lymph % (Auto) (16.0-40.0) % [place] % (Auto) (0.0-15.0) % Eos % (Auto) (0.0-7.0) % Baso % (Auto) (0.0-1.5) % Neut # (Auto) (1.4-5.7) K/uL Lymph # (Auto) (0.6-2.4) K/uL [place] # (Auto) (0.0-0.8) K/uL Eos # (Auto) (0.0-0.7) K/uL Baso # (Auto) (0.0-0.1) K/uL Nucleated RBC % /100WBC Nucleated RBCs # K/uL Sodium 124 L 124 L 126 L (136-145) mmol/L Potassium 3.7 4.0 4.1 (3.5-5.1) mmol/L Chloride 92 L 92 L 95 L (98-107) mmol/L Carbon Dioxide 26.0 25.9 26.0 (21.0-32.0) mmol/L BUN 7 8 10 (7.0-18.0) mg/dL Creatinine 0.7 0.8 1.0 (0.6-1.0) mg/dL Est Cr Clr Drug Dosing 53.71 47.00 37.60 mL/min Estimated GFR (MDRD) > 60.0 > 60.0 54.8 ml/min Glucose 94 103 109 H (74-106) mg/dL Calcium 8.7 8.9 8.7 (8.5-10.1) mg/dL Magnesium (1.5-2.0) mg/dL 06/04/17 06/04/17 06/04/17 Range/Units 06:07 06:07 06:07 WBC 4.40 (4.0-11.0) K/uL RBC 3.02 L (4.30-5.90) M/uL Hgb 9.1 L (12.0-16.0) g/dL Hct 26.4 L (36.0-46.0) % MCV 87.4 (80.0-98.0) fL MCH 30.1 (27.0-32.0) pg MCHC 34.5 (31.0-37.0) g/dL RDW Std Deviation 57.3 (28.0-62.0) fl RDW Coeff of [place] 18 H (11.0-15.0) % Plt Count 138 L (150-400) K/uL MPV 9.80 (7.40-12.00) fL Neut % (Auto) 72.4 (48.0-80.0) % Lymph % (Auto) 14.8 L (16.0-40.0) % [place] % (Auto) 10.5 (0.0-15.0) % Eos % (Auto) 2.3 (0.0-7.0) % Baso % (Auto) 0.0 (0.0-1.5) % Neut # (Auto) 3.2 (1.4-5.7) K/uL Lymph # (Auto) 0.7 (0.6-2.4) K/uL [place] # (Auto) 0.5 (0.0-0.8) K/uL Eos # (Auto) 0.1 (0.0-0.7) K/uL Baso # (Auto) 0.0 (0.0-0.1) K/uL Nucleated RBC % 0.0 /100WBC Nucleated RBCs # 0 K/uL Sodium 127 L (136-145) mmol/L Potassium 4.3 (3.5-5.1) mmol/L Chloride 97 L (98-107) mmol/L Carbon Dioxide 24.8 (21.0-32.0) mmol/L BUN 10 (7.0-18.0) mg/dL Creatinine 0.9 (0.6-1.0) mg/dL Est Cr Clr Drug Dosing 41.78 mL/min Estimated GFR (MDRD) > 60.0 ml/min Glucose 79 (74-106) mg/dL Calcium 8.8 (8.5-10.1) mg/dL Magnesium 1.3 L (1.5-2.0) mg/dL Med Orders - Current: Current Medications Acetaminophen (Tylenol) 650 mg PO Q6H PRN PRN Reason: Pain Last Admin: 06/03/17 13:33 Dose: 650 mg Amlodipine Besylate (Norvasc) 2.5 mg PO DAILY [facility] Last Admin: 06/04/17 09:28 Dose: 2.5 mg Aspirin (Halfprin) 81 mg PO DAILY [facility] Last Admin: 06/04/17 09:26 Dose: 81 mg Fluticasone Propionate (Flonase) 0 gm NASBOTH DAILY [facility] Last Admin: 06/04/17 09:32 Dose: 16 spray Gabapentin (Neurontin) 300 mg PO 0600,1200,1800,2200 [facility] Last Admin: 06/04/17 06:20 Dose: 300 mg Gabapentin (Neurontin) 100 mg PO 0600,1200,1800,2200 [facility] Last Admin: 06/04/17 06:20 Dose: 100 mg Heparin Sodium (Porcine) (Heparin Sodium) 5,000 units SUBCUT Q12HR [facility] Last Admin: 06/04/17 09:26 Dose: 5,000 units Sodium Chloride (Normal Saline) 1,000 mls @ 100 mls/hr IV ASDIRECTED [facility] Last Admin: 06/04/17 06:19 Dose: 100 mls/hr Magnesium Sulfate 4 gm/ Premix 100 mls @ 50 mls/hr IV ONETIME ONE Stop: 06/04/17 09:47 Last Admin: 06/04/17 08:43 Dose: 50 mls/hr Loratadine (Claritin) 10 mg PO DAILY [facility] Last Admin: 06/04/17 09:26 Dose: 10 mg Metoprolol Tartrate (Lopressor) 50 mg PO BID [facility] Last Admin: 06/04/17 09:30 Dose: 50 mg Omeprazole (Omeprazole) 20 mg PO ACBREAKFAST [facility] Last Admin: 06/04/17 07:03 Dose: 20 mg Ondansetron HCl (Zofran) 4 mg IVPUSH Q4H PRN PRN Reason: Nausea Last Admin: 06/01/17 18:22 Dose: 4 mg Symbicort 160/4.5 2 each INH BID [facility] Last Admin: 06/04/17 09:38 Dose: 2 each Polyethylene Glycol (Miralax) 17 gm PO DAILY PRN PRN Reason: Constipation Quetiapine Fumarate (Seroquel) 300 mg PO BEDTIME [facility] Last Admin: 06/03/17 20:27 Dose: 300 mg Ramipril (Altace) 10 mg PO BID [facility] Last Admin: 06/04/17 09:32 Dose: 10 mg Senna/Docusate Sodium (Senna Plus) 2 tab PO BEDTIME PRN PRN Reason: Constipation Sodium Chloride (Sodium Chloride) 1 gm PO QID [facility] Last Admin: 06/04/17 06:20 Dose: 1 gm Tramadol HCl (Ultram) 50 mg PO Q6H PRN PRN Reason: Pain Last Admin: 06/03/17 20:27 Dose: 50 mg Discontinued Medications Magnesium Sulfate 4 gm/ Premix 100 mls @ 50 mls/hr IV ONETIME ONE Stop: 06/01/17 17:21 Last Admin: 06/01/17 16:10 Dose: 50 mls/hr Magnesium Sulfate 4 gm/ Premix 100 mls @ 50 mls/hr IV ONETIME ONE Stop: 06/02/17 09:32 Last Admin: 06/02/17 09:59 Dose: 50 mls/hr Magnesium Sulfate 4 gm/ Premix 100 mls @ 50 mls/hr IV ONETIME ONE Stop: 06/03/17 10:05 Last Admin: 06/03/17 09:18 Dose: 50 mls/hr Potassium Chloride (Klor-Con M20) 40 meq PO ONETIME ONE Stop: 06/03/17 11:20 Last Admin: 06/03/17 11:39 Dose: 40 meq - Exam General: Alert, Oriented, Cooperative, No Acute Distress Neck: Supple Lungs: Clear to Auscultation, Normal Respiratory Effort Cardiovascular: Regular Rate, Regular Rhythm GI/Abdominal Exam: Normal Bowel Sounds, Soft, Non-Tender, No Organomegaly, No Distention, No Abnormal Bruit, No Mass, Pelvis Stable Back Exam: Normal Inspection, Full Range of Motion Neurological: No New Focal Deficit Psy/Mental Status: Alert, Normal Affect, Normal Mood - Problem List & Annotations (1) Hyponatremia SNOMED Code(s): 16098141 Code(s): E87.1 - HYPO-OSMOLALITY AND HYPONATREMIA Status: Acute Priority : High Current Visit: No (2) Hypomagnesemia SNOMED Code(s): 487288341 Code(s): E83.42 - HYPOMAGNESEMIA Status: Acute Priority: Medium Current Visit: No (3) Small cell carcinoma of left lung SNOMED Code(s): 962357069 Code(s): C34.92 - MALIGNANT NEOPLASM OF UNSP PART OF LEFT BRONCHUS OR LUNG Status: Chronic Priority: Low Current Visit: No Annotation/Comment:: mets to liver, breast and skeleton, possibly brain as well as evidenced by brain MRI March 24 2017 (4) COPD (chronic obstructive pulmonary disease) SNOMED Code(s): 31251357 Code(s): J44.9 - CHRONIC OBSTRUCTIVE PULMONARY DISEASE, UNSPECIFIED Status : Chronic Priority: Medium Current Visit: No Qualifiers: COPD type: emphysema Emphysema type: unspecified Qualified Code(s): J43.9 - Emphysema, unspecified (5) Essential hypertension SNOMED Code(s): 33266312 Code(s): I10 - ESSENTIAL (PRIMARY) HYPERTENSION Status: Chronic Current Visit: No (6) Peripheral vascular disease SNOMED Code(s): 939756693 Code(s): I73.9 - PERIPHERAL VASCULAR DISEASE, UNSPECIFIED Status: Chronic Current Visit: No (7) History of tobacco abuse SNOMED Code(s): 1435076943179 Code(s): Z87.891 - PERSONAL HISTORY OF NICOTINE DEPENDENCE Status: Chronic Current Visit: No - Problem List Review Problem List Initiated/Reviewed/Updated: Yes - My Orders Last 24 Hours: My Active Orders 06/04/17 07:48 Magnesium Sulfate/Water [Magnesium Sulfate 4 GM in Water 100 ML] 4 gm Premix Bag 1 bag IV ONETIME 06/04/17 11:00 BMP [BASIC METABOLIC PANEL,BMP] [CHEM] Q6H 06/05/17 05:11 MAGNESIUM [CHEM] AM 06/05/17 06:00 CBC WITH AUTO DIFF [HEME] DAILY 06/06/17 05:11 MAGNESIUM [CHEM] AM - Plan Plan:: This 72 year old female admitted with hyponatremia secondary to SIADH and hx of metastatic small cell lung cancer. 1. Hyponatremia: Na 127 today. Continue fluid restriction of 1000 ml daily. NS 100. Continue to recheck BMP every 6 hours. Will again supplement mag IV this am , 4 gm. 2. Small cell lung ca: Stable. Metastatic disease, on palliative chemotherapy. Hgb 9.0 today and platelets 130,000, stable. 3. HTN: Stable, continuing home medications. VTE prophylaxis: heparin BID Dispo: 1-2 days pending Na
[2017-06-04 17:46] LABS: CHLORIDE,CL 96 mmol/L (98-107); SODIUM,NA 127 mmol/L (136-145)
[2017-06-04] MEDS: traMADol 50 MG Tab PO PRN (18:51)
[2017-06-04] MEDS: Ondansetron 4 MG/2 ML SDV IVPUSH PRN (20:06)
[2017-06-04] MEDS: QUEtiapine 100 MG Tab PO SCH (20:09)
[2017-06-04 23:53] LABS: CHLORIDE,CL 97 mmol/L (98-107); SODIUM,NA 127 mmol/L (136-145)
[2017-06-05] MEDS: Sodium Chloride 0.9% 1,000 ML IV SCH (04:05)
[2017-06-05] MEDS: Gabapentin 300 MG Cap PO SCH ×2 (05:31→12:24)
[2017-06-05] MEDS: Sodium Chloride 1 GM Tab PO SCH ×2 (05:31→12:22)
[2017-06-05] MEDS: Gabapentin 100 MG Cap PO SCH ×2 (05:31→12:24)
[2017-06-05 06:05] LABS: CHLORIDE,CL 100 mmol/L (98-107); SODIUM,NA 129 mmol/L (136-145)
[2017-06-05] MEDS: Omeprazole 20 MG Cap.CR PO SCH (06:40)
[2017-06-05] MEDS ORDERED: Magnesium Sulfate/Water 4 GM in Premix Bag 1 BAG IV ONE (07:47)
[2017-06-05] MEDS: traMADol 50 MG Tab PO PRN (08:33)
[2017-06-05] MEDS: amLODIPine 2.5 MG Tab PO SCH (09:38)
[2017-06-05] MEDS: Metoprolol Tartrate 50 MG Tab PO SCH (09:38)
[2017-06-05] MEDS: Loratadine 10 MG Tab PO SCH (09:38)
[2017-06-05] MEDS: Aspirin 81 MG Tab.EC PO SCH (09:38)
[2017-06-05] MEDS: Fluticasone Propionate Nasal Spray 16 GM Bottle NASBOTH SCH (09:40)
--- NOTE | 2017-06-05 09:45 | PCM.DCSUM1 ---
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 She came to Oncology last week but did not have chemotherapy due to platelets, at that time Na was noted to be 127, her Sodium chloride tabs were increased to QID and today she returned for recheck and possibly chemotherapy. Na today was noted to be 118. She reports slight generalized weakness, but no confusion or fevers at home. No URI or cough, reports general SOB which has been her normal. She denies abdominal pain or urinary symptoms. In the Oncology clinic, WBC 4.55, Hgb 10.7, and platelets 174. Na 118, K+ 4.8, Cl 87, BUN [address] Pinon. Oncology called and requested direct admission for hyponatremia. She was admitted inpatient on telemetry for hyponatremia. - Discharge Data Discharge Date: 06/05/17 Discharge Disposition: Home, Self-Care 01 Condition: Good - Discharge Diagnosis/Problem(s) (1) Hyponatremia SNOMED Code(s): 81172986 ICD Code: E87.1 - HYPO-OSMOLALITY AND HYPONATREMIA Status: Acute Priority : High Current Visit: No (2) Hypomagnesemia SNOMED Code(s): 776525204 ICD Code: E83.42 - HYPOMAGNESEMIA Status: Acute Priority: Medium Current Visit: No (3) Small cell carcinoma of left lung SNOMED Code(s): 886683402 ICD Code: C34.92 - MALIGNANT NEOPLASM OF UNSP PART OF LEFT BRONCHUS OR LUNG Status: Chronic Priority: Low Current Visit: No Problem Details: mets to liver, breast and skeleton, possibly brain as well as evidenced by brain MRI March 24 2017 (4) COPD (chronic obstructive pulmonary disease) SNOMED Code(s): 67912424 ICD Code: J44.9 - CHRONIC OBSTRUCTIVE PULMONARY DISEASE, UNSPECIFIED Status : Chronic Priority: Medium Current Visit: No Qualifiers: COPD type: emphysema Emphysema type: unspecified Qualified Code(s): J43.9 - Emphysema, unspecified (5) Essential hypertension SNOMED Code(s): 07218805 ICD Code: I10 - ESSENTIAL (PRIMARY) HYPERTENSION Status: Chronic Current Visit: No (6) Peripheral vascular disease SNOMED Code(s): 494929372 ICD Code: I73.9 - PERIPHERAL VASCULAR DISEASE, UNSPECIFIED Status: Chronic Current Visit: No (7) History of tobacco abuse SNOMED Code(s): 4285864811946 ICD Code: Z87.891 - PERSONAL HISTORY OF NICOTINE DEPENDENCE Status: Chronic Current Visit: No - Patient Summary/Data Consults: Consultations 06/04/17 12:18 Consult to Physical Therapy [PT Evaluation and Treatment] [CONS] Routine - Patient Instructions Diet: Heart Healthy Diet, Fluid Restriction (800-1000 ml fluid restriction) Activity: As Tolerated, Rest and Relax Today Showering/Bathing: May Shower Notify Provider of: Fever, Increased Pain, Swelling and Redness, Drainage, Nausea and/or Vomiting - Discharge Plan Prescriptions/Med Rec: Magnesium Oxide 400 mg PO DAILY #30 tab Home Medications: Home Meds Metoprolol Tartrate [Lopressor] 50 mg PO BID 02/08/16 [History] Omeprazole 20 mg PO ACBREAKFAST 02/08/16 [History] Ramipril 10 mg PO BID 02/08/16 [History] Gabapentin [Neurontin] 400 mg PO QID 02/23/16 [History] amLODIPine Besylate [Norvasc] 2.5 mg PO DAILY #30 tablet 03/04/16 [Rx] traMADol [Ultram] 50 mg PO Q6H PRN 04/22/16 [History] Aspirin [Ecotrin] 81 mg PO DAILY 04/23/16 [History] Fluticasone Propionate [Flonase] 1 spray NASBOTH DAILY 04/23/16 [History] Ondansetron [Ondansetron ODT] 8 mg PO Q8H PRN 04/23/16 [History] Polyethylene Glycol 3350 [MiraLAX] 17 gm PO DAILY PRN 04/23/16 [History] Sennosides/Docusate Sodium [Senna S Tablet] 2 tab PO BEDTIME PRN 04/23/16 [ History] QUEtiapine Fumarate [Seroquel] 300 mg PO BEDTIME 05/24/16 [History] Loratadine [Claritin] 10 mg PO DAILY 05/26/16 [History] Budesonide/Formoterol [Symbicort 160-4.5 MCG] 2 inh IH BID 04/03/17 [History] Sodium Chloride 1 gm PO QID tablet 04/06/17 [Rx] Potassium Chloride 40 meq PO DAILY 06/03/17 [History] Magnesium Oxide 400 mg PO DAILY #30 tab 06/05/17 [Rx] - Discharge Summary/Plan Comment DC Time >30 min.: No Discharge Summary/Plan Comment: Discharge Diagnoses: Hyponatremia secondary to SIADH and small cell lung ca. Metastatic Small cell lung cancer HTN PVD Laura was admitted and treated with IVFs, normal saline, fluid restriction and sodium chloride tablets 1 gm QID. Hypnatremia slowly increased to 129 today. She is doing well, very eager to be discharge home. She will follow with Oncology on Thursday for possible chemotherapy resumption. She is to continue fluid restriction on 1L daily and her Sdoium chloride tablets along with Magnesium 400 mg daily. She is to follow up with oncology as planned next week Thursday. She is to return to ED or clinic if concerns should arise. - General Info Date of Service: 06/05/17 Admission Dx/Problem (Free Text: Admission Diagnosis/Problem Admission Diagnosis/Problem Hyponatremia Subjective Update: Feeling good today, very eager to be discharge home. She denies chest pain or SOB. No other concerns. Functional Status: Reports: Pain Controlled, Tolerating Diet, Ambulating - Review of Systems General: Reports: No Symptoms HEENT: Reports: No Symptoms Pulmonary: Reports: No Symptoms. Denies: Shortness of Breath Cardiovascular: Reports: No Symptoms. Denies: Chest Pain, Edema Gastrointestinal: Reports: No Symptoms. Denies: Abdominal Pain, Nausea, Vomiting Genitourinary: Reports: No Symptoms. Denies: Dysuria, Frequency, Burning, Pain Skin: Reports: No Symptoms Neurological: Reports: No Symptoms. Denies: Confusion Psychiatric: Reports: No Symptoms. Denies: Confusion - Patient Data Vitals - Most Recent: Last Vital Signs Temp 97.2 F 06/05/17 08:00 Pulse 56 L 06/05/17 08:00 Resp 17 06/05/17 08:00 BP 165/74 H 06/05/17 08:00 Pulse Ox 91 L 06/05/17 08:00 Weight - Most Recent: 62.5 kg I&O - Last 24 hours: Intake & Output 06/04/17 06/05/17 06/05/17 22:59 06:59 14:59 Intake Total 1841 1300 Output Total 1800 1250 Balance 41 50 Lab Results - Last 24 hrs: Laboratory Results - last 24 hr 06/04/17 06/04/17 06/04/17 Range/Units 11:40 17:17 23:07 WBC (4.0-11.0) K/uL RBC (4.30-5.90) M/uL Hgb (12.0-16.0) g/dL Hct (36.0-46.0) % MCV (80.0-98.0) fL MCH (27.0-32.0) pg MCHC (31.0-37.0) g/dL RDW Std Deviation (28.0-62.0) fl RDW Coeff of Sherman (11.0-15.0) % Plt Count (150-400) K/uL MPV (7.40-12.00) fL Neut % (Auto) (48.0-80.0) % Lymph % (Auto) (16.0-40.0) % Dent % (Auto) (0.0-15.0) % Eos % (Auto) (0.0-7.0) % Baso % (Auto) (0.0-1.5) % Neut # (Auto) (1.4-5.7) K/uL Lymph # (Auto) (0.6-2.4) K/uL Dent # (Auto) (0.0-0.8) K/uL Eos # (Auto) (0.0-0.7) K/uL Baso # (Auto) (0.0-0.1) K/uL Nucleated RBC % /100WBC Nucleated RBCs # K/uL Sodium 128 L 127 L 127 L (136-145) mmol/L Potassium 4.2 4.2 3.9 (3.5-5.1) mmol/L Chloride 96 L 96 L 97 L (98-107) mmol/L Carbon Dioxide 25.7 27.5 26.6 (21.0-32.0) mmol/L BUN 10 9 12 (7.0-18.0) mg/dL Creatinine 1.0 0.8 0.8 (0.6-1.0) mg/dL Est Cr Clr Drug Dosing 37.60 47.00 47.00 mL/min Estimated GFR (MDRD) 54.8 > 60.0 > 60.0 ml/min Glucose 90 89 147 H (74-106) mg/dL Calcium 8.5 8.6 8.4 L (8.5-10.1) mg/dL Magnesium (1.5-2.0) mg/dL 06/05/17 06/05/17 06/05/17 Range/Units 05:12 05:12 05:12 WBC 3.62 L (4.0-11.0) K/uL RBC 2.72 L (4.30-5.90) M/uL Hgb 8.2 L (12.0-16.0) g/dL Hct 24.2 L (36.0-46.0) % MCV 89.0 (80.0-98.0) fL MCH 30.1 (27.0-32.0) pg MCHC 33.9 (31.0-37.0) g/dL RDW Std Deviation 60.7 (28.0-62.0) fl RDW Coeff of Sherman 19 H (11.0-15.0) % Plt Count 124 L (150-400) K/uL MPV 9.80 (7.40-12.00) fL Neut % (Auto) 65.0 (48.0-80.0) % Lymph % (Auto) 20.4 (16.0-40.0) % Dent % (Auto) 10.2 (0.0-15.0) % Eos % (Auto) 4.1 (0.0-7.0) % Baso % (Auto) 0.3 (0.0-1.5) % Neut # (Auto) 2.4 (1.4-5.7) K/uL Lymph # (Auto) 0.7 (0.6-2.4) K/uL Dent # (Auto) 0.4 (0.0-0.8) K/uL Eos # (Auto) 0.2 (0.0-0.7) K/uL Baso # (Auto) 0.0 (0.0-0.1) K/uL Nucleated RBC % 0.0 /100WBC Nucleated RBCs # 0 K/uL Sodium 129 L (136-145) mmol/L Potassium 4.0 (3.5-5.1) mmol/L Chloride 100 (98-107) mmol/L Carbon Dioxide 23.9 (21.0-32.0) mmol/L BUN 12 (7.0-18.0) mg/dL Creatinine 0.7 (0.6-1.0) mg/dL Est Cr Clr Drug Dosing 53.71 mL/min Estimated GFR (MDRD) > 60.0 ml/min Glucose 75 (74-106) mg/dL Calcium 8.1 L (8.5-10.1) mg/dL Magnesium 1.0 L (1.5-2.0) mg/dL Med Orders - Current: Current Medications Acetaminophen (Tylenol) 650 mg PO Q6H PRN PRN Reason: Pain Last Admin: 06/03/17 13:33 Dose: 650 mg Amlodipine Besylate (Norvasc) 2.5 mg PO DAILY [facility] Last Admin: 06/04/17 09:28 Dose: 2.5 mg Aspirin (Halfprin) 81 mg PO DAILY [facility] Last Admin: 06/04/17 09:26 Dose: 81 mg Fluticasone Propionate (Flonase) 0 gm NASBOTH DAILY [facility] Last Admin: 06/04/17 09:32 Dose: 1 spray Gabapentin (Neurontin) 300 mg PO 0600,1200,1800,2200 [facility] Last Admin: 06/05/17 05:31 Dose: 300 mg Gabapentin (Neurontin) 100 mg PO 0600,1200,1800,2200 [facility] Last Admin: 06/05/17 05:31 Dose: 100 mg Heparin Sodium (Porcine) (Heparin Sodium) 5,000 units SUBCUT Q12HR [facility] Last Admin: 06/04/17 20:06 Dose: 5,000 units Sodium Chloride (Normal Saline) 1,000 mls @ 100 mls/hr IV ASDIRECTED [facility] Last Admin: 06/05/17 04:05 Dose: 100 mls/hr Magnesium Sulfate 4 gm/ Premix 100 mls @ 50 mls/hr IV ONETIME ONE Stop: 06/05/17 09:46 Last Admin: 06/05/17 08:44 Dose: 50 mls/hr Loratadine (Claritin) 10 mg PO DAILY [facility] Last Admin: 06/04/17 09:26 Dose: 10 mg Metoprolol Tartrate (Lopressor) 50 mg PO BID [facility] Last Admin: 06/04/17 20:15 Dose: 50 mg Omeprazole (Omeprazole) 20 mg PO ACBREAKFAST [facility] Last Admin: 06/05/17 06:40 Dose: 20 mg Ondansetron HCl (Zofran) 4 mg IVPUSH Q4H PRN PRN Reason: Nausea Last Admin: 06/04/17 20:06 Dose: 4 mg Symbicort 160/4.5 2 each INH BID [facility] Last Admin: 06/04/17 20:12 Dose: 2 each Polyethylene Glycol (Miralax) 17 gm PO DAILY PRN PRN Reason: Constipation Last Admin: 06/04/17 09:57 Dose: 17 gm Quetiapine Fumarate (Seroquel) 300 mg PO BEDTIME [facility] Last Admin: 06/04/17 20:09 Dose: 300 mg Ramipril (Altace) 10 mg PO BID [facility] Last Admin: 06/04/17 20:16 Dose: 10 mg Senna/Docusate Sodium (Senna Plus) 2 tab PO BEDTIME PRN PRN Reason: Constipation Sodium Chloride (Sodium Chloride) 1 gm PO QID [facility] Last Admin: 06/05/17 05:31 Dose: 1 gm Tramadol HCl (Ultram) 50 mg PO Q6H PRN PRN Reason: Pain Last Admin: 06/05/17 08:33 Dose: 50 mg Discontinued Medications Magnesium Sulfate 4 gm/ Premix 100 mls @ 50 mls/hr IV ONETIME ONE Stop: 06/01/17 17:21 Last Admin: 06/01/17 16:10 Dose: 50 mls/hr Magnesium Sulfate 4 gm/ Premix 100 mls @ 50 mls/hr IV ONETIME ONE Stop: 06/02/17 09:32 Last Admin: 06/02/17 09:59 Dose: 50 mls/hr Magnesium Sulfate 4 gm/ Premix 100 mls @ 50 mls/hr IV ONETIME ONE Stop: 06/03/17 10:05 Last Admin: 06/03/17 09:18 Dose: 50 mls/hr Magnesium Sulfate 4 gm/ Premix 100 mls @ 50 mls/hr IV ONETIME ONE Stop: 06/04/17 09:47 Last Admin: 06/04/17 08:43 Dose: 50 mls/hr Potassium Chloride (Klor-Con M20) 40 meq PO ONETIME ONE Stop: 06/03/17 11:20 Last Admin: 06/03/17 11:39 Dose: 40 meq - Exam Quality Assessment: Reports: DVT Prophylaxis. Denies: Supplemental Oxygen General: Reports: Alert, Oriented, Cooperative, No Acute Distress Neck: Reports: Supple Lungs: Reports: Clear to Auscultation, Normal Respiratory Effort Cardiovascular: Reports: Regular Rate, Regular Rhythm GI/Abdominal Exam: Normal Bowel Sounds, Soft, Non-Tender, No Organomegaly, No Distention, No Abnormal Bruit, No Mass, Pelvis Stable Back Exam: Reports: Normal Inspection, Full Range of Motion Extremities: Normal Inspection, Normal Range of Motion, Non-Tender, No Pedal Edema, Normal Capillary Refill Skin: Reports: Warm, Dry Neurological: Reports: No New Focal Deficit Psy/Mental Status: Reports: Alert, Normal Affect, Normal Mood *Q Meaningful Use (DIS) - VTE *Q VTE Criteria *Q: - Stroke *Q Stroke Criteria *Q: - AMI *Q AMI Criteria *Q:
[2017-06-05] MEDS: Heparin Sodium 5,000 Units/ML Vial SUBCUT SCH (10:55)
[2017-06-05] MEDS: SYMBICORT 160/4.5 INH SCH (11:57)
[2017-06-05 12:33] VITALS: BP 167/76
== END 2017-06-05 15:00 | disposition home or self-care (01) | DRG 641 ==
LOC: MW.MS 11:45
PROVIDERS: ADMIT Family Medicine; ATTEND Family Medicine
DX: E87.1 Hypo-osmolality and hyponatremia (principal); C34.92 Malignant neoplasm of unspecified part of left bronchus or lung; C78.7 Secondary malignant neoplasm of liver and intrahepatic bile duct; C79.51 Secondary malignant neoplasm of bone; C79.31 Secondary malignant neoplasm of brain; C79.81 Secondary malignant neoplasm of breast; E83.42 Hypomagnesemia; J43.9 Emphysema, unspecified; I73.9 Peripheral vascular disease, unspecified; E78.00 Pure hypercholesterolemia, unspecified; I12.9 Hypertensive chronic kidney disease with stage 1 through stage 4 chronic kidney disease, or unspecified chronic kidney disease; N18.9 Chronic kidney disease, unspecified; F41.9 Anxiety disorder, unspecified; Z87.891 Personal history of nicotine dependence; Z79.899 Other long term (current) drug therapy
CPT/HCPCS: 36415; 80048; 83735; 85025; 94640; 94664; 97161-GP; A9270-GY; J1644; J2405; J3475; J7040

== ENCOUNTER 2017-06-18 18:03 | Emergency (ER) | payer MEDICARE, BC ==
[2017-06-18] MEDS ORDERED: Ondansetron 4 MG/2 ML SDV IVPUSH ONE ×2 (18:21→22:08)
[2017-06-18] MEDS ORDERED: Sodium Chloride 0.9% 10 ML Syringe FLUSH PRN (18:21)
[2017-06-18] MEDS ORDERED: Sodium Chloride 0.9% 2.5 ML Syringe FLUSH PRN (18:21)
[2017-06-18] MEDS ORDERED: Sodium Chloride 0.9% 500 ML IV ONE (18:24)
--- NOTE | 2017-06-18 18:41 | EDM.PDOC ---
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 Patient apparently slept all night and all day today woke up this afternoon with severe heartburn and did not take her medications. Patient arrived nauseous vomiting bile. He denies any fevers, headache, shortness of breath, abdominal pain or diarrhea. She is nauseous and has vomiting complaints of epigastric pain. Review of systems: As per history of present illness and below otherwise all systems reviewed and negative. Past medical history: As per history of present illness and as reviewed below otherwise noncontributory. Surgical history: As per history of present illness and as reviewed below otherwise noncontributory. Social history: No reported history of drug or alcohol abuse. Family history: As per history of present illness and as reviewed below otherwise noncontributory. Physical exam: General: Well developed, well nourished pale vomiting dark green liquid emesis HEENT: Atraumatic, normocephalic, pupils reactive, negative for conjunctival scleral icterus, mucous membranes moist, throat clear, neck supple, nontender, trachea midline. Lungs: Clear to auscultation, breath sounds equal bilaterally, chest nontender. Heart: S1S2, regular, negative for clicks, rubs, or JVD. Abdomen: Soft, nondistended, nontender. Negative for masses or hepatosplenomegaly. Negative for costovertebral tenderness. Pelvis: Stable nontender. Genitourinary: Deferred. Rectal: Deferred. Extremities: Atraumatic, negative for cords or calf pain. Neurovascular unremarkable. Neuro: Awake, alert, oriented. Cranial nerves II through XII unremarkable. Cerebellum unremarkable. Motor and sensory unremarkable throughout. Exam nonfocal. Diagnostics: [] Therapeutics: [] Impression: [] Plan: [] Definitive disposition and diagnosis as appropriate pending reevaluation and review of above. Back Pain Score (Numeric/FACES): 7 - Related Data Allergies Allergy/AdvReac Type Severity Reaction Status Date / Time dust Allergy Shortness Uncoded 06/18/17 18:46 of Breath Febreeze Allergy Shortness Uncoded 06/18/17 18:46 of Breath pinecone Allergy Shortness Uncoded 06/18/17 18:46 of Breath Home Meds: Home Meds Metoprolol Tartrate [Lopressor] 50 mg PO BID 02/08/16 [History] Omeprazole 20 mg PO ACBREAKFAST 02/08/16 [History] Ramipril 10 mg PO BID 02/08/16 [History] Gabapentin [Neurontin] 400 mg PO QID 02/23/16 [History] amLODIPine Besylate [Norvasc] 2.5 mg PO DAILY #30 tablet 03/04/16 [Rx] traMADol [Ultram] 50 mg PO Q6H PRN 04/22/16 [History] Aspirin [Ecotrin] 81 mg PO DAILY 04/23/16 [History] Fluticasone Propionate [Flonase] 1 spray NASBOTH DAILY 04/23/16 [History] Ondansetron [Ondansetron ODT] 8 mg PO Q8H PRN 04/23/16 [History] Polyethylene Glycol 3350 [MiraLAX] 17 gm PO DAILY PRN 04/23/16 [History] Sennosides/Docusate Sodium [Senna S Tablet] 2 tab PO BEDTIME PRN 04/23/16 [ History] QUEtiapine Fumarate [Seroquel] 300 mg PO BEDTIME 05/24/16 [History] Loratadine [Claritin] 10 mg PO DAILY 05/26/16 [History] Budesonide/Formoterol [Symbicort 160-4.5 MCG] 2 inh IH BID 04/03/17 [History] Sodium Chloride 1 gm PO QID tablet 04/06/17 [Rx] Potassium Chloride 40 meq PO DAILY 06/03/17 [History] Magnesium Oxide 400 mg PO DAILY #30 tab 06/05/17 [Rx] Past Medical History HEENT History: Reports: Cataract, Impaired Vision Other HEENT History: Cataract surgeries on both eyes Cardiovascular History: Reports: High Cholesterol, Hypertension, PVD, Other ( See Below) Respiratory History: Reports: COPD, Pneumonia, Recurrent Other Respiratory History: admitted to the hospital 1 week ago for pneumonia, Gastrointestinal History: Reports: GERD Other Gastrointestinal History: liver cancer Genitourinary History: Reports: Chronic Renal Insuffiency, Renal Disease Other Genitourinary History: Pt states "My right kidney is not functioning and left is only 30% functioning." Pt reports she is not followed by a credit reporter. [employer]AT[employer] O[employer]ATOR History: Reports: Musculoskeletal History: Reports: Arthritis Neurological History: Reports: Neuropathy, Peripheral Psychiatric History: Reports: Anxiety Other Endocrine/Metabolic History: history of hyponatremia Hematologic History: Reports: Blood Transfusion(s) Other Hematologic History: previous admissions Oncologic (Cancer) History: Reports: Breast, Lung Other Oncologic History: liver cancer, states does not know the source - Infectious Disease History Infectious Disease History: Reports: Chicken Pox, Mumps - Past Surgical History Head Surgeries/Procedures: Reports: None Female Surgical History: Reports: Hysterectomy Social & Family History - Family History Family Medical History: Noncontributory HEENT: Reports: Cataract, Impaired Vision Cardiac: Reports: CAD, High Cholesterol, Hypertension, [place] Respiratory: Reports: COPD OBGYN: Reports: Musculoskeletal: Reports: Arthritis Psychiatric: Reports: Anxiety, Depression Oncologic: Reports: Lung - Tobacco Use Smoking Status *Q: Former Smoker Years of Tobacco use: 50 Packs/Tins Daily: 1 Used Tobacco, but Quit: Yes Month/Year Tobacco Last Used: September 2016 Second Hand Smoke Exposure: No - Caffeine Use Caffeine Use: Reports: Coffee Other Caffeine Use: 1-2 cups/day Caffeine Use Comment: 1-2cups/day - Recreational Drug Use Recreational Drug Use: No ED ROS GENERAL - Review of Systems Review Of Systems: See Below (See history of present illness) ED EXAM, GENERAL - Physical Exam Exam: See Below (See history of present illness) Course - Vital Signs Last Recorded V/S: Last Vital Signs Temp 36.7 C 06/18/17 21:06 Pulse 78 06/18/17 21:06 Resp 19 06/18/17 21:06 BP 139/78 06/18/17 21:06 Pulse Ox 91 L 06/18/17 21:06 - Orders/Labs/Meds Orders: Active Orders 24 hr Category Date Time Status Communication Order [RC] STAT Care 06/18/17 20:01 Active EKG Documentation Completion [RC] STAT Care 06/18/17 18:22 Active Abdomen Series w Chest 1V [CR] Stat Exams 06/18/17 19:14 Taken CULTURE BLOOD [BC] Stat Lab 06/18/17 18:46 Received CULTURE BLOOD [BC] Stat Lab 06/18/17 19:10 Received Sodium Chloride 0.9% [Saline Flush] Med 06/18/17 18:21 Active 10 ml FLUSH ASDIRECTED PRN Sodium Chloride 0.9% [Saline Flush] Med 06/18/17 18:21 Active 2.5 ml FLUSH ASDIRECTED PRN Blood Culture x2 Reflex Set [OM.PC] Stat Oth 06/18/17 18:23 Ordered Saline Lock Insert [OM.PC] Stat Oth 06/18/17 18:21 Ordered Medication Orders Sodium Chloride (Saline Flush) 10 ml FLUSH ASDIRECTED PRN PRN Reason: Keep Vein Open Sodium Chloride (Saline Flush) 2.5 ml FLUSH ASDIRECTED PRN PRN Reason: Keep Vein Open Labs: Laboratory Tests 06/18/17 06/18/17 06/18/17 Range/Units 18:46 18:46 18:46 WBC 0.44 L (4.0-11.0) K/uL RBC 3.08 L (4.30-5.90) M/uL Hgb 9.6 L (12.0-16.0) g/dL Hct 28.1 L (36.0-46.0) % MCV 91.2 (80.0-98.0) fL MCH 31.2 (27.0-32.0) pg MCHC 34.2 (31.0-37.0) g/dL RDW Std Deviation 58.5 (28.0-62.0) fl RDW Coeff of Sherman 17 H (11.0-15.0) % Plt Count 45 L (150-400) K/uL MPV 10.40 (7.40-12.00) fL Add Manual Diff YES Neutrophils % (Manual) 16 L (48.0-80.0) % Lymphocytes % (Manual) 77 H (16.0-40.0) % Monocytes % (Manual) 6 (0.0-15.0) % Eosinophils % (Manual) 1 (0.0-7.0) % Nucleated RBC % 0.0 /100WBC Absolute Seg Neuts 0.1 L (1.4-5.7) Lymphocytes # (Manual) 0.3 L (0.6-2.4) Monocytes # (Manual) 0.0 (0.0-0.8) Eosinophils # (Manual) 0.0 (0.0-0.7) Nucleated RBCs # 0 K/uL Lactate (0.20-2.00) mmol/L Sodium 132 L (136-145) mmol/L Potassium 4.1 (3.5-5.1) mmol/L Chloride 97 L (98-107) mmol/L Carbon Dioxide 25.5 (21.0-32.0) mmol/L BUN 18 (7.0-18.0) mg/dL Creatinine 1.3 H (0.6-1.0) mg/dL Est Cr Clr Drug Dosing 28.92 mL/min Estimated GFR (MDRD) 40.5 ml/min Glucose 128 H (74-106) mg/dL Calcium 9.7 (8.5-10.1) mg/dL Total Bilirubin 0.9 (0.2-1.0) mg/dL AST 13 L (15-37) IU/L ALT 17 (14-63) IU/L Alkaline Phosphatase 109 (46-116) U/L Total Protein 6.0 L (6.4-8.2) g/dL Albumin 3.2 L (3.4-5.0) g/dL Globulin 2.8 (2.0-3.5) g/dL Albumin/Globulin Ratio 1.1 L (1.3-2.8) Lipase 57 L (73-393) U/L Blood Type A POSITIVE Antibody Screen NEGATIVE 06/18/17 Range/Units 18:46 WBC (4.0-11.0) K/uL RBC (4.30-5.90) M/uL Hgb (12.0-16.0) g/dL Hct (36.0-46.0) % MCV (80.0-98.0) fL MCH (27.0-32.0) pg MCHC (31.0-37.0) g/dL RDW Std Deviation (28.0-62.0) fl RDW Coeff of Sherman (11.0-15.0) % Plt Count (150-400) K/uL MPV (7.40-12.00) fL Add Manual Diff Neutrophils % (Manual) (48.0-80.0) % Lymphocytes % (Manual) (16.0-40.0) % Monocytes % (Manual) (0.0-15.0) % Eosinophils % (Manual) (0.0-7.0) % Nucleated RBC % /100WBC Absolute Seg Neuts (1.4-5.7) Lymphocytes # (Manual) (0.6-2.4) Monocytes # (Manual) (0.0-0.8) Eosinophils # (Manual) (0.0-0.7) Nucleated RBCs # K/uL Lactate 0.9 (0.20-2.00) mmol/L Sodium (136-145) mmol/L Potassium (3.5-5.1) mmol/L Chloride (98-107) mmol/L Carbon Dioxide (21.0-32.0) mmol/L BUN (7.0-18.0) mg/dL Creatinine (0.6-1.0) mg/dL Est Cr Clr Drug Dosing mL/min Estimated GFR (MDRD) ml/min Glucose (74-106) mg/dL Calcium (8.5-10.1) mg/dL Total Bilirubin (0.2-1.0) mg/dL AST (15-37) IU/L ALT (14-63) IU/L Alkaline Phosphatase (46-116) U/L Total Protein (6.4-8.2) g/dL Albumin (3.4-5.0) g/dL Globulin (2.0-3.5) g/dL Albumin/Globulin Ratio (1.3-2.8) Lipase (73-393) U/L Blood Type Antibody Screen Meds: Medications Generic Name Dose Route Start Last Admin Trade Name Freq PRN Reason Stop Dose Admin Sodium Chloride 10 ml 06/18/17 18:21 Saline Flush FLUSH ASDIRECTED PRN Keep Vein Open Sodium Chloride 2.5 ml 06/18/17 18:21 Saline Flush FLUSH ASDIRECTED PRN Keep Vein Open Discontinued Medications Generic Name Dose Route Start Last Admin Trade Name Freq PRN Reason Stop Dose Admin Famotidine 20 mg 06/18/17 18:44 06/18/17 19:06 Pepcid IVPUSH 06/18/17 18:45 20 mg ONETIME ONE Administration Sodium Chloride 500 mls @ 999 mls/hr 06/18/17 18:24 06/18/17 18:52 Normal Saline IV 06/18/17 18:54 999 mls/hr .Bolus ONE Administration Ondansetron HCl 4 mg 06/18/17 18:21 06/18/17 18:53 Zofran IVPUSH 06/18/17 18:22 4 mg ONETIME ONE Administration Ondansetron HCl 4 mg 06/18/17 22:08 Zofran IVPUSH 06/18/17 22:09 ONETIME ONE Departure - Departure Disposition: Home, Self-Care 01 Clinical Impression: Abdominal pain Qualifiers: Abdominal location: lower abdomen, unspecified Qualified Code(s): R10.30 - Lower abdominal pain, unspecified Vomiting Qualifiers: Vomiting type: unspecified Vomiting Intractability: non-intractable Nausea presence: with nausea Qualified Code(s): R11.2 - Nausea with vomiting, unspecified Neutropenia Qualifiers: Neutropenia type: secondary to cancer chemotherapy Qualified Code(s): D70.1 - Agranulocytosis secondary to cancer chemotherapy; T45.1X5A - Adverse effect of antineoplastic and immunosuppressive drugs, initial encounter - Discharge Information Referrals: PCP,None [Primary Care Provider] - Forms: ED Department Discharge Additional Instructions: The following information is given to patients seen in the emergency department who are being discharged to home. This information is to outline your options for follow-up care. We provide all patients seen in our emergency department with a follow-up referral. The need for follow-up, as well as the timing and circumstances, are variable depending upon the specifics of your emergency department visit. If you don't have a primary care physician on staff, we will provide you with a referral. We always advise you to contact your personal physician following an emergency department visit to inform them of the circumstance of the visit and for follow-up with them and/or the need for any referrals to a consulting specialist. The emergency department will also refer you to a specialist when appropriate. This referral assures that you have the opportunity for followup care with a specialist. All of these measure are taken in an effort to provide you with optimal care, which includes your followup. Under all circumstances we always encourage you to contact your private physician who remains a resource for coordinating your care. When calling for followup care, please make the office aware that this follow-up is from your recent emergency room visit. If for any reason you are refused follow-up, please contact the [facility] emergency department at and ask to speak to the emergency department charge nurse. [facility] Primary care- Internal Medicine and Family [address] [address] Please use Zofran you have been given for nausea and vomiting and try to eat small bites of bland food and take steps. Please take great caution to not go out or be around any new people as your blood counts are very low. Please call the cancer center tomorrow to check in with them as well as your provider in the clinic to be re-seen as needed. Return to ER as needed and as discussed. - My Orders Last 24 Hours: My Active Orders 06/18/17 19:14 Abdomen Series w Chest 1V [CR] Stat 06/18/17 20:01 Communication Order [RC] STAT - Assessment/Plan Last 24 Hours: My Active Orders 06/18/17 19:14 Abdomen Series w Chest 1V [CR] Stat 06/18/17 20:01 Communication Order [RC] STAT <Latoya Smiley - Last Filed: 06/18/17 22:12> ED HPI GENERAL MEDICAL PROBLEM - History of Present Illness INITIAL COMMENTS - FREE TEXT/NARRATIVE: This is Dr. Smiley dictating an addendum note as I have assumed care of this case at 1900 hrs. History and physical are as above and she is receiving the palliative chemotherapy via her port every 3 weeks. Patient says that initially she felt like it was epigastric discomfort but now she feels that it is lower abdominal pain and she feels bloated. She has been having diarrhea today which is not typical for her and she's been trying to eat and drink. She denies fevers chest pain or shortness of breath. The patient denies any history of GI issues but says that she thinks she may have had a "bowel blockage" in the past. She has had a hysterectomy and C-sections but denies appendectomy and cholecystectomy. Currently she says she doesn't feel well but she is just receiving her fluids and medications currently. On physical exam her bowel sounds are hypoactive and there is tympany to percussion of the lower abdomen with some slight bloatedness but there is only minimal tenderness on palpation and this is diffuse in the lower and mid abdomen. The discomfort does not localize right or left nor my evaluation it is not in the epigastrium. We will proceed with the testing as ordered and I have added a lactic acid as well as abdominal films. I will continue to reevaluate this patient for disposition once all testing results are back. These note that today's hemoglobin of 9.6 is comparable with prior hemoglobins but her platelet count of 45 is lower than priors which include 124 and 105. The patient is neutropenic with a WBC count of 0.44 and only 16% neutrophils and a rough ANC of 70. We will make sure to institute neutropenic cautions. The patient is currently not febrile and we are waiting the rest of her workup for disposition Reevaluation at 2050p the patient is resting comfortably and has no nausea and minimal abdominal complaints. I've gone over the testing results with the patient and family at bedside. We will give her another bolus and reevaluate with a by mouth challenge. Please note the patient was unable to produce a urine on the commode and she was offered an in and out catheter and refuses. At this point we do not have a urine sample to send and she is aware of our concerns. She is currently taking a by mouth challenge and according to family and patient she does not have any ODT Zofran at home which I will prescribe. If she tolerates by mouth we'll plan on discharge home as she is neutropenic and we would like to keep her in her protected environment at home rather than place her in a hospitalization situation if capable After taking by mouth the patient still said she had slight nausea and rated as a 1-2 and I will give her another dose of Zofran through the IV before ED access. I will give her a prescription for ODT Zofran that she can use and advised her on reasons to follow-up. I would strongly encourage her to follow- up with her clinic doctor Impression: Abdominal pain with vomiting resolved, neutropenia status post chemotherapy stable ED ROS GENERAL - Review of Systems Review Of Systems: ROS reveals no pertinent complaints other than HPI. Departure - Departure Time of Disposition: 22:10 Condition: Good
[2017-06-18] MEDS ORDERED: Famotidine 20 MG/2 ML SDV IVPUSH ONE (18:44)
[2017-06-18 22:26] VITALS: BP 148/82
--- NOTE | 2017-06-19 14:23 | CR ---
EXAM DATE: 06/18/17 PATIENT'S AGE: 72 Patient: JUICE ALMONTE Facility: [place], [place] Site . Site : [id number] Study: XRay Chest/Abd/Pelvis acute series [id number]/5/2018 8:19:19 PM Ordering Physician: Tim Ferrari Final Report: INDICATION: Weakness, diarrhea, vomiting. Epigastric pain. Possible sepsis. COPD. History of pneumonia and renal cancer. TECHNIQUE: AP view of the chest with upright and supine imaging of the abdomen. Total of 4 images. COMPARISON: CHEST RADIOGRAPHS DATED 04/11/2017. CT STUDY DATED 05/12/2017 FINDINGS: CHEST: Left Port-A-Cath, tip position unchanged in the lower SVC. Lungs are clear. ABDOMEN: Round gallstone noted in the right upper abdomen. Nonobstructive bowel gas pattern. Lower lumbar spine fusion hardware and laminectomy defect. No free air or air-fluid levels. IMPRESSION : 1. Chest with no acute abnormality. No significant change from 04/11/2017. 2. Cholelithiasis. 3. Nonspecific, nonobstructive bowel gas pattern. Dictated by Salvador Rausch MD @ 06/18/2017 8:34:09 PM Dictated by: Salvador Rausch MD @ 06/18/2017 20:34:19 (Electronic Signature) Report Signed by Proxy. [facility]
== END 2017-06-18 22:25 | disposition home or self-care (01) ==
LOC: MW.ED 18:03
DX: R11.2 Nausea with vomiting, unspecified (principal); C34.90 Malignant neoplasm of unspecified part of unspecified bronchus or lung; D70.1 Agranulocytosis secondary to cancer chemotherapy; T45.1X5A Adverse effect of antineoplastic and immunosuppressive drugs, initial encounter; I12.9 Hypertensive chronic kidney disease with stage 1 through stage 4 chronic kidney disease, or unspecified chronic kidney disease; N18.9 Chronic kidney disease, unspecified; E78.00 Pure hypercholesterolemia, unspecified; Z91.048 Other nonmedicinal substance allergy status; Z79.899 Other long term (current) drug therapy; Z79.82 Long term (current) use of aspirin; Z87.891 Personal history of nicotine dependence; Z85.05 Personal history of malignant neoplasm of liver
CPT/HCPCS: 36415; 74022; 74022-26; 80053; 83605; 83690; 85025; 86850; 86900; 86901; 87040; 93005; 96361; 96374; 96375; 96376; 99284-25; J1642; J2405; J7040

== ENCOUNTER 2017-07-30 14:18 | Inpatient (IN) | payer MEDICARE, BC ==
--- NOTE | 2017-07-30 14:38 | EDM.PDOC ---
<Andre Chong - Last Filed: 07/30/17 19:08> ED HPI GENERAL MEDICAL PROBLEM - General Chief Complaint: General Stated Complaint: PT IS CONFUSED Time Seen by Provider: 07/30/17 14:38 Source of Information: Reports: Patient, Family History Limitations: Reports: Altered Mental Status - History of Present Illness INITIAL COMMENTS - FREE TEXT/NARRATIVE: HISTORY AND PHYSICAL: History of present illness: 72-year-old female presenting to the emergency department with son with chief complaint of confusion 1 day with past medical history of metastatic small cell lung cancer and history of chronic hyponatremia secondary to SIADH currently receiving palliative chemotherapy last given Thursday07/28/27. Son states that patient received chemotherapy on Thursday as well as "immunotherapy". At that time her sodium was 129 but son states that it had been 140-5 days previous. Patient was acting her normal self up until yesterday at which time she states that she slept all day which is confirmed by her son. Today one son went to see her he notes that she was significantly confused not knowing where she was or what time of day it was. Son states that he has seen her confused before with her hyponatremia however believes that this is the most confused ever. Patient states that she does feel confused and "does not feel well". Son denies any recent illness, fever, chills, malaise, chest pain, shortness of breath, syncopal episodes, or new focal neurologic episodes. 1535: CBC shows leukocytosis of 20.01 patient afebrile, blood cultures have been obtained previously. Did talk with son states that she did receive a "immune booster" on Thursday as well. He is unsure if the medication was Neulasta or Neupogen. Patient continues to be confused. Sodium level reported as 118 and 100 mL of 3% normal saline ordered stat. Rocephin ordered as well to cover for possible infection however leukocytosis most likely secondary to immunotherapy booster. I have seen this patient before with sodium levels maintained and she does appear more confused and previous. Troponin negative. Patient has no focal neurologic episodes, urinalysis and CT head pending. 1710: Patient unable to tolerate CT secondary to nausea. She was given 8 mg IV Zofran but still not tolerating. Will try oral phenergan and try again. Patient's son did bring medication (immunotherapy) that patient had received on Thursday. Rivolumab which would not be causing the leukocytosis. CXR negative. UA pending. Review of systems: As per history of present illness and below otherwise all systems reviewed and negative. Past medical history: As per history of present illness and as reviewed below otherwise noncontributory. Surgical history: As per history of present illness and as reviewed below otherwise noncontributory. Social history: No reported history of drug or alcohol abuse. Family history: As per history of present illness and as reviewed below otherwise noncontributory. Physical exam: HEENT: Atraumatic, normocephalic, pupils reactive, negative for conjunctival pallor or scleral icterus, mucous membranes moist, throat clear, neck supple, nontender, trachea midline. Lungs: Clear to auscultation, breath sounds equal bilaterally, chest nontender. Heart: S1S2, regular, negative for clicks, rubs, or JVD. Abdomen: Soft, nondistended, nontender. Negative for masses or hepatosplenomegaly. Negative for costovertebral tenderness. Pelvis: Stable nontender. Genitourinary: Deferred. Rectal: Deferred. Extremities: Atraumatic, negative for cords or calf pain. Neurovascular unremarkable. Neuro: Awake, alert, disoriented to place and time. Cranial nerves II through XII unremarkable. Cerebellum unremarkable. Motor and sensory unremarkable throughout. Exam nonfocal. Diagnostics: [CBC, CMP, mag, CT head, blood culture, EKG, UA/UC, troponin] Therapeutics: [100 mL 3% normal saline, 1 gram Rocephin IV] Impression: [Hyponatremia most likely secondary to SIADH, Altered Mental Status, ] Plan: I did talk to the hospitalist before Dr. Morley came in on and explain the patient's situation with her hyponatremia as well as leukocytosis of unknown etiology. She is still in CT eating her head scanned as well as urinalysis is pending. This was communicated to Dr. Morley as well as hospitalist. Hospitalist is aware and will accept patient after above results are found. Definitive disposition and diagnosis as appropriate pending reevaluation and review of above. Bilateral Leg Pain Score (Numeric/FACES): 10 - Related Data Allergies Allergy/AdvReac Type Severity Reaction Status Date / Time dust Allergy Shortness Uncoded 07/30/17 14:37 of Breath Febreeze Allergy Shortness Uncoded 07/30/17 14:37 of Breath pinecone Allergy Shortness Uncoded 07/30/17 14:37 of Breath Home Meds: Home Meds Metoprolol Tartrate [Lopressor] 50 mg PO BID 02/08/16 [History] Omeprazole 20 mg PO ACBREAKFAST 02/08/16 [History] Ramipril 10 mg PO BID 02/08/16 [History] Gabapentin [Neurontin] 400 mg PO QID 02/23/16 [History] amLODIPine Besylate [Norvasc] 2.5 mg PO DAILY #30 tablet 03/04/16 [Rx] traMADol [Ultram] 50 mg PO Q6H PRN 04/22/16 [History] Aspirin [Ecotrin] 81 mg PO DAILY 04/23/16 [History] Fluticasone Propionate [Flonase] 1 spray NASBOTH DAILY 04/23/16 [History] Ondansetron [Ondansetron ODT] 8 mg PO Q8H PRN 04/23/16 [History] Polyethylene Glycol 3350 [MiraLAX] 17 gm PO DAILY PRN 04/23/16 [History] Sennosides/Docusate Sodium [Senna-S Tablet] 2 tab PO BEDTIME PRN 04/23/16 [ History] QUEtiapine Fumarate [Seroquel] 300 mg PO BEDTIME 05/24/16 [History] Loratadine [Claritin] 10 mg PO DAILY 05/26/16 [History] Budesonide/Formoterol [Symbicort 160-4.5 MCG] 2 inh IH BID 04/03/17 [History] Sodium Chloride 1 gm PO QID tablet 04/06/17 [Rx] Potassium Chloride 40 meq PO DAILY 06/03/17 [History] Magnesium Oxide 400 mg PO DAILY #30 tab 06/05/17 [Rx] Past Medical History HEENT History: Reports: Cataract, Impaired Vision Other HEENT History: Cataract surgeries on both eyes Cardiovascular History: Reports: High Cholesterol, Hypertension, PVD, Other ( See Below) Respiratory History: Reports: COPD, Pneumonia, Recurrent Other Respiratory History: admitted to the hospital 1 week ago for pneumonia, Gastrointestinal History: Reports: GERD Other Gastrointestinal History: liver cancer Genitourinary History: Reports: Chronic Renal Insuffiency, Renal Disease Other Genitourinary History: Pt states "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 [employer] History: Reports: Musculoskeletal History: Reports: Arthritis Neurological History: Reports: Neuropathy, Peripheral Psychiatric History: Reports: Anxiety Other Endocrine/Metabolic History: history of hyponatremia Hematologic History: Reports: Blood Transfusion(s) Other Hematologic History: previous admissions Oncologic (Cancer) History: Reports: Breast, Lung Other Oncologic History: liver cancer, states does not know the source - Infectious Disease History Infectious Disease History: Reports: Chicken Pox, Mumps - Past Surgical History Head Surgeries/Procedures: Reports: None Female Surgical History: Reports: Hysterectomy Social & Family History - Family History Family Medical History: Noncontributory HEENT: Reports: Cataract, Impaired Vision Cardiac: Reports: CAD, High Cholesterol, Hypertension, [place] Respiratory: Reports: COPD OBGYN: Reports: Musculoskeletal: Reports: Arthritis Psychiatric: Reports: Anxiety, Depression Oncologic: Reports: Lung - Caffeine Use Caffeine Use: Reports: Coffee Other Caffeine Use: 1-2 cups/day Caffeine Use Comment: 1-2cups/day Course - Vital Signs Last Recorded V/S: Last Vital Signs Temp 97.0 F 07/30/17 19:14 Pulse 77 07/30/17 19:14 Resp 16 07/30/17 19:14 BP 158/76 H 07/30/17 19:14 Pulse Ox 94 L 07/30/17 19:14 - Orders/Labs/Meds Orders: Active Orders 24 hr Category Date Time Status EKG Documentation Completion [RC] STAT Care 07/30/17 15:23 Active Chest 1V Frontal [CR] Stat Exams 07/30/17 15:30 Taken Head wo Cont [CT] Stat Exams 07/30/17 15:04 Taken CULTURE BLOOD [BC] Stat Lab 07/30/17 15:05 Received CULTURE BLOOD [BC] Stat Lab 07/30/17 15:14 Received CULTURE URINE [RM] Stat Lab 07/30/17 18:40 Received UA W/MICROSCOPIC [URIN] Stat Lab 07/30/17 18:40 Ordered Sodium Chloride [Sodium Chloride 23.4%] 35.9 meq Med 07/30/17 16:11 Active Sodium Chloride 0.9% [Normal Saline] 91.025 ml IV ASDIRECTED Blood Culture x2 Reflex Set [OM.PC] Stat Oth 07/30/17 14:58 Ordered Medication Orders Sodium Chloride 35.9 meq/ (Sodium Chloride) 100 mls @ 150 mls/hr IV ASDIRECTED PRIYANK Last Admin: 07/30/17 16:19 Dose: 150 mls/hr Labs: Laboratory Tests 07/30/17 07/30/17 07/30/17 Range/Units 15:05 15:05 15:05 WBC 20.01 H (4.0-11.0) K/uL RBC 2.89 L (4.30-5.90) M/uL Hgb 9.2 L (12.0-16.0) g/dL Hct 25.9 L (36.0-46.0) % MCV 89.6 (80.0-98.0) fL MCH 31.8 (27.0-32.0) pg MCHC 35.5 (31.0-37.0) g/dL RDW Std Deviation 49.6 (28.0-62.0) fl RDW Coeff of Sherman 16 H (11.0-15.0) % Plt Count 218 (150-400) K/uL MPV 9.80 (7.40-12.00) fL Add Manual Diff YES Neutrophils % (Manual) 87 H (48.0-80.0) % Band Neutrophils % 2 % Lymphocytes % (Manual) 5 L (16.0-40.0) % Monocytes % (Manual) 6 (0.0-15.0) % Nucleated RBC % 0.0 /100WBC Absolute Seg Neuts 17.4 H (1.4-5.7) Band Neutrophils # 0.4 Lymphocytes # (Manual) 1.0 (0.6-2.4) Monocytes # (Manual) 1.2 H (0.0-0.8) Nucleated RBCs # 0 K/uL Sodium 118 L* (136-145) mmol/L Potassium 3.8 (3.5-5.1) mmol/L Chloride 85 L (98-107) mmol/L Carbon Dioxide 24.0 (21.0-32.0) mmol/L BUN 6 L (7.0-18.0) mg/dL Creatinine 0.9 (0.6-1.0) mg/dL Est Cr Clr Drug Dosing 41.78 mL/min Estimated GFR (MDRD) > 60.0 ml/min Glucose 107 H (74-106) mg/dL Calcium 9.6 (8.5-10.1) mg/dL Magnesium 1.6 (1.5-2.0) mg/dL Total Bilirubin 0.6 (0.2-1.0) mg/dL AST 34 (15-37) IU/L ALT 25 (14-63) IU/L Alkaline Phosphatase 201 H (46-116) U/L Troponin I < 0.050 (0.000-0.056) ng/mL Total Protein 6.6 (6.4-8.2) g/dL Albumin 4.1 (3.4-5.0) g/dL Globulin 2.5 (2.0-3.5) g/dL Albumin/Globulin Ratio 1.6 (1.3-2.8) Urine Color Urine Appearance Urine pH (5.0-8.0) Ur Specific Pelzer (1.001-1.035) Urine Protein (NEGATIVE) mg/dL Urine Glucose (UA) (NEGATIVE) mg/dL Urine Ketones (NEGATIVE) mg/dL Urine Occult Blood (NEGATIVE) Urine Nitrite (NEGATIVE) Urine Bilirubin (NEGATIVE) Urine Urobilinogen (<2.0) EU/dL Ur Leukocyte Esterase (NEGATIVE) Urine RBC (0-2/HPF) Urine WBC (0-5/HPF) Ur Epithelial Cells (NONE-FEW) Urine Bacteria (NEGATIVE) Urine Mucus (NONE-MOD) 07/30/17 07/30/17 Range/Units 18:02 18:40 WBC (4.0-11.0) K/uL RBC (4.30-5.90) M/uL Hgb (12.0-16.0) g/dL Hct (36.0-46.0) % MCV (80.0-98.0) fL MCH (27.0-32.0) pg MCHC (31.0-37.0) g/dL RDW Std Deviation (28.0-62.0) fl RDW Coeff of Sherman (11.0-15.0) % Plt Count (150-400) K/uL MPV (7.40-12.00) fL Add Manual Diff Neutrophils % (Manual) (48.0-80.0) % Band Neutrophils % % Lymphocytes % (Manual) (16.0-40.0) % Monocytes % (Manual) (0.0-15.0) % Nucleated RBC % /100WBC Absolute Seg Neuts (1.4-5.7) Band Neutrophils # Lymphocytes # (Manual) (0.6-2.4) Monocytes # (Manual) (0.0-0.8) Nucleated RBCs # K/uL Sodium 120 L (136-145) mmol/L Potassium 3.9 (3.5-5.1) mmol/L Chloride 88 L (98-107) mmol/L Carbon Dioxide 23.1 (21.0-32.0) mmol/L BUN 6 L (7.0-18.0) mg/dL Creatinine 0.9 (0.6-1.0) mg/dL Est Cr Clr Drug Dosing 41.78 mL/min Estimated GFR (MDRD) > 60.0 ml/min Glucose 135 H (74-106) mg/dL Calcium 9.4 (8.5-10.1) mg/dL Magnesium (1.5-2.0) mg/dL Total Bilirubin (0.2-1.0) mg/dL AST (15-37) IU/L ALT (14-63) IU/L Alkaline Phosphatase (46-116) U/L Troponin I (0.000-0.056) ng/mL Total Protein (6.4-8.2) g/dL Albumin (3.4-5.0) g/dL Globulin (2.0-3.5) g/dL Albumin/Globulin Ratio (1.3-2.8) Urine Color YELLOW Urine Appearance CLEAR Urine pH 6.0 (5.0-8.0) Ur Specific Pelzer 1.025 (1.001-1.035) Urine Protein TRACE (NEGATIVE) mg/dL Urine Glucose (UA) NEGATIVE (NEGATIVE) mg/dL Urine Ketones 40 H (NEGATIVE) mg/dL Urine Occult Blood SMALL H (NEGATIVE) Urine Nitrite NEGATIVE (NEGATIVE) Urine Bilirubin NEGATIVE (NEGATIVE) Urine Urobilinogen 0.2 (<2.0) EU/dL Ur Leukocyte Esterase NEGATIVE (NEGATIVE) Urine RBC 0-2 (0-2/HPF) Urine WBC 0-1 (0-5/HPF) Ur Epithelial Cells RARE (NONE-FEW) Urine Bacteria RARE (NEGATIVE) Urine Mucus LIGHT (NONE-MOD) Meds: Medications Generic Name Dose Route Start Last Admin Trade Name Gigi PRN Reason Stop Dose Admin Sodium Chloride 35.9 meq/ 100 mls @ 150 mls/hr 07/30/17 16:11 07/30/17 16:19 Sodium Chloride IV 150 mls/hr ASDIRECTED PRIYANK Administration Discontinued Medications Generic Name Dose Route Start Last Admin Trade Name Gigi PRN Reason Stop Dose Admin Ceftriaxone Sodium/Dextrose 1 50 mls @ 100 mls/hr 07/30/17 15:29 07/30/17 15: 41 gm/ Premix IV 07/30/17 15:58 100 mls/hr ONETIME ONE Administration Metoclopramide HCl 10 mg 07/30/17 17:16 07/30/17 17:27 Reglan IV 07/30/17 17:17 10 mg ONETIME ONE Administration Ondansetron HCl 8 mg 07/30/17 16:45 07/30/17 17:14 Zofran IVPUSH 07/30/17 16:46 8 mg ONETIME ONE Administration Promethazine HCl 25 mg 07/30/17 18:07 07/30/17 18:12 Phenergan IM 07/30/17 18:08 25 mg ONETIME ONE Administration Tramadol HCl 50 mg 07/30/17 19:12 07/30/17 19:22 Ultram PO 07/30/17 19:13 50 mg ONETIME ONE Administration Departure - Departure Disposition: Admitted As Inpatient 68 Clinical Impression: Hyponatremia, Altered mental status, Leukocytosis - Discharge Information Referrals: PCP,None [Primary Care Provider] - Forms: ED Department Discharge <Lance Pham - Last Filed: 07/30/17 19:23> ED ROS GENERAL - Review of Systems Review Of Systems: See Below ED EXAM, GENERAL - Physical Exam Exam: See Below Departure - Departure Time of Disposition: 19:23 Condition: Poor
[2017-07-30] MEDS ORDERED: cefTRIAXone 1 GM in Premix Bag 1 BAG IV ONE (15:29)
[2017-07-30 15:40] LABS: CHLORIDE,CL 85 mmol/L (98-107)
[2017-07-30 15:41] LABS: SODIUM,NA 118 mmol/L (136-145)
[2017-07-30] MEDS ORDERED: Sodium Chloride 3% 100 ML IV SCH (15:45)
[2017-07-30] MEDS ORDERED: SODIUM CHLORIDE IV SCH ×3 (16:05→16:11)
[2017-07-30] MEDS ORDERED: Ondansetron 4 MG/2 ML SDV IVPUSH ONE (16:45)
[2017-07-30] MEDS ORDERED: Metoclopramide 10 MG/2 ML SDV IV ONE (17:16)
[2017-07-30] MEDS ORDERED: Promethazine 25 MG/ML SDV IM ONE (18:07)
[2017-07-30 18:30] LABS: CHLORIDE,CL 88 mmol/L (98-107)
[2017-07-30 18:36] LABS: SODIUM,NA 120 mmol/L (136-145)
[2017-07-30] MEDS ORDERED: traMADol 50 MG Tab PO ONE (19:12)
[2017-07-30] MEDS ORDERED: Sodium Chloride 0.9% 10 ML Syringe FLUSH PRN (21:34)
[2017-07-30] MEDS ORDERED: Sodium Chloride 0.9% 2.5 ML Syringe FLUSH PRN (21:34)
[2017-07-30] MEDS ORDERED: Albuterol/Ipratropium 3.0-0.5 MG/3 ML Neb Soln NEB PRN (21:34)
[2017-07-30] MEDS ORDERED: Morphine 10 MG/ML Syringe IVPUSH PRN (21:34)
[2017-07-30] MEDS ORDERED: methylPREDNISolone Sodium Succinate 125 MG/2 ML SDV IVPUSH ONE (21:37)
[2017-07-30] MEDS: Sodium Chloride 0.9% 1,000 ML IV SCH (22:17)
[2017-07-30] MEDS ORDERED: LORazepam 2 MG/ML SDV IVPUSH ONE (22:29)
[2017-07-30] MEDS ORDERED: Polyethylene Glycol 3350 Powder 17 GM Packet PO PRN (22:30)
[2017-07-30] MEDS ORDERED: Ondansetron 4 MG/2 ML SDV IVPUSH PRN (22:33)
--- NOTE | 2017-07-30 22:36 | PCM.HP ---
H&P History of Present Illness - General Date of Service: 07/30/17 Admit Problem/Dx: Admission Diagnosis/Problem Admission Diagnosis/Problem altered mental status Source of Information: Family, Provider History Limitations: Reports: Altered Mental Status - History of Present Illness Initial Comments - Free Text/Narative: Patient 72 y old female with PmHx of Small Cell Lung Cancer diagnosed about 18 months ago , on chemotherapy with Doctor Zi, presented to hospital due to severe alteration in mental status that was noticed by her son today , when he called her .Patient who usually lives by herself was confused and could not answer questions. She received for the first time immunotherapy on Thursday , 4 days ago and was complaining of feeling very weak in the following days. 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 Onset of Symptoms: Reports: Today, Sudden Duration of Symptoms: Reports: Hour(s): Bilateral Leg Pain Score (Numeric/FACES): 8 - Related Data Allergies/Adverse Reactions: Allergies Allergy/AdvReac Type Severity Reaction Status Date / Time dust Allergy Shortness Uncoded 07/30/17 14:37 of Breath Febreeze Allergy Shortness Uncoded 07/30/17 14:37 of Breath pinecone Allergy Shortness Uncoded 07/30/17 14:37 of Breath Home Medications: Home Meds Metoprolol Tartrate [Lopressor] 50 mg PO BID 02/08/16 [History] Omeprazole 20 mg PO ACBREAKFAST 02/08/16 [History] Ramipril 10 mg PO BID 02/08/16 [History] Gabapentin [Neurontin] 400 mg PO QID 02/23/16 [History] amLODIPine Besylate [Norvasc] 2.5 mg PO DAILY #30 tablet 03/04/16 [Rx] traMADol [Ultram] 50 mg PO Q6H PRN 04/22/16 [History] Aspirin [Ecotrin] 81 mg PO DAILY 04/23/16 [History] Fluticasone Propionate [Flonase] 1 spray NASBOTH DAILY 04/23/16 [History] Ondansetron [Ondansetron ODT] 8 mg PO Q8H PRN 04/23/16 [History] Polyethylene Glycol 3350 [MiraLAX] 17 gm PO DAILY PRN 04/23/16 [History] Sennosides/Docusate Sodium [Senna-S Tablet] 2 tab PO BEDTIME PRN 04/23/16 [ History] QUEtiapine Fumarate [Seroquel] 300 mg PO BEDTIME 05/24/16 [History] Loratadine [Claritin] 10 mg PO DAILY 05/26/16 [History] Budesonide/Formoterol [Symbicort 160-4.5 MCG] 2 inh IH BID 04/03/17 [History] Sodium Chloride 1 gm PO QID tablet 04/06/17 [Rx] Potassium Chloride 40 meq PO DAILY 06/03/17 [History] Magnesium Oxide 400 mg PO DAILY #30 tab 06/05/17 [Rx] Past Medical History HEENT History: Reports: Cataract, Impaired Vision Other HEENT History: Cataract surgeries on both eyes Cardiovascular History: Reports: High Cholesterol, Hypertension, PVD, Other ( See Below) Respiratory History: Reports: COPD, Pneumonia, Recurrent Other Respiratory History: admitted to the hospital 1 week ago for pneumonia, Gastrointestinal History: Reports: GERD Other Gastrointestinal History: liver cancer Genitourinary History: Reports: Chronic Renal Insuffiency, Renal Disease Other Genitourinary History: Pt states "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 History: Reports: Musculoskeletal History: Reports: Arthritis Neurological History: Reports: Neuropathy, Peripheral Psychiatric History: Reports: Anxiety Endocrine/Metabolic History: Reports: Other (See Below) Other Endocrine/Metabolic History: history of hyponatremia Hematologic History: Reports: Blood Transfusion(s) Other Hematologic History: previous admissions Oncologic (Cancer) History: Reports: Breast, Lung Other Oncologic History: liver cancer, states does not know the source - Infectious Disease History Infectious Disease History: Reports: Chicken Pox, Mumps - Past Surgical History Head Surgeries/Procedures: Reports: None Female Surgical History: Reports: Hysterectomy Social & Family History - Family History Family Medical History: Noncontributory HEENT: Reports: Cataract, Impaired Vision Cardiac: Reports: CAD, High Cholesterol, Hypertension, [place] Respiratory: Reports: COPD OBGYN: Reports: Musculoskeletal: Reports: Arthritis Psychiatric: Reports: Anxiety, Depression Oncologic: Reports: Lung - Tobacco Use Smoking Status *Q: Former Smoker Years of Tobacco use: 50 Used Tobacco, but Quit: Yes Month/Year Tobacco Last Used: 2015 Tobacco Use Comment: has not smoked in 18 months Second Hand Smoke Exposure: No - Caffeine Use Caffeine Use: Reports: Coffee Other Caffeine Use: 1-2 cups/day Caffeine Use Comment: 1-2cups/day - Recreational Drug Use Recreational Drug Use: No H&P Review of Systems - Review of Systems: Review Of Systems: See Below General: Reports: Other (altered mental status.) HEENT: Reports: No Symptoms Pulmonary: Reports: No Symptoms Cardiovascular: Reports: No Symptoms Gastrointestinal: Reports: No Symptoms Genitourinary: Reports: No Symptoms Musculoskeletal: Reports: No Symptoms Skin: Reports: No Symptoms Psychiatric: Reports: Confusion Neurological: Reports: Confusion Hematologic/Lymphatic: Reports: No Symptoms Immunologic: Reports: Other (on immunotherapy) Exam - Exam Exam: See Below - Vital Signs Vital Signs: Last Vital Signs Temp 97.5 F 07/30/17 21:35 Pulse 75 07/30/17 21:35 Resp 20 07/30/17 21:35 BP 149/88 H 07/30/17 21:35 Pulse Ox 96 07/30/17 21:35 Weight: 135 lb 6 oz - Exam General: Alert, Oriented (patient was not oriented to time and place in ER , but she was AO times 3 when she arrived on the floor) HEENT: Conjunctiva Clear, Hearing Intact Neck: Supple, Trachea Midline, +2 Carotid Pulse wo Bruit, Full Range of Motion Lungs: Clear to Auscultation, Normal Respiratory Effort Cardiovascular: Regular Rate, Regular Rhythm, Normal S1, Normal S2 GI/Abdominal Exam: Normal Bowel Sounds, Soft, Non-Tender, No Organomegaly Back Exam: Normal Inspection Extremities: Normal Inspection, Normal Range of Motion Neurological: Cranial Nerves Intact, Strength Equal Bilateral, Normal Speech, Hyperreflexia Neuro Extensive - Mental Status: Alert, Inattentive, Memory Loss-Remote Events, Memory Loss-Recent Events - Patient Data Lab Results Last 24 hrs: Laboratory Results - last 24 hr 07/30/17 07/30/17 07/30/17 Range/Units 15:05 15:05 15:05 WBC 20.01 H (4.0-11.0) K/uL RBC 2.89 L (4.30-5.90) M/uL Hgb 9.2 L (12.0-16.0) g/dL Hct 25.9 L (36.0-46.0) % MCV 89.6 (80.0-98.0) fL MCH 31.8 (27.0-32.0) pg MCHC 35.5 (31.0-37.0) g/dL RDW Std Deviation 49.6 (28.0-62.0) fl RDW Coeff of Sherman 16 H (11.0-15.0) % Plt Count 218 (150-400) K/uL MPV 9.80 (7.40-12.00) fL Add Manual Diff YES Neutrophils % (Manual) 87 H (48.0-80.0) % Band Neutrophils % 2 % Lymphocytes % (Manual) 5 L (16.0-40.0) % Monocytes % (Manual) 6 (0.0-15.0) % Nucleated RBC % 0.0 /100WBC Absolute Seg Neuts 17.4 H (1.4-5.7) Band Neutrophils # 0.4 Lymphocytes # (Manual) 1.0 (0.6-2.4) Monocytes # (Manual) 1.2 H (0.0-0.8) Nucleated RBCs # 0 K/uL Sodium 118 L* (136-145) mmol/L Potassium 3.8 (3.5-5.1) mmol/L Chloride 85 L (98-107) mmol/L Carbon Dioxide 24.0 (21.0-32.0) mmol/L BUN 6 L (7.0-18.0) mg/dL Creatinine 0.9 (0.6-1.0) mg/dL Est Cr Clr Drug Dosing 41.78 mL/min Estimated GFR (MDRD) > 60.0 ml/min Glucose 107 H (74-106) mg/dL Calcium 9.6 (8.5-10.1) mg/dL Magnesium 1.6 (1.5-2.0) mg/dL Total Bilirubin 0.6 (0.2-1.0) mg/dL AST 34 (15-37) IU/L ALT 25 (14-63) IU/L Alkaline Phosphatase 201 H (46-116) U/L Troponin I < 0.050 (0.000-0.056) ng/mL Total Protein 6.6 (6.4-8.2) g/dL Albumin 4.1 (3.4-5.0) g/dL Globulin 2.5 (2.0-3.5) g/dL Albumin/Globulin Ratio 1.6 (1.3-2.8) Urine Color Urine Appearance Urine pH (5.0-8.0) Ur Specific Bowers (1.001-1.035) Urine Protein (NEGATIVE) mg/dL Urine Glucose (UA) (NEGATIVE) mg/dL Urine Ketones (NEGATIVE) mg/dL Urine Occult Blood (NEGATIVE) Urine Nitrite (NEGATIVE) Urine Bilirubin (NEGATIVE) Urine Urobilinogen (<2.0) EU/dL Ur Leukocyte Esterase (NEGATIVE) Urine RBC (0-2/HPF) Urine WBC (0-5/HPF) Ur Epithelial Cells (NONE-FEW) Urine Bacteria (NEGATIVE) Urine Mucus (NONE-MOD) 07/30/17 07/30/17 Range/Units 18:02 18:40 WBC (4.0-11.0) K/uL RBC (4.30-5.90) M/uL Hgb (12.0-16.0) g/dL Hct (36.0-46.0) % MCV (80.0-98.0) fL MCH (27.0-32.0) pg MCHC (31.0-37.0) g/dL RDW Std Deviation (28.0-62.0) fl RDW Coeff of Sherman (11.0-15.0) % Plt Count (150-400) K/uL MPV (7.40-12.00) fL Add Manual Diff Neutrophils % (Manual) (48.0-80.0) % Band Neutrophils % % Lymphocytes % (Manual) (16.0-40.0) % Monocytes % (Manual) (0.0-15.0) % Nucleated RBC % /100WBC Absolute Seg Neuts (1.4-5.7) Band Neutrophils # Lymphocytes # (Manual) (0.6-2.4) Monocytes # (Manual) (0.0-0.8) Nucleated RBCs # K/uL Sodium 120 L (136-145) mmol/L Potassium 3.9 (3.5-5.1) mmol/L Chloride 88 L (98-107) mmol/L Carbon Dioxide 23.1 (21.0-32.0) mmol/L BUN 6 L (7.0-18.0) mg/dL Creatinine 0.9 (0.6-1.0) mg/dL Est Cr Clr Drug Dosing 41.78 mL/min Estimated GFR (MDRD) > 60.0 ml/min Glucose 135 H (74-106) mg/dL Calcium 9.4 (8.5-10.1) mg/dL Magnesium (1.5-2.0) mg/dL Total Bilirubin (0.2-1.0) mg/dL AST (15-37) IU/L ALT (14-63) IU/L Alkaline Phosphatase (46-116) U/L Troponin I (0.000-0.056) ng/mL Total Protein (6.4-8.2) g/dL Albumin (3.4-5.0) g/dL Globulin (2.0-3.5) g/dL Albumin/Globulin Ratio (1.3-2.8) Urine Color YELLOW Urine Appearance CLEAR Urine pH 6.0 (5.0-8.0) Ur Specific Bowers 1.025 (1.001-1.035) Urine Protein TRACE (NEGATIVE) mg/dL Urine Glucose (UA) NEGATIVE (NEGATIVE) mg/dL Urine Ketones 40 H (NEGATIVE) mg/dL Urine Occult Blood SMALL H (NEGATIVE) Urine Nitrite NEGATIVE (NEGATIVE) Urine Bilirubin NEGATIVE (NEGATIVE) Urine Urobilinogen 0.2 (<2.0) EU/dL Ur Leukocyte Esterase NEGATIVE (NEGATIVE) Urine RBC 0-2 (0-2/HPF) Urine WBC 0-1 (0-5/HPF) Ur Epithelial Cells RARE (NONE-FEW) Urine Bacteria RARE (NEGATIVE) Urine Mucus LIGHT (NONE-MOD) Result Diagrams: 07/31/17 05:30 07/31/17 05:30 - Problem List (1) Encephalopathy acute SNOMED Code(s): 92485896, 096088267 ICD Code: G93.40 - ENCEPHALOPATHY, UNSPECIFIED Status: Acute Current Visit: Yes (2) Stage 4 lung cancer SNOMED Code(s): 47560903, 17841570 ICD Code: C34.90 - MALIGNANT NEOPLASM OF UNSP PART OF UNSP BRONCHUS OR LUNG Status: Acute Current Visit: Yes (3) SIADH (syndrome of inappropriate ADH production) SNOMED Code(s): 17716087 ICD Code: E22.2 - SYNDROME OF INAPPROPRIATE SECRETION OF ANTIDIURETIC HORMONE Status: Chronic Priority: High Current Visit: No (4) Hyponatremia SNOMED Code(s): 61301852 ICD Code: E87.1 - HYPO-OSMOLALITY AND HYPONATREMIA Status: Acute Current Visit: Yes (5) History of immunotherapy SNOMED Code(s): 694066953 ICD Code: Z92.89 - PERSONAL HISTORY OF OTHER MEDICAL TREATMENT Status: Acute Current Visit: Yes Problem List Initiated/Reviewed/Updated: Yes Orders Last 24hrs: Active Orders 24 hr Category Date Time Status Admission Status [Patient Status] [ADT] Stat ADT 07/30/17 19:29 Active Cardiac Monitoring [RC] CONTINUOUS Care 07/30/17 21:35 Active EKG Documentation Completion [RC] STAT Care 07/30/17 15:23 Active Oxygen Therapy [RC] PRN Care 07/30/17 21:35 Active RT Aerosol Therapy [RC] ASDIRECTED Care 07/30/17 21:37 Active Up ad Kathy [RC] ASDIRECTED Care 07/30/17 21:34 Active VTE/DVT Education [RC] PER UNIT ROUTINE Care 07/30/17 21:35 Active Vital Signs [RC] Q4H Care 07/30/17 21:35 Active Regular Diet [DIET] Diet 07/30/17 Breakfast Active Chest 1V Frontal [CR] Stat Exams 07/30/17 15:30 Taken Head wo Cont [CT] Stat Exams 07/30/17 15:04 Taken CBC WITH AUTO DIFF [HEME] AM Lab 07/31/17 05:11 Ordered CBC WITH AUTO DIFF [HEME] AM Lab 08/01/17 05:11 Ordered CBC WITH AUTO DIFF [HEME] AM Lab 08/02/17 05:11 Ordered CBC WITH AUTO DIFF [HEME] AM Lab 08/03/17 05:11 Ordered COMPREHENSIVE METABOLIC PN,CMP [CHEM] AM Lab 07/31/17 05:11 Ordered COMPREHENSIVE METABOLIC PN,CMP [CHEM] AM Lab 08/01/17 05:11 Ordered COMPREHENSIVE METABOLIC PN,CMP [CHEM] AM Lab 08/02/17 05:11 Ordered COMPREHENSIVE METABOLIC PN,CMP [CHEM] AM Lab 08/03/17 05:11 Ordered CULTURE BLOOD [BC] Stat Lab 07/30/17 15:05 Received CULTURE BLOOD [BC] Stat Lab 07/30/17 15:14 Received CULTURE URINE [RM] Stat Lab 07/30/17 18:40 Received UA W/MICROSCOPIC [URIN] Stat Lab 07/30/17 18:40 Ordered Albuterol/Ipratropium [DuoNeb 3.0-0.5 MG/3 ML] Med 07/30/17 21:34 Active 3 ml NEB Q4HRRT PRN Aspirin [Halfprin] Med 07/31/17 09:00 Active 81 mg PO DAILY Budesonide/Formoterol [Symbicort 160-4.5 MCG] Med 07/31/17 09:00 Ordered 2 inh IH BID Docusate Sodium/Sennosides [Senna Plus] Med 07/30/17 22:30 Ordered 2 tab PO BEDTIME PRN Fluticasone Propionate [Flonase] Med 07/31/17 09:00 Ordered DOSE gm NASBOTH DAILY Gabapentin [Neurontin] Med 07/31/17 00:00 Ordered 400 mg PO QID Loratadine [Claritin] Med 07/31/17 09:00 Ordered 10 mg PO DAILY Magnesium Oxide Med 07/31/17 09:00 Ordered 400 mg PO DAILY Metoprolol Tartrate [Lopressor] Med 07/31/17 09:00 Ordered 50 mg PO BID Morphine Med 07/30/17 21:34 Active 2 mg IVPUSH Q2H PRN Omeprazole Med 07/31/17 07:30 Ordered 20 mg PO ACBREAKFAST Ondansetron [Zofran] Med 07/30/17 22:33 Ordered 4 mg IVPUSH Q6H PRN Polyethylene Glycol 3350 [MiraLAX] Med 07/30/17 22:30 Ordered 17 gm PO DAILY PRN Potassium Chloride [Potassium Chloride] Med 07/31/17 09:00 Ordered 40 meq PO DAILY QUEtiapine Fumarate [Seroquel] Med 07/31/17 21:00 Ordered 300 mg PO BEDTIME Ramipril [Altace] Med 07/31/17 09:00 Ordered 10 mg PO BID Sodium Chloride Med 07/31/17 00:00 Ordered 1 gm PO QID Sodium Chloride 0.9% [Normal Saline] 1,000 ml Med 07/30/17 21:45 Active IV ASDIRECTED Sodium Chloride 0.9% [Saline Flush] Med 07/30/17 21:34 Active 10 ml FLUSH ASDIRECTED PRN Sodium Chloride 0.9% [Saline Flush] Med 07/30/17 21:34 Active 2.5 ml FLUSH ASDIRECTED PRN Sodium Chloride [Sodium Chloride 23.4%] 35.9 meq Med 07/30/17 16:11 Active Sodium Chloride 0.9% [Normal Saline] 91.025 ml IV ASDIRECTED amLODIPine [Norvasc] Med 07/31/17 09:00 Active 2.5 mg PO DAILY traMADol [Ultram] Med 07/30/17 22:30 Ordered 50 mg PO Q6H PRN Blood Culture x2 Reflex Set [OM.PC] Stat Oth 07/30/17 14:58 Ordered Peripheral IV Insertion Adult [OM.PC] Routine Oth 07/30/17 21:34 Ordered Resuscitation Status Routine Resus Stat 07/30/17 21:34 Ordered Medication Orders Albuterol/Ipratropium (Duoneb 3.0-0.5 Mg/3 Ml) 3 ml NEB Q4HRRT PRN PRN Reason: Shortness Of Breath/wheezing Amlodipine Besylate (Norvasc) 2.5 mg PO DAILY [facility] Aspirin (Halfprin) 81 mg PO DAILY [facility] Fluticasone Propionate (Flonase) gm NASBOTH DAILY [facility] Gabapentin (Neurontin) 400 mg PO QID [facility] Sodium Chloride 35.9 meq/ (Sodium Chloride) 100 mls @ 150 mls/hr IV ASDIRECTED PRIYANK Last Admin: 07/30/17 16:19 Dose: 150 mls/hr Sodium Chloride (Normal Saline) 1,000 mls @ 75 mls/hr IV ASDIRECTED PRIYANK Last Admin: 07/30/17 22:17 Dose: 75 mls/hr Loratadine (Claritin) 10 mg PO DAILY [facility] Magnesium Oxide (Magnesium Oxide) 400 mg PO DAILY [facility] Metoprolol Tartrate (Lopressor) 50 mg PO BID [facility] Morphine Sulfate (Morphine) 2 mg IVPUSH Q2H PRN PRN Reason: Pain (severe 7-10) Stop: 07/31/17 21:35 Non-Formulary Medication (Budesonide/Formoterol [Symbicort 160-4.5 Mcg]) 2 inh IH BID [facility] Non-Formulary Medication (Potassium Chloride [Potassium Chloride]) 40 meq PO DAILY [facility] Non-Formulary Medication (Quetiapine Fumarate [Seroquel]) 300 mg PO BEDTIME [facility] Omeprazole (Omeprazole) 20 mg PO ACBREAKFAST PRIYANK Ondansetron HCl (Zofran) 4 mg IVPUSH Q6H PRN PRN Reason: Nausea/Vomiting Polyethylene Glycol (Miralax) 17 gm PO DAILY PRN PRN Reason: Constipation Ramipril (Altace) 10 mg PO BID PRIYANK Senna/Docusate Sodium (Senna Plus) 2 tab PO BEDTIME PRN PRN Reason: Constipation Sodium Chloride (Saline Flush) 10 ml FLUSH ASDIRECTED PRN PRN Reason: Keep Vein Open Sodium Chloride (Saline Flush) 2.5 ml FLUSH ASDIRECTED PRN PRN Reason: Keep Vein Open Sodium Chloride (Sodium Chloride) 1 gm PO QID PRIYANK Tramadol HCl (Ultram) 50 mg PO Q6H PRN PRN Reason: Pain Assessment and plan acute encephalopathy / AMS- secondary to immunotherapy- will give patient solumedrol 125 mg iv , will call the oncologyst to discuss the case in the morning and will order stat MRI of the brain Leucocytosis - no other signs of infection - secondary to immunotherapy, will observe hyponatriemia - patient received in ER 100 cc of hypertonic saline 3% and her sodium corrected to 120 Floyd/dl will continue to hydrate patient with NS 75 cc/h , will f/up Na level , fluid restriction to 1000cc , f/up Na level stage 4 lung cancer - f/up Oncology
[2017-07-31] MEDS: Gabapentin 800 MG Tab PO SCH ×5 (00:40→18:34)
[2017-07-31] MEDS: Sodium Chloride 1 GM Tab PO SCH ×5 (00:40→18:14)
[2017-07-31 06:01] LABS: CHLORIDE,CL 87 mmol/L (98-107)
[2017-07-31 06:03] LABS: SODIUM,NA 120 mmol/L (136-145)
[2017-07-31] MEDS: Omeprazole 20 MG Cap.CR PO SCH (06:51)
[2017-07-31] MEDS ORDERED: Dexamethasone 10 MG/ML SDV IVPUSH ONE ×2 (08:24→18:11)
[2017-07-31] MEDS ORDERED: Potassium Chloride 20 MEQ Tab.ER PO ONE (08:25)
[2017-07-31] MEDS: Metoprolol Tartrate 50 MG Tab PO SCH ×3 (08:45→21:05)
[2017-07-31] MEDS: Magnesium Oxide 400 MG Tab PO SCH (08:45)
[2017-07-31] MEDS: Loratadine 10 MG Tab PO SCH (08:46)
[2017-07-31] MEDS: Aspirin 81 MG Tab.EC PO SCH (08:46)
[2017-07-31] MEDS: amLODIPine 2.5 MG Tab PO SCH ×2 (08:46→10:58)
[2017-07-31] MEDS: Potassium Chloride 20 MEQ Tab.ER PO SCH (08:47)
[2017-07-31] MEDS: Fluticasone Propionate Nasal Spray 16 GM Bottle NASBOTH SCH (08:56)
--- NOTE | 2017-07-31 09:50 | CR ---
EXAM DATE: 07/30/17 PATIENT'S AGE: 72 Patient: JUICE ALMONTE Facility: [place], [place] Site . Site : 1945 Study: XRay Chest [id number] 4:45:43 PM Ordering Physician: Castillo Powell Final Report: Indication: Pain, shortness of breath Technique: Chest 1 view Comparison: July 01, 2017. Findings/Impression: Cardiovascular and mediastinum: Heart size and vasculature are normal in caliber and appearance. Mediastinum is within normal limits. A left-sided Port-A -Cath tip terminates at the level of the caval atrial junction. Lungs and pleural space: The lungs are hyper expanded. Lungs are clear. No sign of infiltrate or mass. No sign of pleural effusion. No pneumothorax. Bones and soft tissues: No acute osseous findings. There are surgical clips in the midline upper abdomen. Impression: : Hyperexpanded lungs. No focal infiltrate or pneumothorax. Dictated by Sylvia Edgar MD @ Jul 30 2017 4:56PM (Electronic Signature) Report Signed by Proxy. [facility]ITALJamal
--- NOTE | 2017-07-31 09:56 | CT ---
EXAM DATE: 07/30/17 PATIENT'S AGE: 72 Patient: JUICE ALMONTE Facility: [place], [place] Site . Site : 1945 Study: CT Head WO CONT [id number] 7:00:22 PM Ordering Physician: Castillo Powell Final Report: INDICATION: Confusion, nausea, history of hyponatremia, cancer TECHNIQUE: Head CT without contrast. COMPARISON: Separate 2016 FINDINGS: CSF spaces: Within normal limits for age. Brain parenchyma: There are nonspecific low attenuation white matter changes consistent with chronic microvascular disease. No sign of mass, hemorrhage, or midline shift. Skull base and calvarium: The visualized paranasal sinuses and mastoid air cells demonstrate no acute or significant findings. The visualized orbits are grossly unremarkable. No skull fractures. There is intracranial atherosclerosis. IMPRESSION: 1. No acute findings. 2. Nonspecific white matter disease, typical of chronic microvascular disease. Please note that all CT scans at this facility use dose modulation, iterative reconstruction, and/or weight-based dosing when appropriate to reduce radiation dose to as low as reasonably achievable. Dictated by Sylvia Edgar MD @ Jul 30 2017 7:06PM (Electronic Signature) Report Signed by Proxy. [facility]
[2017-07-31] MEDS: Sodium Chloride 0.9% 1,000 ML IV SCH (11:10)
[2017-07-31] MEDS: Non-Formulary Medication 1 Each (Budesonide/Formoterol [Symbicort 160-4.5 Mcg] 2 INH) IH SCH (11:50)
[2017-07-31 12:05] LABS: CHLORIDE,CL 89 mmol/L (98-107)
[2017-07-31 12:07] LABS: SODIUM,NA 120 mmol/L (136-145)
[2017-07-31] MEDS ORDERED: Acetaminophen 325 MG Tab PO PRN (12:38)
[2017-07-31] MEDS ORDERED: LORazepam 2 MG/ML SDV IVPUSH ONE (13:40)
[2017-07-31] MEDS: traMADol 50 MG Tab PO PRN (18:15)
[2017-07-31] MEDS ORDERED: Iopamidol 755 MG/ML 500 ML Multipack Bottle IVPUSH STA (19:24)
[2017-07-31] MEDS: QUEtiapine 100 MG Tab PO SCH (21:05)
--- NOTE | 2017-07-31 23:34 | PCM.PN ---
- General Info Date of Service: 07/31/17 Admission Dx/Problem (Free Text): Admission Diagnosis/Problem Admission Diagnosis/Problem altered mental status Subjective Update: I have called Dr. gill in the morning , the patient oncologyst and he agreed with MRI and thought the profund alteration in the mental staus is due to possible brain metastasis. MRI brain could not be done and patient had CT head with Iv contrast which was negative for metastasis - Review of Systems General: Reports: No Symptoms HEENT: Reports: No Symptoms Pulmonary: Reports: No Symptoms Cardiovascular: Reports: No Symptoms Gastrointestinal: Reports: No Symptoms Genitourinary: Reports: No Symptoms Musculoskeletal: Reports: No Symptoms Skin: Reports: No Symptoms Neurological: Reports: Confusion Psychiatric: Reports: No Symptoms - Patient Data Vitals - Most Recent: Last Vital Signs Temp 98.0 F 07/31/17 16:00 Pulse 60 07/31/17 21:05 Resp 18 07/31/17 16:00 BP 153/93 H 07/31/17 21:05 Pulse Ox 96 07/31/17 16:00 Weight - Most Recent: 135 lb 6 oz I&O - Last 24 Hours: Intake & Output 07/31/17 07/31/17 08/01/17 14:59 22:59 06:59 Intake Total 1431 Output Total 800 Balance 631 Lab Results Last 24 Hours: Laboratory Results - last 24 hr 07/31/17 07/31/17 07/31/17 Range/Units 05:30 05:30 11:25 WBC 19.84 H (4.0-11.0) K/uL RBC 2.93 L (4.30-5.90) M/uL Hgb 9.3 L (12.0-16.0) g/dL Hct 26.1 L (36.0-46.0) % MCV 89.1 (80.0-98.0) fL MCH 31.7 (27.0-32.0) pg MCHC 35.6 (31.0-37.0) g/dL RDW Std Deviation 50.8 (28.0-62.0) fl RDW Coeff of Sherman 16 H (11.0-15.0) % Plt Count 230 (150-400) K/uL MPV 10.10 (7.40-12.00) fL Add Manual Diff YES Neutrophils % (Manual) 86 H (48.0-80.0) % Band Neutrophils % 10 % Lymphocytes % (Manual) 4 L (16.0-40.0) % Nucleated RBC % 0.2 /100WBC Absolute Seg Neuts 17.1 H (1.4-5.7) Band Neutrophils # 2.0 Lymphocytes # (Manual) 0.8 (0.6-2.4) Nucleated RBCs # 0 K/uL ABG pH (7.35-7.45) ABG pCO2 (35-45) mmHG ABG pO2 (75-100) mmHG ABG HCO3 (22-26) mEq/L ABG Total CO2 ABG Base Excess (-2.0-2.0) Sodium 120 L 120 L (136-145) mmol/L Potassium 3.5 4.5 (3.5-5.1) mmol/L Chloride 87 L 89 L (98-107) mmol/L Carbon Dioxide 22.5 22.4 (21.0-32.0) mmol/L BUN 5 L 5 L (7.0-18.0) mg/dL Creatinine 0.8 0.8 (0.6-1.0) mg/dL Est Cr Clr Drug Dosing 47.00 47.00 mL/min Estimated GFR (MDRD) > 60.0 > 60.0 ml/min Glucose 157 H 171 H (74-106) mg/dL Calcium 9.1 9.7 (8.5-10.1) mg/dL Total Bilirubin 0.5 (0.2-1.0) mg/dL AST 58 H (15-37) IU/L ALT 29 (14-63) IU/L Alkaline Phosphatase 188 H (46-116) U/L Ammonia (19-54) ug/dL Total Protein 6.6 (6.4-8.2) g/dL Albumin 3.8 (3.4-5.0) g/dL Globulin 2.8 (2.0-3.5) g/dL Albumin/Globulin Ratio 1.4 (1.3-2.8) 07/31/17 07/31/17 07/31/17 Range/Units 11:25 11:25 18:06 WBC (4.0-11.0) K/uL RBC (4.30-5.90) M/uL Hgb (12.0-16.0) g/dL Hct (36.0-46.0) % MCV (80.0-98.0) fL MCH (27.0-32.0) pg MCHC (31.0-37.0) g/dL RDW Std Deviation (28.0-62.0) fl RDW Coeff of Sherman (11.0-15.0) % Plt Count (150-400) K/uL MPV (7.40-12.00) fL Add Manual Diff Neutrophils % (Manual) (48.0-80.0) % Band Neutrophils % % Lymphocytes % (Manual) (16.0-40.0) % Nucleated RBC % /100WBC Absolute Seg Neuts (1.4-5.7) Band Neutrophils # Lymphocytes # (Manual) (0.6-2.4) Nucleated RBCs # K/uL ABG pH 7.457 H (7.35-7.45) ABG pCO2 32 L (35-45) mmHG ABG pO2 63 L (75-100) mmHG ABG HCO3 22 (22-26) mEq/L ABG Total CO2 20.9 ABG Base Excess -1.2 (-2.0-2.0) Sodium 122 L (136-145) mmol/L Potassium 4.9 (3.5-5.1) mmol/L Chloride 91 L (98-107) mmol/L Carbon Dioxide 23.5 (21.0-32.0) mmol/L BUN 6 L (7.0-18.0) mg/dL Creatinine 1.0 (0.6-1.0) mg/dL Est Cr Clr Drug Dosing 37.60 mL/min Estimated GFR (MDRD) 54.8 ml/min Glucose 160 H (74-106) mg/dL Calcium 9.0 (8.5-10.1) mg/dL Total Bilirubin (0.2-1.0) mg/dL AST (15-37) IU/L ALT (14-63) IU/L Alkaline Phosphatase (46-116) U/L Ammonia 17 L (19-54) ug/dL Total Protein (6.4-8.2) g/dL Albumin (3.4-5.0) g/dL Globulin (2.0-3.5) g/dL Albumin/Globulin Ratio (1.3-2.8) Jeremias Results Last 24 Hours: Microbiology 07/30/17 15:14 Aerobic Blood Culture - Preliminary Blood - Venous - Lab Draw NO GROWTH AFTER 1 DAY Anaerobic Blood Culture - Preliminary NO GROWTH AFTER 1 DAY 07/30/17 15:05 Aerobic Blood Culture - Preliminary Blood - Venous NO GROWTH AFTER 1 DAY Anaerobic Blood Culture - Preliminary NO GROWTH AFTER 1 DAY Med Orders - Current: Current Medications Acetaminophen (Tylenol) 650 mg PO Q6H PRN PRN Reason: Pain Last Admin: 07/31/17 12:56 Dose: 650 mg Albuterol/Ipratropium (Duoneb 3.0-0.5 Mg/3 Ml) 3 ml NEB Q4HRRT PRN PRN Reason: Shortness Of Breath/wheezing Aspirin (Halfprin) 81 mg PO DAILY [facility] Last Admin: 07/31/17 08:46 Dose: 81 mg Fluticasone Propionate (Flonase) 0 gm NASBOTH DAILY [facility] Last Admin: 07/31/17 08:56 Dose: 1 spray Gabapentin (Neurontin) 400 mg PO QID [facility] Last Admin: 07/31/17 18:34 Dose: 400 mg Sodium Chloride 35.9 meq/ (Sodium Chloride) 100 mls @ 150 mls/hr IV ASDIRECTED [facility] Last Admin: 07/30/17 16:19 Dose: 150 mls/hr Sodium Chloride (Normal Saline) 1,000 mls @ 75 mls/hr IV ASDIRECTED [facility] Last Admin: 07/31/17 11:10 Dose: 75 mls/hr Loratadine (Claritin) 10 mg PO DAILY [facility] Last Admin: 07/31/17 08:46 Dose: 10 mg Magnesium Oxide (Magnesium Oxide) 400 mg PO DAILY [facility] Last Admin: 07/31/17 08:45 Dose: 400 mg Metoprolol Tartrate (Lopressor) 50 mg PO BID [facility] Last Admin: 07/31/17 21:05 Dose: 50 mg Non-Formulary Medication (Budesonide/Formoterol [Symbicort 160-4.5 Mcg]) 2 inh IH BID [facility] Last Admin: 07/31/17 11:50 Dose: Not Given Omeprazole (Omeprazole) 20 mg PO ACBREAKFAST [facility] Last Admin: 07/31/17 06:51 Dose: 20 mg Ondansetron HCl (Zofran) 4 mg IVPUSH Q6H PRN PRN Reason: Nausea/Vomiting Polyethylene Glycol (Miralax) 17 gm PO DAILY PRN PRN Reason: Constipation Potassium Chloride (Klor-Con M20) 40 meq PO DAILY [facility] Last Admin: 07/31/17 08:47 Dose: 40 meq Quetiapine Fumarate (Seroquel) 300 mg PO BEDTIME [facility] Last Admin: 07/31/17 21:05 Dose: 300 mg Senna/Docusate Sodium (Senna Plus) 2 tab PO BEDTIME PRN PRN Reason: Constipation Sodium Chloride (Saline Flush) 10 ml FLUSH ASDIRECTED PRN PRN Reason: Keep Vein Open Sodium Chloride (Saline Flush) 2.5 ml FLUSH ASDIRECTED PRN PRN Reason: Keep Vein Open Sodium Chloride (Sodium Chloride) 1 gm PO QID [facility] Last Admin: 07/31/17 18:14 Dose: 1 gm Tramadol HCl (Ultram) 50 mg PO Q6H PRN PRN Reason: Pain Last Admin: 07/31/17 18:15 Dose: 50 mg Discontinued Medications Amlodipine Besylate (Norvasc) 2.5 mg PO DAILY [facility] Last Admin: 07/31/17 10:58 Dose: Not Given Dexamethasone (Dexamethasone) 10 mg IVPUSH ONETIME ONE Stop: 07/31/17 08:25 Last Admin: 07/31/17 11:03 Dose: 10 mg Dexamethasone (Dexamethasone) 10 mg IVPUSH ONETIME ONE Stop: 07/31/17 18:12 Last Admin: 07/31/17 18:39 Dose: 10 mg Ceftriaxone Sodium/Dextrose 1 (gm/ Premix) 50 mls @ 100 mls/hr IV ONETIME ONE Stop: 07/30/17 15:58 Last Admin: 07/30/17 15:41 Dose: 100 mls/hr Iopamidol (Isovue Multipack-370 (76%)) 50 ml IVPUSH ONETIME STA Stop: 07/31/17 19:25 Last Admin: 07/31/17 19:25 Dose: 50 ml Lorazepam (Ativan) 2 mg IVPUSH ONETIME ONE Stop: 07/30/17 22:30 Last Admin: 07/30/17 22:38 Dose: 2 mg Lorazepam (Ativan) 2 mg IVPUSH ONETIME ONE Stop: 07/31/17 13:41 Last Admin: 07/31/17 15:06 Dose: Not Given Methylprednisolone Sodium Succinate (Solu-Medrol) 125 mg IVPUSH ONETIME ONE Stop: 07/30/17 21:38 Last Admin: 07/30/17 22:24 Dose: 125 mg Metoclopramide HCl (Reglan) 10 mg IV ONETIME ONE Stop: 07/30/17 17:17 Last Admin: 07/30/17 17:27 Dose: 10 mg Morphine Sulfate (Morphine) 2 mg IVPUSH Q2H PRN PRN Reason: Pain (severe 7-10) Stop: 07/31/17 21:35 Ondansetron HCl (Zofran) 8 mg IVPUSH ONETIME ONE Stop: 07/30/17 16:46 Last Admin: 07/30/17 17:14 Dose: 8 mg Potassium Chloride (Klor-Con M20) 40 meq PO ONETIME ONE Stop: 07/31/17 08:26 Last Admin: 07/31/17 08:46 Dose: 40 meq Promethazine HCl (Phenergan) 25 mg IM ONETIME ONE Stop: 07/30/17 18:08 Last Admin: 07/30/17 18:12 Dose: 25 mg Ramipril (Altace) 10 mg PO BID [facility] Last Admin: 07/31/17 10:58 Dose: Not Given Tramadol HCl (Ultram) 50 mg PO ONETIME ONE Stop: 07/30/17 19:13 Last Admin: 07/30/17 19:22 Dose: 50 mg - Exam General: Alert, Oriented HEENT: Pupils Equal, Pupils Reactive Neck: Supple, Trachea Midline, No JVD, No Thyromegaly Lungs: Clear to Auscultation, Normal Respiratory Effort Cardiovascular: Regular Rate, Regular Rhythm, No Murmurs GI/Abdominal Exam: Normal Bowel Sounds, Soft, Non-Tender, No Organomegaly, No Distention, No Abnormal Bruit, No Mass Extremities: Normal Inspection Skin: Warm, Dry, Intact Neurological: No New Focal Deficit Psy/Mental Status: Alert, Normal Affect, Normal Mood - Problem List & Annotations (1) Encephalopathy acute SNOMED Code(s): 68136322, 486897758 Code(s): G93.40 - ENCEPHALOPATHY, UNSPECIFIED Status: Acute Current Visit : Yes (2) Stage 4 lung cancer SNOMED Code(s): 48267659, 28991068 Code(s): C34.90 - MALIGNANT NEOPLASM OF UNSP PART OF UNSP BRONCHUS OR LUNG Status: Acute Current Visit: Yes (3) SIADH (syndrome of inappropriate ADH production) SNOMED Code(s): 91211817 Code(s): E22.2 - SYNDROME OF INAPPROPRIATE SECRETION OF ANTIDIURETIC HORMONE Status: Chronic Priority: High Current Visit: No (4) Hyponatremia SNOMED Code(s): 81497754 Code(s): E87.1 - HYPO-OSMOLALITY AND HYPONATREMIA Status: Acute Current Visit: Yes (5) History of immunotherapy SNOMED Code(s): 968150828 Code(s): Z92.89 - PERSONAL HISTORY OF OTHER MEDICAL TREATMENT Status: Acute Current Visit: Yes - Problem List Review Problem List Initiated/Reviewed/Updated: Yes - My Orders Last 24 Hours: My Active Orders 07/30/17 22:33 Ondansetron [Zofran] 4 mg IVPUSH Q6H PRN 07/31/17 00:00 Gabapentin [Neurontin] 400 mg PO QID Sodium Chloride 1 gm PO QID 07/31/17 07:30 Omeprazole 20 mg PO ACBREAKFAST 07/31/17 08:21 Brain wo Cont [MR] Stat 07/31/17 09:00 Aspirin [Halfprin] 81 mg PO DAILY Budesonide/Formoterol [Symbicort 160-4.5 MCG] 2 inh IH BID Fluticasone Propionate [Flonase] 0 gm NASBOTH DAILY Loratadine [Claritin] 10 mg PO DAILY Magnesium Oxide 400 mg PO DAILY Metoprolol Tartrate [Lopressor] 50 mg PO BID Potassium Chloride [Klor-Con M20] 40 meq PO DAILY 07/31/17 12:38 Acetaminophen [Tylenol] 650 mg PO Q6H PRN 07/31/17 18:09 Head w Cont [CT] Stat 07/31/17 21:00 QUEtiapine [SEROquel] 300 mg PO BEDTIME 07/31/17 Breakfast Fluid Restriction [DIET] 08/01/17 05:11 CBC WITH AUTO DIFF [HEME] AM COMPREHENSIVE METABOLIC PN,CMP [CHEM] AM 08/02/17 05:11 CBC WITH AUTO DIFF [HEME] AM COMPREHENSIVE METABOLIC PN,CMP [CHEM] AM 08/03/17 05:11 CBC WITH AUTO DIFF [HEME] AM COMPREHENSIVE METABOLIC PN,CMP [CHEM] AM - Plan Plan:: Assessment and plan acute encephalopathy /ams- improving - will continue to correct the sodium level , CT head with iv contrast is negative for metastasis, Dexamethasone 10 mg iv Bid given today 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 She is also getting Ns iv at 75 cc/h and sodium tablets 1 gram po qid. Sodium today corrected to 122, will f/up Na level in am.
[2017-08-01] MEDS: Sodium Chloride 0.9% 1,000 ML IV SCH (00:49)
[2017-08-01] MEDS: Gabapentin 800 MG Tab PO SCH ×5 (00:49→23:55)
[2017-08-01] MEDS: Sodium Chloride 1 GM Tab PO SCH ×5 (00:50→23:54)
[2017-08-01] MEDS: Non-Formulary Medication 1 Each (Budesonide/Formoterol [Symbicort 160-4.5 Mcg] 2 INH) IH SCH ×3 (01:09→20:29)
[2017-08-01] MEDS: traMADol 50 MG Tab PO PRN (05:08)
[2017-08-01] MEDS: Omeprazole 20 MG Cap.CR PO SCH (06:31)
[2017-08-01 07:02] LABS: CHLORIDE,CL 91 mmol/L (98-107); SODIUM,NA 123 mmol/L (136-145)
[2017-08-01] MEDS: Aspirin 81 MG Tab.EC PO SCH (09:37)
[2017-08-01] MEDS: Potassium Chloride 20 MEQ Tab.ER PO SCH (09:37)
[2017-08-01] MEDS: Loratadine 10 MG Tab PO SCH (09:37)
[2017-08-01] MEDS: Metoprolol Tartrate 50 MG Tab PO SCH ×2 (09:37→20:26)
[2017-08-01] MEDS: Magnesium Oxide 400 MG Tab PO SCH (09:38)
[2017-08-01] MEDS: Fluticasone Propionate Nasal Spray 16 GM Bottle NASBOTH SCH (09:39)
[2017-08-01] MEDS ORDERED: Dexamethasone 10 MG/ML SDV IVPUSH ONE (12:34)
--- NOTE | 2017-08-01 15:44 | PCM.PN ---
- General Info Date of Service: 08/01/17 Admission Dx/Problem (Free Text): Admission Diagnosis/Problem Admission Diagnosis/Problem altered mental status Subjective Update: Patient feeling better today, sodium corrected to 123 today.Alert oriented times 3 - Review of Systems General: Reports: No Symptoms HEENT: Reports: No Symptoms Pulmonary: Reports: No Symptoms Cardiovascular: Reports: No Symptoms Gastrointestinal: Reports: No Symptoms Genitourinary: Reports: No Symptoms Musculoskeletal: Reports: No Symptoms Skin: Reports: No Symptoms Neurological: Reports: No Symptoms, Other (memory problems) - Patient Data Vitals - Most Recent: Last Vital Signs Temp 95.8 F 08/01/17 12:00 Pulse 60 08/01/17 12:00 Resp 20 08/01/17 12:00 BP 179/91 H 08/01/17 12:00 Pulse Ox 97 08/01/17 12:00 Weight - Most Recent: 135 lb 6 oz I&O - Last 24 Hours: Intake & Output 08/01/17 08/01/17 08/01/17 06:59 14:59 22:59 Intake Total 500 Output Total 1500 Balance -1000 Lab Results Last 24 Hours: Laboratory Results - last 24 hr 07/31/17 08/01/17 08/01/17 Range/Units 18:06 05:59 05:59 WBC 25.64 H (4.0-11.0) K/uL RBC 2.69 L (4.30-5.90) M/uL Hgb 8.6 L (12.0-16.0) g/dL Hct 24.5 L (36.0-46.0) % MCV 91.1 (80.0-98.0) fL MCH 32.0 (27.0-32.0) pg MCHC 35.1 (31.0-37.0) g/dL RDW Std Deviation 54.7 (28.0-62.0) fl RDW Coeff of Sherman 17 H (11.0-15.0) % Plt Count 237 (150-400) K/uL MPV 10.30 (7.40-12.00) fL Add Manual Diff YES Neutrophils % (Manual) 93 H (48.0-80.0) % Band Neutrophils % 3 % Lymphocytes % (Manual) 2 L (16.0-40.0) % Monocytes % (Manual) 2 (0.0-15.0) % Nucleated RBC % 0.0 /100WBC Absolute Seg Neuts 23.8 H (1.4-5.7) Band Neutrophils # 0.8 Lymphocytes # (Manual) 0.5 L (0.6-2.4) Monocytes # (Manual) 0.5 (0.0-0.8) Nucleated RBCs # 0 K/uL Lactate (0.20-2.00) mmol/L Sodium 122 L 123 L (136-145) mmol/L Potassium 4.9 3.9 (3.5-5.1) mmol/L Chloride 91 L 91 L (98-107) mmol/L Carbon Dioxide 23.5 24.8 (21.0-32.0) mmol/L BUN 6 L 7 (7.0-18.0) mg/dL Creatinine 1.0 0.8 (0.6-1.0) mg/dL Est Cr Clr Drug Dosing 37.60 47.00 mL/min Estimated GFR (MDRD) 54.8 > 60.0 ml/min Glucose 160 H 157 H (74-106) mg/dL Calcium 9.0 8.8 (8.5-10.1) mg/dL Total Bilirubin 0.3 (0.2-1.0) mg/dL AST 43 H (15-37) IU/L ALT 30 (14-63) IU/L Alkaline Phosphatase 163 H (46-116) U/L Total Protein 6.2 L (6.4-8.2) g/dL Albumin 3.7 (3.4-5.0) g/dL Globulin 2.5 (2.0-3.5) g/dL Albumin/Globulin Ratio 1.5 (1.3-2.8) 08/01/17 Range/Units 09:36 WBC (4.0-11.0) K/uL RBC (4.30-5.90) M/uL Hgb (12.0-16.0) g/dL Hct (36.0-46.0) % MCV (80.0-98.0) fL MCH (27.0-32.0) pg MCHC (31.0-37.0) g/dL RDW Std Deviation (28.0-62.0) fl RDW Coeff of Sherman (11.0-15.0) % Plt Count (150-400) K/uL MPV (7.40-12.00) fL Add Manual Diff Neutrophils % (Manual) (48.0-80.0) % Band Neutrophils % % Lymphocytes % (Manual) (16.0-40.0) % Monocytes % (Manual) (0.0-15.0) % Nucleated RBC % /100WBC Absolute Seg Neuts (1.4-5.7) Band Neutrophils # Lymphocytes # (Manual) (0.6-2.4) Monocytes # (Manual) (0.0-0.8) Nucleated RBCs # K/uL Lactate 0.7 (0.20-2.00) mmol/L Sodium (136-145) mmol/L Potassium (3.5-5.1) mmol/L Chloride (98-107) mmol/L Carbon Dioxide (21.0-32.0) mmol/L BUN (7.0-18.0) mg/dL Creatinine (0.6-1.0) mg/dL Est Cr Clr Drug Dosing mL/min Estimated GFR (MDRD) ml/min Glucose (74-106) mg/dL Calcium (8.5-10.1) mg/dL Total Bilirubin (0.2-1.0) mg/dL AST (15-37) IU/L ALT (14-63) IU/L Alkaline Phosphatase (46-116) U/L Total Protein (6.4-8.2) g/dL Albumin (3.4-5.0) g/dL Globulin (2.0-3.5) g/dL Albumin/Globulin Ratio (1.3-2.8) Jeremias Results Last 24 Hours: Microbiology 07/30/17 15:14 Aerobic Blood Culture - Preliminary Blood - Venous - Lab Draw NO GROWTH AFTER 2 DAYS Anaerobic Blood Culture - Preliminary NO GROWTH AFTER 2 DAYS 07/30/17 15:05 Aerobic Blood Culture - Preliminary Blood - Venous NO GROWTH AFTER 2 DAYS Anaerobic Blood Culture - Preliminary NO GROWTH AFTER 2 DAYS 07/30/17 18:40 Urine Culture - Final Urine, Clean Catch No Growth Med Orders - Current: Current Medications Acetaminophen (Tylenol) 650 mg PO Q6H PRN PRN Reason: Pain Last Admin: 07/31/17 12:56 Dose: 650 mg Albuterol/Ipratropium (Duoneb 3.0-0.5 Mg/3 Ml) 3 ml NEB Q4HRRT PRN PRN Reason: Shortness Of Breath/wheezing Aspirin (Halfprin) 81 mg PO DAILY [facility] Last Admin: 08/01/17 09:37 Dose: 81 mg Fluticasone Propionate (Flonase) 0 gm NASBOTH DAILY [facility] Last Admin: 08/01/17 09:39 Dose: 1 spray Gabapentin (Neurontin) 400 mg PO QID [facility] Last Admin: 08/01/17 12:07 Dose: 400 mg Loratadine (Claritin) 10 mg PO DAILY [facility] Last Admin: 08/01/17 09:37 Dose: 10 mg Magnesium Oxide (Magnesium Oxide) 400 mg PO DAILY [facility] Last Admin: 08/01/17 09:38 Dose: 400 mg Metoprolol Tartrate (Lopressor) 50 mg PO BID [facility] Last Admin: 08/01/17 09:37 Dose: 50 mg Non-Formulary Medication (Budesonide/Formoterol [Symbicort 160-4.5 Mcg]) 2 inh IH BID [facility] Last Admin: 08/01/17 09:42 Dose: Not Given Omeprazole (Omeprazole) 20 mg PO ACBREAKFAST [facility] Last Admin: 08/01/17 06:31 Dose: 20 mg Ondansetron HCl (Zofran) 4 mg IVPUSH Q6H PRN PRN Reason: Nausea/Vomiting Polyethylene Glycol (Miralax) 17 gm PO DAILY PRN PRN Reason: Constipation Potassium Chloride (Klor-Con M20) 40 meq PO DAILY [facility] Last Admin: 08/01/17 09:37 Dose: 40 meq Quetiapine Fumarate (Seroquel) 300 mg PO BEDTIME [facility] Last Admin: 07/31/17 21:05 Dose: 300 mg Senna/Docusate Sodium (Senna Plus) 2 tab PO BEDTIME PRN PRN Reason: Constipation Sodium Chloride (Saline Flush) 10 ml FLUSH ASDIRECTED PRN PRN Reason: Keep Vein Open Sodium Chloride (Saline Flush) 2.5 ml FLUSH ASDIRECTED PRN PRN Reason: Keep Vein Open Sodium Chloride (Sodium Chloride) 1 gm PO QID [facility] Last Admin: 08/01/17 12:07 Dose: 1 gm Tramadol HCl (Ultram) 50 mg PO Q6H PRN PRN Reason: Pain Last Admin: 08/01/17 05:08 Dose: 50 mg Discontinued Medications Amlodipine Besylate (Norvasc) 2.5 mg PO DAILY [facility] Last Admin: 07/31/17 10:58 Dose: Not Given Dexamethasone (Dexamethasone) 10 mg IVPUSH ONETIME ONE Stop: 07/31/17 08:25 Last Admin: 07/31/17 11:03 Dose: 10 mg Dexamethasone (Dexamethasone) 10 mg IVPUSH ONETIME ONE Stop: 07/31/17 18:12 Last Admin: 07/31/17 18:39 Dose: 10 mg Dexamethasone (Dexamethasone) 10 mg IVPUSH ONETIME ONE Stop: 08/01/17 12:35 Last Admin: 08/01/17 14:01 Dose: 10 mg Ceftriaxone Sodium/Dextrose 1 (gm/ Premix) 50 mls @ 100 mls/hr IV ONETIME ONE Stop: 07/30/17 15:58 Last Admin: 07/30/17 15:41 Dose: 100 mls/hr Sodium Chloride 35.9 meq/ (Sodium Chloride) 100 mls @ 150 mls/hr IV ASDIRECTED [facility] Last Admin: 07/30/17 16:19 Dose: 150 mls/hr Sodium Chloride (Normal Saline) 1,000 mls @ 75 mls/hr IV ASDIRECTED [facility] Last Admin: 08/01/17 00:49 Dose: 75 mls/hr Iopamidol (Isovue Multipack-370 (76%)) 50 ml IVPUSH ONETIME STA Stop: 07/31/17 19:25 Last Admin: 07/31/17 19:25 Dose: 50 ml Lorazepam (Ativan) 2 mg IVPUSH ONETIME ONE Stop: 07/30/17 22:30 Last Admin: 07/30/17 22:38 Dose: 2 mg Lorazepam (Ativan) 2 mg IVPUSH ONETIME ONE Stop: 07/31/17 13:41 Last Admin: 07/31/17 15:06 Dose: Not Given Methylprednisolone Sodium Succinate (Solu-Medrol) 125 mg IVPUSH ONETIME ONE Stop: 07/30/17 21:38 Last Admin: 07/30/17 22:24 Dose: 125 mg Metoclopramide HCl (Reglan) 10 mg IV ONETIME ONE Stop: 07/30/17 17:17 Last Admin: 07/30/17 17:27 Dose: 10 mg Morphine Sulfate (Morphine) 2 mg IVPUSH Q2H PRN PRN Reason: Pain (severe 7-10) Stop: 07/31/17 21:35 Ondansetron HCl (Zofran) 8 mg IVPUSH ONETIME ONE Stop: 07/30/17 16:46 Last Admin: 07/30/17 17:14 Dose: 8 mg Potassium Chloride (Klor-Con M20) 40 meq PO ONETIME ONE Stop: 07/31/17 08:26 Last Admin: 07/31/17 08:46 Dose: 40 meq Promethazine HCl (Phenergan) 25 mg IM ONETIME ONE Stop: 07/30/17 18:08 Last Admin: 07/30/17 18:12 Dose: 25 mg Ramipril (Altace) 10 mg PO BID [facility] Last Admin: 07/31/17 10:58 Dose: Not Given Tramadol HCl (Ultram) 50 mg PO ONETIME ONE Stop: 07/30/17 19:13 Last Admin: 07/30/17 19:22 Dose: 50 mg - Exam General: Alert, Oriented HEENT: Pupils Equal, Pupils Reactive Neck: Supple, Trachea Midline, No JVD Lungs: Clear to Auscultation, Normal Respiratory Effort Cardiovascular: Regular Rate, Regular Rhythm, No Murmurs GI/Abdominal Exam: Normal Bowel Sounds Back Exam: Normal Inspection Extremities: Normal Inspection Skin: Warm, Dry Neurological: No New Focal Deficit Psy/Mental Status: Alert, Normal Affect - Problem List & Annotations (1) Encephalopathy acute SNOMED Code(s): 73446308, 754696310 Code(s): G93.40 - ENCEPHALOPATHY, UNSPECIFIED Status: Acute Current Visit : Yes (2) Stage 4 lung cancer SNOMED Code(s): 84550405, 36601573 Code(s): C34.90 - MALIGNANT NEOPLASM OF UNSP PART OF UNSP BRONCHUS OR LUNG Status: Acute Current Visit: Yes (3) SIADH (syndrome of inappropriate ADH production) SNOMED Code(s): 00518225 Code(s): E22.2 - SYNDROME OF INAPPROPRIATE SECRETION OF ANTIDIURETIC HORMONE Status: Chronic Priority: High Current Visit: No (4) Hyponatremia SNOMED Code(s): 01119814 Code(s): E87.1 - HYPO-OSMOLALITY AND HYPONATREMIA Status: Acute Current Visit: Yes (5) History of immunotherapy SNOMED Code(s): 980351557 Code(s): Z92.89 - PERSONAL HISTORY OF OTHER MEDICAL TREATMENT Status: Acute Current Visit: Yes - Problem List Review Problem List Initiated/Reviewed/Updated: Yes - My Orders Last 24 Hours: My Active Orders 07/31/17 18:09 Head w Cont [CT] Stat 07/31/17 21:00 QUEtiapine [SEROquel] 300 mg PO BEDTIME 08/01/17 15:44 Consult to [Consult to Home Health] [CONS] Routine 08/02/17 05:11 CBC WITH AUTO DIFF [HEME] AM COMPREHENSIVE METABOLIC PN,CMP [CHEM] AM 08/03/17 05:11 CBC WITH AUTO DIFF [HEME] AM COMPREHENSIVE METABOLIC PN,CMP [CHEM] AM - Plan Plan:: Assessment and plan acute encephalopathy /ams- resolved, will continue to correct the sodium level , CT head with iv contrast is negative for metastasis, Dexamethasone 10 mg one time given today , just in case patient had ams secondary to immunotherapy ,there are reports studies about it and treatment is steroids leucocytosis- isolated - secondary to immunotherapy, no signs of infections Stage 4 lung cancer - f/up oncology Hyponatriemia/siadh- patient is on fluid restrictions 1000 cc / day . Ns iv at 75 cc/h was d/c , continue sodium tablets 1 gram po qid. Sodium today corrected to 123, will f/up Na level in am. D/c planning tomorrow
[2017-08-01 17:47] LABS: CHLORIDE,CL 92 mmol/L (98-107); SODIUM,NA 123 mmol/L (136-145)
[2017-08-01] MEDS: QUEtiapine 100 MG Tab PO SCH (20:26)
[2017-08-01] MEDS ORDERED: hydrALAZINE 20 MG/ML SDV IVPUSH PRN (20:48)
[2017-08-02 06:50] LABS: CHLORIDE,CL 91 mmol/L (98-107); SODIUM,NA 123 mmol/L (136-145)
[2017-08-02] MEDS: Gabapentin 800 MG Tab PO SCH ×3 (06:51→18:47)
[2017-08-02] MEDS: Sodium Chloride 1 GM Tab PO SCH ×3 (06:52→18:47)
[2017-08-02] MEDS: Omeprazole 20 MG Cap.CR PO SCH (06:52)
[2017-08-02] MEDS: Metoprolol Tartrate 50 MG Tab PO SCH (09:15)
[2017-08-02] MEDS: Potassium Chloride 20 MEQ Tab.ER PO SCH (09:15)
[2017-08-02] MEDS: Magnesium Oxide 400 MG Tab PO SCH (09:17)
[2017-08-02] MEDS: Non-Formulary Medication 1 Each (Budesonide/Formoterol [Symbicort 160-4.5 Mcg] 2 INH) IH SCH (09:18)
[2017-08-02] MEDS: Aspirin 81 MG Tab.EC PO SCH (09:18)
[2017-08-02] MEDS: Fluticasone Propionate Nasal Spray 16 GM Bottle NASBOTH SCH (09:18)
[2017-08-02] MEDS: Loratadine 10 MG Tab PO SCH (09:18)
[2017-08-02] MEDS ORDERED: Furosemide 20 MG/2 ML VIAL IVPUSH SCH (09:18)
[2017-08-02 16:33] VITALS: BP 188/77
--- NOTE | 2017-08-02 17:07 | PCM.DCSUM1 ---
Discharge Summary - Hospital Course Free Text/Narrative:: Patient admitted in the hospital with hyponatriemia at 118 . AMS profound alteration , patient in the first day was not able to answer any question , she was treated in the hospital with dexamethasone iv due to concerns of brain metastasis or a reaction to the immunotherapy which she received on Thursday the same week and was her first treatment. She also had isolated leukocytosis and no other signs of infection and this was presumed was caused by immunotherapy. Ct of the head with Iv contrast ruled out metastasis in the brain . Patient was placed on fluid restriction 1000 cc, and initially was given NS iv at 75 cc /h and later on this was discontinued and she was only on fluid restriction at 800 cc and salt tablets 1 gram qid which she was at home , too. ( salt tablets) MRI of the brain could not be done because patient despite the lorazepam was moving . MRI was ordered for further eval of the AMS. Her mental staus improved gradually to baseline Sodium improved to 123 Mirian and she was started on lasix 20 mg iv BID Dw retail interior designer at [place] , Dr. 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 Patient is home bound. She is unsteady and at risk for fall. Unable to navigate stairs without the assistance of another person due to safety reason. She has weakness and deconditioning due to hospitalization for exacerbation of disease process . Needs skilled service : Rn to monitor medication education due to new / changed medication , assessment of effectiveness of medications and . Physical therapy : strengthening due to weakness , deconditioning due to disease process . Occupational therapy : home safety evaluation for functional safety at home , assess initial plan for improvement of cognition issues Patient to follow up care with his pCP and Dr. Braden and oncologist Dr. Teran once discharged from Hospital HPI Initial Comments: Patient 72 y old female with PmHx of Small Cell Lung Cancer diagnosed about 18 months ago , on chemotherapy with Doctor Zi, presented to hospital due to severe alteration in mental status that was noticed by her son today , when he called her .Patient who usually lives by herself was confused and could not answer questions. She received for the first time immunotherapy on Thursday , 4 days ago and was complaining of feeling very weak in the following days. 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 - Discharge Data Discharge Date: 08/02/17 Discharge Disposition: Home, Self-Care 01 Condition: Fair - Discharge Diagnosis/Problem(s) (1) Encephalopathy acute SNOMED Code(s): 20487570, 754628607 ICD Code: G93.40 - ENCEPHALOPATHY, UNSPECIFIED Status: Acute (2) Stage 4 lung cancer SNOMED Code(s): 31946890, 07596342 ICD Code: C34.90 - MALIGNANT NEOPLASM OF UNSP PART OF UNSP BRONCHUS OR LUNG Status: Acute (3) SIADH (syndrome of inappropriate ADH production) SNOMED Code(s): 80264485 ICD Code: E22.2 - SYNDROME OF INAPPROPRIATE SECRETION OF ANTIDIURETIC HORMONE Status: Chronic Priority: High (4) Hyponatremia SNOMED Code(s): 52511613 ICD Code: E87.1 - HYPO-OSMOLALITY AND HYPONATREMIA Status: Acute (5) History of immunotherapy SNOMED Code(s): 357324765 ICD Code: Z92.89 - PERSONAL HISTORY OF OTHER MEDICAL TREATMENT Status: Acute - Patient Summary/Data Consults: Consultations 08/01/17 15:44 Consult to [Consult to Home Health] [CONS] Routine - Patient Instructions Diet: Usual Diet as Tolerated Activity: As Tolerated Driving: May Drive Today Showering/Bathing: May Shower - Discharge Plan Prescriptions/Med Rec: Furosemide [Lasix] 40 mg PO DAILY 30 Days #30 tab Home Medications: Home Meds Metoprolol Tartrate [Lopressor] 50 mg PO BID 02/08/16 [History] Omeprazole 20 mg PO ACBREAKFAST 02/08/16 [History] Ramipril 10 mg PO BID 02/08/16 [History] Gabapentin [Neurontin] 400 mg PO QID 02/23/16 [History] amLODIPine Besylate [Norvasc] 2.5 mg PO DAILY #30 tablet 03/04/16 [Rx] traMADol [Ultram] 50 mg PO Q6H PRN 04/22/16 [History] Aspirin [Ecotrin] 81 mg PO DAILY 04/23/16 [History] Fluticasone Propionate [Flonase] 1 spray NASBOTH DAILY 04/23/16 [History] Polyethylene Glycol 3350 [MiraLAX] 17 gm PO DAILY PRN 04/23/16 [History] Sennosides/Docusate Sodium [Senna-S Tablet] 2 tab PO BEDTIME PRN 04/23/16 [ History] QUEtiapine Fumarate [Seroquel] 300 mg PO BEDTIME 05/24/16 [History] Loratadine [Claritin] 10 mg PO DAILY 05/26/16 [History] Budesonide/Formoterol [Symbicort 160-4.5 MCG] 2 inh IH BID 04/03/17 [History] Sodium Chloride 1 gm PO QID tablet 04/06/17 [Rx] Potassium Chloride 40 meq PO DAILY 06/03/17 [History] Magnesium Oxide 400 mg PO DAILY #30 tab 06/05/17 [Rx] Furosemide [Lasix] 40 mg PO DAILY 30 Days #30 tab 08/02/17 [Rx] Patient Handouts: Furosemide tablets, Hyponatremia, [id number], Confusion Forms: ED Department Discharge Referrals: PCP,None [Primary Care Provider] - (Follw-up in 1 week.) - Discharge Summary/Plan Comment DC Time >30 min.: Yes - General Info Date of Service: 08/02/17 - Review of Systems General: Reports: No Symptoms HEENT: Reports: No Symptoms Pulmonary: Reports: No Symptoms Cardiovascular: Reports: No Symptoms Gastrointestinal: Reports: No Symptoms Genitourinary: Reports: No Symptoms Musculoskeletal: Reports: No Symptoms Skin: Reports: No Symptoms Neurological: Reports: No Symptoms Psychiatric: Reports: No Symptoms - Patient Data Vitals - Most Recent: Last Vital Signs Temp 96.9 F 08/02/17 16:00 Pulse 67 08/02/17 16:00 Resp 22 H 08/02/17 16:00 BP 188/77 H 08/02/17 16:00 Pulse Ox 96 08/02/17 16:00 Weight - Most Recent: 135 lb 6 oz I&O - Last 24 hours: Intake & Output 08/02/17 08/02/17 08/02/17 06:59 14:59 22:59 Intake Total 800 Output Total 1050 Balance -250 Lab Results - Last 24 hrs: Laboratory Results - last 24 hr 08/01/17 08/02/17 08/02/17 Range/Units 17:18 06:15 06:15 WBC 18.00 H (4.0-11.0) K/uL RBC 2.89 L (4.30-5.90) M/uL Hgb 9.0 L (12.0-16.0) g/dL Hct 26.5 L (36.0-46.0) % MCV 91.7 (80.0-98.0) fL MCH 31.1 (27.0-32.0) pg MCHC 34.0 (31.0-37.0) g/dL RDW Std Deviation 56.3 (28.0-62.0) fl RDW Coeff of [place] 17 H (11.0-15.0) % Plt Count 248 (150-400) K/uL MPV 10.00 (7.40-12.00) fL Add Manual Diff YES Neutrophils % (Manual) 90 H (48.0-80.0) % Band Neutrophils % 2 % Lymphocytes % (Manual) 3 L (16.0-40.0) % Monocytes % (Manual) 5 (0.0-15.0) % Nucleated RBC % 0.4 /100WBC Absolute Seg Neuts 16.2 H (1.4-5.7) Band Neutrophils # 0.4 Lymphocytes # (Manual) 0.5 L (0.6-2.4) Monocytes # (Manual) 0.9 H (0.0-0.8) Nucleated RBCs # 0 K/uL Sodium 123 L 123 L (136-145) mmol/L Potassium 4.4 3.9 (3.5-5.1) mmol/L Chloride 92 L 91 L (98-107) mmol/L Carbon Dioxide 25.6 26.4 (21.0-32.0) mmol/L BUN 8 10 (7.0-18.0) mg/dL Creatinine 0.9 0.8 (0.6-1.0) mg/dL Est Cr Clr Drug Dosing 41.78 47.00 mL/min Estimated GFR (MDRD) > 60.0 > 60.0 ml/min Glucose 137 H 123 H (74-106) mg/dL Calcium 8.9 8.9 (8.5-10.1) mg/dL Total Bilirubin 0.4 (0.2-1.0) mg/dL AST 35 (15-37) IU/L ALT 31 (14-63) IU/L Alkaline Phosphatase 149 H (46-116) U/L Total Protein 6.1 L (6.4-8.2) g/dL Albumin 3.7 (3.4-5.0) g/dL Globulin 2.4 (2.0-3.5) g/dL Albumin/Globulin Ratio 1.5 (1.3-2.8) LOIDA Results - Last 24 hrs: Microbiology 07/30/17 15:14 Aerobic Blood Culture - Preliminary Blood - Venous - Lab Draw NO GROWTH AFTER 3 DAYS Anaerobic Blood Culture - Preliminary NO GROWTH AFTER 3 DAYS 07/30/17 15:05 Aerobic Blood Culture - Preliminary Blood - Venous NO GROWTH AFTER 3 DAYS Anaerobic Blood Culture - Preliminary NO GROWTH AFTER 3 DAYS Med Orders - Current: Current Medications Acetaminophen (Tylenol) 650 mg PO Q6H PRN PRN Reason: Pain Last Admin: 07/31/17 12:56 Dose: 650 mg Albuterol/Ipratropium (Duoneb 3.0-0.5 Mg/3 Ml) 3 ml NEB Q4HRRT PRN PRN Reason: Shortness Of Breath/wheezing Aspirin (Halfprin) 81 mg PO DAILY PENDING SALE TO [facility] Last Admin: 08/02/17 09:18 Dose: 81 mg Fluticasone Propionate (Flonase) 0 gm NASBOTH DAILY PENDING SALE TO [facility] Last Admin: 08/02/17 09:18 Dose: 1 spray Furosemide (Lasix) 20 mg IVPUSH BID PENDING SALE TO [facility] Last Admin: 08/02/17 09:40 Dose: 20 mg Gabapentin (Neurontin) 400 mg PO QID PENDING SALE TO [facility] Last Admin: 08/02/17 12:25 Dose: 400 mg Hydralazine HCl (Apresoline) 10 mg IVPUSH Q2H PRN PRN Reason: Hypertension Last Admin: 08/02/17 04:33 Dose: 10 mg Loratadine (Claritin) 10 mg PO DAILY PENDING SALE TO [facility] Last Admin: 08/02/17 09:18 Dose: 10 mg Magnesium Oxide (Magnesium Oxide) 400 mg PO DAILY PENDING SALE TO [facility] Last Admin: 08/02/17 09:17 Dose: 400 mg Metoprolol Tartrate (Lopressor) 50 mg PO BID PENDING SALE TO [facility] Last Admin: 08/02/17 09:15 Dose: 50 mg Non-Formulary Medication (Budesonide/Formoterol [Symbicort 160-4.5 Mcg]) 2 inh IH BID PENDING SALE TO [facility] Last Admin: 08/02/17 09:18 Dose: Not Given Omeprazole (Omeprazole) 20 mg PO ACBREAKFAST PENDING SALE TO [facility] Last Admin: 08/02/17 06:52 Dose: 20 mg Ondansetron HCl (Zofran) 4 mg IVPUSH Q6H PRN PRN Reason: Nausea/Vomiting Polyethylene Glycol (Miralax) 17 gm PO DAILY PRN PRN Reason: Constipation Potassium Chloride (Klor-Con M20) 40 meq PO DAILY PENDING SALE TO [facility] Last Admin: 08/02/17 09:15 Dose: 40 meq Quetiapine Fumarate (Seroquel) 300 mg PO BEDTIME PENDING SALE TO [facility] Last Admin: 08/01/17 20:26 Dose: 300 mg Senna/Docusate Sodium (Senna Plus) 2 tab PO BEDTIME PRN PRN Reason: Constipation Sodium Chloride (Saline Flush) 10 ml FLUSH ASDIRECTED PRN PRN Reason: Keep Vein Open Sodium Chloride (Saline Flush) 2.5 ml FLUSH ASDIRECTED PRN PRN Reason: Keep Vein Open Sodium Chloride (Sodium Chloride) 1 gm PO QID PENDING SALE TO [facility] Last Admin: 08/02/17 12:24 Dose: 1 gm Tramadol HCl (Ultram) 50 mg PO Q6H PRN PRN Reason: Pain Last Admin: 08/01/17 05:08 Dose: 50 mg Discontinued Medications Amlodipine Besylate (Norvasc) 2.5 mg PO DAILY PENDING SALE TO [facility] Last Admin: 07/31/17 10:58 Dose: Not Given Dexamethasone (Dexamethasone) 10 mg IVPUSH ONETIME ONE Stop: 07/31/17 08:25 Last Admin: 07/31/17 11:03 Dose: 10 mg Dexamethasone (Dexamethasone) 10 mg IVPUSH ONETIME ONE Stop: 07/31/17 18:12 Last Admin: 07/31/17 18:39 Dose: 10 mg Dexamethasone (Dexamethasone) 10 mg IVPUSH ONETIME ONE Stop: 08/01/17 12:35 Last Admin: 08/01/17 14:01 Dose: 10 mg Ceftriaxone Sodium/Dextrose 1 (gm/ Premix) 50 mls @ 100 mls/hr IV ONETIME ONE Stop: 07/30/17 15:58 Last Admin: 07/30/17 15:41 Dose: 100 mls/hr Sodium Chloride 35.9 meq/ (Sodium Chloride) 100 mls @ 150 mls/hr IV ASDIRECTED PENDING SALE TO [facility] Last Admin: 07/30/17 16:19 Dose: 150 mls/hr Sodium Chloride (Normal Saline) 1,000 mls @ 75 mls/hr IV ASDIRECTED PENDING SALE TO [facility] Last Admin: 08/01/17 00:49 Dose: 75 mls/hr Iopamidol (Isovue Multipack-370 (76%)) 50 ml IVPUSH ONETIME STA Stop: 07/31/17 19:25 Last Admin: 07/31/17 19:25 Dose: 50 ml Lorazepam (Ativan) 2 mg IVPUSH ONETIME ONE Stop: 07/30/17 22:30 Last Admin: 07/30/17 22:38 Dose: 2 mg Lorazepam (Ativan) 2 mg IVPUSH ONETIME ONE Stop: 07/31/17 13:41 Last Admin: 07/31/17 15:06 Dose: Not Given Methylprednisolone Sodium Succinate (Solu-Medrol) 125 mg IVPUSH ONETIME ONE Stop: 07/30/17 21:38 Last Admin: 07/30/17 22:24 Dose: 125 mg Metoclopramide HCl (Reglan) 10 mg IV ONETIME ONE Stop: 07/30/17 17:17 Last Admin: 07/30/17 17:27 Dose: 10 mg Morphine Sulfate (Morphine) 2 mg IVPUSH Q2H PRN PRN Reason: Pain (severe 7-10) Stop: 07/31/17 21:35 Ondansetron HCl (Zofran) 8 mg IVPUSH ONETIME ONE Stop: 07/30/17 16:46 Last Admin: 07/30/17 17:14 Dose: 8 mg Potassium Chloride (Klor-Con M20) 40 meq PO ONETIME ONE Stop: 07/31/17 08:26 Last Admin: 07/31/17 08:46 Dose: 40 meq Promethazine HCl (Phenergan) 25 mg IM ONETIME ONE Stop: 07/30/17 18:08 Last Admin: 07/30/17 18:12 Dose: 25 mg Ramipril (Altace) 10 mg PO BID PENDING SALE TO [facility] Last Admin: 07/31/17 10:58 Dose: Not Given Tramadol HCl (Ultram) 50 mg PO ONETIME ONE Stop: 07/30/17 19:13 Last Admin: 07/30/17 19:22 Dose: 50 mg - Exam Quality Assessment: Reports: Supplemental Oxygen General: Reports: Alert, Oriented HEENT: Reports: Pupils Equal, Pupils Reactive Neck: Reports: Supple, Trachea Midline, No JVD, No Thyromegaly Lungs: Reports: Clear to Auscultation, Normal Respiratory Effort Cardiovascular: Reports: Regular Rate, Regular Rhythm, No Murmurs GI/Abdominal Exam: Normal Bowel Sounds, Soft, Non-Tender, No Organomegaly Back Exam: Reports: Normal Inspection Extremities: Normal Inspection Skin: Reports: Warm, Dry Neurological: Reports: No New Focal Deficit Psy/Mental Status: Reports: Alert, Normal Affect
[2017-08-02] MEDS ORDERED: Heparin Sodium 100 Units/ML 3 ML Syringe FLUSH ONE (18:02)
--- NOTE | 2017-08-03 09:19 | CT ---
EXAM DATE: 07/30/17 PATIENT'S AGE: 72 Patient: JUICE ALMONTE Facility: [place], [place] Site . Site : [id number] Study: CT Head w cont [id number] 7:29:11 PM Ordering Physician: Og Dash Final Report: INDICATION: Altered mental status, evaluate for brain metastases. TECHNIQUE: CT head with IV contrast. IV Contrast: Isovue 370 50 mL COMPARISON: Noncontrast head CT 1 day prior on 07/30/2017. FINDINGS: CSF spaces: Within normal limits for age. Brain parenchyma: The tejada-white differentiation is normal. No abnormal enhancement or mass effect. Skull base and calvarium: The visualized paranasal sinuses and mastoid air cells demonstrate no acute or significant findings. The visualized orbits are grossly unremarkable. No skull fractures. IMPRESSION: 1. No no intracranial metastatic disease identified. 2. Mild degree of chronic microvascular disease, noted on the head CT 1 day prior. Dictated by Salvador Rausch MD @ 07/31/2017 8:09:11 PM Please note that all CT scans at this facility use dose modulation, iterative reconstruction, and/or weight-based dosing when appropriate to reduce radiation dose to as low as reasonably achievable. Dictated by: Salvador Rausch MD @ 07/31/2017 20:09:17 (Electronic Signature) Report Signed by Proxy. [facility]ITAL[facility]
== END 2017-08-02 18:30 | disposition home or self-care (01) | DRG 640 ==
LOC: MW.ED 14:18 → MW.MS 19:29
PROVIDERS: ADMIT Internal Medicine; ATTEND Internal Medicine
DX: E87.1 Hypo-osmolality and hyponatremia (principal); G93.40 Encephalopathy, unspecified; C34.90 Malignant neoplasm of unspecified part of unspecified bronchus or lung; E22.2 Syndrome of inappropriate secretion of antidiuretic hormone; R41.82 Altered mental status, unspecified; D72.829 Elevated white blood cell count, unspecified; E11.9 Type 2 diabetes mellitus without complications; E78.00 Pure hypercholesterolemia, unspecified; J44.9 Chronic obstructive pulmonary disease, unspecified; K21.9 Gastro-esophageal reflux disease without esophagitis; I12.9 Hypertensive chronic kidney disease with stage 1 through stage 4 chronic kidney disease, or unspecified chronic kidney disease; E11.22 Type 2 diabetes mellitus with diabetic chronic kidney disease; N18.9 Chronic kidney disease, unspecified; G62.9 Polyneuropathy, unspecified; F41.9 Anxiety disorder, unspecified; Z79.4 Long term (current) use of insulin; Z79.899 Other long term (current) drug therapy; Z79.82 Long term (current) use of aspirin; Z87.891 Personal history of nicotine dependence
CPT/HCPCS: 36415; 36600; 70450; 70450-26; 70460; 70460-26; 71045; 71045-26; 80048; 80053; 81001; 82140; 82803; 83605; 83735; 83930; 83935; 84484; 85025; 87040; 87086; 93005; 96365; 96367; 96372; 96375; 99284; 99285-25; A9270-GY; J0360; J0696; J1100; J1642; J2060; J2405; J2550; J2765; J2930; J7030; J7040; J7131; Q9967

== ENCOUNTER 2017-09-14 11:07 | Emergency (ER) | payer MEDICARE, BC ==
[2017-09-14] MEDS ORDERED: Sodium Chloride 0.9% 500 ML IV SCH (12:00)
--- NOTE | 2017-09-14 13:55 | CR ---
EXAMINATION: Portable chest radiograph. HISTORY: Shortness of breath. FINDINGS: The trachea is midline. The cardiomediastinal silhouette is within normal limits. No pulmonary infilt rates, effusions or pneumothorax. There is a left-sided zelalem catheter noted with tip in good positio n. Mild aortic calcifications. Osseous structures appear unremarkable. IMPRESSION: No acute cardiopulmonary process.
--- NOTE | 2017-09-14 14:13 | EDM.PDOC ---
ED HPI GENERAL MEDICAL PROBLEM - General Chief Complaint: Neurological Problem Stated Complaint: ONC. PT Time Seen by Provider: 09/14/17 14:07 Source of Information: Reports: Patient History Limitations: Reports: No Limitations - History of Present Illness INITIAL COMMENTS - FREE TEXT/NARRATIVE: HISTORY AND PHYSICAL: []72-year-old female presenting per the vehicle with her daughter in law History of Present Illness: []Patient is stage IV lung cancer who is seen at oncology clinic here in [place] Patient has previous history of hyponatremia the [id number] called her oncologist and he was concerned that perhaps the confusion was from her sodium level being low. She was instructed to bring patient to the ER for evaluation. The son and [id number] had been gone overnight and objects were placed in different places when they return home. The patient had no complaints while here. Patient had 2 episodes of diarrhea 2 days ago none since. Review of Systems: As per history of present illness and below otherwise all systems reviewed and negative. Past medical history: As per history of present illness and as reviewed below otherwise noncontributory. Surgical history: As per history of present illness and as reviewed below otherwise noncontributory. Social history: No reported history of drug or alcohol abuse. Family history: As per history of present illness and as reviewed below otherwise noncontributory. Physical exam: Alert very pleasant woman who is answering questions in short sentences. She looks catectic HEENT: Atraumatic, normocehpalic, pupils reactive, negative for conjunctival pallor or scleral icterus, mucous membranes moist, throat clear, neck supple, nontender, trachea midline. Lungs: Clear to auscultation, breath sounds equal bilaterally, chest non tender. Heart: S1S2, regular, negative for clicks, rubs, or JVD. Abdomen: Soft, nondistended, nontender. Negative for masses or hepatossplenmegaly. Negative for costovertebral tenderness. Pelvis: Stable nontender. Genitourinary: Deferred. Rectal: Deferred Extremities: Atraumatic, negative for cords or calf pain. Neurovascular unremarkable. Neuro: Awake, alert, oriented. Cranial nerves II through XII unremarkable. Cerebellum unremarkable. Motor and sensory unremarkable throughout. Exam nonfocal. Diagnostics: []CBC CMP magnesium straight catheter UA Therapeutics: []Bolus 500 mg normal saline Impression: []Mild dehydration Plan: []Discharge Continue with your present regimen Follow-up with your oncologist See your primary care doctor in the next 3-4 days for reevaluation Return to the emergency department as directed and discussed Definitive disposition and diagnosis as appropriate pending reevaluation and review of above. Onset: Gradual Duration: Hour(s): Location: Reports: Generalized Severity: Mild Improves with: Reports: None Worsens with: Reports: None Associated Symptoms: Reports: No Other Symptoms - Related Data Allergies Allergy/AdvReac Type Severity Reaction Status Date / Time dust Allergy Shortness Uncoded 07/30/17 14:37 of Breath Febreeze Allergy Shortness Uncoded 07/30/17 14:37 of Breath pinecone Allergy Shortness Uncoded 07/30/17 14:37 of Breath Home Meds: Home Meds Metoprolol Tartrate [Lopressor] 50 mg PO BID 02/08/16 [History] Omeprazole 20 mg PO ACBREAKFAST 02/08/16 [History] Ramipril 10 mg PO BID 02/08/16 [History] Gabapentin [Neurontin] 400 mg PO QID 02/23/16 [History] amLODIPine Besylate [Norvasc] 2.5 mg PO DAILY #30 tablet 03/04/16 [Rx] traMADol [Ultram] 50 mg PO Q6H PRN 04/22/16 [History] Aspirin [Ecotrin] 81 mg PO DAILY 04/23/16 [History] Fluticasone Propionate [Flonase] 1 spray NASBOTH DAILY 04/23/16 [History] Polyethylene Glycol 3350 [MiraLAX] 17 gm PO DAILY PRN 04/23/16 [History] Sennosides/Docusate Sodium [Senna-S Tablet] 2 tab PO BEDTIME PRN 04/23/16 [ History] Loratadine [Claritin] 10 mg PO DAILY 05/26/16 [History] Budesonide/Formoterol [Symbicort 160-4.5 MCG] 2 inh IH BID 04/03/17 [History] Sodium Chloride 1 gm PO QID tablet 04/06/17 [Rx] Furosemide [Lasix] 20 mg PO DAILY 09/14/17 [History] Ondansetron [Zofran] 8 mg PO Q8H PRN 09/14/17 [History] Simvastatin [Zocor] 80 mg PO BEDTIME 09/14/17 [History] predniSONE [Prednisone] 5 mg PO DAILY 09/14/17 [History] Past Medical History HEENT History: Reports: Cataract, Impaired Vision Other HEENT History: Cataract surgeries on both eyes Cardiovascular History: Reports: High Cholesterol, Hypertension, PVD, Other ( See Below) Respiratory History: Reports: COPD, Pneumonia, Recurrent Other Respiratory History: admitted to the hospital 1 week ago for pneumonia, Gastrointestinal History: Reports: GERD Other Gastrointestinal History: liver cancer Genitourinary History: Reports: Chronic Renal Insuffiency, Renal Disease Other Genitourinary History: Pt states "My right kidney is not functioning and left is only 30% functioning." 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: Musculoskeletal History: Reports: Arthritis Neurological History: Reports: Neuropathy, Peripheral Psychiatric History: Reports: Anxiety Endocrine/Metabolic History: Reports: Other (See Below) Other Endocrine/Metabolic History: history of hyponatremia Hematologic History: Reports: Blood Transfusion(s) Other Hematologic History: previous admissions Oncologic (Cancer) History: Reports: Breast, Lung Other Oncologic History: liver cancer, states does not know the source - Infectious Disease History Infectious Disease History: Reports: None - Past Surgical History Head Surgeries/Procedures: Reports: None Female Surgical History: Reports: Hysterectomy Social & Family History - Family History Family Medical History: Noncontributory HEENT: Reports: Cataract, Impaired Vision Cardiac: Reports: CAD, High Cholesterol, Hypertension, [place] Respiratory: Reports: COPD OBGYN: Reports: Musculoskeletal: Reports: Arthritis Psychiatric: Reports: Anxiety, Depression Oncologic: Reports: Lung - Tobacco Use Smoking Status *Q: Never Smoker - Caffeine Use Caffeine Use: Reports: Coffee Other Caffeine Use: 1-2 cups/day Caffeine Use Comment: 1-2cups/day - Recreational Drug Use Recreational Drug Use: No ED ROS GENERAL - Review of Systems Review Of Systems: ROS reveals no pertinent complaints other than HPI. ED EXAM, NEURO - Physical Exam Exam: See Below (see dictation) Course - Vital Signs Last Recorded V/S: Last Vital Signs Temp 36.6 C 09/14/17 11:26 Pulse 97 09/14/17 11:26 Resp 20 09/14/17 11:26 BP 179/77 H 09/14/17 11:26 Pulse Ox 94 L 09/14/17 11:26 - Orders/Labs/Meds Orders: Active Orders 24 hr Category Date Time Status CULTURE URINE [RM] Stat Lab 09/14/17 13:34 Received UA W/MICROSCOPIC [URIN] Stat Lab 09/14/17 13:34 Ordered Sodium Chloride 0.9% [Normal Saline] 500 ml Med 09/14/17 12:00 Active IV STAT Medication Orders Sodium Chloride (Normal Saline) 500 mls @ 999 mls/hr IV STAT PRIYANK Last Admin: 09/14/17 12:02 Dose: 999 mls/hr Labs: Laboratory Tests 09/14/17 09/14/17 09/14/17 Range/Units 12:05 12:05 13:34 WBC 5.03 (4.0-11.0) K/uL RBC 3.94 L (4.30-5.90) M/uL Hgb 12.5 (12.0-16.0) g/dL Hct 38.2 (36.0-46.0) % MCV 97.0 (80.0-98.0) fL MCH 31.7 (27.0-32.0) pg MCHC 32.7 (31.0-37.0) g/dL RDW Std Deviation 52.5 (28.0-62.0) fl RDW Coeff of [place] 15 (11.0-15.0) % Plt Count 197 (150-400) K/uL MPV 10.90 (7.40-12.00) fL Neut % (Auto) 74.4 (48.0-80.0) % Lymph % (Auto) 12.9 L (16.0-40.0) % [place] % (Auto) 10.1 (0.0-15.0) % Eos % (Auto) 2.0 (0.0-7.0) % Baso % (Auto) 0.6 (0.0-1.5) % Neut # (Auto) 3.7 (1.4-5.7) K/uL Lymph # (Auto) 0.7 (0.6-2.4) K/uL [place] # (Auto) 0.5 (0.0-0.8) K/uL Eos # (Auto) 0.1 (0.0-0.7) K/uL Baso # (Auto) 0.0 (0.0-0.1) K/uL Nucleated RBC % 0.0 /100WBC Nucleated RBCs # 0 K/uL Sodium 139 (136-145) mmol/L Potassium 3.4 L (3.5-5.1) mmol/L Chloride 102 (98-107) mmol/L Carbon Dioxide 26.5 (21.0-32.0) mmol/L BUN 13 (7.0-18.0) mg/dL Creatinine 1.3 H (0.6-1.0) mg/dL Est Cr Clr Drug Dosing 28.92 mL/min Estimated GFR (MDRD) 40.5 ml/min Glucose 124 H (74-106) mg/dL Calcium 9.7 (8.5-10.1) mg/dL Magnesium 1.9 (1.8-2.4) mg/dL Total Bilirubin 0.4 (0.2-1.0) mg/dL AST 29 (15-37) IU/L ALT 48 (14-63) IU/L Alkaline Phosphatase 144 H (46-116) U/L Total Protein 6.8 (6.4-8.2) g/dL Albumin 4.0 (3.4-5.0) g/dL Globulin 2.8 (2.0-3.5) g/dL Albumin/Globulin Ratio 1.4 (1.3-2.8) Urine Color YELLOW Urine Appearance CLEAR Urine pH 6.0 (5.0-8.0) Ur Specific [place] 1.015 (1.001-1.035) Urine Protein NEGATIVE (NEGATIVE) mg/dL Urine Glucose (UA) NEGATIVE (NEGATIVE) mg/dL Urine Ketones NEGATIVE (NEGATIVE) mg/dL Urine Occult Blood MODERATE (NEGATIVE) Urine Nitrite NEGATIVE (NEGATIVE) Urine Bilirubin NEGATIVE (NEGATIVE) Urine Urobilinogen 0.2 (<2.0) EU/dL Ur Leukocyte Esterase SMALL (NEGATIVE) Urine RBC 2-4 (0-2/HPF) Urine WBC 1-2 (0-5/HPF) Ur Epithelial Cells OCCASIONAL (NONE-FEW) Urine Bacteria FEW (NEGATIVE) Meds: Medications Generic Name Dose Route Start Last Admin Trade Name Freq PRN Reason Stop Dose Admin Sodium Chloride 500 mls @ 999 mls/hr 09/14/17 12:00 09/14/17 12:02 Normal Saline IV 999 mls/hr STAT PRIYANK Administration Departure - Departure Time of Disposition: 14:13 Disposition: Home, Self-Care 01 Condition: Good Clinical Impression: Dementia Qualifiers: Dementia type: unspecified type Dementia behavioral disturbance: without behavioral disturbance Qualified Code(s): F03.90 - Unspecified dementia without behavioral disturbance - Discharge Information Instructions: Dementia Caregiver Guide, Altered Mental Status Referrals: PCP,None [Primary Care Provider] - Additional Instructions: The following information is given to patients seen in the emergency department who are being discharged to home. This information is to outline your options for follow-up care. We provide all patients seen in our emergency department with a follow-up referral. The need for follow-up, as well as the timing and circumstances, are variable depending upon the specifics of your emergency department visit. If you don't have a primary care physician on staff, we will provide you with a referral. We always advise you to contact your personal physician following an emergency department visit to inform them of the circumstance of the visit and for follow-up with them and/or the need for any referrals to a consulting specialist. The emergency department will also refer you to a specialist when appropriate. This referral assures that you have the opportunity for followup care with a specialist. All of these measure are taken in an effort to provide you with optimal care, which includes your followup. Under all circumstances we always encourage you to contact your private physician who remains a resource for coordinating your care. When calling for followup care, please make the office aware that this follow-up is from your recent emergency room visit. If for any reason you are refused follow-up, please contact the [facility] emergency department at and asked to speak to the emergency department charge nurse. On your visit to the emergency department today we did not find any electrolight imbalance The confusion was not caused by urinary tract infection It is possible there is some mild dementia versus Alzheimer's Keep your appointment as scheduled with your oncologist Recommend that she see her primary care provider in the next 3-4 days for follow -up Return to the emergency department should worsening of symptoms occur directed and discussed - My Orders Last 24 Hours: My Active Orders 09/14/17 12:00 Sodium Chloride 0.9% [Normal Saline] 500 ml IV STAT 09/14/17 13:34 CULTURE URINE [RM] Stat UA W/MICROSCOPIC [URIN] Stat - Assessment/Plan Last 24 Hours: My Active Orders 09/14/17 12:00 Sodium Chloride 0.9% [Normal Saline] 500 ml IV STAT 09/14/17 13:34 CULTURE URINE [RM] Stat UA W/MICROSCOPIC [URIN] Stat
[2017-09-14 14:47] VITALS: BP 162/83
== END 2017-09-14 14:46 | disposition home or self-care (01) ==
LOC: MW.ED 11:07
DX: E86.0 Dehydration (principal); F03.90 Unspecified dementia, unspecified severity, without behavioral disturbance, psychotic disturbance, mood disturbance, and anxiety; E78.00 Pure hypercholesterolemia, unspecified; J44.9 Chronic obstructive pulmonary disease, unspecified; Z87.01 Personal history of pneumonia (recurrent); K21.9 Gastro-esophageal reflux disease without esophagitis; I12.9 Hypertensive chronic kidney disease with stage 1 through stage 4 chronic kidney disease, or unspecified chronic kidney disease; N18.9 Chronic kidney disease, unspecified; C34.90 Malignant neoplasm of unspecified part of unspecified bronchus or lung; Z91.048 Other nonmedicinal substance allergy status; Z79.899 Other long term (current) drug therapy
CPT/HCPCS: 71045; 80053; 81001; 83735; 85025; 87086; 96360; 99285; J7040

== ENCOUNTER 2017-09-17 15:55 | Observation (INO) | payer MEDICARE, BC ==
--- NOTE | 2017-09-17 16:01 | EDM.PDOC ---
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 Past medical history: As per history of present illness and as reviewed below otherwise noncontributory. Surgical history: As per history of present illness and as reviewed below otherwise noncontributory. Social history: No reported history of drug or alcohol abuse. Family history: As per history of present illness and as reviewed below otherwise noncontributory. Physical exam: HEENT: Atraumatic, normocephalic, pupils reactive, negative for conjunctival pallor or scleral icterus, mucous membranes moist, throat clear, neck supple, nontender, trachea midline. Lungs: Clear to auscultation, breath sounds equal bilaterally, chest nontender. Heart: S1S2, regular, negative for clicks, rubs, or JVD. Abdomen: Soft, nondistended, nontender. Negative for masses or hepatosplenomegaly. Negative for costovertebral tenderness. Pelvis: Stable nontender. Genitourinary: Deferred. Rectal: Deferred. Extremities: Atraumatic, negative for cords or calf pain. Neurovascular unremarkable. Neuro: Awake, alert, disoriented to person place and time, difficulty following commands. Cranial nerves II through XII unremarkable. Cerebellum unremarkable. Motor and sensory unremarkable throughout. Exam nonfocal. Diagnostics: [CBC CMP troponin UA Chest [address] on file from last month negative ] digital for brain MRI tomorrow Therapeutics: [ normal saline 1 25 mL per hour ] Impression: [ hypoxia small cell carcinoma of the lung COPD chemotherapy as above-known to cause demyelination] Definitive disposition and diagnosis as appropriate pending reevaluation and review of above. - Related Data Allergies Allergy/AdvReac Type Severity Reaction Status Date / Time dust Allergy Shortness Uncoded 09/17/17 16:20 of Breath Febreeze Allergy Shortness Uncoded 09/17/17 16:20 of Breath pinecone Allergy Shortness Uncoded 09/17/17 16:20 of Breath Home Meds: Home Meds Metoprolol Tartrate [Lopressor] 50 mg PO BID 02/08/16 [History] Omeprazole 20 mg PO ACBREAKFAST 02/08/16 [History] Ramipril 10 mg PO BID 02/08/16 [History] Gabapentin [Neurontin] 400 mg PO QID 02/23/16 [History] traMADol [Ultram] 50 mg PO Q6H PRN 04/22/16 [History] Aspirin [Ecotrin] 81 mg PO DAILY 04/23/16 [History] Fluticasone Propionate [Flonase] 1 spray NASBOTH DAILY 04/23/16 [History] Polyethylene Glycol 3350 [MiraLAX] 17 gm PO DAILY PRN 04/23/16 [History] Sennosides/Docusate Sodium [Senna-S Tablet] 2 tab PO BEDTIME PRN 04/23/16 [ History] Loratadine [Claritin] 10 mg PO DAILY 05/26/16 [History] Budesonide/Formoterol [Symbicort 160-4.5 MCG] 2 inh IH BID 04/03/17 [History] Sodium Chloride 1 gm PO QID tablet 04/06/17 [Rx] Furosemide [Lasix] 20 mg PO DAILY 09/14/17 [History] Ondansetron [Zofran] 8 mg PO Q8H PRN 09/14/17 [History] Simvastatin [Zocor] 80 mg PO BEDTIME 09/14/17 [History] predniSONE [Prednisone] 5 mg PO DAILY 09/14/17 [History] Past Medical History HEENT History: Reports: Cataract, Impaired Vision Other HEENT History: Cataract surgeries on both eyes Cardiovascular History: Reports: High Cholesterol, Hypertension, PVD, Other ( See Below) Respiratory History: Reports: COPD, Pneumonia, Recurrent Other Respiratory History: admitted to the hospital 1 week ago for pneumonia, Gastrointestinal History: Reports: GERD Other Gastrointestinal History: liver cancer Genitourinary History: Reports: Chronic Renal Insuffiency, Renal Disease Other Genitourinary History: Pt states "My right kidney is not functioning and left is only 30% functioning." 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: Musculoskeletal History: Reports: Arthritis Neurological History: Reports: Neuropathy, Peripheral Psychiatric History: Reports: Anxiety Endocrine/Metabolic History: Reports: Other (See Below) Other Endocrine/Metabolic History: history of hyponatremia Hematologic History: Reports: Blood Transfusion(s) Other Hematologic History: previous admissions Oncologic (Cancer) History: Reports: Breast, Lung Other Oncologic History: liver cancer, states does not know the source - Infectious Disease History Infectious Disease History: Reports: None - Past Surgical History Head Surgeries/Procedures: Reports: None Female Surgical History: Reports: Hysterectomy Social & Family History - Family History Family Medical History: Noncontributory HEENT: Reports: Cataract, Impaired Vision Cardiac: Reports: CAD, High Cholesterol, Hypertension, [place] Respiratory: Reports: COPD OBGYN: Reports: Musculoskeletal: Reports: Arthritis Psychiatric: Reports: Anxiety, Depression Oncologic: Reports: Lung - Caffeine Use Caffeine Use: Reports: Coffee Other Caffeine Use: 1-2 cups/day Caffeine Use Comment: 1-2cups/day ED ROS GENERAL - Review of Systems Review Of Systems: See Below ED EXAM, GENERAL - Physical Exam Exam: See Below Course - Vital Signs Last Recorded V/S: Last Vital Signs Temp 98.2 F 09/17/17 16:17 Pulse 88 09/17/17 16:17 Resp 16 09/17/17 16:17 BP 196/101 H 09/17/17 16:17 Pulse Ox 88 L 09/17/17 16:17 - Orders/Labs/Meds Orders: Active Orders 24 hr Category Date Time Status EKG Documentation Completion [RC] STAT Care 09/17/17 15:59 Active RT Aerosol Therapy [RC] ASDIRECTED Care 09/17/17 18:13 Active Chest 1V Frontal [CR] Stat Exams 09/17/17 15:59 Taken CULTURE BLOOD [BC] Stat Lab 09/17/17 16:44 Received CULTURE BLOOD [BC] Stat Lab 09/17/17 17:15 Received UA W/MICROSCOPIC [URIN] Stat Lab 09/17/17 15:58 Ordered Sodium Chloride 0.9% [Normal Saline] 1,000 ml Med 09/17/17 18:15 Active IV STAT Blood Culture x2 Reflex Set [OM.PC] Stat Oth 09/17/17 16:58 Ordered Medication Orders Sodium Chloride (Normal Saline) 1,000 mls @ 125 mls/hr IV STAT [facility] Labs: Laboratory Tests 09/17/17 09/17/17 Range/Units 16:49 16:49 WBC 4.88 (4.0-11.0) K/uL RBC 3.88 L (4.30-5.90) M/uL Hgb 12.3 (12.0-16.0) g/dL Hct 37.3 (36.0-46.0) % MCV 96.1 (80.0-98.0) fL MCH 31.7 (27.0-32.0) pg MCHC 33.0 (31.0-37.0) g/dL RDW Std Deviation 52.1 (28.0-62.0) fl RDW Coeff of [place] 15 (11.0-15.0) % Plt Count 185 (150-400) K/uL MPV 10.10 (7.40-12.00) fL Neut % (Auto) 69.2 (48.0-80.0) % Lymph % (Auto) 20.3 (16.0-40.0) % [place] % (Auto) 7.6 (0.0-15.0) % Eos % (Auto) 2.7 (0.0-7.0) % Baso % (Auto) 0.2 (0.0-1.5) % Neut # (Auto) 3.4 (1.4-5.7) K/uL Lymph # (Auto) 1.0 (0.6-2.4) K/uL [place] # (Auto) 0.4 (0.0-0.8) K/uL Eos # (Auto) 0.1 (0.0-0.7) K/uL Baso # (Auto) 0.0 (0.0-0.1) K/uL Nucleated RBC % 0.0 /100WBC Nucleated RBCs # 0 K/uL Sodium 131 L (136-145) mmol/L Potassium 3.6 (3.5-5.1) mmol/L Chloride 97 L (98-107) mmol/L Carbon Dioxide 32.5 H (21.0-32.0) mmol/L BUN 16 (7.0-18.0) mg/dL Creatinine 1.1 H (0.6-1.0) mg/dL Est Cr Clr Drug Dosing 35.91 mL/min Estimated GFR (MDRD) 49.1 ml/min Glucose 81 (74-106) mg/dL Calcium 9.5 (8.5-10.1) mg/dL Total Bilirubin 0.4 (0.2-1.0) mg/dL AST 28 (15-37) IU/L ALT 42 (14-63) IU/L Alkaline Phosphatase 131 H (46-116) U/L Troponin I < 0.050 (0.000-0.056) ng/mL Total Protein 6.4 (6.4-8.2) g/dL Albumin 3.8 (3.4-5.0) g/dL Globulin 2.6 (2.0-3.5) g/dL Albumin/Globulin Ratio 1.5 (1.3-2.8) Meds: Medications Generic Name Dose Route Start Last Admin Trade Name Freq PRN Reason Stop Dose Admin Sodium Chloride 1,000 mls @ 125 mls/hr 09/17/17 18:15 Normal Saline IV STAT PRIYANK Discontinued Medications Generic Name Dose Route Start Last Admin Trade Name Freq PRN Reason Stop Dose Admin Albuterol/Ipratropium 3 ml 09/17/17 18:13 Duoneb 3.0-0.5 Mg/3 Ml NEB 09/17/17 18:14 ONETIME ONE Methylprednisolone Sodium Succinate 125 mg 09/17/17 18:13 Solu-Medrol IVPUSH 09/17/17 18:14 ONETIME ONE Departure - Departure Time of Disposition: 18:22 Disposition: Refer to Observation Condition: Poor Clinical Impression: Hypoxia, Small cell carcinoma COPD (chronic obstructive pulmonary disease) Qualifiers: COPD type: emphysema Emphysema type: unspecified Qualified Code(s): J43.9 - Emphysema, unspecified - Discharge Information Referrals: PCP,Unknown [Primary Care Provider] - Forms: ED Department Discharge - My Orders Last 24 Hours: My Active Orders 09/17/17 15:58 UA W/MICROSCOPIC [URIN] Stat 09/17/17 15:59 EKG Documentation Completion [RC] STAT Chest 1V Frontal [CR] Stat 09/17/17 16:44 CULTURE BLOOD [BC] Stat 09/17/17 16:58 Blood Culture x2 Reflex Set [OM.PC] Stat 09/17/17 17:15 CULTURE BLOOD [BC] Stat 09/17/17 18:13 RT Aerosol Therapy [RC] ASDIRECTED 09/17/17 18:15 Sodium Chloride 0.9% [Normal Saline] 1,000 ml IV STAT - Assessment/Plan Last 24 Hours: My Active Orders 09/17/17 15:58 UA W/MICROSCOPIC [URIN] Stat 09/17/17 15:59 EKG Documentation Completion [RC] STAT Chest 1V Frontal [CR] Stat 09/17/17 16:44 CULTURE BLOOD [BC] Stat 09/17/17 16:58 Blood Culture x2 Reflex Set [OM.PC] Stat 09/17/17 17:15 CULTURE BLOOD [BC] Stat 09/17/17 18:13 RT Aerosol Therapy [RC] ASDIRECTED 09/17/17 18:15 Sodium Chloride 0.9% [Normal Saline] 1,000 ml IV STAT
[2017-09-17 17:33] LABS: CHLORIDE,CL 97 mmol/L (98-107); SODIUM,NA 131 mmol/L (136-145)
[2017-09-17] MEDS ORDERED: methylPREDNISolone Sodium Succinate 125 MG/2 ML SDV IVPUSH ONE (18:13)
[2017-09-17] MEDS ORDERED: Albuterol/Ipratropium 3.0-0.5 MG/3 ML Neb Soln NEB ONE (18:13)
[2017-09-17] MEDS: Sodium Chloride 0.9% 1,000 ML IV SCH (18:33)
[2017-09-17] MEDS ORDERED: Acetaminophen 325 MG Tab PO PRN (19:12)
[2017-09-17] MEDS ORDERED: Albuterol/Ipratropium 3.0-0.5 MG/3 ML Neb Soln NEB PRN (19:12)
[2017-09-17] MEDS ORDERED: Ondansetron 4 MG/2 ML SDV IVPUSH PRN (19:12)
--- NOTE | 2017-09-17 19:29 | PCM.HP ---
H&P History of Present Illness - General Date of Service: 09/17/17 Admit Problem/Dx: Admission Diagnosis/Problem Admission Diagnosis/Problem Hypoxia - History of Present Illness Initial Comments - Free Text/Narative: 72 yo female with pmh of metastatic small cell lung cancer who is on palliative chemotherapy. She has a history of SIADH with confusion and discoordination. She presents to the ED with worsening symptoms. Sodium was found to be 131. - Related Data Allergies/Adverse Reactions: Allergies Allergy/AdvReac Type Severity Reaction Status Date / Time dust Allergy Shortness Uncoded 09/17/17 16:20 of Breath Febreeze Allergy Shortness Uncoded 09/17/17 16:20 of Breath pinecone Allergy Shortness Uncoded 09/17/17 16:20 of Breath Home Medications: Home Meds Metoprolol Tartrate [Lopressor] 50 mg PO BID 02/08/16 [History] Omeprazole 20 mg PO ACBREAKFAST 02/08/16 [History] Ramipril 10 mg PO BID 02/08/16 [History] Gabapentin [Neurontin] 400 mg PO QID 02/23/16 [History] traMADol [Ultram] 50 mg PO Q6H PRN 04/22/16 [History] Aspirin [Ecotrin] 81 mg PO DAILY 04/23/16 [History] Fluticasone Propionate [Flonase] 1 spray NASBOTH DAILY 04/23/16 [History] Polyethylene Glycol 3350 [MiraLAX] 17 gm PO DAILY PRN 04/23/16 [History] Sennosides/Docusate Sodium [Senna-S Tablet] 2 tab PO BEDTIME PRN 04/23/16 [ History] Loratadine [Claritin] 10 mg PO DAILY 05/26/16 [History] Budesonide/Formoterol [Symbicort 160-4.5 MCG] 2 inh IH BID 04/03/17 [History] Sodium Chloride 1 gm PO QID tablet 04/06/17 [Rx] Furosemide [Lasix] 20 mg PO DAILY 09/14/17 [History] Ondansetron [Zofran] 8 mg PO Q8H PRN 09/14/17 [History] Simvastatin [Zocor] 80 mg PO BEDTIME 09/14/17 [History] predniSONE [Prednisone] 5 mg PO DAILY 07/02/18 [History] Past Medical History HEENT History: Reports: Cataract, Impaired Vision Other HEENT History: Cataract surgeries on both eyes Cardiovascular History: Reports: High Cholesterol, Hypertension, PVD, Other ( See Below) Respiratory History: Reports: COPD, Pneumonia, Recurrent Other Respiratory History: admitted to the hospital 1 week ago for pneumonia, Gastrointestinal History: Reports: GERD Other Gastrointestinal History: liver cancer Genitourinary History: Reports: Chronic Renal Insuffiency, Renal Disease Other Genitourinary History: Pt states "My right kidney is not functioning and left is only 30% functioning." 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 [employer] History: Reports: Musculoskeletal History: Reports: Arthritis Neurological History: Reports: Neuropathy, Peripheral Psychiatric History: Reports: Anxiety Endocrine/Metabolic History: Reports: Other (See Below) Other Endocrine/Metabolic History: history of hyponatremia Hematologic History: Reports: Blood Transfusion(s) Other Hematologic History: previous admissions Oncologic (Cancer) History: Reports: Breast, Lung Other Oncologic History: liver cancer, states does not know the source - Infectious Disease History Infectious Disease History: Reports: None - Past Surgical History Head Surgeries/Procedures: Reports: None Female Surgical History: Reports: Hysterectomy Social & Family History - Family History Family Medical History: Noncontributory HEENT: Reports: Cataract, Impaired Vision Cardiac: Reports: CAD, High Cholesterol, Hypertension, [place] Respiratory: Reports: COPD OBGYN: Reports: Musculoskeletal: Reports: Arthritis Psychiatric: Reports: Anxiety, Depression Oncologic: Reports: Lung - Tobacco Use Smoking Status *Q: Former Smoker Used Tobacco, but Quit: Yes Month/Year Tobacco Last Used: 03/16/2015 - Caffeine Use Caffeine Use: Reports: Coffee Other Caffeine Use: 1-2 cups/day Caffeine Use Comment: 1-2cups/day - Recreational Drug Use Recreational Drug Use: No H&P Review of Systems - Review of Systems: Review Of Systems: ROS reveals no pertinent complaints other than HPI. Exam - Exam Exam: See Below - Vital Signs Vital Signs: Last Vital Signs Temp 36.8 C 09/17/17 16:17 Pulse 67 09/17/17 18:50 Resp 19 09/17/17 18:50 BP 168/79 H 09/17/17 18:50 Pulse Ox 98 09/17/17 18:50 Weight: 57.153 kg - Exam General: Cooperative. No: Mild Distress HEENT: Mucosa Moist & [place] Cardiovascular: Regular Rate, Regular Rhythm GI/Abdominal Exam: Soft, Non-Tender Extremities: Non-Tender, No Pedal Edema Skin: Warm, Dry, Intact - Patient Data Lab Results Last 24 hrs: Laboratory Results - last 24 hr 09/17/17 09/17/17 Range/Units 16:49 16:49 WBC 4.88 (4.0-11.0) K/uL RBC 3.88 L (4.30-5.90) M/uL Hgb 12.3 (12.0-16.0) g/dL Hct 37.3 (36.0-46.0) % MCV 96.1 (80.0-98.0) fL MCH 31.7 (27.0-32.0) pg MCHC 33.0 (31.0-37.0) g/dL RDW Std Deviation 52.1 (28.0-62.0) fl RDW Coeff of [place] 15 (11.0-15.0) % Plt Count 185 (150-400) K/uL MPV 10.10 (7.40-12.00) fL Neut % (Auto) 69.2 (48.0-80.0) % Lymph % (Auto) 20.3 (16.0-40.0) % [place] % (Auto) 7.6 (0.0-15.0) % Eos % (Auto) 2.7 (0.0-7.0) % Baso % (Auto) 0.2 (0.0-1.5) % Neut # (Auto) 3.4 (1.4-5.7) K/uL Lymph # (Auto) 1.0 (0.6-2.4) K/uL [place] # (Auto) 0.4 (0.0-0.8) K/uL Eos # (Auto) 0.1 (0.0-0.7) K/uL Baso # (Auto) 0.0 (0.0-0.1) K/uL Nucleated RBC % 0.0 /100WBC Nucleated RBCs # 0 K/uL Sodium 131 L (136-145) mmol/L Potassium 3.6 (3.5-5.1) mmol/L Chloride 97 L (98-107) mmol/L Carbon Dioxide 32.5 H (21.0-32.0) mmol/L BUN 16 (7.0-18.0) mg/dL Creatinine 1.1 H (0.6-1.0) mg/dL Est Cr Clr Drug Dosing 35.91 mL/min Estimated GFR (MDRD) 49.1 ml/min Glucose 81 (74-106) mg/dL Calcium 9.5 (8.5-10.1) mg/dL Total Bilirubin 0.4 (0.2-1.0) mg/dL AST 28 (15-37) IU/L ALT 42 (14-63) IU/L Alkaline Phosphatase 131 H (46-116) U/L Troponin I < 0.050 (0.000-0.056) ng/mL Total Protein 6.4 (6.4-8.2) g/dL Albumin 3.8 (3.4-5.0) g/dL Globulin 2.6 (2.0-3.5) g/dL Albumin/Globulin Ratio 1.5 (1.3-2.8) Result Diagrams: 09/19/17 05:10 09/19/17 05:10 Problem List Initiated/Reviewed/Updated: Yes Orders Last 24hrs: Active Orders 24 hr Category Date Time Status Admission Status [Patient Status] [ADT] Stat ADT 09/17/17 18:23 Active EKG Documentation Completion [RC] STAT Care 09/17/17 15:59 Active Oxygen Therapy [RC] PRN Care 09/17/17 19:12 Ordered RT Aerosol Therapy [RC] ASDIRECTED Care 09/17/17 18:13 Active RT Aerosol Therapy [RC] ASDIRECTED Care 09/17/17 19:16 Ordered VTE/DVT Education [RC] PER UNIT ROUTINE Care 09/17/17 19:12 Ordered Vital Signs [RC] Q4H Care 09/17/17 19:12 Ordered Regular Diet [DIET] Diet 09/17/17 Breakfast Ordered Chest 1V Frontal [CR] Stat Exams 09/17/17 15:59 Taken BASIC METABOLIC PANEL,BMP [CHEM] AM Lab 09/18/17 05:11 Ordered CBC WITH AUTO DIFF [HEME] AM Lab 09/18/17 05:11 Ordered CULTURE BLOOD [BC] Stat Lab 09/17/17 16:44 Received CULTURE BLOOD [BC] Stat Lab 09/17/17 17:15 Received UA W/MICROSCOPIC [URIN] Stat Lab 09/17/17 15:58 Ordered Acetaminophen [Tylenol] Med 09/17/17 19:12 Ordered 650 mg PO Q4H PRN Albuterol/Ipratropium [DuoNeb 3.0-0.5 MG/3 ML] Med 09/17/17 19:12 Ordered 3 ml NEB Q4HRRT PRN Budesonide/Formoterol [Symbicort 160-4.5 MCG] Med 09/17/17 21:00 Ordered 2 inh IH BID Enoxaparin [Lovenox] Med 09/17/17 19:15 Ordered 40 mg SUBCUT Q24H Fluticasone Propionate [Flonase] Med 09/18/17 09:00 Ordered 1 spray NASBOTH DAILY Furosemide [Lasix] Med 09/18/17 09:00 Ordered 20 mg PO DAILY Gabapentin [Neurontin] Med 09/18/17 00:00 Ordered 400 mg PO QID Metoprolol Tartrate [Lopressor] Med 09/17/17 21:00 Ordered 50 mg PO BID Omeprazole Med 09/18/17 07:30 Ordered 20 mg PO ACBREAKFAST Ondansetron [Zofran] Med 09/17/17 19:12 Ordered 4 mg IVPUSH Q4H PRN Ramipril [Altace] Med 09/17/17 21:00 Ordered 10 mg PO BID Simvastatin [Zocor] Med 09/17/17 21:00 Ordered 80 mg PO BEDTIME Sodium Chloride 0.9% [Normal Saline] 1,000 ml Med 09/17/17 18:15 Active IV STAT predniSONE Med 09/18/17 09:00 Ordered 5 mg PO DAILY Blood Culture x2 Reflex Set [OM.PC] Stat Oth 09/17/17 16:58 Ordered Sequential Compression Device [OM.PC] Per Unit Routine Oth 09/17/17 19:12 Ordered Medication Orders Acetaminophen (Tylenol) 650 mg PO Q4H PRN PRN Reason: Pain (Mild 1-3)/fever Albuterol/Ipratropium (Duoneb 3.0-0.5 Mg/3 Ml) 3 ml NEB Q4HRRT PRN PRN Reason: Shortness Of Breath/wheezing Enoxaparin Sodium (Lovenox) 40 mg SUBCUT Q24H [facility] Fluticasone Propionate (Flonase) 0 gm NASBOTH DAILY [facility] Furosemide (Lasix) 20 mg PO DAILY [facility] Gabapentin (Neurontin) 400 mg PO QID [facility] Sodium Chloride (Normal Saline) 1,000 mls @ 125 mls/hr IV STAT [facility] Last Admin: 09/17/17 18:33 Dose: 125 mls/hr Metoprolol Tartrate (Lopressor) 50 mg PO BID [facility] Non-Formulary Medication (Budesonide/Formoterol [Symbicort 160-4.5 Mcg]) 2 inh IH BID [facility] Omeprazole (Omeprazole) 20 mg PO ACBREAKFAST [facility] Ondansetron HCl (Zofran) 4 mg IVPUSH Q4H PRN PRN Reason: Nausea Prednisone (Prednisone) 5 mg PO DAILY [facility] Ramipril (Altace) 10 mg PO BID [facility] Simvastatin (Zocor) 80 mg PO BEDTIME [facility] Assessment/Plan Comment:: 72 yo female admitted for worsening confusion. We will monitor and try to obtain MRI.
[2017-09-17] MEDS: Metoprolol Tartrate 50 MG Tab PO SCH (20:06)
[2017-09-17] MEDS: Enoxaparin 40 MG/0.4 ML Syringe SUBCUT SCH (20:06)
[2017-09-17] MEDS: Simvastatin 40 MG Tab PO SCH (20:06)
[2017-09-17] MEDS: Gabapentin 800 MG Tab PO SCH (23:54)
[2017-09-18] MEDS: Sodium Chloride 0.9% 1,000 ML IV SCH ×2 (03:19→11:22)
[2017-09-18] MEDS: Gabapentin 800 MG Tab PO SCH ×3 (06:34→18:22)
[2017-09-18] MEDS: Omeprazole 20 MG Cap.CR PO SCH (06:34)
[2017-09-18] MEDS: SYMBICORT 160/4.5 INH SCH ×3 (07:30→23:03)
[2017-09-18] MEDS: Fluticasone Propionate Nasal Spray 16 GM Bottle NASBOTH SCH (09:13)
[2017-09-18] MEDS: predniSONE 5 MG Tab PO SCH (09:14)
[2017-09-18] MEDS: Metoprolol Tartrate 50 MG Tab PO SCH ×2 (09:14→20:16)
[2017-09-18] MEDS: Furosemide 20 MG Tab PO SCH (09:16)
--- NOTE | 2017-09-18 11:23 | PCM.PN ---
- General Info Date of Service: 09/18/17 - Review of Systems Systems Review Comment:: no complaints - Patient Data Vitals - Most Recent: Last Vital Signs Temp 36.0 C 09/18/17 08:00 Pulse 75 09/18/17 09:14 Resp 18 09/18/17 08:00 BP 190/107 H 09/18/17 09:14 Pulse Ox 88 L 09/18/17 08:00 Weight - Most Recent: 57.153 kg I&O - Last 24 Hours: Intake & Output 09/17/17 09/18/17 09/18/17 22:59 06:59 14:59 Intake Total 200 Balance 200 Lab Results Last 24 Hours: Laboratory Results - last 24 hr 09/17/17 09/17/17 09/17/17 Range/Units 16:49 16:49 22:15 WBC 4.88 (4.0-11.0) K/uL RBC 3.88 L (4.30-5.90) M/uL Hgb 12.3 (12.0-16.0) g/dL Hct 37.3 (36.0-46.0) % MCV 96.1 (80.0-98.0) fL MCH 31.7 (27.0-32.0) pg MCHC 33.0 (31.0-37.0) g/dL RDW Std Deviation 52.1 (28.0-62.0) fl RDW Coeff of [place] 15 (11.0-15.0) % Plt Count 185 (150-400) K/uL MPV 10.10 (7.40-12.00) fL Neut % (Auto) 69.2 (48.0-80.0) % Lymph % (Auto) 20.3 (16.0-40.0) % [place] % (Auto) 7.6 (0.0-15.0) % Eos % (Auto) 2.7 (0.0-7.0) % Baso % (Auto) 0.2 (0.0-1.5) % Neut # (Auto) 3.4 (1.4-5.7) K/uL Lymph # (Auto) 1.0 (0.6-2.4) K/uL [place] # (Auto) 0.4 (0.0-0.8) K/uL Eos # (Auto) 0.1 (0.0-0.7) K/uL Baso # (Auto) 0.0 (0.0-0.1) K/uL Nucleated RBC % 0.0 /100WBC Nucleated RBCs # 0 K/uL Sodium 131 L 132 L (136-145) mmol/L Potassium 3.6 (3.5-5.1) mmol/L Chloride 97 L (98-107) mmol/L Carbon Dioxide 32.5 H (21.0-32.0) mmol/L BUN 16 (7.0-18.0) mg/dL Creatinine 1.1 H (0.6-1.0) mg/dL Est Cr Clr Drug Dosing 35.91 mL/min Estimated GFR (MDRD) 49.1 ml/min Glucose 81 (74-106) mg/dL Calcium 9.5 (8.5-10.1) mg/dL Total Bilirubin 0.4 (0.2-1.0) mg/dL AST 28 (15-37) IU/L ALT 42 (14-63) IU/L Alkaline Phosphatase 131 H (46-116) U/L Troponin I < 0.050 (0.000-0.056) ng/mL Total Protein 6.4 (6.4-8.2) g/dL Albumin 3.8 (3.4-5.0) g/dL Globulin 2.6 (2.0-3.5) g/dL Albumin/Globulin Ratio 1.5 (1.3-2.8) Urine Color Urine Appearance Urine pH (5.0-8.0) Ur Specific [place] (1.001-1.035) Urine Protein (NEGATIVE) mg/dL Urine Glucose (UA) (NEGATIVE) mg/dL Urine Ketones (NEGATIVE) mg/dL Urine Occult Blood (NEGATIVE) Urine Nitrite (NEGATIVE) Urine Bilirubin (NEGATIVE) Urine Urobilinogen (<2.0) EU/dL Ur Leukocyte Esterase (NEGATIVE) Urine RBC (0-2/HPF) Urine WBC (0-5/HPF) Ur Epithelial Cells (NONE-FEW) Amorphous Sediment (NEGATIVE) Urine Bacteria (NEGATIVE) Urine Mucus (NONE-MOD) 09/18/17 09/18/17 09/18/17 Range/Units 02:45 05:13 05:13 WBC 3.98 L (4.0-11.0) K/uL RBC 3.90 L (4.30-5.90) M/uL Hgb 12.1 (12.0-16.0) g/dL Hct 37.3 (36.0-46.0) % MCV 95.6 (80.0-98.0) fL MCH 31.0 (27.0-32.0) pg MCHC 32.4 (31.0-37.0) g/dL RDW Std Deviation 51.4 (28.0-62.0) fl RDW Coeff of [place] 15 (11.0-15.0) % Plt Count 197 (150-400) K/uL MPV 10.60 (7.40-12.00) fL Neut % (Auto) 91.0 H (48.0-80.0) % Lymph % (Auto) 8.5 L (16.0-40.0) % [place] % (Auto) 0.5 (0.0-15.0) % Eos % (Auto) 0.0 (0.0-7.0) % Baso % (Auto) 0.0 (0.0-1.5) % Neut # (Auto) 3.6 (1.4-5.7) K/uL Lymph # (Auto) 0.3 L (0.6-2.4) K/uL [place] # (Auto) 0.0 (0.0-0.8) K/uL Eos # (Auto) 0.0 (0.0-0.7) K/uL Baso # (Auto) 0.0 (0.0-0.1) K/uL Nucleated RBC % 0.0 /100WBC Nucleated RBCs # 0 K/uL Sodium 132 L (136-145) mmol/L Potassium 4.0 (3.5-5.1) mmol/L Chloride 96 L (98-107) mmol/L Carbon Dioxide 27.3 (21.0-32.0) mmol/L BUN 17 (7.0-18.0) mg/dL Creatinine 1.0 (0.6-1.0) mg/dL Est Cr Clr Drug Dosing 39.50 mL/min Estimated GFR (MDRD) 54.8 ml/min Glucose 132 H (74-106) mg/dL Calcium 9.4 (8.5-10.1) mg/dL Total Bilirubin (0.2-1.0) mg/dL AST (15-37) IU/L ALT (14-63) IU/L Alkaline Phosphatase (46-116) U/L Troponin I (0.000-0.056) ng/mL Total Protein (6.4-8.2) g/dL Albumin (3.4-5.0) g/dL Globulin (2.0-3.5) g/dL Albumin/Globulin Ratio (1.3-2.8) Urine Color YELLOW Urine Appearance CLOUDY Urine pH 6.5 (5.0-8.0) Ur Specific [place] 1.015 (1.001-1.035) Urine Protein NEGATIVE (NEGATIVE) mg/dL Urine Glucose (UA) NEGATIVE (NEGATIVE) mg/dL Urine Ketones NEGATIVE (NEGATIVE) mg/dL Urine Occult Blood NEGATIVE (NEGATIVE) Urine Nitrite NEGATIVE (NEGATIVE) Urine Bilirubin NEGATIVE (NEGATIVE) Urine Urobilinogen 0.2 (<2.0) EU/dL Ur Leukocyte Esterase TRACE (NEGATIVE) Urine RBC NONE SEEN (0-2/HPF) Urine WBC 0-2 (0-5/HPF) Ur Epithelial Cells FEW (NONE-FEW) Amorphous Sediment MODERATE (NEGATIVE) Urine Bacteria FEW (NEGATIVE) Urine Mucus LIGHT (NONE-MOD) Med Orders - Current: Current Medications Acetaminophen (Tylenol) 650 mg PO Q4H PRN PRN Reason: Pain (Mild 1-3)/fever Albuterol/Ipratropium (Duoneb 3.0-0.5 Mg/3 Ml) 3 ml NEB Q4HRRT PRN PRN Reason: Shortness Of Breath/wheezing Enoxaparin Sodium (Lovenox) 40 mg SUBCUT Q24H [facility] Last Admin: 09/17/17 20:06 Dose: 40 mg Fluticasone Propionate (Flonase) 0 gm NASBOTH DAILY [facility] Last Admin: 09/18/17 09:13 Dose: 1 spray Furosemide (Lasix) 20 mg PO DAILY [facility] Last Admin: 09/18/17 09:16 Dose: 20 mg Gabapentin (Neurontin) 400 mg PO QID [facility] Last Admin: 09/18/17 06:34 Dose: 400 mg Sodium Chloride (Normal Saline) 1,000 mls @ 125 mls/hr IV STAT [facility] Last Admin: 07/06/18 03:19 Dose: 125 mls/hr Metoprolol Tartrate (Lopressor) 50 mg PO BID [facility] Last Admin: 09/18/17 09:14 Dose: 50 mg Omeprazole (Omeprazole) 20 mg PO ACBREAKFAST [facility] Last Admin: 09/18/17 06:34 Dose: 20 mg Ondansetron HCl (Zofran) 4 mg IVPUSH Q4H PRN PRN Reason: Nausea Symbicort 160/4.5 2 each INH BID [facility] Last Admin: 09/18/17 09:46 Dose: Not Given Prednisone (Prednisone) 5 mg PO DAILY [facility] Last Admin: 09/18/17 09:14 Dose: 5 mg Ramipril (Altace) 10 mg PO BID [facility] Last Admin: 09/18/17 09:13 Dose: 10 mg Simvastatin (Zocor) 80 mg PO BEDTIME [facility] Last Admin: 09/17/17 20:06 Dose: 80 mg Discontinued Medications Albuterol/Ipratropium (Duoneb 3.0-0.5 Mg/3 Ml) 3 ml NEB ONETIME ONE Stop: 09/17/17 18:14 Last Admin: 09/17/17 18:33 Dose: 3 ml Methylprednisolone Sodium Succinate (Solu-Medrol) 125 mg IVPUSH ONETIME ONE Stop: 09/17/17 18:14 Last Admin: 09/17/17 18:33 Dose: 125 mg - Exam General: Cooperative, No Acute Distress Lungs: Clear to Auscultation, Normal Respiratory Effort Cardiovascular: Regular Rate, Regular Rhythm GI/Abdominal Exam: Normal Bowel Sounds, Soft, Non-Tender, No Distention Extremities: Non-Tender, No Pedal Edema Skin: Warm, Dry, Intact Neurological: No New Focal Deficit - Problem List Review Problem List Initiated/Reviewed/Updated: Yes - My Orders Last 24 Hours: My Active Orders 09/17/17 19:12 Oxygen Therapy [RC] PRN Vital Signs [RC] Q4H Acetaminophen [Tylenol] 650 mg PO Q4H PRN Albuterol/Ipratropium [DuoNeb 3.0-0.5 MG/3 ML] 3 ml NEB Q4HRRT PRN Ondansetron [Zofran] 4 mg IVPUSH Q4H PRN Sequential Compression Device [OM.PC] Per Unit Routine 09/17/17 19:16 RT Aerosol Therapy [RC] ASDIRECTED 09/17/17 20:00 Enoxaparin [Lovenox] 40 mg SUBCUT Q24H 09/17/17 21:00 Metoprolol Tartrate [Lopressor] 50 mg PO BID Patient's Own Medication [Ptom] 2 each INH BID Ramipril [Altace] 10 mg PO BID Simvastatin [Zocor] 80 mg PO BEDTIME 09/18/17 00:00 Gabapentin [Neurontin] 400 mg PO QID 09/18/17 07:30 Omeprazole 20 mg PO ACBREAKFAST 09/18/17 09:00 Fluticasone Propionate [Flonase] 0 gm NASBOTH DAILY Furosemide [Lasix] 20 mg PO DAILY predniSONE 5 mg PO DAILY 09/18/17 10:47 Brain w wo Cont [MR] Routine - Plan Plan:: 72 yo female with metastatic small cell lung cancer who was admitted for altered mental status. We will get MRI brain if available. Sodium is 131.
--- NOTE | 2017-09-18 15:32 | CR ---
EXAM DATE: 09/17/17 PATIENT'S AGE: 72 Patient: JUICE ALMONTE Facility: [place], [place] Site . Site : [id number] Study: XRay Chest [id number]/5/[id number] 4:34:36 PM Ordering Physician: Milli Lucas Final Report: HISTORY: Pain, shortness of breath. FINDINGS: AP portable chest radiograph is compared with 14 September 2017. Left-sided Port-A- Cath in place with tip in the mid SVC. Cardiac silhouette is normal. Pulmonary vasculature is free of cephalization. No consolidation or pleural effusion is seen. No pneumothorax. IMPRESSION: No acute cardiopulmonary disease. Dictated by Pilar Quijano MD @ 09/17/2017 5:09:01 PM Dictated by: Pilar Quijano MD @ 09/17/2017 17:09:08 (Electronic Signature) Report Signed by Proxy. LOREE
[2017-09-18] MEDS: Simvastatin 40 MG Tab PO SCH (20:16)
[2017-09-18] MEDS: Enoxaparin 40 MG/0.4 ML Syringe SUBCUT SCH (20:17)
[2017-09-19] MEDS: Gabapentin 800 MG Tab PO SCH ×3 (00:10→12:08)
[2017-09-19] MEDS: Sodium Chloride 0.9% 1,000 ML IV SCH (03:49)
[2017-09-19] MEDS: Omeprazole 20 MG Cap.CR PO SCH (06:30)
[2017-09-19] MEDS: Furosemide 20 MG Tab PO SCH (09:18)
[2017-09-19] MEDS: Metoprolol Tartrate 50 MG Tab PO SCH (09:18)
[2017-09-19] MEDS: predniSONE 5 MG Tab PO SCH (09:18)
[2017-09-19] MEDS: SYMBICORT 160/4.5 INH SCH (09:42)
[2017-09-19] MEDS: Fluticasone Propionate Nasal Spray 16 GM Bottle NASBOTH SCH (09:43)
--- NOTE | 2017-09-19 11:17 | PCM.DCSUM1 ---
Discharge Summary - Discharge Data Discharge Date: 09/19/17 Discharge Disposition: Home, Self-Care 01 Condition: Stable - Patient Summary/Data Hospital Course: 72 yo female with metastatic small cell lung cancer who presented with worsening confusion. She was brought in by family as she was unable to follow directions, cloth or toilet herself. Patient did not cooperate for MRI of brain on admission. Her mental status has improved but unable to get MRI as it is the weekend. I spoke with family regarding her encephalopathy is likely due to her cancer or chemotherapy. I spoke with family regarding longterm placement and family states they can take care of her at home. Will discharge patient home to have follow up with cancer center. - Patient Instructions Diet: Regular Diet as Tolerated - Discharge Plan Home Medications: Home Meds Metoprolol Tartrate [Lopressor] 50 mg PO BID 02/08/16 [History] Omeprazole 20 mg PO ACBREAKFAST 02/08/16 [History] Ramipril 10 mg PO BID 02/08/16 [History] Gabapentin [Neurontin] 400 mg PO QID 02/23/16 [History] traMADol [Ultram] 50 mg PO Q6H PRN 04/22/16 [History] Aspirin [Ecotrin] 81 mg PO DAILY 04/23/16 [History] Fluticasone Propionate [Flonase] 1 spray NASBOTH DAILY 04/23/16 [History] Polyethylene Glycol 3350 [MiraLAX] 17 gm PO DAILY PRN 04/23/16 [History] Sennosides/Docusate Sodium [Senna-S Tablet] 2 tab PO BEDTIME PRN 04/23/16 [ History] Loratadine [Claritin] 10 mg PO DAILY 05/26/16 [History] Budesonide/Formoterol [Symbicort 160-4.5 MCG] 2 inh IH BID 04/03/17 [History] Sodium Chloride 1 gm PO QID tablet 04/06/17 [Rx] Furosemide [Lasix] 20 mg PO DAILY 09/14/17 [History] Ondansetron [Zofran] 8 mg PO Q8H PRN 09/14/17 [History] Simvastatin [Zocor] 80 mg PO BEDTIME 09/14/17 [History] predniSONE [Prednisone] 5 mg PO DAILY 09/14/17 [History] Forms: ED Department Discharge Referrals: PCP,Unknown [Ordering Only Provider] - - Patient Data Vitals - Most Recent: Last Vital Signs Temp 37.0 C 09/19/17 08:00 Pulse 82 09/19/17 09:18 Resp 16 09/19/17 08:00 BP 192/96 H 09/19/17 09:19 Pulse Ox 94 L 09/19/17 08:00 Weight - Most Recent: 57.153 kg I&O - Last 24 hours: Intake & Output 09/18/17 09/19/17 09/19/17 22:59 06:59 14:59 Intake Total 2186 300 Output Total 1149 Balance 2186 -849 Lab Results - Last 24 hrs: Laboratory Results - last 24 hr 09/19/17 09/19/17 Range/Units 05:10 05:10 WBC 6.05 (4.0-11.0) K/uL RBC 3.76 L (4.30-5.90) M/uL Hgb 11.6 L (12.0-16.0) g/dL Hct 35.5 L (36.0-46.0) % MCV 94.4 (80.0-98.0) fL MCH 30.9 (27.0-32.0) pg MCHC 32.7 (31.0-37.0) g/dL RDW Std Deviation 49.5 (28.0-62.0) fl RDW Coeff of [place] 14 (11.0-15.0) % Plt Count 210 (150-400) K/uL MPV 10.70 (7.40-12.00) fL Neut % (Auto) 72.2 (48.0-80.0) % Lymph % (Auto) 19.5 (16.0-40.0) % [place] % (Auto) 7.8 (0.0-15.0) % Eos % (Auto) 0.5 (0.0-7.0) % Baso % (Auto) 0.0 (0.0-1.5) % Neut # (Auto) 4.4 (1.4-5.7) K/uL Lymph # (Auto) 1.2 (0.6-2.4) K/uL [place] # (Auto) 0.5 (0.0-0.8) K/uL Eos # (Auto) 0.0 (0.0-0.7) K/uL Baso # (Auto) 0.0 (0.0-0.1) K/uL Nucleated RBC % 0.0 /100WBC Nucleated RBCs # 0 K/uL Sodium 130 L (136-145) mmol/L Potassium 3.5 (3.5-5.1) mmol/L Chloride 96 L (98-107) mmol/L Carbon Dioxide 28.6 (21.0-32.0) mmol/L BUN 17 (7.0-18.0) mg/dL Creatinine 1.0 (0.6-1.0) mg/dL Est Cr Clr Drug Dosing 39.50 mL/min Estimated GFR (MDRD) 54.8 ml/min Glucose 97 (74-106) mg/dL Calcium 8.7 (8.5-10.1) mg/dL LOIDA Results - Last 24 hrs: Microbiology 09/17/17 17:15 Aerobic Blood Culture - Preliminary Blood - Venous - Lab Draw NO GROWTH AFTER 1 DAY Anaerobic Blood Culture - Preliminary NO GROWTH AFTER 1 DAY 09/17/17 16:44 Aerobic Blood Culture - Preliminary Blood - Venous NO GROWTH AFTER 1 DAY Anaerobic Blood Culture - Preliminary NO GROWTH AFTER 1 DAY Med Orders - Current: Current Medications Acetaminophen (Tylenol) 650 mg PO Q4H PRN PRN Reason: Pain (Mild 1-3)/fever Albuterol/Ipratropium (Duoneb 3.0-0.5 Mg/3 Ml) 3 ml NEB Q4HRRT PRN PRN Reason: Shortness Of Breath/wheezing Enoxaparin Sodium (Lovenox) 40 mg SUBCUT Q24H [facility] Last Admin: 09/18/17 20:17 Dose: 40 mg Fluticasone Propionate (Flonase) 0 gm NASBOTH DAILY [facility] Last Admin: 09/19/17 09:43 Dose: 1 spray Furosemide (Lasix) 20 mg PO DAILY [facility] Last Admin: 09/19/17 09:18 Dose: 20 mg Gabapentin (Neurontin) 400 mg PO QID [facility] Last Admin: 09/19/17 06:01 Dose: 400 mg Sodium Chloride (Normal Saline) 1,000 mls @ 125 mls/hr IV STAT [facility] Last Admin: 09/19/17 03:49 Dose: 125 mls/hr Metoprolol Tartrate (Lopressor) 50 mg PO BID [facility] Last Admin: 09/19/17 09:18 Dose: 50 mg Omeprazole (Omeprazole) 20 mg PO ACBREAKFAST [facility] Last Admin: 09/19/17 06:30 Dose: 20 mg Ondansetron HCl (Zofran) 4 mg IVPUSH Q4H PRN PRN Reason: Nausea Symbicort 160/4.5 2 each INH BID [facility] Last Admin: 09/19/17 09:42 Dose: Not Given Prednisone (Prednisone) 5 mg PO DAILY [facility] Last Admin: 09/19/17 09:18 Dose: 5 mg Ramipril (Altace) 10 mg PO BID [facility] Last Admin: 09/19/17 09:19 Dose: 10 mg Simvastatin (Zocor) 80 mg PO BEDTIME [facility] Last Admin: 09/18/17 20:16 Dose: 80 mg Discontinued Medications Albuterol/Ipratropium (Duoneb 3.0-0.5 Mg/3 Ml) 3 ml NEB ONETIME ONE Stop: 09/17/17 18:14 Last Admin: 09/17/17 18:33 Dose: 3 ml Methylprednisolone Sodium Succinate (Solu-Medrol) 125 mg IVPUSH ONETIME ONE Stop: 09/17/17 18:14 Last Admin: 09/17/17 18:33 Dose: 125 mg
[2017-09-20 07:31] VITALS: BP 124/77
== END 2017-09-19 17:35 | disposition home or self-care (01) ==
LOC: MW.ED 15:55 → MW.MS 18:23
PROVIDERS: ADMIT Internal Medicine; ATTEND Internal Medicine
DX: R41.0 Disorientation, unspecified (principal); C34.90 Malignant neoplasm of unspecified part of unspecified bronchus or lung; C78.7 Secondary malignant neoplasm of liver and intrahepatic bile duct; J30.89 Other allergic rhinitis; E78.00 Pure hypercholesterolemia, unspecified; J44.9 Chronic obstructive pulmonary disease, unspecified; K21.9 Gastro-esophageal reflux disease without esophagitis; I12.9 Hypertensive chronic kidney disease with stage 1 through stage 4 chronic kidney disease, or unspecified chronic kidney disease; N18.9 Chronic kidney disease, unspecified; M19.90 Unspecified osteoarthritis, unspecified site; F41.9 Anxiety disorder, unspecified; G62.9 Polyneuropathy, unspecified; I73.9 Peripheral vascular disease, unspecified; Z87.891 Personal history of nicotine dependence; Z79.51 Long term (current) use of inhaled steroids; Z79.52 Long term (current) use of systemic steroids; Z79.82 Long term (current) use of aspirin; Z79.899 Other long term (current) drug therapy
CPT/HCPCS: 36415; 71045; 80048; 80053; 81001; 84295; 84484; 85025; 87040; 93005; 94640; 96361; 96374; 99285; A9270; J1650; J2930; J7040; 96372; 99284; G0378